=== PATIENT | female | born 1940 | race Caucasian/White ===

== ENCOUNTER → 2016-05-21 | Outpatient (CLI) | payer MEDICARE ==
--- NOTE | 2016-05-21 11:41 | US ---
EXAMINATION TYPE: US pelvic complete DATE OF EXAM: 05/21/2016 11:15 AM COMPARISON: NONE CLINICAL HISTORY: N95.0 Post menopausal bleeding. Bleeding, no pain, hx of LO removal x years ago TECHNIQUE: Transabdominal (TA) Date of LMP: PM EXAM MEASUREMENTS: Uterus: 9.8 x 5.0 x 3.5 cm Endometrial Stripe: 0.4 cm Right Ovary: 2.7 x 1.3 x 1.4 cm Left Ovary: Surgically absent TECHNOLOGIST IMPRESSION: 1. Uterus: Anteverted peripheral calcifications seen 2. Endometrium: fluid, two echogenic lesions: 1- 1.5 x 1.0 x 0.6 cm 2- 0.9 x 1.0 x 0.6 cm 3. Right Ovary: wnl 4. Left Ovary: removed Spectral, color and waveform doppler imaging shows good arterial and venous flow within the ovaries ; there is no evidence for ovarian torsion. 5. Bilateral Adnexa: wnl 6. Posterior cul-de-sac: no free fluid IMPRESSION: Probable endometrial polyps.
== END | disposition home or self-care (01) ==
LOC: RADUSWWP 10:49
PROVIDERS: ATTEND Family Medicine
DX: N95.0 Postmenopausal bleeding (principal)
CPT/HCPCS: 76856

== ENCOUNTER 2016-10-11 16:51 | Emergency (ER) | payer MEDICARE ==
[2016-10-11] MEDS ORDERED: DIPH,PERTUS(ACELL)TETVAC-LF 0.5 ML VIAL IM ONE (17:48)
--- NOTE | 2016-10-11 17:56 | ED ---
Wound/Laceration HPI - General Chief Complaint: Wound/Laceration Stated Complaint: Wound on leg, bleeding. Time Seen by Provider: 10/11/16 17:27 Source: patient, family Mode of arrival: wheelchair Limitations: no limitations - History of Present Illness Initial Comments: 75-year-old female presents with bleeding being to the left lower extremity for the last 5 hours per patient states she was shaving in the shower with a new disposable razor when she neck to her grossman. Patient states she got debris bleeding under control with a pressure bandage for about 2 hours post initial quick. Weight the bleeding continued. Patient states she bled quite a bit. She states she just could not get it to stop bleeding. Patient is on Coumadin for A. fib her last INR was 2 days ago at 1.[address] Zelaya's office. Patient states it was slightly achy from the pressure bandage but really is not in any pain. Patient denies any numbness or tingling. Context: accidental, sharp object use Associated Symptoms: none - Related Data Home Medications Medication Instructions Recorded Confirmed Atenolol 25 mg PO BID 05/11/14 01/29/16 Budesonide/Formoterol Fumarate 2 puff INHALATION RT-BID 05/11/14 01/29/16 [Symbicort 80-4.5 Mcg Inhaler] Losartan/Hydrochlorothiazide 1 tab PO DAILY 05/11/14 01/29/16 [Losartan-Hctz 100-25 mg Tab] Atorvastatin [Lipitor] 40 mg PO HS 05/21/14 01/29/16 Docusate Sodium [Dulcolax Stool 100 mg PO BID 05/25/14 01/29/16 Softener] Albuterol Inhaler [Ventolin Hfa 1 - 2 puff INHALATION RT-Q6H PRN 11/06/15 Inhaler] Furosemide [Lasix] 40 mg PO QAM 11/06/15 01/29/16 Potassium Chloride [Klor-Con] 20 meq PO DAILY 11/06/15 01/29/16 Warfarin Sodium [Warfarin Sodium] 4 mg PO MOFR 01/29/16 01/29/16 Warfarin Sodium [Warfarin Sodium] 6 mg PO SUTUWETHSA 01/29/16 01/29/16 Previous Rx's Medication Instructions Recorded Aspirin 81 mg PO DAILY #60 chew 11/09/15 Clopidogrel [Plavix] 75 mg PO DAILY #90 tab 11/09/15 Nitroglycerin Sl Tabs [Nitrostat] 0.4 mg SUBLINGUAL Q5M PRN #25 tab 11/09/15 Allergies Allergy/AdvReac Type Severity Reaction Status Date / Time amiodarone Allergy Nausea & Verified 10/11/16 17:00 Vomiting, confusion Review of Systems ROS Statement: Those systems with pertinent positive or pertinent negative responses have been documented in the HPI. ROS Other: All systems not noted in ROS Statement are negative. Constitutional: Denies: fever Skin: Reports: other (Small laceration to the varicose veins. Left lower extremity) Past Medical History Past Medical History: Atrial Fibrillation, Chest Pain / Angina, COPD, Hyperlipidemia, Hypertension, Osteoarthritis (OA) Additional Past Medical History / Comment(s): SOB w/exertion History of Any Multi-Drug Resistant Organisms: None Reported Past Surgical History: Cholecystectomy, Coronary Bypass/CABG, Heart Catheterization With Stent Additional Past Surgical History / Comment(s): double bypass, repair of mitral valve Past Anesthesia/Blood Transfusion Reactions: No Reported Reaction Date of Last Stent Placement:: 2013 Past Psychological History: No Psychological Hx Reported Smoking Status: Former smoker Past Alcohol Use History: None Reported Past Drug Use History: None Reported - Past Family History Mother Family Medical History: No Reported History General Exam Limitations: no limitations General appearance: alert, in no apparent distress Head exam: Present: atraumatic, normocephalic, normal inspection Extremities exam: Present: normal inspection, full ROM, normal capillary refill. Absent: tenderness, pedal edema, joint swelling, calf tenderness Neurological exam: Present: alert, oriented X3, CN II-XII intact Psychiatric exam: Present: normal affect, normal mood Skin exam: Present: warm, dry, normal color. Absent: intact (Small laceration to the varicosity on the left lower extremity), rash Course Vital Signs 10/11/16 16:57 Temperature 98.3 F Pulse Rate 77 Respiratory 15 Rate Blood Pressure 162/70 O2 Sat by Pulse 97 Oximetry Procedures - Laceration Laceration #1 Site: lower extremity Description: linear Depth: simple, single layer Anesthetic Used: lidocaine 1% Anesthesia Technique: local infiltration Pre-repair: wound explored, irrigated extensively, deep structures intact Type of Sutures: nylon Size of Sutures: 5-0 Technique: other (figure eight) Patient Tolerated Procedure: well, no complications Medical Decision Making - Medical Decision Making Wound seal was first attempted to quit healing the wound however did not work we clean the wound very well prepped and draped appropriately and then put one degrees suture in it. Patient then was placed on bacitracin and dressing and she tolerated it well no complications bleeding was controlled. Disposition Clinical Impression: Laceration Disposition: HOME SELF-CARE Condition: Good Instructions: Laceration (ED), Care For Your Stitches (ED) Additional Instructions: remove sutures in 3 days Referrals: Renzo Molina DO [Primary Care Provider] - 1-2 days Time of Disposition: 17:55
[2016-10-11 18:10] VITALS: BP 139/89; PULSE 78; RESP 18; TEMP 98
--- NOTE | 2016-10-15 02:56 | CDI ---
Documentation Clarification OP Dear Jan DELGAOD MD, Please do addendum for size of laceration repair. Thank you, alexandria mendenhall. poleyard supervisor. If you have any questions please contact coding Manger at [phone]. mtdD
== END 2016-10-11 18:10 | disposition home or self-care (01) ==
LOC: EC 16:51
DX: S81.812A Laceration without foreign body, left lower leg, initial encounter (principal); J44.9 Chronic obstructive pulmonary disease, unspecified; I10 Essential (primary) hypertension; I48.91 Unspecified atrial fibrillation; E78.5 Hyperlipidemia, unspecified; Z23 Encounter for immunization; Z87.891 Personal history of nicotine dependence; Z88.8 Allergy status to other drugs, medicaments and biological substances; Z79.51 Long term (current) use of inhaled steroids; Z79.01 Long term (current) use of anticoagulants; Z79.899 Other long term (current) drug therapy; W26.9XXA Contact with unspecified sharp object(s), initial encounter; Y93.89 Activity, other specified; Y92.89 Other specified places as the place of occurrence of the external cause
CPT/HCPCS: 12001; 90471; 90715; 99282

== ENCOUNTER → 2016-10-20 | Outpatient (CLI) | payer MEDICARE ==
[2016-10-20 10:14] LABS: Basophils % (A) 1 %; CH 28.7; Eosinophils # (A) 0.1 k/uL (0-0.7); Eosinophils % (A) 2 %; HCT 37.9 % (34.0-46.0); HDW 2.64; HGB 12.4 gm/dL (11.4-16.0); Luc # (Auto) 0.15; Luc % (Auto) 2; Lymphocytes # (A) 2.3 k/uL (1.0-4.8); Lymphocytes % (A) 32 %; MCH 28.5 pg (25.0-35.0); MCHC 32.7 g/dL (31.0-37.0); MCV 87.2 fL (80.0-100.0); Mean Platelet Volume 8.9; Monocytes # (A) 0.4 k/uL (0-1.0); Monocytes % (A) 6 %; Neutrophils # (A) 4.1 k/uL (1.3-7.7); Neutrophils % (A) 58 %; RBC 4.35 m/uL (3.80-5.40); RDW 14.3 % (11.5-15.5); WBC 7.1 k/uL (3.8-10.6); WBC (Perox) 7.44
== END | disposition home or self-care (01) ==
LOC: LABPAT 09:40
PROVIDERS: ATTEND Anesthesiology
DX: Z01.812 Encounter for preprocedural laboratory examination (principal)
CPT/HCPCS: 36415; 85025

== ENCOUNTER 2016-10-22 06:53 | Day surgery (SDC) | payer MEDICARE ==
[2016-10-15 08:56] VITALS: BMI 30.4
--- NOTE | 2016-10-21 19:47 | P.HPOB ---
History of Present Illness H&P Date: 10/21/16 Chief Complaint: Postmenopausal bleeding, possible endometrial polyp This is a 75-year-old female 7 para 7 who presents for dilation and curettage with hysteroscopy secondary to postmenopausal bleeding and possible endometrial polyps. She had some heavy bleeding for 3-4 days approximately a month and a half ago. She was also having some watery discharge and some spotting here and there since that time. Pelvic ultrasound showed a uterus measuring 9.8 x 5 x 3.5 cm with an endometrial stripe of 4 mm. The right ovary appeared normal. The endometrium had fluid and 2 echogenic lesions approximate 1.5 and 1 cm, possible polyps. The patient describes the discharge is malodorous. Obstetrical history: . History of 7 vaginal deliveries. Gynecologic history: Menopause was at age 52. No history of sexually transmitted diseases. Social history: She is . She is retired. Review of Systems Constitutional: Denies chills, Denies fever Ears, nose, mouth and throat: Denies headache, Denies sore throat Cardiovascular: Reports dyspnea on exertion, Reports high blood pressure, Denies chest pain Respiratory: Reports dyspnea, Reports sleep apnea Gastrointestinal: Denies abdominal pain Genitourinary: Reports abnormal vaginal bleeding, Denies pelvic pain Menstruation: Reports postmenopausal Integumentary: Denies pruritus, Denies rash Psychiatric: Denies anxiety, Denies depression Past Medical History Past Medical History: Atrial Fibrillation, Coronary Artery Disease (CAD), Chest Pain / Angina, COPD, Hyperlipidemia, Hypertension, Osteoarthritis (OA), Sleep Apnea/CPAP/BIPAP Additional Past Medical History / Comment(s): SOB w/exertion, does not use CPAP machine. History of Any Multi-Drug Resistant Organisms: None Reported Past Surgical History: Cholecystectomy, Coronary Bypass/CABG, Heart Catheterization With Stent Additional Past Surgical History / Comment(s): double bypass, repair of mitral valve, left ovary removed. Past Anesthesia/Blood Transfusion Reactions: No Reported Reaction Date of Last Stent Placement:: 2013 Past Psychological History: No Psychological Hx Reported Smoking Status: Former smoker Past Alcohol Use History: None Reported Additional Past Alcohol Use History / Comment(s): quit smoking 1997, smoked 1ppd since teens Past Drug Use History: None Reported - Past Family History Mother Additional Family Medical History / Comment(s): Heart disease Daughter(s) Family Medical History: Cancer Additional Family Medical History / Comment(s): Brain tumor, uterine cancer, breast cancer Medications and Allergies Home Medications Medication Instructions Recorded Confirmed Type Atenolol 25 mg PO BID 05/11/14 10/15/16 History Budesonide/Formoterol Fumarate 2 puff INHALATION RT-BID 05/11/14 10/15/16 History [Symbicort 80-4.5 Mcg Inhaler] Losartan/Hydrochlorothiazide 1 tab PO QAM 05/11/14 10/15/16 History [Losartan-Hctz 100-25 mg Tab] Atorvastatin [Lipitor] 40 mg PO HS 05/21/14 10/15/16 History Docusate Sodium [Dulcolax Stool 100 mg PO BID 05/25/14 10/15/16 History Softener] Albuterol Inhaler [Ventolin Hfa 1 - 2 puff INHALATION RT-Q6H PRN 11/06/15 History Inhaler] Furosemide [Lasix] 40 mg PO QAM 11/06/15 10/15/16 History Potassium Chloride [Klor-Con 20 meq PO QAM 11/06/15 10/15/16 History Packets] Warfarin Sodium [Warfarin Sodium] 4 mg PO MO 01/29/16 10/15/16 History Warfarin Sodium [Warfarin Sodium] 6 mg PO SUTUWETHFRSA 01/29/16 10/15/16 History Gabapentin [Neurontin] 300 mg PO HS 10/15/16 10/15/16 History Allergies Allergy/AdvReac Type Severity Reaction Status Date / Time amiodarone Allergy Nausea & Verified 10/15/16 08:40 Vomiting, confusion Exam Osteopathic Statement: *. No significant issues noted on an osteopathic structural exam other than those noted in the History and Physical/Consult. HEENT: Within normal limits Heart: Regular rate and rhythm Lungs: Clear to auscultation bilaterally Abdomen: Soft, nontender Pelvic exam: Uterus is anteverted, no adnexal masses or tenderness noted. No discharge was noted at the time. Extremities: Negative Homans Assessment and Plan (1) Postmenopausal bleeding Status: Acute (2) Endometrial polyp Narrative/Plan: Possible Status: Acute Plan: Proceed with dilation and curettage with hysteroscopy. I have discussed the risks, benefits, and alternative therapies for the above- mentioned procedure and for both sedation/anesthesia as well as necessary blood products administration, if indicated, as they pertain to this patient. The patient has indicated her understanding and acceptance of the risks and procedures discussed.
[~2016-10-22 06:53] MED LIST: HYDROmorphone 1 MG/ML 1 ML SYRINGE IVP PRN; LACTATED RINGERS 1,000 ML IV SCH; MIDAZOLAM 2 MG/2 ML VIAL IV PRN; ONDANSETRON 4 MG/2 ML VIAL IVP ONE; Pre Op ABX Message 1 EACH MISC MISCELLANE ONE
[2016-10-22] MEDS ORDERED: LIDOCAINE 1% 20 ML VIAL (10MG/ML) FOR IV START INTRADERMA ONE (07:44)
[2016-10-22] MEDS ORDERED: LIDOCAINE 1% INJ 10MG/ML (20 ML MDV) ONE (08:06)
[2016-10-22] MEDS ORDERED: MIDAZOLAM 2 MG/2 ML VIAL ONE (08:06)
[2016-10-22] MEDS ORDERED: PROPOFOL 10 MG/ML 20 ML VIAL IV ONE (08:06)
[2016-10-22] MEDS ORDERED: fentaNYL (PF) 50 MCG/ML 2 ML AMP ONE (08:06)
[2016-10-22 08:13] LABS: INR 1.4 (<1.1); Prothrombin Time 13.4 sec (9.0-12.0)
--- NOTE | 2016-10-22 08:30 | P.OP ---
Date of Procedure: 10/22/16 Preoperative Diagnosis: Postmenopausal bleeding, possible endometrial polyps Postoperative Diagnosis: Postmenopausal bleeding Endometrial mass Procedure(s) Performed: Hysteroscopy with dilation and curettage Implants: Anesthesia: other (LMA general) Surgeon: Bernice Cook Estimated Blood Loss (ml): 5 Pathology: other (Endometrial curettings) Condition: stable Disposition: same day Indications for Procedure: This is a 75-year-old female 7 para 7 who presents for dilation and curettage with hysteroscopy secondary to postmenopausal bleeding and possible endometrial polyps. She had some heavy bleeding for 3-4 days approximately a month and a half ago. She was also having some watery discharge and some spotting here and there since that time. Pelvic ultrasound showed a uterus measuring 9.8 x 5 x 3.5 cm with an endometrial stripe of 4 mm. The right ovary appeared normal. The endometrium had fluid and 2 echogenic lesions approximate 1.5 and 1 cm, possible polyps. The patient describes the discharge is malodorous. Operative Findings: Cervical os is stenotic. Uterus is anteverted and sounded to 10 cm. No adnexal masses are palpated on pelvic exam. Upon hysteroscopy, there was noted to be a gelatinous thicker type discharge noted in the intrauterine cavity. There was noted to be a yellow polyp lower like mass noted on the anterior border towards the left side. There is also a similar smaller mass noted on the posterior border. Upon curetting, there was an irregular contour noted along the posterior border. There was a moderate to large amount of endometrial curettings obtained. Description of Procedure: Patient was taken to the operating room where she is placed in the dorsal lithotomy position. She is prepped and draped in the normal sterile fashion. Her bladder is drained with a catheter and then removed. Examination is performed under anesthesia. Uterus is found to be slightly enlarged and anteverted with no adnexal masses palpated. Next a weighted speculum was placed in the patient's vagina and a right angle retractor was used to visualize the cervix. There was noted to be a light brownish discharge noted. Cervical os was noted to be stenotic. The os was slightly opened with a small West dilator until a probe could be placed. Uterus was sounded to 10 cm. Cervix is gently dilated further with West dilators until a hysteroscope could be passed. Hysteroscopy was performed using normal saline. The above-noted findings were made and pictures were taken. Next the hysteroscope was withdrawn and the cervix was dilated further. A polyp forceps was introduced and a whitish cauliflower-like mass was removed from the anterior border in a similar mass was also removed from the posterior border but smaller. Next a medium-size sharp curet was introduced and sharp curettage was performed until a gritty texture was noted. A moderate to large amount of tissue was obtained. Next the single-tooth tenaculum was removed from the anterior lip of the cervix and no bleeding was noted. All instruments are removed from the vagina. All sponge and needle counts are correct and the patient is taken to recovery room.
[2016-10-22 09:25] VITALS: TEMP 96.8
[2016-10-22 09:32] VITALS: RESP 16
[2016-10-22 10:24] VITALS: BP 135/73; PULSE 51
== END 2016-10-22 10:37 | disposition home or self-care (01) ==
LOC: OR 06:53
PROVIDERS: ATTEND Obstetrics & Gynecology
DX: C54.1 Malignant neoplasm of endometrium (principal); N84.0 Polyp of corpus uteri; I25.10 Atherosclerotic heart disease of native coronary artery without angina pectoris; I10 Essential (primary) hypertension; E78.00 Pure hypercholesterolemia, unspecified; E78.5 Hyperlipidemia, unspecified; Z87.891 Personal history of nicotine dependence; J44.9 Chronic obstructive pulmonary disease, unspecified; G47.33 Obstructive sleep apnea (adult) (pediatric); Z99.89 Dependence on other enabling machines and devices; I48.2 Chronic atrial fibrillation; Z79.01 Long term (current) use of anticoagulants; Z95.1 Presence of aortocoronary bypass graft; Z79.51 Long term (current) use of inhaled steroids; Z79.02 Long term (current) use of antithrombotics/antiplatelets; Z79.82 Long term (current) use of aspirin; Z79.899 Other long term (current) drug therapy; Z88.8 Allergy status to other drugs, medicaments and biological substances
CPT/HCPCS: 58558; 88305; 85610; J2250; J2405; J2001; J3010; J2704; 88341; 88342

== ENCOUNTER → 2016-11-21 | Outpatient (CLI) | payer MEDICARE ==
[2016-11-21 12:45] LABS: Basophils % (A) 0 %; CH 27.9; Eosinophils # (A) 0.2 k/uL (0-0.7); Eosinophils % (A) 2 %; HCT 37.3 % (34.0-46.0); HDW 2.76; HGB 11.8 gm/dL (11.4-16.0); Hypochromasia Slight; Luc # (Auto) 0.14; Luc % (Auto) 2; Lymphocytes # (A) 2.4 k/uL (1.0-4.8); Lymphocytes % (A) 29 %; MCH 27.7 pg (25.0-35.0); MCHC 31.7 g/dL (31.0-37.0); MCV 87.4 fL (80.0-100.0); Mean Platelet Volume 10.1; Monocytes # (A) 0.6 k/uL (0-1.0); Monocytes % (A) 7 %; Neutrophils # (A) 4.9 k/uL (1.3-7.7); Neutrophils % (A) 59 %; RBC 4.27 m/uL (3.80-5.40); RDW 14.8 % (11.5-15.5); WBC 8.3 k/uL (3.8-10.6); WBC (Perox) 8.69
[2016-11-21 12:57] LABS: INR 2.7 (<1.2); Prothrombin Time 26.1 sec (9.0-12.0)
[2016-11-21 13:09] LABS: Calcium 9.9 mg/dL (8.4-10.2); Potassium 4.1 mmol/L (3.5-5.1); Total Bilirubin 0.7 mg/dL (0.2-1.3); Total Protein 7.1 g/dL (6.3-8.2)
--- NOTE | 2016-11-21 14:43 | CT ---
EXAMINATION TYPE: CT abdomen pelvis w con DATE OF EXAM: 11/21/2016 HISTORY: Recent diagnosis of uterine cancer. CT DLP: 1369mGycm Automated Exposure Control for Dose Reduction was Utilized. CONTRAST: CT scan of the abdomen and pelvis is performed with IV Contrast, patient injected with 80 mL of Visip aque 320. COMPARISON: Pelvic ultrasound dated 05/21/2016. CT thorax dated 01/26/2013. FINDINGS: LUNG BASES: Innumerable noncalcified pulmonary nodules are seen within the lung bases with the larges t on the left measuring 7 mm on series 4 image 9. Additional round glass nodule seen on series 4 imag e 10 on the right is appreciated. These appear stable in comparison to the prior exam of 02/15/2013 a nd should be considered benign. Single pulmonary cyst is present. LIVER/GB: No significant abnormality is appreciated. Cholecystectomy clips are seen within the right upper quadrant. Gallbladder is surgically absent. PANCREAS: No significant abnormality is seen. SPLEEN: No significant abnormality is seen. ADRENALS: No significant abnormality is seen. KIDNEYS: No significant abnormality is seen. BOWEL: Pancolonic diverticulosis without evidence of diverticulitis. The appendix is visualized, part ially air-filled and within normal limits of size. No dilated bowel or evidence of bowel wall thicken ing. Within the anterior abdominal wall, right para midline anterior to the liver there is a 4.4 cm l oculated area of fat, likely representing fat necrosis from prior trauma. UTERUS/ADNEXA: There is a thickened and heterogenous endometrium measuring up to 2.3 cm as well as a focal area of hyperechogenicity in the right paracentral endometrial cavity measuring 2.6 cm represen ting the known uterine carcinoma. This is located within the mid uterine body with no apparent extent into the cervix. Cervix appears unremarkable. The surrounding parametrial fat planes are well preser david. The ovaries are not well visualized, likely related to ovarian atrophy. The right gonadal vein i s engorged. Bilateral fat filled inguinal hernias are present. No evidence of pelvic sidewall adenopa thy. LYMPH NODES: No greater than 1cm abdominal or pelvic lymph nodes are appreciated. OSSEOUS STRUCTURES: No significant abnormality is seen. OTHER: No significant additional abnormality is seen. IMPRESSION: 1. Endometrial thickening up to 2.3 cm and heterogenous intra-endometrial mass measuring up to 2.6 cm . The parametrial fat plane is clear. No pelvic sidewall, retroperitoneal or intra-abdominal adenopat hy. If there is a clinical need for evaluation of myometrial extent enhanced pelvic MRI could be perf ormed. 2. Numerous pulmonary nodules within the visualized lower lobes, overall stable dating back to 2012. These should be considered benign. 3. Pancolonic diverticulosis without evidence of diverticulitis.
== END | disposition home or self-care (01) ==
LOC: RADCTMAIN 12:13
PROVIDERS: ATTEND Obstetrics & Gynecology
DX: C57.4 Malignant neoplasm of uterine adnexa, unspecified (principal); K57.90 Diverticulosis of intestine, part unspecified, without perforation or abscess without bleeding; R93.8 Abnormal findings on diagnostic imaging of other specified body structures; N85.8 Other specified noninflammatory disorders of uterus
CPT/HCPCS: 80053; 86304; 85025; 85610; 85730; 74177; 36415; Q9967

== ENCOUNTER 2017-05-08 17:23 | Inpatient (IN) | payer MEDICARE, OTHER ==
[2017-05-08] MEDS ORDERED: ACETAMINOPHEN TAB 500 MG TAB PO STA (18:38)
[2017-05-08] MEDS ORDERED: SODIUM CHLORIDE 0.9% 500 ML IV STA (18:38)
--- NOTE | 2017-05-08 18:58 | XR ---
EXAMINATION TYPE: XR chest 2V DATE OF EXAM: 05/08/2017 COMPARISON: 11/19/2016 HISTORY: Cough TECHNIQUE: Frontal and lateral views of the chest are obtained. FINDINGS: There is no heart failure nor confluent pneumonic infiltrate. There are sternal wires. Cos tophrenic angles are clear. Bony thorax is intact. IMPRESSION: No active cardiopulmonary disease. No change.
--- NOTE | 2017-05-08 18:59 | ED ---
General Adult HPI - General Chief complaint: Upper Respiratory Infection Stated complaint: cough, epi Time Seen by Provider: 05/08/17 17:47 Source: patient, family, RN notes reviewed Mode of arrival: ambulatory Limitations: no limitations - History of Present Illness Initial comments: Chief complaint and history of present illness this is a 76-year-old female with complaint of fever and productive cough for 2 days. Her family physician placed her on cefuroxime yesterday. Current temperature is 102.3. - Related Data Home Medications Medication Instructions Recorded Confirmed Budesonide/Formoterol Fumarate 2 puff INHALATION RT-BID 05/11/14 05/08/17 [Symbicort 80-4.5 Mcg Inhaler] Losartan/Hydrochlorothiazide 1 tab PO QAM 05/11/14 05/08/17 [Losartan-Hctz 100-25 mg Tab] Atorvastatin [Lipitor] 40 mg PO HS 05/21/14 05/08/17 Albuterol Inhaler [Ventolin Hfa 1 - 2 puff INHALATION RT-Q6H PRN 11/06/15 Inhaler] Furosemide [Lasix] 40 mg PO QAM 11/06/15 05/08/17 Warfarin Sodium [Warfarin Sodium] 4 mg PO MOFR 01/29/16 05/08/17 Warfarin Sodium [Warfarin Sodium] 6 mg PO SUTUWETHSA 01/29/16 05/08/17 Gabapentin [Neurontin] 300 mg PO HS 10/15/16 05/08/17 Cefuroxime [Ceftin] 250 mg PO BID 05/08/17 05/08/17 Metoprolol Tartrate [Lopressor] 25 mg PO BID 05/08/17 05/08/17 Otc Stool Softener 1 tab PO BID 05/08/17 05/08/17 Potassium Chloride [Klor-Con 20] 20 meq PO DAILY 05/08/17 05/08/17 Previous Rx's Medication Instructions Recorded Clopidogrel [Plavix] 75 mg PO DAILY #90 tab 11/09/15 Allergies Allergy/AdvReac Type Severity Reaction Status Date / Time amiodarone Allergy Nausea & Verified 05/08/17 18:49 Vomiting, confusion Review of Systems ROS Statement: Those systems with pertinent positive or pertinent negative responses have been documented in the HPI. Review of systems. Patient has mild headache no significant visual acuity changes no sore throat no sinus pressures no runny nose. She has a productive sounding harsh cough she has neck discomfort from arthritis. Chest wall pain with coughing. No palpitations. Slight dizziness with movement. No nausea no vomiting no diarrhea. Complains of fatigue and weakness. All systems were reviewed Past medical problems significant for uterine cancer which was removed just 6 months ago. Patient also has a history of A. fib on Coumadin. History of COPD , hyperlipidemia and hypertension, osteoarthritis. Her surgeries include cholecystectomy, CABG bypass with 2 stents afterwards. Hysterectomy for uterine cancer. The patient's family history significant for daughters who have had brain, breast and uterine cancers. The patient has ALLERGIES to amiodarone. She quit smoking 20 years ago denies alcohol use. ROS Other: All systems not noted in ROS Statement are negative. Past Medical History Past Medical History: Atrial Fibrillation, Chest Pain / Angina, COPD, Hyperlipidemia, Hypertension, Osteoarthritis (OA) Additional Past Medical History / Comment(s): SOB w/exertion History of Any Multi-Drug Resistant Organisms: None Reported Past Surgical History: Cholecystectomy, Coronary Bypass/CABG, Heart Catheterization With Stent Additional Past Surgical History / Comment(s): double bypass, repair of mitral valve Past Anesthesia/Blood Transfusion Reactions: No Reported Reaction Date of Last Stent Placement:: 2013 Past Psychological History: No Psychological Hx Reported Smoking Status: Former smoker Past Alcohol Use History: None Reported Past Drug Use History: None Reported - Past Family History Mother Family Medical History: No Reported History Additional Family Medical History / Comment(s): Heart disease Daughter(s) Family Medical History: Cancer Additional Family Medical History / Comment(s): Brain tumor, uterine cancer, breast cancer General Exam - General Exam Comments Initial Comments: General: The patient is awake and alert, presents with a fever and a productive cough. Temp 102.7, pulse 105, respiratory rate 26, pulse ox 93% room air with a blood pressure of any 184/73 Eye: Pupils are equal, round and reactive to light, extra-ocular movements are intact ; there is normal conjunctiva bilaterally. No signs of icterus. Ears, nose, mouth and throat: There are moist mucous membranes and no oral lesions. Neck: Patient has cervical arthritis. No meningeal irritation with neck flexion. Cardiovascular: Tachycardic heart rate, 105. No murmur, rub or gallop is appreciated. Respiratory: Partial breath sounds, rales appreciated in the left base. Decreased air entry in general. Gastrointestinal: Soft, non-distended, non-tender abdomen without masses or organomegaly noted. There is no rebound or guarding present. No CVA tenderness. Bowel sounds are unremarkable. Back: There is no tenderness to palpation in the midline. There is no obvious deformity. No rashes noted. Musculoskeletal: Normal ROM, no tenderness, There is no pedal edema. There is no calf tenderness or swelling. Sensation intact. Pulses equal bilaterally 2+. Neurological: CN II-XII intact, There are no obvious motor or sensory deficits. Coordination appears grossly intact. Speech is normal. No neuro deficits Skin: Skin is warm and dry and no rashes or lesions are noted. Psychiatric: Cooperative, no complaints of depression or anxiety. Limitations: no limitations Course Vital Signs 05/08/17 17:42 Temperature 102.7 F H Pulse Rate 105 H Respiratory 26 H Rate Blood Pressure 184/78 O2 Sat by Pulse 93 L Oximetry EKG Findings - EKG Comments: EKG Findings:: EKG was done and reviewed at 1806 showing A. fib with RVR rate 103. Nonspecific ST-T wave changes. QRS duration 100 QT 58, QTC 468. Dr. Barrios Medical Decision Making - Medical Decision Making Medical decision making; this is a 76-year-old female who is benign box one day for a productive harsh cough. Fever was yesterday and today she presents to temp 102.6. She was given Tylenol. Patient complains anterior chest wall pain with coughing. No stiff neck. Reviewed the x-ray of the chest does appear to be increased markings in the right middle lobe area. Waiting radiologist's final impression. Chest x-ray is done and reviewed by radiologist his impression is there is no heart failure nor confluent pneumonic infiltrate. There are sternal wires. Costophrenic angles are clear. Bony thorax is intact. Impression no acute cardiopulmonary disease. No change. As read by Dr. Gilbert White count 7.1 hemoglobin 10 hematocrit 33 with a potassium 3.2. BUN 33 creatinine 1.1 with a GFR 48. Patient's influenza was positive for flu a. The patient did receive a flu shot this year. She's been on cefuroxime for 2 days. The plant this time the patient will be started on Tamiflu. She'll be admitted to the hospital continued IV fluids for rehydration and Levaquin. Disposition Clinical Impression: Influenza A, Pneumonia, Dehydration, Renal insufficiency, mild Disposition: ADMITTED IP TO THIS HOSP Condition: Serious Referrals: Renzo Molina DO [Primary Care Provider] - 1-2 days
[2017-05-08] MEDS ORDERED: LEVOFLOXACIN 500MG-D5W PMX 500 MG in DEXTROSE/WATER 1 100ML.BAG IVPB STA (19:19)
[2017-05-08 19:24] LABS: Calcium 9.6 mg/dL (8.4-10.2); Potassium 3.2 mmol/L (3.5-5.1)
[2017-05-08 19:28] LABS: Anisocytosis Slight; Basophils # (A) 0.1 k/uL (0-0.2); Basophils % (A) 1 %; Eosinophils % (A) 0 %; HCT 33.2 % (34.0-46.0); HGB 10.5 gm/dL (11.4-16.0); Hypochromasia Slight; Lymphocytes # (A) 1.5 k/uL (1.0-4.8); Lymphocytes % (A) 22 %; MCH 25.9 pg (25.0-35.0); MCHC 31.8 g/dL (31.0-37.0); Mean Platelet Volume 9.3; Microcytosis Slight; Monocytes % (A) 14 %; Neutrophils # (A) 4.2 k/uL (1.3-7.7); Neutrophils % (A) 60 %; Platelet Count 179 k/uL (150-450); RBC 4.07 m/uL (3.80-5.40); RDW 19.6 % (11.5-15.5); WBC 7.1 k/uL (3.8-10.6)
[2017-05-08 19:30] LABS: MCV 81.6 fL (80.0-100.0)
[2017-05-08] MEDS ORDERED: OSELTAMIVIR 75 MG CAP PO STA (19:36)
[2017-05-08] MEDS ORDERED: ACETAMINOPHEN TAB 325 MG TAB PO PRN (20:28)
[2017-05-08] MEDS ORDERED: NALOXONE 0.4 MG/ML 1 ML VIAL IV PRN (20:28)
[2017-05-08] MEDS ORDERED: POTASSIUM CHLORIDE ER 20 MEQ TAB.ER PO STA (20:38)
[2017-05-08] MEDS: SODIUM CHLORIDE 0.9% 1,000 ML IV SCH (21:03)
[2017-05-08 23:00] LABS: Appearance,Urine Clear (Clear); Bilirubin,Urine Negative (Negative); Blood,Urine Negative (Negative); Color,Urine Yellow; Glucose,Urine (UA) Negative (Negative); Ketones,Urine Negative (Negative); Leukocyte Esterase,Urine Negative (Negative); Nitrite,Urine Negative (Negative); Protein,Urine Negative (Negative); Specific Gravity,Urine 1.008 (1.001-1.035); Urobilinogen,Urine <2.0 mg/dL (<2.0)
[2017-05-08] MEDS ORDERED: TEMAZEPAM 15 MG CAP PO PRN (23:19)
[2017-05-08] MEDS ORDERED: IPRATROPIUM-ALBUTEROL 3 ML NEB INHALATION PRN (23:43)
[2017-05-09 03:21] VITALS: BMI 28.4
[2017-05-09] MEDS: IPRATROPIUM-ALBUTEROL 3 ML NEB INHALATION SCH ×4 (07:27→20:09)
[2017-05-09] MEDS: SYMBICORT 80-4.5 MCG INHALER INHALATION SCH ×2 (07:27→20:09)
[2017-05-09 07:36] LABS: INR 2.2 (<1.2); Prothrombin Time 19.8 sec (9.0-12.0)
[2017-05-09 07:37] LABS: Anisocytosis Slight; HCT 30.9 % (34.0-46.0); HGB 9.5 gm/dL (11.4-16.0); Hypochromasia Marked; MCH 24.8 pg (25.0-35.0); MCHC 30.8 g/dL (31.0-37.0); MCV 80.7 fL (80.0-100.0); Microcytosis Slight; Platelet Count 160 k/uL (150-450); RBC 3.83 m/uL (3.80-5.40); RDW 18.7 % (11.5-15.5); WBC 3.4 k/uL (3.8-10.6)
[2017-05-09 07:43] LABS: Anion Gap 9 mmol/L; Blood Urea Nitrogen 26 mg/dL (7-17); Calcium 9.2 mg/dL (8.4-10.2); Carbon Dioxide 30 mmol/L (22-30); Chloride 102 mmol/L (98-107); Glucose 90 mg/dL (74-99); Potassium 3.2 mmol/L (3.5-5.1); Sodium 141 mmol/L (137-145)
[2017-05-09] MEDS ORDERED: IPRATROPIUM 0.5 MG/2.5 ML NEBU INHALATION SCH (08:00)
[2017-05-09] MEDS ORDERED: ALBUTEROL NEBULIZED 2.5 MG/3 ML INHALATION SCH (08:00)
[2017-05-09] MEDS: POTASSIUM CHLORIDE ER 20 MEQ TAB.ER PO SCH (08:45)
[2017-05-09] MEDS: FAMOTIDINE 20 MG TAB PO SCH ×3 (08:45→20:31)
[2017-05-09] MEDS: DOCUSATE 100 MG CAP PO SCH ×2 (08:45→20:27)
[2017-05-09] MEDS: METOPROLOL TARTRATE 25 MG TAB PO SCH ×2 (08:45→20:27)
[2017-05-09] MEDS: CLOPIDOGREL 75 MG TAB PO SCH (08:46)
[2017-05-09] MEDS: LOSARTAN-HCTZ 50-12.5 MG 1 EACH TAB PO SCH (08:46)
[2017-05-09] MEDS: FUROSEMIDE 40 MG TAB PO SCH (08:46)
[2017-05-09] MEDS: ALPRAZolam 0.25 MG TAB PO PRN ×2 (08:49→20:31)
[2017-05-09] MEDS: HYDROcodone/APAP 5-325MG 1 EACH TAB PO PRN (08:49)
[2017-05-09 08:57] LABS: Basophils # (M) 0.07 k/uL (0-0.2); Lymphocytes # (M) 1.29 k/uL (1.0-4.8); Monocytes # (M) 0.58 k/uL (0-1.0); Neutrophils # (M) 1.46 k/uL (1.3-7.7); Neutrophils % (M) 43 %; Nucleated Red Blood Cells 0 /100 WBC (0-0); Ovalocytes Present; Total Cells Counted 100
--- NOTE | 2017-05-09 08:58 | HP ---
HISTORY AND PHYSICAL DATE OF SERVICE: 05/08/2017 CHIEF COMPLAINT: Shortness of breath and cough and fever. HISTORY OF PRESENT ILLNESS: This 76-year-old woman with a past medical history of multiple medical problems including atrial ablation, COPD, hypertension, hyperlipidemia, DJD, CAD, CABG stent being followed by Dr. Molina in the outpatient setting, not feeling well for the past couple of days with cough, fever and as well as purulent sputum. The patient was started on outpatient antibiotics in the form of cefuroxime, but patient running fever up to 102 degrees. Patient came to [facility] and was admitted for further evaluation and treatment. Right middle lobe pneumonia suspected. Influenza A is positive. There is no history of any headache, loss of consciousness, seizures. No hematochezia, melena, palpitations, chest pain at this time. PAST MEDICAL HISTORY: Atrial fibrillation, history of COPD, hypertension, hyperlipidemia, history of DJD, history of cholecystectomy, CAD, CABG, stent. HOME MEDICATIONS ARE: 1. Stool softener 1 tab p.o. b.i.d. 2. Lopressor 25 mg p.o. b.i.d. 3. Neurontin 300 mg q.h.s. 4. Lasix 40 mg q.a.m. 5. Plavix 75 mg p.o. daily. 6. Ceftin 250 mg p.o. b.i.d. 7. Symbicort 80/4.5 two puffs b.i.d. 8. Lipitor 40 mg q.h.s. 9. Ventolin HFA 1-2 puffs q.6h p.r.n. 10.Warfarin 4 mg Thursday and Thursday and 6 mg Thursday, Thursday, and Thursday. 11.Klor-Con 20 mEq p.o. daily. 12.Losartan hydrochlorothiazide 100/25 mg q.a.m. ALLERGIES: AMIODARONE. FAMILY HISTORY: Of heart disease in the family. SOCIAL HISTORY: Previous smoker. No history of current smoking or alcohol intake. REVIEW OF SYSTEMS: ENT: No diminished vision. No diminished hearing. Cardiovascular as mentioned. Respiration as mentioned. GI no nausea or vomiting. : No dysuria. Nervous system: No numbness, weakness. Allergy: No asthma or hayfever. Musculoskeletal as mentioned earlier. HEMATOLOGY/ONCOLOGY: No history of anemia. Endocrine no history of diabetes or hypothyroidism. Constitutional: As mentioned earlier. Dermatology: Negative. Rheumatology: Negative. Psychiatric: As mentioned. EXAMINATION: The patient is alert and oriented times three. Pulse is 105, blood pressure 120/77, respiration 20, temperature 98.4, T-max 102.7, pulse ox 97% on room air. HEENT are conjunctivae normal. Oral mucosa moist. Neck is no jugular venous distention. No carotid bruit. No lymph node enlargement. Cardiovascular is S1-S2, no S3, no S4. Respiratory: Breath sounds diminished in the bases. Bilateral scattered rhonchi and expiratory wheezing also present. ABDOMEN: Soft, nontender. No mass palpable. Legs no edema and no swelling. Nervous system: Higher functions as mentioned earlier, moves all 4 limbs, no focal motor- sensory deficits. Lymphatics no lymph nodes palpable in the neck, axilla or groin. Skin: No ulcer, rash or bleeding. LABS: WBC 7.2, hemoglobin 10.5, sodium 138, potassium 3.2. Other labs noted. Influenza A positive. ASSESSMENT: 1. Chronic obstructive pulmonary disease acute exacerbation with possible right middle lobe pneumonia possibly gram-negative. 2. Influenza A, acute. 3. Increased creatinine with mild acute renal failure. 4. Hypokalemia. 5. Anemia for possible chronic disease. 6. History of atrial fibrillation. 7. History of chronic obstructive pulmonary disease. 8. Hypertension. 9. Hyperlipidemia. 10.Degenerative joint disease. 11.History of CAD, CABG, stent. PLAN/DISCUSSION: In this 76-year-old woman who presented with multiple complex medical issues, we will monitor the patient closely. Continue the current management and continue symptomatic treatment. Bronchodilators. Empiric antibiotics. Tamiflu. Pulmonary consultation. Guarded prognosis because of multiple complex medical issues. A copy of this dictation being forwarded to Dr. Molina who is the primary physician. MMODL / IJN: [id number] /
[2017-05-09] MEDS ORDERED: OSELTAMIVIR 75 MG CAP PO SCH (09:00)
[2017-05-09] MEDS: SODIUM CHLORIDE 0.9% 1,000 ML IV SCH ×2 (11:55→12:35)
--- NOTE | 2017-05-09 13:55 | P.CNPUL ---
History of Present Illness Consult date: 05/09/17 Reason for consult: dyspnea, cough Chief complaint: Influenza History of present illness: Consult dated 05/09/2017 This is a 76-year-old female who apparently presented to the emergency department with complaints of fever and cough. Apparently the patient had a temperature 102.3. Her chest x-ray was normal. She was placed on a cephalosporin the day prior to admission. She apparently tested positive for influenza. The patient is doing well. Her chest x-ray is normal. I'm not sure why the patient was admitted. The patient could likely be discharged home. She is taking medications for breathing. She sees my partner for COPD. She is on Symbicort and albuterol inhaler for that. She has a history of COPD, angina pectoris, atrial fibrillation, hyperlipidemia, hypertension and DJD. She has a previous history of heart catheterization with stent bypass grafting and repair her mitral valve. The patient seemed very stable. Not requiring any supplemental oxygen. She mostly has a dry cough. As I mentioned earlier, her chest x-ray is completely normal. Review of Systems A 12 point review of system is positive for fever cough and mild shortness of breath. She feels much better today than she did yesterday when she was evaluated in the emergency room. Past Medical History Past Medical History: Atrial Fibrillation, Chest Pain / Angina, COPD, Hyperlipidemia, Hypertension, Osteoarthritis (OA) Additional Past Medical History / Comment(s): SOB w/exertion History of Any Multi-Drug Resistant Organisms: None Reported Past Surgical History: Cholecystectomy, Coronary Bypass/CABG, Heart Catheterization With Stent Additional Past Surgical History / Comment(s): double bypass, repair of mitral valve Past Anesthesia/Blood Transfusion Reactions: No Reported Reaction Date of Last Stent Placement:: 2013 Past Psychological History: No Psychological Hx Reported Smoking Status: Former smoker Past Alcohol Use History: None Reported Additional Past Alcohol Use History / Comment(s): quit smoking 1997, smoked 1ppd since teens Past Drug Use History: None Reported - Past Family History Mother Family Medical History: No Reported History Additional Family Medical History / Comment(s): Heart disease Daughter(s) Family Medical History: Cancer Additional Family Medical History / Comment(s): Brain tumor, uterine cancer, breast cancer Medications and Allergies Home Medications Medication Instructions Recorded Confirmed Type Budesonide/Formoterol Fumarate 2 puff INHALATION RT-BID 05/11/14 05/08/17 History [Symbicort 80-4.5 Mcg Inhaler] Losartan/Hydrochlorothiazide 1 tab PO QAM 05/11/14 05/08/17 History [Losartan-Hctz 100-25 mg Tab] Atorvastatin [Lipitor] 40 mg PO HS 05/21/14 05/08/17 History Albuterol Inhaler [Ventolin Hfa 1 - 2 puff INHALATION RT-Q6H PRN 11/06/15 History Inhaler] Furosemide [Lasix] 40 mg PO QAM 11/06/15 05/08/17 History Clopidogrel [Plavix] 75 mg PO DAILY #90 tab 11/09/15 05/08/17 Rx Warfarin Sodium [Warfarin Sodium] 4 mg PO MOFR 01/29/16 05/08/17 History Warfarin Sodium [Warfarin Sodium] 6 mg PO SUTUWETHSA 01/29/16 05/08/17 History Gabapentin [Neurontin] 300 mg PO HS 10/15/16 05/08/17 History Cefuroxime [Ceftin] 250 mg PO BID 05/08/17 05/08/17 History Metoprolol Tartrate [Lopressor] 25 mg PO BID 05/08/17 05/08/17 History Otc Stool Softener 1 tab PO BID 05/08/17 05/08/17 History Potassium Chloride [Klor-Con 20] 20 meq PO DAILY 05/08/17 05/08/17 History Allergies Allergy/AdvReac Type Severity Reaction Status Date / Time amiodarone Allergy Nausea & Verified 05/08/17 18:49 Vomiting, confusion Physical Exam Osteopathic Statement: *. No significant issues noted on an osteopathic structural exam other than those noted in the History and Physical/Consult. Vitals: Vital Signs Temp Pulse Pulse Resp BP BP Pulse Ox 05/09/17 11:07 78 05/09/17 10:56 76 05/09/17 08:00 91 18 05/09/17 07:28 74 05/09/17 07:00 97.2 F L 91 18 101/51 92 L 05/09/17 00:05 16 05/08/17 21:30 100.1 F H 93 16 144/65 93 L 05/08/17 21:11 98.4 F 105 H 20 120/70 97 01/19/18 19:56 100.6 F H 60 20 129/58 96 05/08/17 17:42 102.7 F H 105 H 26 H 184/78 93 L Intake and Output 05/08/17 05/09/17 05/09/17 22:59 06:59 14:59 Other: # Voids 1 Weight 79.832 kg 79.832 kg No acute distress, oriented 3. HEENT examination is grossly unremarkable. Mucous membranes are moist. No oral lesions. Neck supple. Full range of motion. No adenopathy thyromegaly or neck vein distention. Cardiovascular examination reveals regular rhythm rate. S1-S2 normal. No S3 or S4. No discernible murmur noted. Lungs reveal a few scattered rhonchi. Breath sounds are equal. No wheezes. No crackles.. Abdomen soft bowel sounds are heard. No masses or tenderness. Extremities are intact. No cyanosis clubbing or edema. Skin is without rash or lesion. Neurologic examination is brief but nonfocal. Results - Laboratory Findings CBC and BMP: 05/09/17 06:47 05/09/17 06:47 PT/INR, D-dimer PT 19.8 sec (9.0-12.0) H 05/09/17 06:47 INR 2.2 (<1.2) H 05/09/17 06:47 Abnormal lab findings: Abnormal Labs 05/08/17 05/08/17 05/08/17 19:01 19:01 19:01 WBC Hgb 10.5 L Hct 33.2 L MCH MCHC RDW 19.6 H PT INR Potassium 3.2 L BUN 33 H Creatinine 1.10 H Influenza Type A RNA Detected H 05/09/17 05/09/17 05/09/17 06:47 06:47 06:47 WBC 3.4 L Hgb 9.5 L Hct 30.9 L MCH 24.8 L MCHC 30.8 L RDW 18.7 H PT 19.8 H INR 2.2 H Potassium 3.2 L BUN 26 H Creatinine Influenza Type A RNA - Diagnostic Findings Chest x-ray: image reviewed (Labs x-rays a medications are all reviewed.) Assessment and Plan Assessment: Assessment Influenza Mild COPD exacerbation No evidence of pneumonia Atrial fibrillation Angina Hyperlipidemia Hypertension Status post bypass grafting Previous heart catheterization with stent placement DJD Plan: Plan dated 05/09/2017 Labs x-rays and medications are all reviewed. The patient's chest x-ray was normal. I review the medications. The patient's currently on Tamiflu 75 of them twice a day for 5 days. We'll continue to follow. No additional recommendations are made. The patient's very stable from our perspective could be discharged home. No additional recommendations are made. Time with Patient: Greater than 30
[2017-05-09] MEDS ORDERED: SODIUM CHLORIDE 0.9% 1,000 ML with POTASSIUM CHLORIDE 40 MEQ IV SCH ×2 (17:15)
[2017-05-09] MEDS: 0.9% NACL WITH KCL 40 MEQ/L 1,000 ML IV SCH (17:37)
[2017-05-09] MEDS: LEVOFLOXACIN 500 MG TAB PO SCH (17:37)
[2017-05-09] MEDS ORDERED: WARFARIN 3 MG TAB PO SCH (18:00)
--- NOTE | 2017-05-09 18:19 | PN ---
PROGRESS NOTE DATE OF SERVICE: 05/09/2017 This is a 76-year-old woman who was admitted with COPD acute exacerbation as well as right pneumonia and as well as influenza A, is being closely monitored. Dr. Norris is following the patient closely. No chest pain. No palpitations. No fever. Cough is improving significantly. PHYSICAL EXAM: Alert and oriented x2. Pulse is 80, blood pressure 93/82, respirations 18, temp 97.1, pulse ox 98% on room air. HEENT: Conjunctivae normal, oral mucosa moist. NECK: No jugular venous distension. CARDIOVASCULAR SYSTEM: S1, S2, muffled. RESPIRATORY: Breath sounds diminished at the bases, a few scattered rhonchi, no crackles. ABDOMEN: Soft, nontender. No mass palpable. LEGS: No edema, no swelling. NERVOUS SYSTEM: Higher functions as mentioned earlier. Moves all four limbs. No focal deficits LYMPHATICS: No lymph node palpable in neck, axillae or groin. LABS: Potassium 3.2. Influenza A positive. ASSESSMENT: 1. Chronic obstructive pulmonary disease acute exacerbation with possible right middle lobe bronchopneumonia, possibly gram-negative. 2. Influenza A, acute. 3. Increased creatinine with mild acute renal failure. 4. Hypokalemia. 5. Anemia of possible chronic disease. 6. History of atrial fibrillation. 7. History of chronic obstructive pulmonary disease. 8. Hypertension. 9. Hyperlipidemia. 10.Degenerative joint disease. 11.History of coronary artery disease, coronary artery bypass grafting with stent. RECOMMENDATION: Recommend to continue current management and symptomatic treatment. Continue with the bronchodilators. Closely follow with Pulmonary. Otherwise, intensive bronchodilators. Increase ambulation. Continue with Tamiflu. Further recommendations to follow. MMODL / IJN: [id number] /
[2017-05-09] MEDS: GABAPENTIN 300 MG CAP PO SCH ×2 (20:27)
[2017-05-09] MEDS: OSELTAMIVIR 60 MG/10 ML ORAL SYRINGE PO SCH (20:27)
[2017-05-09] MEDS ORDERED: ATORVASTATIN 40 MG TAB PO SCH (21:00)
[2017-05-09] MEDS ORDERED: LEVOFLOXACIN 500MG-D5W PMX 500 MG in DEXTROSE/WATER 1 100ML.BAG IVPB SCH (21:00)
[2017-05-09] MEDS ORDERED: METHYL SALICYLATE/MENTHOL CREAM 5 OZ TOPICAL PRN (21:09)
[2017-05-10] MEDS: 0.9% NACL WITH KCL 40 MEQ/L 1,000 ML IV SCH (04:31)
[2017-05-10] MEDS: SYMBICORT 80-4.5 MCG INHALER INHALATION SCH (06:53)
[2017-05-10] MEDS: IPRATROPIUM-ALBUTEROL 3 ML NEB INHALATION SCH ×2 (06:53→11:17)
[2017-05-10] MEDS: LOSARTAN-HCTZ 50-12.5 MG 1 EACH TAB PO SCH (07:24)
[2017-05-10] MEDS: OSELTAMIVIR 60 MG/10 ML ORAL SYRINGE PO SCH (07:24)
[2017-05-10] MEDS: FAMOTIDINE 20 MG TAB PO SCH (07:24)
[2017-05-10] MEDS: DOCUSATE 100 MG CAP PO SCH (07:25)
[2017-05-10] MEDS: METOPROLOL TARTRATE 25 MG TAB PO SCH (07:25)
[2017-05-10] MEDS: CLOPIDOGREL 75 MG TAB PO SCH (07:25)
[2017-05-10] MEDS: FUROSEMIDE 40 MG TAB PO SCH (07:26)
[2017-05-10] MEDS: POTASSIUM CHLORIDE ER 20 MEQ TAB.ER PO SCH (07:26)
[2017-05-10] MEDS: ALPRAZolam 0.25 MG TAB PO PRN (07:32)
[2017-05-10] MEDS: HYDROcodone/APAP 5-325MG 1 EACH TAB PO PRN (07:33)
[2017-05-10 07:52] VITALS: BP 128/62; RESP 18; TEMP 97.4
[2017-05-10 07:52] LABS: Anisocytosis Slight; Basophils % (A) 0 %; Eosinophils # (A) 0.1 k/uL (0-0.7); Eosinophils % (A) 2 %; HCT 29.1 % (34.0-46.0); Hypochromasia Marked; Lymphocytes # (A) 1.2 k/uL (1.0-4.8); Lymphocytes % (A) 41 %; MCH 25.4 pg (25.0-35.0); MCV 81.9 fL (80.0-100.0); Mean Platelet Volume 9.1; Microcytosis Slight; Monocytes # (A) 0.3 k/uL (0-1.0); Monocytes % (A) 10 %; Neutrophils # (A) 1.3 k/uL (1.3-7.7); Neutrophils % (A) 44 %; Platelet Count 156 k/uL (150-450); RBC 3.55 m/uL (3.80-5.40); RDW 19.3 % (11.5-15.5); WBC 2.9 k/uL (3.8-10.6)
[2017-05-10 11:20] VITALS: PULSE 86
--- NOTE | 2017-05-10 13:36 | P.PN ---
Subjective Progress Note Date: 05/10/17 Principal diagnosis: Dyspnea and cough Progress note dated 05/10/2017 This is a 76-year-old female was minute with a diagnosis of influenza, mild COPD exacerbation, tracheobronchitis, atrial fibrillation, angina, hyperlipidemia, hypertension, status post bypass grafting, previous heart catheterization with stent placement, and degenerative joint disease. The patient's doing well and could be discharged from the hospital. We'll leave that up to the primary service. Her primary issue is that of cough and chest congestion. Both of those symptoms have improved. Vital signs are stable. She 's been pretty much afebrile why she's been here. Some phlegm. Not much. No chest pain or chest discomfort. No nausea vomiting or diarrhea. Objective - Vital Signs Vital signs: Vital Signs Temp 97.4 F L 05/10/17 07:00 Pulse 86 05/10/17 11:29 Resp 18 05/10/17 08:00 BP 128/62 05/10/17 07:00 Pulse Ox 91 L 05/10/17 07:00 Intake & Output 05/09/17 05/10/17 05/10/17 18:59 06:59 18:59 Intake Total 500 840 Balance 500 840 Intake: Intake, IV Titration 500 480 Amount 0.9% NaCl with KCl 40 Meq 480 /l 1,000 ml @ 80 mls/hr IV .[id number] ROSANGELA Rx#: [id number] Sodium Chloride 0.9% 1, 500 000 ml @ 80 mls/hr IV . [id number] ROSANGELA Rx#:[id number] Oral 360 Other: # Voids 1 - Exam No acute distress, oriented 3. HEENT examination is grossly unremarkable. Mucous membranes are moist. No oral lesions. Neck supple. Full range of motion. No adenopathy thyromegaly or neck vein distention. Cardiovascular examination reveals regular rhythm rate. S1-S2 normal. No S3 or S4. No discernible murmur noted. Lungs reveal a few scattered rhonchi. Breath sounds are diminished. Slight expiratory wheezes. Slight prolongation on forced maneuver. No crackles. Abdomen soft bowel sounds are heard. No masses or tenderness. Extremities are intact. No cyanosis clubbing or edema. Skin is without rash or lesion. Neurologic examination is brief but nonfocal. - Labs CBC & Chem 7: 05/10/17 07:01 05/09/17 06:47 Labs: Abnormal Lab Results - Last 24 Hours (Table) 05/10/17 Range/Units 07:01 WBC 2.9 L (3.8-10.6) k/uL RBC 3.55 L (3.80-5.40) m/uL Hgb 9.0 L (11.4-16.0) gm/dL Hct 29.1 L (34.0-46.0) % RDW 19.3 H (11.5-15.5) % Microbiology - Last 24 Hours (Table) 05/08/17 22:40 Urine Culture - Final Urine,Voided 05/08/17 19:01 Blood Culture - Preliminary Blood No Growth after 24 hours Assessment and Plan Assessment: Assessment Influenza Mild COPD exacerbation No evidence of pneumonia Atrial fibrillation Angina Hyperlipidemia Hypertension Status post bypass grafting Previous heart catheterization with stent placement DJD Plan: Plan dated 05/09/2017 Labs x-rays and medications are all reviewed. The patient's chest x-ray was normal. I review the medications. The patient's currently on Tamiflu 75 of them twice a day for 5 days. We'll continue to follow. No additional recommendations are made. The patient's very stable from our perspective could be discharged home. No additional recommendations are made. Plan dated 05/10/2017 The patient is doing well on my opinion. The patient was started on Tamiflu 75 mg twice a day for 5 days. The patient's other medications were reviewed. Labs x-rays are reviewed. The patient could be considered for discharge. We' ll leave that up to the primary service. Her COPD is only mildly active at this time. Time with Patient: Less than 30
[2017-05-10] MEDS: LEVOFLOXACIN 500 MG TAB PO SCH (14:24)
[2017-05-10] MEDS ORDERED: BUDESONIDE 0.5 MG/2 ML NEBU INHALATION SCH (20:00)
[2017-05-10] MEDS ORDERED: SYMBICORT 80-4.5 MCG INHALER INHALATION SCH (20:00)
[2017-05-11] MEDS ORDERED: WARFARIN 2 MG TAB PO SCH (18:00)
--- NOTE | 2017-05-12 10:43 | DS ---
DISCHARGE SUMMARY DATE OF SERVICE: 05/10/2017 FINAL DIAGNOSES: 1. Chronic obstructive pulmonary disease acute exacerbation with possible right middle lobe pneumonia, possibly gram-negative. 2. Influenza A acute. 3. Increased creatinine with mild acute renal failure. 4. Hypokalemia. 5. Anemia of possibly chronic disease. 6. History atrial fibrillation. 7. History chronic obstructive pulmonary disease. 8. Hypertension. 9. Hyperlipidemia. DISCHARGE DISPOSITION: The patient will be discharged in stable condition with guarded prognosis. HISTORY OF PRESENT ILLNESS: This 76-year-old woman with a past medical history of multiple medical problems was admitted with COPD, pneumonia as well as influenza A positive. Patient was treated with bronchodilators, antibiotics and as well as Tamiflu. Improved significantly. On exam, vitals are stable. CARDIOVASCULAR: S1 and S2 muffled. RESPIRATORY: A few scattered rhonchi. ABDOMEN: Soft. NERVOUS SYSTEM: No focal deficits. Dr. Norris cleared the patient for discharge. DISCHARGE ADVICE: 1. Diet is cardiac. 2. Activity limited until followup. 3. Follow up with Dr. Molina and Dr. Norris as recommended. Medications will be as follows: 1. Tylenol 650 q.6 p.r.n. 2. Albuterol 1 to 2 puffs q.6 p.r.n. 3. Lipitor 40 mg q.h.s. 4. Symbicort 2 puffs b.i.d. 5. Plavix 75 mg p.o. daily. 6. Lasix 40 mg q.a.m. 7. Neurontin 300 mg q.h.s. 8. DuoNeb q.i.d. and p.r.n. 9. Levaquin 500 mg daily for 5 days. 10.Losartan hydrochlorothiazide 1 tab p.o. q.a.m. 11.Lopressor 25 mg p.o. b.i.d. 12.Tamiflu 30 mg p.o. b.i.d. 13.K-Dur 20 mEq p.o. daily. 14.Warfarin 6 mg p.o. and 4 mg p.o. on Thursday, Thursday. Once again, the patient will be discharged in stable condition with guarded prognosis. Total time taken 35 minutes. MMODL / IJN: [id number] / [facility]
== END 2017-05-10 14:50 | disposition home or self-care (01) | DRG 178 ==
LOC: EC 17:23 → 5MS5E 20:28
PROVIDERS: ADMIT Hospitalist; ATTEND Hospitalist
DX: J10.08 Influenza due to other identified influenza virus with other specified pneumonia (principal); N17.9 Acute kidney failure, unspecified; J15.6 Pneumonia due to other Gram-negative bacteria; I48.91 Unspecified atrial fibrillation; J44.0 Chronic obstructive pulmonary disease with (acute) lower respiratory infection; E86.0 Dehydration; D63.8 Anemia in other chronic diseases classified elsewhere; E87.6 Hypokalemia; E78.5 Hyperlipidemia, unspecified; I10 Essential (primary) hypertension; J44.1 Chronic obstructive pulmonary disease with (acute) exacerbation; I25.119 Atherosclerotic heart disease of native coronary artery with unspecified angina pectoris; M19.90 Unspecified osteoarthritis, unspecified site; Z79.01 Long term (current) use of anticoagulants; Z79.02 Long term (current) use of antithrombotics/antiplatelets; Z79.899 Other long term (current) drug therapy; Z88.8 Allergy status to other drugs, medicaments and biological substances; Z95.5 Presence of coronary angioplasty implant and graft; Z95.1 Presence of aortocoronary bypass graft; Z90.49 Acquired absence of other specified parts of digestive tract; Z87.891 Personal history of nicotine dependence; Z82.49 Family history of ischemic heart disease and other diseases of the circulatory system
CPT/HCPCS: 36415; 71046; 80048; 81003; 85025; 85610; 87040; 87086; 87502; 93005; 94640; 94760; 96361; 96365; 99284

== ENCOUNTER → 2017-05-12 | Outpatient (CLI) | payer MEDICARE, OTHER ==
--- NOTE | 2017-05-12 13:41 | XR ---
EXAMINATION TYPE: XR chest 2V DATE OF EXAM: 05/12/2017 COMPARISON: 03/25/2017 TECHNIQUE: PA and lateral views submitted. HISTORY: Shortness of breath FINDINGS: The lungs are clear and there is no pneumothorax, pleural effusion, or focal pneumonia. Degenerativ e change of the spine. Cardiomegaly noted. Postsurgical changes seen. No overt failure. Partial event ration of the right hemidiaphragm noted. IMPRESSION: 1. Stable cardiomegaly
== END | disposition home or self-care (01) ==
LOC: RADXRYALE 12:00
PROVIDERS: ATTEND Physician Assistant Medical
DX: I51.7 Cardiomegaly (principal)
CPT/HCPCS: 71046; 80048; 85025; 85610

== ENCOUNTER → 2017-06-12 | Outpatient (CLI) | payer MEDICARE, OTHER ==
--- NOTE | 2017-06-12 14:15 | XR ---
EXAMINATION TYPE: XR chest 2V DATE OF EXAM: 06/12/2017 COMPARISON: 05/27/2017 TECHNIQUE: PA and lateral views submitted. HISTORY: Follow-up pneumonia FINDINGS: Heart is enlarged and there is postoperative change. No pleural effusion or pneumothorax. No overt fa ilure. No focal pneumonia. Hyperinflation suggests COPD. Atherosclerotic change of the aorta. IMPRESSION: 1. Cardiomegaly and findings suggestive of COPD.
== END | disposition home or self-care (01) ==
LOC: RADXRYALE 13:59
PROVIDERS: ATTEND Physician Assistant Medical
DX: I51.7 Cardiomegaly (principal)
CPT/HCPCS: 71046

== ENCOUNTER → 2017-06-25 | Outpatient (CLI) | payer MEDICARE, OTHER ==
--- NOTE | 2017-06-25 12:29 | XR ---
EXAMINATION TYPE: XR chest 2V DATE OF EXAM: 06/25/2017 COMPARISON: 06/12/2017 TECHNIQUE: PA and lateral views submitted. HISTORY: Shortness of breath FINDINGS: The lungs are clear and there is no pneumothorax, pleural effusion, or focal pneumonia. Postsurgica l change and marked cardiomegaly noted. Atherosclerotic change aorta. Biapical pleural thickening. Arthropathy of the shoulders. Eventration right hemidiaphragm stable. Hy pertrophic and degenerative change of the spine. IMPRESSION: 1. No acute process.
== END | disposition home or self-care (01) ==
LOC: RADXRYALE 12:02
PROVIDERS: ATTEND Physician Assistant Medical
DX: R06.02 Shortness of breath (principal)
CPT/HCPCS: 71046

== ENCOUNTER → 2017-06-29 | Outpatient (CLI) | payer MEDICARE, OTHER ==
[2017-06-29 10:12] LABS: Anisocytosis Slight; Basophils # (A) 0.1 k/uL (0-0.2); Basophils % (A) 1 %; Eosinophils # (A) 0.2 k/uL (0-0.7); Eosinophils % (A) 2 %; HCT 34.1 % (34.0-46.0); HGB 10.2 gm/dL (11.4-16.0); Hypochromasia Marked; Lymphocytes # (A) 2.2 k/uL (1.0-4.8); Lymphocytes % (A) 24 %; MCH 24.1 pg (25.0-35.0); MCHC 30.1 g/dL (31.0-37.0); MCV 80.1 fL (80.0-100.0); Mean Platelet Volume 8.4; Microcytosis Slight; Monocytes # (A) 0.7 k/uL (0-1.0); Monocytes % (A) 8 %; Neutrophils # (A) 5.7 k/uL (1.3-7.7); Neutrophils % (A) 63 %; Platelet Count 278 k/uL (150-450); RBC 4.26 m/uL (3.80-5.40); RDW 17.3 % (11.5-15.5); WBC 9.1 k/uL (3.8-10.6)
[2017-06-29 10:58] LABS: Albumin 4.1 g/dL (3.5-5.0); Calcium 10.2 mg/dL (8.4-10.2); Potassium 3.8 mmol/L (3.5-5.1); Total Bilirubin 0.4 mg/dL (0.2-1.3); Total Protein 7.3 g/dL (6.3-8.2)
--- NOTE | 2017-06-29 13:04 | CT ---
EXAMINATION TYPE: CT abdomen pelvis w con DATE OF EXAM: 06/29/2017 COMPARISON: 11/21/[address] chest 02/15/2013 HISTORY: 76-year-old female follow up on endometrial cancer TECHNIQUE: Contiguous axial scanning of the abdomen and pelvis following administration of 100 ml Omn ipaque 300 IV contrast. Delayed images through the kidneys and coronal/sagittal reconstructions perf ormed. CT DLP: 1304.1 mGycm Automated exposure control for dose reduction was used. FINDINGS: Median sternotomy wires are present. Suspect a mitral annuloplasty ring. Heart borderline enlarged without pericardial effusion. Some emphysematous cysts in the lower lobes. Some patchy atelectasis or scarring is also present Scattered 3 to 4 mm pulmonary nodules redemonstrated at the lung bases. No pleural effusion. Small hiatal hernia. There is a right paramedian epigastric abdominal wall hernia containing omental fat measuring 4.3 cm wide. The neck of the hernia is approximately 1.3 cm wide, not significantly changed. No focal liver lesion or biliary ductal dilatation. Portal venous system appears patent. Cholecystectomy clips are present. Adrenal glands, kidneys, spleen, and mildly atrophic pancreas show no gross abnormality. Moderate atherosclerotic calcifications throughout the abdominal aorta and iliac arteries. No dilated small bowel, free fluid, or free air. Mild to moderate stool burden and diffuse colonic diverticulosis. There is focal fat stranding along the proximal sigmoid with mild associated wall thickening, new fro m prior. Patulous bilateral inguinal canals. No mesenteric or retroperitoneal lymphadenopathy. Bladder nondistended. Interval hysterectomy. Neither ovary is visualized likely surgically absent. No abnormal fluid collection in the pelvis or pelvic lymphadenopathy seen. Bones: Mild degenerative changes at the hips. 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 No osseous destructive process. IMPRESSION: 1. INTERVAL HYSTERECTOMY. NO SUSPICIOUS MASS OR LYMPHADENOPATHY TO SUGGEST METASTATIC DISEASE. BIBASI LAR PULMONARY NODULES MEASURING 3 MM AND SMALLER ARE UNCHANGED FROM 2013 COMPATIBLE WITH A BENIGN STEFFI OLOGY. 2. DIFFUSE COLONIC DIVERTICULOSIS. THE EXAM IS POSITIVE FOR MILD ACUTE DIVERTICULITIS ALONG THE PROXI MAL SIGMOID. NO ABSCESS OR FREE AIR. 3. SMALL FAT-CONTAINING EPIGASTRIC VENTRAL ABDOMINAL WALL HERNIA MEASURING 4.3 CM WIDE. A [place] level critical message alert has been initiated for Kilo Hidalgo MD via the [facility] Results System on 06/29/2017 1:02 PM. This message alert has been sent to Kilo herrera MD via the preferences provided by the clinician for the receipt of Radiology Critical Findings. Message ID [id number].
== END | disposition home or self-care (01) ==
LOC: RADCTMAIN 09:37
PROVIDERS: ATTEND Obstetrics & Gynecology
DX: C54.1 Malignant neoplasm of endometrium (principal); K57.10 Diverticulosis of small intestine without perforation or abscess without bleeding; K57.32 Diverticulitis of large intestine without perforation or abscess without bleeding; K43.9 Ventral hernia without obstruction or gangrene; Z90.710 Acquired absence of both cervix and uterus
CPT/HCPCS: 80053; 86304; 85025; 74177; 36415; Q9967

== ENCOUNTER → 2017-07-07 | Outpatient (CLI) | payer MEDICARE, OTHER ==
[2017-07-07 14:41] LABS: Anisocytosis Slight; HCT 31.7 % (34.0-46.0); HGB 9.6 gm/dL (11.4-16.0); Hypochromasia Marked; MCH 23.8 pg (25.0-35.0); MCHC 30.2 g/dL (31.0-37.0); Mean Platelet Volume 8.9; Microcytosis Slight; Platelet Count 302 k/uL (150-450); Poikilocytosis Slight; RBC 4.01 m/uL (3.80-5.40); RDW 16.9 % (11.5-15.5); WBC 9.2 k/uL (3.8-10.6)
[2017-07-07 14:53] LABS: Calcium 10.7 mg/dL (8.4-10.2)
[2017-07-07 15:10] LABS: T4, Free (Free Thyroxine) 1.43 ng/dL (0.78-2.19)
== END | disposition home or self-care (01) ==
LOC: LABWHC1 14:13
PROVIDERS: ATTEND Internal Medicine Interventional Cardiology
DX: D64.9 Anemia, unspecified (principal); I25.10 Atherosclerotic heart disease of native coronary artery without angina pectoris
CPT/HCPCS: 36415; 80048; 84439; 84443; 85027

== ENCOUNTER → 2017-11-05 | Outpatient (CLI) | payer MEDICARE, OTHER ==
--- NOTE | 2017-11-05 08:47 | XR ---
EXAMINATION TYPE: XR chest 2V DATE OF EXAM: 11/05/2017 COMPARISON: Prior chest 06/25/2017 HISTORY: Endometrial carcinoma TECHNIQUE: Frontal and lateral views of the chest are obtained. FINDINGS: The heart remains enlarged, patient is post median sternotomy. There is eventration of the right hemidiaphragm. No evident airspace disease, pneumothorax, or pleural effusion. Pulmonary vascu larity and patrick are stable. Patient shows mitral valve replacement change. There are coronary artery calcifications. Prominent lung lines suggest underlying COPD. The aorta is dense. IMPRESSION: No acute cardiopulmonary process. Stable cardiomegaly.
--- NOTE | 2017-11-05 10:30 | CT ---
EXAMINATION TYPE: CT abdomen pelvis w con DATE OF EXAM: 11/05/2017 COMPARISON: 06/29/2017, 11/21/2016, and old CT chest 02/15/2013 HISTORY: 76 year-old female follow-up, malignant neoplasm of the endometrium. TECHNIQUE: Contiguous axial scanning of the abdomen and pelvis following administration of 100 ml Iso bhupendra 300 IV contrast. Delayed images through the kidneys and coronal/sagittal reconstructions perform ed. CT DLP: 1200.7 mGycm Automated exposure control for dose reduction was used. FINDINGS: Median sternotomy wires are present. Heart borderline to mildly enlarged. No pericardial effusion. Small hiatal hernia. Strandy atelectasis in the lower lungs with at least one emphysematous air cyst. 3 mm basilar left lo wer lobe and inferior lingular pulmonary nodule stable back to 2012 compatible with a benign etiology . No pleural effusion. Redemonstrated fat-containing ventral abdominal wall hernia along the right paramedian epigastrium me asuring 4.5 cm wide and the hernia neck measuring 1.3 cm wide. Diminished attenuation of the liver as compared to the spleen on portal venous phase suggesting fatty infiltration. Portal venous system is patent. No biliary ductal dilatation. Cholecystectomy clips. Right adrenal gland, kidneys, spleen, pancreas appear within normal limits. In retrospect, a tiny 8 m m low density left adrenal nodule, axial image 32 is unchanged and most suggestive of a benign adrena l adenoma. Moderate atherosclerotic calcifications within the abdominal aorta and iliac arteries without aneurys m. No dilated small bowel, free fluid, or free air. Normal appendix. There is mild to moderate stool burden in left hemicolonic diverticulosis. Diverticu losis is most extensive within the sigmoid colon. Previously seen inflammation along the proximal sig moid has resolved. There is some tortuous vascularity in the left para-aortic region. No mesenteric or retroperitoneal l ymphadenopathy. Bilateral patulous internal canals and some ectatic vasculature relating to the left internal iliac v ein. Bladder urine distended. Pelvic phlebolith. Uterus surgically absent. Both ovaries surgically absent. No abnormal fluid collection in the pelvis or pelvic lymphadenopathy seen. Bones: Mild degenerative changes at the pubic symphysis, hips, and SI joints. Additional degenerative changes mid to lower lumbar spine. Baastrup's disease. IMPRESSION: 1. STATUS POST HYSTERECTOMY AND BILATERAL SALPINGO-OOPHORECTOMY. NO EVIDENCE FOR METASTATIC DISEASE. AGAIN, A COUPLE 3 MM PULMONARY NODULES OF THE LEFT BASE ARE STABLE BACK TO 2013 AND BENIGN. 2. LEFT-SIDED COLONIC DIVERTICULOSIS, GREATEST IN THE SIGMOID COLON. THE PREVIOUS INFLAMMATION ALONG THE PROXIMAL SIGMOID HAS RESOLVED. 3. SUSPECT UNDERLYING FATTY INFILTRATION OF THE LIVER. 4. A 4.5 CM OMENTAL FAT-CONTAINING RIGHT PARAMEDIAN EPIGASTRIC ABDOMINAL WALL HERNIA REDEMONSTRATED.
== END | disposition home or self-care (01) ==
LOC: RADCTMAIN 07:45
PROVIDERS: ATTEND Obstetrics & Gynecology
DX: C54.1 Malignant neoplasm of endometrium (principal); R91.8 Other nonspecific abnormal finding of lung field; K57.30 Diverticulosis of large intestine without perforation or abscess without bleeding; K76.0 Fatty (change of) liver, not elsewhere classified; K43.6 Other and unspecified ventral hernia with obstruction, without gangrene; I51.7 Cardiomegaly
CPT/HCPCS: 82565; 84520; 71046; 74177; 36415; Q9967

== ENCOUNTER → 2018-04-26 | Outpatient (CLI) | payer MEDICARE ==
--- NOTE | 2018-04-26 16:05 | XR ---
2 view abdomen HISTORY: Rectal bleeding 2 views the abdomen correlated to CT scan 11/05/2017 Postop changes are present in the chest, patient is post median sternotomy and mitral valve replaceme nt. Surgical clips are present in the right upper quadrant. There are air-fluid levels on the upright exam. Probable phleboliths present within the pelvis. Bone mineralization is reduced. IMPRESSION: There may be an underlying ileus or enteritis, follow-up as indicated.
== END ==
LOC: RADXRYALE 15:31
PROVIDERS: ATTEND Physician Assistant Medical
DX: R10.84 Generalized abdominal pain (principal)
CPT/HCPCS: 74019

== ENCOUNTER → 2018-09-09 | Outpatient (CLI) | payer MEDICARE ==
--- NOTE | 2018-09-14 10:26 | MM ---
Reason for exam: screening (asymptomatic). Last mammogram was performed 5 years and 5 months ago. History: Patient is postmenopausal and has history of other cancer at age 75. Family history of premenopausal breast cancer in daughter at age 45 and breast cancer in aunt at age 60. Took hormonal contraceptives for 5 years beginning at age 30. Physical Findings: A clinical breast exam by your physician is recommended on an annual basis and results should be correlated with mammographic findings. MG 3D Screening Mammo W/Cad Bilateral CC and MLO view(s) were taken. Prior study comparison: April 21, 2013, bilateral digital screening mammo w/CAD. May 17, 2008, bilateral digital screening mammogram. The breast tissue is heterogeneously dense. This may lower the sensitivity of mammography. Finding: There are typically benign vascular calcifications in both breasts. No significant changes in finding since April 21, 2013 and May 17, 2008. ASSESSMENT: Benign, BI-RAD 2 RECOMMENDATION: Routine screening mammogram of both breasts in 1 year.
== END | disposition home or self-care (01) ==
LOC: RADMAMWWP 08:16
PROVIDERS: ATTEND Obstetrics & Gynecology
DX: Z12.31 Encounter for screening mammogram for malignant neoplasm of breast (principal)
CPT/HCPCS: 77063; 77067

== ENCOUNTER 2018-12-15 09:45 | Inpatient (IN) | payer MEDICARE ==
[2018-12-15] MEDS ORDERED: IPRATROPIUM-ALBUTEROL 3 ML NEB INHALATION STA ×2 (10:08→11:35)
[2018-12-15] MEDS ORDERED: methylPREDNISolone SOD SUCCI 125 MG/2 ML VIAL IV STA (10:08)
[2018-12-15 10:34] LABS: Anisocytosis Slight; Basophils % (A) 0 %; Eosinophils # (A) 0.1 k/uL (0-0.7); Eosinophils % (A) 1 %; HCT 37.2 % (34.0-46.0); HGB 11.6 gm/dL (11.4-16.0); Hypochromasia Marked; Lymphocytes % (A) 5 %; MCH 25.2 pg (25.0-35.0); MCHC 31.1 g/dL (31.0-37.0); Mean Platelet Volume 7.9; Monocytes % (A) 5 %; Neutrophils # (A) 20.1 k/uL (1.3-7.7); Neutrophils % (A) 90 %; Platelet Count 268 k/uL (150-450); Poikilocytosis Slight; RBC 4.59 m/uL (3.80-5.40); RDW 16.1 % (11.5-15.5); WBC 22.4 k/uL (3.8-10.6)
--- NOTE | 2018-12-15 10:35 | ED ---
SOB HPI - General Chief Complaint: Shortness of Breath Stated Complaint: Diff Breathing Time Seen by Provider: 12/15/18 09:57 Source: patient, family Mode of arrival: wheelchair Limitations: no limitations - History of Present Illness Initial Comments: 77-year-old female with history of his CABG, atrial fibrillation, COPD presenting today for chief complaint of shortness of breath x 2 days. She states the past 2 days she has had increasing shortness of breath. She states she has history of COPD this feels slightly similar. However patient is having more difficulty when lying flat at night. Patient states she does have Lasix as a prescription at home, however does not have a history of congestive heart failure. Denies home oxygen. She states she has had recent congestion denies fevers. Patient states she has been on prednisone since the of last month, currently 10mg daily. Patient denies chest pain, denies back pain, denies leg swelling, recent surgeries, denies history of DVT/PE, denies hemoptysis, or active cancer. Remaining ROS (-). Upon arrival patient is hypoxic. Speaking complete sentences. - Related Data Home Medications Medication Instructions Recorded Confirmed Budesonide/Formoterol Fumarate 2 puff INHALATION RT-BID 05/11/14 12/15/18 [Symbicort 80-4.5 Mcg Inhaler] Losartan/Hydrochlorothiazide 1 tab PO QAM 05/11/14 12/15/18 [Losartan-Hctz 100-25 mg Tab] Atorvastatin [Lipitor] 40 mg PO HS 05/21/14 12/15/18 Albuterol Inhaler [Ventolin Hfa 1 - 2 puff INHALATION RT-Q6H PRN 11/06/15 12/15/18 Inhaler] Furosemide [Lasix] 40 mg PO QAM 11/06/15 12/15/18 Warfarin Sodium 4 mg PO MOWEFRSA 01/29/16 12/15/18 Warfarin Sodium 6 mg PO SUTUTH 01/29/16 12/15/18 Metoprolol Tartrate [Lopressor] 25 mg PO BID 05/08/17 12/15/18 Potassium Chloride [Klor-Con 20] 20 meq PO DAILY 05/08/17 12/15/18 Azelastine HCl 1 - 2 spr EA NOSTRIL BID 12/15/18 12/15/18 Meclizine [Antivert] 12.5 mg PO TID PRN 12/15/18 12/15/18 predniSONE See Taper PO DAILY 12/15/18 12/15/18 Allergies Allergy/AdvReac Type Severity Reaction Status Date / Time amiodarone Allergy Nausea & Verified 12/15/18 10:20 Vomiting, confusion Review of Systems ROS Statement: Those systems with pertinent positive or pertinent negative responses have been documented in the HPI. ROS Other: All systems not noted in ROS Statement are negative. Past Medical History Past Medical History: Atrial Fibrillation, Chest Pain / Angina, COPD, Hyperlipidemia, Hypertension, Osteoarthritis (OA) Additional Past Medical History / Comment(s): SOB w/exertion History of Any Multi-Drug Resistant Organisms: None Reported Past Surgical History: Cholecystectomy, Coronary Bypass/CABG, Heart Catheterization With Stent Additional Past Surgical History / Comment(s): double bypass, repair of mitral valve Past Anesthesia/Blood Transfusion Reactions: No Reported Reaction Date of Last Stent Placement:: 2013 Past Psychological History: No Psychological Hx Reported Smoking Status: Former smoker Past Alcohol Use History: None Reported Past Drug Use History: None Reported - Past Family History Mother Family Medical History: No Reported History Additional Family Medical History / Comment(s): Heart disease Daughter(s) Family Medical History: Cancer Additional Family Medical History / Comment(s): Brain tumor, uterine cancer, breast cancer General Exam - General Exam Comments Initial Comments: General: The patient is awake and alert, in no distress Eye: +3 mm pupils are equal, round and reactive to light, extra-ocular movements are intact. No nystagmus. There is normal conjunctiva bilaterally. No signs of icterus. Ears, nose, mouth and throat: There are moist mucous membranes and no oral lesions. Cardiovascular: There is a irregular rate and rhythm. No murmur, rub or gallop is appreciated. Respiratory: respirations are slightly-labored, breath sounds are equal. Rales audible. No wheezes or rhonchi appreciated. Gastrointestinal: Soft, non-distended, non-tender abdomen without masses or organomegaly noted. There is no rebound or guarding present. Bowel sounds are unremarkable. Musculoskeletal: Normal ROM, no tenderness. Strength 5/5. Sensation intact. Radial and DP pulses equal bilaterally 2+. Neurological: A&O x 3. CN II-XII intact grossly, There are no obvious motor or sensory deficits. Coordination appears grossly intact. Speech is normal. Skin: Skin is warm and dry and no rashes or lesions are noted. No LE edema. Psychiatric: Cooperative, appropriate mood & affect, normal judgment. Limitations: no limitations Course Vital Signs 12/15/18 12/15/18 12/15/18 09:47 10:20 10:32 Temperature 98.0 F Pulse Rate 67 76 74 Respiratory 20 Rate Blood Pressure 122/56 O2 Sat by Pulse 87 L Oximetry 12/15/18 12/15/18 12/15/18 11:56 12:07 12:09 Temperature 98.5 F Pulse Rate 71 60 77 Respiratory 19 Rate Blood Pressure 137/81 O2 Sat by Pulse 93 L Oximetry Medical Decision Making - Medical Decision Making 77-year-old female presenting for shortness of breath. Currently on steroids. History of COPD, atrial fibrillation EKG revealed atrial fibrillation. Pt denies chest pain. Patient givne 2 duobneb significant improvement. For prior to arrival to emergency department. Patient given Solu-Medrol. BNP elevated no previous to compare. No history of congestive heart failure. however the patient is on lasix at home 40 mg. patient was given iv dose emergency department. CHEST x-ray revealed vascular markings consistent with congestive heart failure as patient has orthopnea i feel this is most likely diagnosis and cause of patient's shortness of breath. initial troponin WNL. Will trend. Patient will be admitted for cardiac evaluation. Discussed case with Dr. Denney who spoke with admitting provider Dr. Rg. I discussed these findings as well as admission which patient who was agreeable to admission and care plan. - Lab Data Result diagrams: 12/15/18 10:18 12/15/18 10:18 Lab Results 12/15/18 12/15/18 12/15/18 Range/Units 10:18 10:18 10:18 WBC 22.4 H (3.8-10.6) k/uL RBC 4.59 (3.80-5.40) m/uL Hgb 11.6 (11.4-16.0) gm/dL Hct 37.2 (34.0-46.0) % MCV 81.0 (80.0-100.0) fL MCH 25.2 (25.0-35.0) pg MCHC 31.1 (31.0-37.0) g/dL RDW 16.1 H (11.5-15.5) % Plt Count 268 (150-450) k/uL Neutrophils % 90 % Lymphocytes % 5 % Monocytes % 5 % Eosinophils % 1 % Basophils % 0 % Neutrophils # 20.1 H (1.3-7.7) k/uL Lymphocytes # 1.0 (1.0-4.8) k/uL Monocytes # 1.0 (0-1.0) k/uL Eosinophils # 0.1 (0-0.7) k/uL Basophils # 0.0 (0-0.2) k/uL Hypochromasia Marked Poikilocytosis Slight Anisocytosis Slight PT (9.0-12.0) sec INR (<1.2) APTT (22.0-30.0) sec Sodium 140 (137-145) mmol/L Potassium 4.3 (3.5-5.1) mmol/L Chloride 101 (98-107) mmol/L Carbon Dioxide 30 (22-30) mmol/L Anion Gap 9 mmol/L BUN 54 H (7-17) mg/dL Creatinine 1.32 H (0.52-1.04) mg/dL Est GFR (CKD-EPI)AfAm 45 (>60 ml/min/1.73 sqM) Est GFR (CKD-EPI)NonAf 39 (>60 ml/min/1.73 sqM) Glucose 142 H (74-99) mg/dL Calcium 10.7 H (8.4-10.2) mg/dL Total Bilirubin 0.6 (0.2-1.3) mg/dL AST 34 (14-36) U/L ALT 32 (9-52) U/L Alkaline Phosphatase 107 (38-126) U/L Troponin I (0.000-0.034) ng/mL NT-Pro-B Natriuret Pep 1160 pg/mL Total Protein 7.8 (6.3-8.2) g/dL Albumin 4.2 (3.5-5.0) g/dL 12/15/18 12/15/18 Range/Units 10:18 10:18 WBC (3.8-10.6) k/uL RBC (3.80-5.40) m/uL Hgb (11.4-16.0) gm/dL Hct (34.0-46.0) % MCV (80.0-100.0) fL MCH (25.0-35.0) pg MCHC (31.0-37.0) g/dL RDW (11.5-15.5) % Plt Count (150-450) k/uL Neutrophils % % Lymphocytes % % Monocytes % % Eosinophils % % Basophils % % Neutrophils # (1.3-7.7) k/uL Lymphocytes # (1.0-4.8) k/uL Monocytes # (0-1.0) k/uL Eosinophils # (0-0.7) k/uL Basophils # (0-0.2) k/uL Hypochromasia Poikilocytosis Anisocytosis PT 20.3 H (9.0-12.0) sec INR 2.1 H (<1.2) APTT 26.9 (22.0-30.0) sec Sodium (137-145) mmol/L Potassium (3.5-5.1) mmol/L Chloride (98-107) mmol/L Carbon Dioxide (22-30) mmol/L Anion Gap mmol/L BUN (7-17) mg/dL Creatinine (0.52-1.04) mg/dL Est GFR (CKD-EPI)AfAm (>60 ml/min/1.73 sqM) Est GFR (CKD-EPI)NonAf (>60 ml/min/1.73 sqM) Glucose (74-99) mg/dL Calcium (8.4-10.2) mg/dL Total Bilirubin (0.2-1.3) mg/dL AST (14-36) U/L ALT (9-52) U/L Alkaline Phosphatase (38-126) U/L Troponin I 0.024 (0.000-0.034) ng/mL NT-Pro-B Natriuret Pep pg/mL Total Protein (6.3-8.2) g/dL Albumin (3.5-5.0) g/dL Disposition Clinical Impression: New onset of congestive heart failure, Hypoxia, Shortness of breath, Elevated brain natriuretic peptide (BNP) level, History of COPD Disposition: ADMITTED IP TO THIS HOSP Condition: Stable Is patient prescribed a controlled substance at d/c from ED?: No Referrals: Renzo Molina DO [Primary Care Provider] - 1-2 days Time of Disposition: 12:10 Decision to Admit Reason: Admit from EC Decision Date: 12/15/18 Decision Time: 12:11
[2018-12-15 10:40] LABS: INR 2.1 (<1.2)
[2018-12-15 10:41] LABS: Partial Thromboplastin Time 26.9 sec (22.0-30.0); Prothrombin Time 20.3 sec (9.0-12.0)
[2018-12-15 10:42] LABS: Albumin 4.2 g/dL (3.5-5.0); Calcium 10.7 mg/dL (8.4-10.2); Potassium 4.3 mmol/L (3.5-5.1); Total Bilirubin 0.6 mg/dL (0.2-1.3); Total Protein 7.8 g/dL (6.3-8.2)
--- NOTE | 2018-12-15 10:53 | XR ---
EXAMINATION TYPE: XR chest 2V DATE OF EXAM: 12/15/2018 COMPARISON: 11/05/2017 HISTORY: 77 year-old female shortness of breath, difficulty breathing TECHNIQUE: AP and lateral views FINDINGS: Median sternotomy wires are present with annuloplasty ring. Diffuse interstitial prominence increased from prior. Eventration anterior right hemidiaphragm. No consolidation or pleural effusion. Heart mo derately enlarged. IMPRESSION: Moderate cardiomegaly and increased interstitial changes. Correlate for CHF with mild pulmonary vascu lar congestion.
[2018-12-15] MEDS ORDERED: FUROSEMIDE 10 MG/ML 4 ML VIAL IV STA (12:03)
[2018-12-15] MEDS ORDERED: WARFARIN 2 MG TAB PO SCH ×2 (14:00→18:00)
--- NOTE | 2018-12-15 14:19 | CONS ---
CONSULTATION Mrs. Jewell is a 77-year-old female who is followed by Dr. Aydin Zelaya on a regular basis, has a known history of chronic obstructive lung disease, followed by Dr. Suarez, history of coronary artery disease, followed by Dr. Zelaya, who presented with symptoms of progressive dyspnea. Her dyspnea has been getting worse over the last few days with cough and quite limited activity. She was seen by Dr. Zelaya and was given a steroid with some improvement but worsened now. She denies any chest pain. She denies any dizziness or palpitation. She has not noted any significant weight gain. She denies any clear PND, orthopnea. No significant peripheral edema. Her coronary risk factors are positive for hypertension and hyperlipidemia. She is nondiabetic. She is nonsmoker at this time. MEDICATIONS: Include Ventolin, Lipitor 40 mg daily, Symbicort, Lasix 40 mg daily, losartan HCT 100- 25 mg daily, metoprolol tartrate 25 mg twice a day, potassium, Coumadin, and she was on prednisone taper. REVIEW OF SYSTEMS: RESPIRATORY SYSTEM: She has significant dyspnea on exertion. Does not use oxygen at home. She has history of chronic obstructive pulmonary disease. She has the cough, no documented fever. GI SYSTEM: No recent GI bleed. No peptic ulcer disease. SYSTEM: No dysuria or hematuria. NERVOUS SYSTEM: No stroke or seizure. PHYSICAL EXAMINATION: A 77-year-old female, alert, oriented, in no apparent distress. Blood pressure 137/80 with a heart rate in the 70s. HEAD: Normocephalic. EYES: Sclerae nonicteric. NECK: Good upstroke, no bruit. LUNGS: With severe decreased air exchange bilaterally with scattered wheezes. HEART: Irregular, regular, S1, S2. No S3 with systolic murmur at the base. No diastolic murmur, no rub. ABDOMEN: Soft, nontender. Positive bowel sounds, no organomegaly. EXTREMITIES: No significant edema. LAB DATA: EKG revealed atrial fibrillation, rate of 69, normal axis, intervals, nonspecific ST-T wave changes. White blood cell of 22.4, hemoglobin of 11.6, INR of 2.1, BUN and creatinine 54 and 1.32. Troponin 0.024. NT proBNP of 1160. Chest x-ray shows mild increased markings. IMPRESSION: 1. Progressive dyspnea, probably with exacerbation of chronic obstructive pulmonary disease. Patient may have some element of fluid overload, but I do not believe that is her primary event. 2. History of coronary artery disease, status post coronary artery bypass grafting and percutaneous revascularization. 3. Chronic persistent atrial fibrillation. 4. Worsening renal function compared with the last admission. 5. Leukocytosis, most likely related to the steroids. 6. History of hypertension. 7. Hyperlipidemia. RECOMMENDATION: I will obtain echocardiogram with Doppler to evaluate her left ventricular systolic function. Will continue rest of medical regimen. I do not believe that she has significant fluid overload and she will be switched to oral diuretics. She will resume her Coumadin, beta-minesh. I will decrease the dose of the losartan and follow her renal function and depending on her progress, further recommendation will be made. Thank you for this consult. Will follow with you. SHIN / RODRI: [id number] /
[2018-12-15] MEDS: IPRATROPIUM-ALBUTEROL 3 ML NEB INHALATION SCH ×2 (15:39→20:19)
[2018-12-15] MEDS: FUROSEMIDE 40 MG TAB PO SCH (16:56)
[2018-12-15] MEDS: methylPREDNISolone SOD SUCCI 125 MG/2 ML VIAL IV SCH (16:57)
--- NOTE | 2018-12-15 17:00 | ECHOF ---
Referral Reason:cad MEASUREMENTS -------- HEIGHT: 167.6 cm WEIGHT: 81.6 kg BP: 137/81 RVIDd: 3.9 cm (< 3.3) IVSd: 1.6 cm (0.6 - 1.1) LVIDd: 4.8 cm (3.9 - 5.3) LVPWd: 1.4 cm (0.6 - 1.1) IVSs: 2.0 cm LVIDs: 3.4 cm LVPWs: 1.9 cm LA Diam: 4.3 cm (2.7 - 3.8) LAESV Index (A-L): 35.75 ml/m Ao Diam: 3.0 cm (2.0 - 3.7) AV Cusp: 2.0 cm (1.5 - 2.6) MV EXCURSION: 10.694 mm (> 18.000) MV EF SLOPE: 61 mm/s (70 - 150) EPSS: 0.6 cm AR PHT: 372 ms RAP: 5.00 mmHg RVSP: 37.31 mmHg FINDINGS -------- Atrial fibrillation. This was a technically difficult study with suboptimal views. The left ventricular size is normal. There is moderate concentric left ventricular hypertrophy. O verall left ventricular systolic function is mildly impaired with, an EF between 45 - 50 %. There i s septal flattening in diastole and systole which is consistent with right ventricular pressure and v olume overload. Basal inferior LV wall motion is hypokinetic. Basal inferoseptal LV wall motion is hypokinetic. The right ventricle is moderately enlarged. LA is moderately dilated 34-39 ml/m2 The right atrium is normal in size. Interatrial and interventricular septum intact. There is mild aortic valve sclerosis. There is mild aortic regurgitation. The mitral valve leaflets are mildly thickened. Mild mitral annular calcification present. Mild m itral regurgitation is present. Mild tricuspid regurgitation present. There is mild pulmonary hypertension. The right ventricular systolic pressure, as measured by Doppler, is 37.31mmHg. Trace/mild (physiologic) pulmonic regurgitation. The aortic root size is normal. Normal inferior vena cava with normal inspiratory collapse consistent with estimated right atrial pre ssure of 5 mmHg. The inferior vena cava is mildly dilated. There is no pericardial effusion. 5.0mg of Lumason was utilized for enhancement of images CONCLUSIONS -------- 1. Atrial fibrillation. 2. This was a technically difficult study with suboptimal views. 3. The left ventricular size is normal. 4. There is moderate concentric left ventricular hypertrophy. 5. Overall left ventricular systolic function is mildly impaired with, an EF between 45 - 50 %. 6. There is septal flattening in diastole and systole which is consistent with right ventricular pres sure and volume overload. 7. Basal inferior LV wall motion is hypokinetic. 8. Basal inferoseptal LV wall motion is hypokinetic. 9. The right ventricle is moderately enlarged. 10. LA is moderately dilated 34-39 ml/m2 11. The right atrium is normal in size. 12. 5.0mg of Lumason was utilized for enhancement of images 13. Interatrial and interventricular septum intact. 14. There is mild aortic valve sclerosis. 15. There is mild aortic regurgitation. 16. The mitral valve leaflets are mildly thickened. 17. Mild mitral annular calcification present. 18. Mild mitral regurgitation is present. 19. Mild tricuspid regurgitation present. 20. There is mild pulmonary hypertension. 21. The right ventricular systolic pressure, as measured by Doppler, is 37.31mmHg. 22. Trace/mild (physiologic) pulmonic regurgitation. 23. The aortic root size is normal. 24. Normal inferior vena cava with normal inspiratory collapse consistent with estimated right atrial pressure of 5 mmHg. 25. The inferior vena cava is mildly dilated. 26. There is no pericardial effusion. MEETING MANAGER: Ailin Boyd RDCS
[2018-12-15] MEDS: METOPROLOL TARTRATE 25 MG TAB PO SCH (20:25)
[2018-12-15] MEDS: ATORVASTATIN 40 MG TAB PO SCH (20:25)
[2018-12-15] MEDS ORDERED: FUROSEMIDE 10 MG/ML 4 ML VIAL IV SCH (21:00)
[2018-12-15 21:07] LABS: Glucose,Whole Blood 242 mg/dL (75-99)
[2018-12-15] MEDS: INSULIN ASPART (NovoLOG) 100 UNIT/ML VIAL SQ SCH (21:43)
[2018-12-16] MEDS: methylPREDNISolone SOD SUCCI 125 MG/2 ML VIAL IV SCH ×2 (00:20→06:30)
[2018-12-16 06:25] LABS: Glucose,Whole Blood 164 mg/dL (75-99)
[2018-12-16] MEDS: INSULIN ASPART (NovoLOG) 100 UNIT/ML VIAL SQ SCH ×4 (06:30→21:21)
[2018-12-16 06:37] LABS: Calcium 10.3 mg/dL (8.4-10.2); Potassium 4.3 mmol/L (3.5-5.1)
[2018-12-16 06:40] LABS: INR 2.9 (<1.2); Prothrombin Time 28.4 sec (9.0-12.0)
[2018-12-16] MEDS: IPRATROPIUM-ALBUTEROL 3 ML NEB INHALATION SCH ×4 (07:44→20:33)
[2018-12-16] MEDS: ASPIRIN 81 MG PO SCH (08:19)
[2018-12-16] MEDS: LOSARTAN 50 MG TAB PO SCH (08:19)
[2018-12-16] MEDS: FUROSEMIDE 40 MG TAB PO SCH ×2 (08:19→17:16)
[2018-12-16] MEDS: METOPROLOL TARTRATE 25 MG TAB PO SCH ×2 (08:19→21:20)
[2018-12-16] MEDS: POTASSIUM CHLORIDE ER 20 MEQ TAB.ER PO SCH (08:19)
[2018-12-16] MEDS ORDERED: ASPIRIN 325 MG TAB PO SCH (09:00)
--- NOTE | 2018-12-16 10:43 | P.HPIM ---
History of Present Illness 77-year-old the pleasant female with known history of CABG atrial fibrillation on Coumadin and COPD doesn't use any oxygen quit smoking years ago came in with compensative shortness of breath denied any significant orthopnea or status of breath has been going on for 2 days with cough unable to bring up anything. Patient the denied any significant proximal nocturnal dyspnea either although she complained about orthopnea to ER physician. Patient has mildly elevated BNP of 1100 patient on clinical exam doesn't have significantly elevated JVD her creatinine went up from 0.9-1.3 which improved actually after Lasix and Lasix improved her symptoms of shortness of breath chest x-ray did show bronchovascular markings consistent with CHF may have had combination of mild CHF and COPD. Patient is not wheezing on exam patient will be switched to oral prednisone. Since patient is on prednisone now cut down the Coumadin dose to 4 mg daily and will recheck the INR tomorrow. We'll continue with losartan for now and will reassess the kidney function tomorrow if kidney function continues to get worse losartan will be discontinued at that time patient was switched to oral Lasix which will be continued. Patient is presently on 2 L of onset and saturating at 90%. Review of Systems REVIEW OF SYSTEMS: CONSTITUTIONAL: No fever, no malaise, no fatigue. HEENT: No recent visual problems or hearing problems. Denied any sore throat. CARDIOVASCULAR: No chest pain, orthopnea, PND, no palpitations, no syncope. PULMONARY: no hemoptysis. GASTROINTESTINAL: No diarrhea, no nausea, no vomiting, no abdominal pain. NEUROLOGICAL: No headaches, no weakness, no numbness. HEMATOLOGICAL: Denies any bleeding or petechiae. GENITOURINARY: Denies any burning micturition, frequency, or urgency. MUSCULOSKELETAL/RHEUMATOLOGICAL: Denies any joint pain, swelling, or any muscle pain. ENDOCRINE: Denies any polyuria or polydipsia. The rest of the 14-point review of systems is negative. Past Medical History Past Medical History: Atrial Fibrillation, Chest Pain / Angina, COPD, Hyperlipidemia, Hypertension, Osteoarthritis (OA) Additional Past Medical History / Comment(s): SOB w/exertion History of Any Multi-Drug Resistant Organisms: None Reported Past Surgical History: Cholecystectomy, Coronary Bypass/CABG, Heart Catheterization With Stent, Hysterectomy Additional Past Surgical History / Comment(s): double bypass, repair of mitral valve Past Anesthesia/Blood Transfusion Reactions: No Reported Reaction Date of Last Stent Placement:: 2013 Past Psychological History: No Psychological Hx Reported Smoking Status: Former smoker Past Alcohol Use History: None Reported Additional Past Alcohol Use History / Comment(s): quit smoking 1997, smoked 1ppd since teens Past Drug Use History: None Reported - Past Family History Mother Family Medical History: No Reported History Additional Family Medical History / Comment(s): Heart disease Daughter(s) Family Medical History: Cancer Additional Family Medical History / Comment(s): Brain tumor, uterine cancer, breast cancer Medications and Allergies Home Medications Medication Instructions Recorded Confirmed Type Budesonide/Formoterol Fumarate 2 puff INHALATION RT-BID 05/11/14 12/15/18 History [Symbicort 80-4.5 Mcg Inhaler] Losartan/Hydrochlorothiazide 1 tab PO QAM 05/11/14 12/15/18 History [Losartan-Hctz 100-25 mg Tab] Atorvastatin [Lipitor] 40 mg PO HS 05/21/14 12/15/18 History Albuterol Inhaler [Ventolin Hfa 1 - 2 puff INHALATION RT-Q6H PRN 11/06/15 12/15/18 History Inhaler] Furosemide [Lasix] 40 mg PO QAM 11/06/15 12/15/18 History Warfarin Sodium 4 mg PO MOWEFRSA 01/29/16 12/15/18 History Warfarin Sodium 6 mg PO SUTUTH 01/29/16 12/15/18 History Metoprolol Tartrate [Lopressor] 25 mg PO BID 05/08/17 12/15/18 History Potassium Chloride [Klor-Con 20] 20 meq PO DAILY 05/08/17 12/15/18 History Azelastine HCl 1 - 2 spr EA NOSTRIL BID 12/15/18 12/15/18 History Meclizine [Antivert] 12.5 mg PO TID PRN 12/15/18 12/15/18 History predniSONE See Taper PO DAILY 12/15/18 12/15/18 History Allergies Allergy/AdvReac Type Severity Reaction Status Date / Time amiodarone Allergy Nausea & Verified 12/15/18 10:20 Vomiting, confusion Physical Exam Vitals: Vital Signs Temp Pulse Pulse Resp BP BP Pulse Ox 12/16/18 08:00 97.5 F L 81 22 128/59 90 L 12/16/18 07:58 78 12/16/18 07:44 76 94 L 12/16/18 04:00 97.5 F L 67 16 139/74 91 L 12/16/18 00:00 97.9 F 72 16 119/65 90 L 12/15/18 20:45 97.4 F L 70 18 150/69 90 L 12/15/18 20:30 87 12/15/18 20:20 85 12/15/18 15:47 84 12/15/18 15:35 98.4 F 77 20 137/73 96 12/15/18 12:56 97.5 F L 95 24 133/75 12/15/18 12:09 98.5 F 77 19 137/81 93 L 12/15/18 12:07 60 12/15/18 11:56 71 Intake and Output 12/15/18 12/16/18 12/16/18 22:59 06:59 14:59 Intake Total 120 Output Total 1200 200 Balance -1080 -200 Intake: Oral 120 Output: Urine 1200 200 Other: Voiding Method Toilet Toilet Toilet # Voids 2 Weight 86.2 kg PHYSICAL EXAMINATION: GENERAL: The patient is alert and oriented x3, not in any acute distress. Well developed, well nourished. HEENT: Pupils are round and equally reacting to light. EOMI. No scleral icterus. No conjunctival pallor. Normocephalic, atraumatic. No pharyngeal erythema. No thyromegaly. CARDIOVASCULAR: S1 and S2 present. No murmurs, rubs, or gallops. PULMONARY: Bilateral crackles and the mildly limited air entry into bilateral lung dawn no wheezing was appreciated. ABDOMEN: Soft, nontender, nondistended, normoactive bowel sounds. No palpable organomegaly. MUSCULOSKELETAL: No joint swelling or deformity. EXTREMITIES: No cyanosis, clubbing, or pedal edema. NEUROLOGICAL: Gross neurological examination did not reveal any focal deficits. SKIN: No rashes. Results CBC & Chem 7: 12/15/18 10:18 12/16/18 06:13 Labs: Abnormal Lab Results - Last 24 Hours (Table) 12/15/18 12/15/18 12/15/18 Range/Units 10:18 10:18 21:05 PT 20.3 H (9.0-12.0) sec INR 2.1 H (<1.2) Chloride (98-107) mmol/L Carbon Dioxide (22-30) mmol/L BUN 54 H (7-17) mg/dL Creatinine 1.32 H (0.52-1.04) mg/dL Glucose 142 H (74-99) mg/dL POC Glucose (mg/dL) 242 H (75-99) mg/dL Calcium 10.7 H (8.4-10.2) mg/dL HDL Cholesterol (40-60) mg/dL 12/16/18 12/16/18 12/16/18 Range/Units 06:09 06:13 06:24 PT 28.4 H (9.0-12.0) sec INR 2.9 H (<1.2) Chloride 97 L (98-107) mmol/L Carbon Dioxide 36 H (22-30) mmol/L BUN 57 H (7-17) mg/dL Creatinine 1.26 H (0.52-1.04) mg/dL Glucose 155 H (74-99) mg/dL POC Glucose (mg/dL) 164 H (75-99) mg/dL Calcium 10.3 H (8.4-10.2) mg/dL HDL Cholesterol 30 L (40-60) mg/dL Thrombosis Risk Factor Assmnt - Choose All That Apply Any of the Below Risk Factors Present?: Yes Each Factor Represents 1 point: Obesity (BMI >25) Other Risk Factors: Yes Each Risk Factor Represents 3 Points: Age 75 years or older Thrombosis Risk Factor Assessment Total Risk Factor Score: 4 Thrombosis Risk Factor Assessment Level: Moderate Risk Assessment and Plan Plan: -Acute hypoxic respiratory failure most was admitted for CHF exacerbation patient may have a competent of COPD exacerbation as well patient will be switched to oral steroids continue with oral Lasix and monitor basic metabolic profile -Congestive heart failure chronic diastolic as well as systolic dysfunction with mild acute exacerbation -COPD with acute exacerbation -Coronary artery disease with CABG in the past -Acute renal failure prerenal azotemia from heart failure exacerbation expected to improve with the Lasix -Atrial fibrillation presently rate controlled on Coumadin which will be continued at a lower dose because of above-mentioned reasons -Hyperlipidemia -Hypertension
[2018-12-16 11:48] VITALS: BMI 30.7
[2018-12-16 11:52] LABS: Glucose,Whole Blood 174 mg/dL (75-99)
[2018-12-16] MEDS: methylPREDNISolone SOD SUCCI 40 MG/ML 1 ML VIAL IV SCH ×3 (11:56→23:27)
--- NOTE | 2018-12-16 13:53 | PN ---
PROGRESS NOTE Mrs. Jewell is a 77-year-old female with a history of chronic obstructive lung disease, history of coronary artery disease, history of chronic persistent atrial fibrillation who presented with symptoms of progressive dyspnea. She feels slightly better today, although she continued to have dyspnea. She denies any symptoms of chest pain. She denies any dizziness or palpitation. She denies any nausea. She continues to have a cough. She continues to be at this time on aspirin once a day, Lipitor 40 mg daily, Lasix 40 mg oral twice a day, losartan 50 mg daily, methylprednisolone, metoprolol tartrate 25 mg twice a day and Coumadin. PHYSICAL EXAMINATION: Blood pressure 128/50 with the heart rate in 90s. LUNGS: Reveal decreased air exchange bilaterally with scattered wheezes. HEART: Irregular, irregular. S1, S2. No S3 with systolic murmur at the base. No diastolic murmur. ABDOMEN: Soft, nontender, obese. EXTREMITIES: With minimal edema. LAB DATA: Lab data revealed BUN and creatinine 57 and 1.26. Her potassium 4.3. INR of 2.9. She underwent an echocardiogram that revealed ejection fraction 45% to 50%. with mild mitral and tricuspid regurgitation and mild pulmonary hypertension. IMPRESSION: 1. Symptoms of progressive dyspnea with probable exacerbation of chronic obstructive pulmonary disease. 2. History of chronic persistent atrial fibrillation. 3. History of chronic obstructive lung disease. 4. History of coronary artery disease and coronary artery bypass grafting. 5. Renal failure. RECOMMENDATION: We will continue present therapy. I do not believe that we are dealing with a lot of fluid overload at this time. I will continue on oral diuretics. Follow her renal function. She will be seen by Dr. Norris for evaluation and depending on her progress, further recommendation will be made. MMODL / IJN: [id number] /
--- NOTE | 2018-12-16 15:23 | CONS ---
CONSULTATION PULMONARY/CRITICAL CARE CONSULTATION: DATE OF SERVICE: 12/16/2018 This is a 77-year-old female who apparently presents to the emergency department with complaints of shortness of breath for 2 days prior to admission. She has extensive cardiac and pulmonary history including previous bypass grafting, atrial fibrillation, and COPD. For the last couple days, she has had increasing and progressive shortness of breath. The patient apparently had a chest x-ray which shows some mild fluid overload. She was also complaining having more difficulty when she was lying flat, i.e. orthopnea. She does not use oxygen at home. Her parts cataloger is Dr. Suarez. She complains of chest congestion without chest pain. There is no fever or chills. No nausea, vomiting or diarrhea. She takes prednisone 10 mg a day on a regular basis. She denies any other complaints at this time. We are asked to see her by Cardiology. She saw Dr. Suarez last about 3 months ago, at which time she was doing relatively well. HOME MEDICATIONS: Include Symbicort, losartan/HCTZ, Lipitor, albuterol inhaler, Lasix, warfarin, metoprolol, potassium, nasal spray, Antivert, and prednisone at 10 mg a day. ALLERGIES: AMIODARONE. MEDICAL HISTORY: Atrial fibrillation, angina, COPD, hyperlipidemia, hypertension, DJD. SURGICAL HISTORY: Includes bypass grafting, cholecystectomy, heart catheterization with stent and mitral valve repair. SOCIAL HISTORY: Positive for previous heavy tobacco use. Does not smoke currently. Denies any alcohol or illicit drug use. FAMILY HISTORY: Positive for mother with CHF and a daughter with brain tumor, uterine cancer and breast cancer. REVIEW OF SYSTEMS: CONSTITUTIONAL: Negative. NEUROLOGIC: Negative. HEENT: Negative. CARDIOVASCULAR: Shortness of breath. PULMONARY: Shortness of breath, orthopnea. GI: Negative. : Negative. RHEUMATOLOGIC: Negative. IMMUNOLOGIC: Negative. ENDOCRINOLOGIC: Negative. DERMATOLOGIC: Negative. Vital signs are reviewed. Temperature 97.5, heart rate 81, respiratory rate 22, blood pressure 128/59, mean 82, 2 L saturation between 90% and 94%. She is mildly tachypneic and dyspneic. Some mild conversational dyspnea. No use of accessory muscles or audible wheezing appreciated. HEENT" Examination is grossly unremarkable. Mucous membranes are moist. Nasal O2 is noted. NECK: Supple. Full range of motion. No adenopathy. Neck veins are flat. CARDIOVASCULAR: Examination reveals irregular rhythm and rate. Heart rate in the high 70s, low 80s. S1, S2 normal. There is a soft systolic murmur. No S3. ABDOMEN: Soft, bowel sounds are heard. EXTREMITIES: Intact. No significant edema. SKIN: Without rash. NEUROLOGIC: Examination is nonfocal. LABS: Reviewed. White count 22.4, hemoglobin 11.6, hematocrit 37.2, platelet count 268,000, PT, INR therapeutic. Sodium, potassium normal chloride 97, CO2 is 36, anion gap 8. BUN and creatinine were 57 and 1.26. N terminal proBNP 1160. His troponin was 0.021. . Chest x-ray shows some very mild fluid overload and eventration of the right hemidiaphragm. There is some fluid in the minor fissure. Minimal cephalization. ASSESSMENT: 1. Shortness of breath, likely multifactorial in part related to underlying chronic obstructive pulmonary disease exacerbation, but also mild fluid overload, congestive heart failure. 2. Previous history of bypass grafting. 3. Chronic atrial fibrillation. 4. History of hypertension. 5. History of hyperlipidemia. 6. Angina pectoris. 7. Degenerative joint disease. 8. Status post bypass grafting and mitral valve repair. PLAN: Please see my orders. Additional recommendations and suggestions are forthcoming. Will make sure she is on appropriate medications for her COPD. This will include some Solu-Medrol, some updrafts and some Symbicort. Will continue to follow. Other medications appear to be correct. MMODL / IJN: [id number] /
[2018-12-16 17:08] LABS: Glucose,Whole Blood 135 mg/dL (75-99)
[2018-12-16] MEDS ORDERED: WARFARIN 3 MG TAB PO SCH (18:00)
[2018-12-16 20:23] LABS: Glucose,Whole Blood 136 mg/dL (75-99)
[2018-12-16] MEDS: BUDESONIDE 1 MG/2 ML NEBU INHALATION SCH (20:33)
[2018-12-16] MEDS: FORMOTEROL FUMARATE 20 MCG/2 ML NEBU INHALATION SCH (20:46)
[2018-12-16 21:18] LABS: Glucose,Whole Blood 240 mg/dL (75-99)
[2018-12-16] MEDS: ATORVASTATIN 40 MG TAB PO SCH (21:21)
[2018-12-17] MEDS: methylPREDNISolone SOD SUCCI 40 MG/ML 1 ML VIAL IV SCH ×2 (05:25→13:06)
[2018-12-17 06:20] LABS: Glucose,Whole Blood 150 mg/dL (75-99)
[2018-12-17] MEDS: INSULIN ASPART (NovoLOG) 100 UNIT/ML VIAL SQ SCH ×2 (06:41→13:07)
[2018-12-17] MEDS: IPRATROPIUM-ALBUTEROL 3 ML NEB INHALATION SCH ×3 (07:58→16:01)
[2018-12-17] MEDS: FORMOTEROL FUMARATE 20 MCG/2 ML NEBU INHALATION SCH (08:06)
[2018-12-17] MEDS: BUDESONIDE 1 MG/2 ML NEBU INHALATION SCH (08:07)
[2018-12-17 08:13] LABS: Calcium 10.6 mg/dL (8.4-10.2); Potassium 3.9 mmol/L (3.5-5.1)
[2018-12-17] MEDS: METOPROLOL TARTRATE 25 MG TAB PO SCH (08:32)
[2018-12-17] MEDS: POTASSIUM CHLORIDE ER 20 MEQ TAB.ER PO SCH (08:32)
[2018-12-17] MEDS: ASPIRIN 81 MG PO SCH (08:33)
[2018-12-17] MEDS: LOSARTAN 50 MG TAB PO SCH (08:33)
[2018-12-17] MEDS: FUROSEMIDE 40 MG TAB PO SCH ×2 (08:33→13:06)
[2018-12-17 08:35] VITALS: RESP 16; TEMP 96.6
[2018-12-17] MEDS ORDERED: predniSONE 20 MG TAB PO SCH (09:00)
[2018-12-17] MEDS ORDERED: OXYBUTYNIN CHLORIDE 5 MG TAB PO SCH (10:00)
[2018-12-17 11:27] LABS: INR 2.6 (<1.2); Prothrombin Time 24.9 sec (9.0-12.0)
[2018-12-17 11:35] LABS: Glucose,Whole Blood 145 mg/dL (75-99)
--- NOTE | 2018-12-17 13:19 | P.DS ---
Providers Date of admission: 12/15/18 12:29 Attending physician: Aym Rg Consults: 12/15/18 12:11 Consult Physician Routine Consulting Provider: Ra Campo Consult Reason/Comments: CHF, hypoxia, Do you want consulting provider notified?: Yes 12/16/18 09:51 Consult Physician Routine Consulting Provider: Jan Norris Consult Reason/Comments: copd Do you want consulting provider notified?: Yes Primary care physician: [facility] Course: 77-year-old the pleasant female with known history of CABG atrial fibrillation on Coumadin and COPD doesn't use any oxygen quit smoking years ago came in with compensative shortness of breath denied any significant orthopnea or status of breath has been going on for 2 days with cough unable to bring up anything. Patient the denied any significant proximal nocturnal dyspnea either although she complained about orthopnea to ER physician. Patient has mildly elevated BNP of 1100 patient on clinical exam doesn't have significantly elevated JVD her creatinine went up from 0.9-1.3 which improved actually after Lasix and Lasix improved her symptoms of shortness of breath chest x-ray did show bronchovascular markings consistent with CHF may have had combination of mild CHF and COPD. Patient is not wheezing on exam patient will be switched to oral prednisone. Since patient is on prednisone now cut down the Coumadin dose to 4 mg daily and will recheck the INR tomorrow. We'll continue with losartan for now and will reassess the kidney function tomorrow if kidney function continues to get worse losartan will be discontinued at that time patient was switched to oral Lasix which will be continued. Patient is presently on 2 L of onset and saturating at 90%. 12/17/2018 Patient wanted to be discharged today as rates her [place] tomorrow if cleared by cardiology and pulmonary patient will be discharged. We'll give additional dose of IV Lasix and will ablate the patient later in the day today and if she saturates well patient will not require any oxygen. Patient doesn't have any wheeze or crackles today PHYSICAL EXAMINATION: GENERAL: The patient is alert and oriented x3, not in any acute distress. Well developed, well nourished. HEENT: Pupils are round and equally reacting to light. EOMI. No scleral icterus. No conjunctival pallor. Normocephalic, atraumatic. No pharyngeal erythema. No thyromegaly. CARDIOVASCULAR: S1 and S2 present. No murmurs, rubs, or gallops. PULMONARY: Bilateral crackles and the mildly limited air entry into bilateral lung dawn no wheezing was appreciated. ABDOMEN: Soft, nontender, nondistended, normoactive bowel sounds. No palpable organomegaly. MUSCULOSKELETAL: No joint swelling or deformity. EXTREMITIES: No cyanosis, clubbing, or pedal edema. NEUROLOGICAL: Gross neurological examination did not reveal any focal deficits. SKIN: No rashes. Assessment and Plan Plan: -Acute hypoxic respiratory failure most was admitted for CHF exacerbation patient may have a competent of COPD exacerbation, patient's discharge as mentioned above -Congestive heart failure chronic diastolic as well as systolic dysfunction with mild acute exacerbation -COPD with acute exacerbation -Coronary artery disease with CABG in the past -Acute renal failure prerenal azotemia from heart failure exacerbation, improved with Lasix -Atrial fibrillation patient will be resumed on her home dose of Coumadin patient's INR is 2.6 today -Hyperlipidemia -Hypertension Patient Condition at Discharge: Stable Plan - Discharge Summary Discharge Rx Participant: Yes New Discharge Prescriptions: New Losartan [Cozaar] 50 mg PO DAILY #30 tab Potassium Chloride ER [K-Dur 20] 20 meq PO BID #60 tab.er.prt predniSONE 10 mg PO DAILY #30 tab Continue Budesonide/Formoterol Fumarate [Symbicort 80-4.5 Mcg Inhaler] 2 puff INHALATION RT-BID Atorvastatin [Lipitor] 40 mg PO HS Albuterol Inhaler [Ventolin Hfa Inhaler] 1 - 2 puff INHALATION RT-Q6H PRN PRN Reason: copd Warfarin Sodium 6 mg PO SUTUTH Warfarin Sodium 4 mg PO MOWEFRSA Metoprolol Tartrate [Lopressor] 25 mg PO BID Meclizine [Antivert] 12.5 mg PO TID PRN PRN Reason: DIZZINESS predniSONE See Taper PO DAILY Azelastine HCl 1 - 2 spr EA NOSTRIL BID Potassium Chloride [Klor-Con 20] 20 meq PO DAILY #60 tab Discontinued Losartan/Hydrochlorothiazide [Losartan-Hctz 100-25 mg Tab] 1 tab PO QAM Furosemide [Lasix] 40 mg PO QAM Discharge Medication List Budesonide/Formoterol Fumarate [Symbicort 80-4.5 Mcg Inhaler] 2 puff INHALATION RT-BID 05/11/14 [History] Atorvastatin [Lipitor] 40 mg PO HS 05/21/14 [History] Albuterol Inhaler [Ventolin Hfa Inhaler] 1 - 2 puff INHALATION RT-Q6H PRN 11/06/15 [History] Warfarin Sodium 4 mg PO MOWEFRSA 01/29/16 [History] Warfarin Sodium 6 mg PO SUTUTH 01/29/16 [History] Metoprolol Tartrate [Lopressor] 25 mg PO BID 05/08/17 [History] Azelastine HCl 1 - 2 spr EA NOSTRIL BID 12/15/18 [History] Meclizine [Antivert] 12.5 mg PO TID PRN 12/15/18 [History] predniSONE See Taper PO DAILY 12/15/18 [History] Losartan [Cozaar] 50 mg PO DAILY #30 tab 12/17/18 [Rx] Potassium Chloride ER [K-Dur 20] 20 meq PO BID #60 tab.er.prt 12/17/18 [Rx] Potassium Chloride [Klor-Con 20] 20 meq PO DAILY #60 tab 12/17/18 [Rx] predniSONE 10 mg PO DAILY #30 tab 12/17/18 [Rx] Follow up Appointment(s)/Referral(s): [facility] [NON-STAFF] - 1-2 Days Renzo Molina DO [Primary Care Provider] - 3 Days Ambulatory/Diagnostic Orders: Basic Metabolic Panel [LAB.AMB] Time Frame: 3 Days, Location: None Selected Patient Instructions/Handouts: COPD (Chronic Obstructive Pulmonary Disease) (DC) Discharge Disposition: HOME WITH HOME HEALTH SERVICES
[2018-12-17 13:27] VITALS: BP 165/73
--- NOTE | 2018-12-17 13:39 | P.PN ---
Subjective Progress Note Date: 12/17/18 This a pleasant 77-year-old female with history of chronic obstructive lung disease, CAD, chronic persistent atrial fibrillation and presented with symptoms of progressive dyspnea. She was started on Solu-Medrol and nebulizer treatments as well as by mouth Lasix. 2-D echo with Doppler which was a difficult study with suboptimal views showed mildly impaired LV systolic function with ejection fraction of 45-50%, mild AR, mild MR, mild TR and mild pulmonary hypertension. NT proBNP was 1160 which is normal for patient's age. On examination, patient is sitting up in a chair. She feels significantly better today compared to yesterday. Her breathing is essentially back to baseline. She has no compl aints of orthopnea or PND and no peripheral edema. Objective - Vital Signs Vital signs: Vital Signs Temp 96.6 F L 12/17/18 08:00 Pulse 82 12/17/18 12:00 Resp 16 12/17/18 12:00 BP 165/73 12/17/18 12:00 Pulse Ox 93 L 12/17/18 08:00 Intake & Output 12/16/18 12/17/18 12/17/18 18:59 06:59 18:59 Intake Total 960 120 720 Output Total 300 Balance 960 -180 720 Weight 86.2 kg 86.7 kg Intake: Oral 960 120 720 Output: Urine 300 Other: Voiding Method Toilet Toilet Toilet # Voids 1 1 - Exam PHYSICAL EXAMINATION: HEENT: Head is atraumatic, normocephalic. Pupils equal, round. Neck is supple. There is no elevated jugular venous pressure. HEART EXAMINATION: Heart sounds irregularly irregular, S1 and S2 with a systolic murmur. CHEST EXAMINATION: Lungs reveal improved air exchange. No chest wall tenderness is noted on palpation or with deep breathing. ABDOMEN: Soft, nontender. Bowel sounds are heard. No organomegaly noted. EXTREMITIES: 2+ peripheral pulses with no evidence of peripheral edema and no calf tenderness noted. NEUROLOGIC patient is awake, alert and oriented x3. - Labs CBC & Chem 7: 12/15/18 10:18 12/17/18 07:30 Labs: Abnormal Lab Results - Last 24 Hours (Table) 12/16/18 12/16/18 12/16/18 Range/Units 17:01 20:22 21:17 PT (9.0-12.0) sec INR (<1.2) Chloride (98-107) mmol/L Carbon Dioxide (22-30) mmol/L BUN (7-17) mg/dL Creatinine (0.52-1.04) mg/dL Glucose (74-99) mg/dL POC Glucose (mg/dL) 135 H 136 H 240 H (75-99) mg/dL Calcium (8.4-10.2) mg/dL 12/17/18 12/17/18 12/17/18 Range/Units 06:19 07:30 10:45 PT 24.9 H (9.0-12.0) sec INR 2.6 H (<1.2) Chloride 97 L (98-107) mmol/L Carbon Dioxide 37 H (22-30) mmol/L BUN 59 H (7-17) mg/dL Creatinine 1.13 H (0.52-1.04) mg/dL Glucose 172 H (74-99) mg/dL POC Glucose (mg/dL) 150 H (75-99) mg/dL Calcium 10.6 H (8.4-10.2) mg/dL 12/17/18 Range/Units 11:33 PT (9.0-12.0) sec INR (<1.2) Chloride (98-107) mmol/L Carbon Dioxide (22-30) mmol/L BUN (7-17) mg/dL Creatinine (0.52-1.04) mg/dL Glucose (74-99) mg/dL POC Glucose (mg/dL) 145 H (75-99) mg/dL Calcium (8.4-10.2) mg/dL Assessment and Plan Assessment: #1 progressive dyspnea, probably with exacerbation of COPD #2 history of CAD, status post coronary artery bypass grafting and percutaneous revascularization #3 chronic persistent atrial fibrillation #4 worsening renal function #5 leukocytosis, most likely related to steroids #6 hypertension #7 hyperlipidemia Plan: From cardiology's perspective, patient's symptoms appear to be mostly related to exacerbation of COPD. From our standpoint, medications were reviewed and will continue the same. She will follow-up with Dr. DECLAN Zelaya in the office. [employer] note has been reviewed, I agree with a documented findings and plan of care. Patient was seen and examined.
--- NOTE | 2018-12-17 14:15 | P.PN ---
Subjective Progress Note Date: 12/17/18 Principal diagnosis: Shortness of breath, multifactorial, in part related to COPD exacerbation, and mild fluid overload On 12/17/2018 patient seen in follow-up on selective care unit, she is awake and alert, in no acute distress, she is fully dressed today, she is up in the recliner, she is eating lunch, she is on 3 L of oxygen with a pulse ox of 93%, hemodynamically stable, no fever or chills. Breathing much easier today, no cough or congestion, her breathing is back to baseline. Objective - Vital Signs Vital signs: Vital Signs Temp 96.6 F L 12/17/18 08:00 Pulse 82 12/17/18 12:00 Resp 16 12/17/18 12:00 BP 165/73 12/17/18 12:00 Pulse Ox 93 L 12/17/18 08:00 Intake & Output 12/16/18 12/17/18 12/17/18 18:59 06:59 18:59 Intake Total 960 120 720 Output Total 300 Balance 960 -180 720 Weight 86.2 kg 86.7 kg Intake: Oral 960 120 720 Output: Urine 300 Other: Voiding Method Toilet Toilet Toilet # Voids 1 1 - Exam GENERAL EXAM: Alert, pleasant, 77-year-old white female, on room air, comfortable in no apparent distress. HEAD: Normocephalic/atraumatic. EYES: Normal reaction of pupils, equal size. Conjunctiva pink, sclera white. NOSE: Clear with pink turbinates. THROAT: No erythema or exudates. NECK: No masses, no JVD, no thyroid enlargement, no adenopathy. CHEST: No chest wall deformity. Symmetrical expansion. LUNGS: Equal air entry with no crackles, wheeze, rhonchi or dullness. CVS: Regular rate and rhythm, normal S1 and S2, no gallops, no murmurs, no rubs ABDOMEN: Soft, nontender. No hepatosplenomegaly, normal bowel sounds, no guarding or rigidity. EXTREMITIES: No clubbing, no edema, no cyanosis, 2+ pulses and upper and lower extremities. MUSCULOSKELETAL: Muscle strength and tone normal. SPINE: No scoliosis or deformity SKIN: No rashes CENTRAL NERVOUS SYSTEM: Alert and oriented -3. No focal deficits, tone is normal in all 4 extremities. PSYCHIATRIC: Alert and oriented -3. Appropriate affect. Intact judgment and insight. - Labs CBC & Chem 7: 12/15/18 10:18 12/17/18 07:30 Labs: Abnormal Lab Results - Last 24 Hours (Table) 12/16/18 12/16/18 12/16/18 Range/Units 17:01 20:22 21:17 PT (9.0-12.0) sec INR (<1.2) Chloride (98-107) mmol/L Carbon Dioxide (22-30) mmol/L BUN (7-17) mg/dL Creatinine (0.52-1.04) mg/dL Glucose (74-99) mg/dL POC Glucose (mg/dL) 135 H 136 H 240 H (75-99) mg/dL Calcium (8.4-10.2) mg/dL 12/17/18 12/17/18 12/17/18 Range/Units 06:19 07:30 10:45 PT 24.9 H (9.0-12.0) sec INR 2.6 H (<1.2) Chloride 97 L (98-107) mmol/L Carbon Dioxide 37 H (22-30) mmol/L BUN 59 H (7-17) mg/dL Creatinine 1.13 H (0.52-1.04) mg/dL Glucose 172 H (74-99) mg/dL POC Glucose (mg/dL) 150 H (75-99) mg/dL Calcium 10.6 H (8.4-10.2) mg/dL 12/17/18 Range/Units 11:33 PT (9.0-12.0) sec INR (<1.2) Chloride (98-107) mmol/L Carbon Dioxide (22-30) mmol/L BUN (7-17) mg/dL Creatinine (0.52-1.04) mg/dL Glucose (74-99) mg/dL POC Glucose (mg/dL) 145 H (75-99) mg/dL Calcium (8.4-10.2) mg/dL Assessment and Plan Plan: Assessment: #1. Dyspnea multifactorial, related to mild exacerbation of COPD, and mild fluid overload, congestive heart failure #2. CAD with previous history of bypass grafting #3. Chronic atrial fibrillation #4. History of hypertension #5. History of hyperlipidemia #6. Angina pectoris #7. Degenerative joint disease #8. History of bypass grafting and mitral valve repair Plan: Patient is stable for discharge from pulmonary perspective, breathing much easier today, he is back to baseline, no acute events overnight, no cough or congestion, no wheezing, vital signs are stable. Patient can complete a prednisone taper, continue Symbicort, Ventolin inhaler I performed a history & physical examination of the patient and discussed their management with my nurse practitioner, Eve Michel. I reviewed the nurse practitioner's note and agree with the documented findings and plan of care. Lung sounds are positive for clear breath sounds. The findings and the impression was discussed with the patient. I attest to the documentation by the nurse practitioner. Time with Patient: Less than 30
[2018-12-17 16:05] VITALS: PULSE 80
[2018-12-17] MEDS ORDERED: WARFARIN 2 MG TAB PO SCH (18:00)
[2018-12-18] MEDS ORDERED: FUROSEMIDE 10 MG/ML 4 ML VIAL IV SCH (09:00)
== END 2018-12-17 16:51 | disposition home health service (06) | DRG 291 ==
LOC: EC 09:45 → 3SCARD 12:29
PROVIDERS: ADMIT Internal Medicine; ATTEND Internal Medicine
DX: I11.0 Hypertensive heart disease with heart failure (principal); J96.01 Acute respiratory failure with hypoxia; N17.9 Acute kidney failure, unspecified; J44.1 Chronic obstructive pulmonary disease with (acute) exacerbation; I50.33 Acute on chronic diastolic (congestive) heart failure; E78.5 Hyperlipidemia, unspecified; I27.20 Pulmonary hypertension, unspecified; T38.0X5A Adverse effect of glucocorticoids and synthetic analogues, initial encounter; M19.90 Unspecified osteoarthritis, unspecified site; I48.2 Chronic atrial fibrillation; I25.119 Atherosclerotic heart disease of native coronary artery with unspecified angina pectoris; Z79.01 Long term (current) use of anticoagulants; Z79.51 Long term (current) use of inhaled steroids; Z80.49 Family history of malignant neoplasm of other genital organs; Z79.899 Other long term (current) drug therapy; Z80.3 Family history of malignant neoplasm of breast; Z82.49 Family history of ischemic heart disease and other diseases of the circulatory system; Z87.891 Personal history of nicotine dependence; Z90.710 Acquired absence of both cervix and uterus; Z95.1 Presence of aortocoronary bypass graft; Z88.8 Allergy status to other drugs, medicaments and biological substances; Z90.49 Acquired absence of other specified parts of digestive tract
CPT/HCPCS: 36415; 71046; 80048; 80053; 80061; 83880; 84484; 85025; 85610; 85730; 93005; 93306; 94640; 94760; 96374; 96375; 99285

== ENCOUNTER → 2019-01-18 | Outpatient (CLI) | payer MEDICARE ==
--- NOTE | 2019-01-18 10:53 | XR ---
EXAMINATION TYPE: XR chest 2V DATE OF EXAM: 01/18/2019 COMPARISON: 01/05/2019 TECHNIQUE: PA and lateral views submitted. HISTORY: Shortness of breath FINDINGS: The lungs are clear and there is no pneumothorax, pleural effusion, or focal pneumonia. Heart is en larged and there is postsurgical changes. Atherosclerotic change aorta. Biapical pleural thickening. Degenerative change spine. Surgical clips in the abdomen. IMPRESSION: 1. No acute process.
== END | disposition home or self-care (01) ==
LOC: RADXRYALE 10:17
PROVIDERS: ATTEND Physician Assistant Medical
DX: R06.02 Shortness of breath (principal)
CPT/HCPCS: 71046

== ENCOUNTER 2019-02-08 15:36 | Inpatient (IN) | payer MEDICARE ==
[2019-02-08] MEDS ORDERED: DILTIAZEM DRIP BOLUS FROM BAG 1 MG SOLN IV ONE (16:35)
[2019-02-08] MEDS ORDERED: methylPREDNISolone SOD SUCCI 125 MG/2 ML VIAL IV STA (16:35)
[2019-02-08] MEDS ORDERED: IPRATROPIUM-ALBUTEROL 3 ML NEB INHALATION STA (16:35)
[2019-02-08 16:50] LABS: Anisocytosis Slight; Basophils # (A) 0.1 k/uL (0-0.2); Basophils % (A) 1 %; Eosinophils # (A) 0.1 k/uL (0-0.7); Eosinophils % (A) 1 %; HCT 36.9 % (34.0-46.0); HGB 11.1 gm/dL (11.4-16.0); Hypochromasia Slight; Lymphocytes # (A) 2.1 k/uL (1.0-4.8); Lymphocytes % (A) 22 %; MCH 24.8 pg (25.0-35.0); MCHC 30.1 g/dL (31.0-37.0); MCV 82.5 fL (80.0-100.0); Mean Platelet Volume 8.1; Microcytosis Slight; Monocytes # (A) 0.6 k/uL (0-1.0); Monocytes % (A) 6 %; Neutrophils # (A) 6.4 k/uL (1.3-7.7); Neutrophils % (A) 67 %; Platelet Count 195 k/uL (150-450); RBC 4.47 m/uL (3.80-5.40); RDW 19.4 % (11.5-15.5); WBC 9.6 k/uL (3.8-10.6)
[2019-02-08 17:05] LABS: INR 2.8 (<1.2); Partial Thromboplastin Time 29.8 sec (22.0-30.0); Prothrombin Time 26.9 sec (9.0-12.0)
--- NOTE | 2019-02-08 17:06 | ED ---
SOB HPI - General Chief Complaint: Shortness of Breath Stated Complaint: LJ, HEART RACING, HALLUCINATIONS Time Seen by Provider: 02/08/19 16:11 Source: patient, RN notes reviewed, old records reviewed Mode of arrival: wheelchair Limitations: physical limitation - History of Present Illness Initial Comments: This is a 70-year-old female the ER for evaluation history of heart disease and lung disease coming in with shortness of breath increasing shortness of breath. Patient was sent in by primary care for further evaluation management regards to shortness of breath. Hospital admission was about a month to 2 months ago. Patient unsure of exact dates. She has been not doing well at home. She is on all appropriate follow-up with no significant improvement in symptoms. She denies any significant pain no travel history ninth fevers at home. Patient's been very fatigued unable to sleep secondary to positional shortness of breath MD Complaint: shortness of breath -: month(s) Severity: moderate Severity scale (1-10): 5 Consistency: constant Improves With: oxygen, rest, upright position Worsens With: exertion, movement Known History Of: COPD, congestive heart failure Associated Symptoms: orthopnea, palpitations Treatments Prior to Arrival: none - Related Data Home Medications Medication Instructions Recorded Confirmed Budesonide/Formoterol Fumarate 2 puff INHALATION RT-BID 05/11/14 02/08/19 [Symbicort 80-4.5 Mcg Inhaler] Albuterol Inhaler [Ventolin Hfa 1 - 2 puff INHALATION RT-Q6H PRN 11/06/15 02/08/19 Inhaler] Warfarin Sodium 4 mg PO FR@209901/29/16 02/08/19 Warfarin Sodium 6 mg PO SUMOTUWETHSA@2100 01/29/16 02/08/19 Metoprolol Tartrate [Lopressor] 25 mg PO BID 05/08/17 02/08/19 Azelastine HCl 1 - 2 spr EA NOSTRIL BID 12/15/18 02/08/19 Acetaminophen/Diphenhydramine 2 tab PO HS PRN 02/08/19 02/08/19 [Tylenol PM 500-25mg] Albuterol Nebulized [Ventolin 2.5 mg INHALATION RT-QID 02/08/19 02/08/19 Nebulized] Furosemide [Lasix] 40 mg PO BID@0800,1430 02/08/19 02/08/19 Multivitamins, Thera [Multivitamin 1 tab PO DAILY 02/08/19 02/08/19 (formulary)] [place]-3 Fatty Acids/Fish Oil [Fish 1 cap PO DAILY 02/08/19 02/08/19 Oil 1,000 mg Softgel] Sennosides [Senna] 8.6 mg PO HS PRN 02/08/19 02/08/19 Simvastatin [Zocor] 40 mg PO HS 02/08/19 02/08/19 Previous Rx's Medication Instructions Recorded Losartan [Cozaar] 50 mg PO DAILY #30 tab 12/17/18 Potassium Chloride [Klor-Con 20] 20 meq PO DAILY #60 tab 12/17/18 Allergies Allergy/AdvReac Type Severity Reaction Status Date / Time amiodarone AdvReac Nausea & Verified 02/08/19 16:47 Vomiting, confusion Review of Systems ROS Statement: Those systems with pertinent positive or pertinent negative responses have been documented in the HPI. ROS Other: All systems not noted in ROS Statement are negative. Past Medical History Past Medical History: Atrial Fibrillation, Chest Pain / Angina, COPD, Hyperlipidemia, Hypertension, Osteoarthritis (OA) Additional Past Medical History / Comment(s): SOB w/exertion History of Any Multi-Drug Resistant Organisms: None Reported Past Surgical History: Cholecystectomy, Coronary Bypass/CABG, Heart Catheterization With Stent, Hysterectomy Additional Past Surgical History / Comment(s): double bypass, repair of mitral valve Past Anesthesia/Blood Transfusion Reactions: No Reported Reaction Date of Last Stent Placement:: 2013 Past Psychological History: No Psychological Hx Reported Smoking Status: Former smoker Past Alcohol Use History: None Reported Past Drug Use History: None Reported - Past Family History Mother Family Medical History: No Reported History Additional Family Medical History / Comment(s): Heart disease Daughter(s) Family Medical History: Cancer Additional Family Medical History / Comment(s): Brain tumor, uterine cancer, breast cancer General Exam Limitations: physical limitation General appearance: alert, in no apparent distress Head exam: Present: atraumatic, normocephalic, normal inspection Eye exam: Present: normal appearance, PERRL, EOMI. Absent: scleral icterus, conjunctival injection, periorbital swelling ENT exam: Present: normal exam, mucous membranes moist Neck exam: Present: normal inspection. Absent: tenderness, meningismus, lymphadenopathy Respiratory exam: Present: respiratory distress, wheezes, accessory muscle use, decreased breath sounds, prolonged expiratory. Absent: rales, rhonchi, stridor Cardiovascular Exam: Present: tachycardia, irregular rhythm, normal heart sounds. Absent: systolic murmur, diastolic murmur, rubs, gallop, clicks GI/Abdominal exam: Present: soft, normal bowel sounds. Absent: distended, tenderness, guarding, rebound, rigid Extremities exam: Present: normal inspection, full ROM, normal capillary refill. Absent: tenderness, pedal edema, joint swelling, calf tenderness Back exam: Present: normal inspection Neurological exam: Present: alert, oriented X3, CN II-XII intact Psychiatric exam: Present: normal affect, normal mood Skin exam: Present: warm, dry, intact, normal color. Absent: rash Course Vital Signs 02/08/19 02/08/19 02/08/19 15:48 16:27 16:29 Temperature 98.4 F Pulse Rate 104 H 99 Respiratory 17 22 22 Rate Blood Pressure 159/100 171/95 O2 Sat by Pulse 89 L 95 Oximetry 02/08/19 02/08/19 02/08/19 17:18 17:28 17:39 Temperature Pulse Rate 112 H 109 H 108 H Respiratory 20 Rate Blood Pressure 176/102 O2 Sat by Pulse 100 Oximetry 02/08/19 17:51 Temperature Pulse Rate 93 Respiratory 20 Rate Blood Pressure 181/98 O2 Sat by Pulse 94 L Oximetry - Reevaluation(s) Reevaluation #1: 02/08/19 18:19 Medical records reviewed Reevaluation #2: 02/08/19 18:19 Patient without any significant pain currently but does feel significantly weak - Consultations Consultation #1: Spoke with Dr. James who is okay for admission Medical Decision Making - Medical Decision Making 70 female the ER for evaluation severe weakness CHF COPD, elevated troponin will admit for cardiology as well as pulmonology evaluation breathing treatments - Lab Data Result diagrams: 02/08/19 16:24 02/08/19 16:24 Lab Results 02/08/19 02/08/19 02/08/19 Range/Units 16:24 16:24 16:24 WBC 9.6 (3.8-10.6) k/uL RBC 4.47 (3.80-5.40) m/uL Hgb 11.1 L (11.4-16.0) gm/dL Hct 36.9 (34.0-46.0) % MCV 82.5 (80.0-100.0) fL MCH 24.8 L (25.0-35.0) pg MCHC 30.1 L (31.0-37.0) g/dL RDW 19.4 H (11.5-15.5) % Plt Count 195 (150-450) k/uL Neutrophils % 67 % Lymphocytes % 22 % Monocytes % 6 % Eosinophils % 1 % Basophils % 1 % Neutrophils # 6.4 (1.3-7.7) k/uL Lymphocytes # 2.1 (1.0-4.8) k/uL Monocytes # 0.6 (0-1.0) k/uL Eosinophils # 0.1 (0-0.7) k/uL Basophils # 0.1 (0-0.2) k/uL Hypochromasia Slight Anisocytosis Slight Microcytosis Slight PT (9.0-12.0) sec INR (<1.2) APTT (22.0-30.0) sec Sodium 142 (137-145) mmol/L Potassium 4.0 (3.5-5.1) mmol/L Chloride 103 (98-107) mmol/L Carbon Dioxide 30 (22-30) mmol/L Anion Gap 9 mmol/L BUN 32 H (7-17) mg/dL Creatinine 0.98 (0.52-1.04) mg/dL Est GFR (CKD-EPI)AfAm 64 (>60 ml/min/1.73 sqM) Est GFR (CKD-EPI)NonAf 55 (>60 ml/min/1.73 sqM) Glucose 106 H (74-99) mg/dL Calcium 10.7 H (8.4-10.2) mg/dL Magnesium 2.0 (1.6-2.3) mg/dL Total Bilirubin 0.8 (0.2-1.3) mg/dL AST 51 H (14-36) U/L ALT 38 (9-52) U/L Alkaline Phosphatase 146 H (38-126) U/L Creatine Kinase 108 (30-135) U/L Troponin I (0.000-0.034) ng/mL NT-Pro-B Natriuret Pep 786 pg/mL Total Protein 7.6 (6.3-8.2) g/dL Albumin 3.9 (3.5-5.0) g/dL 02/08/19 02/08/19 Range/Units 16:24 16:24 WBC (3.8-10.6) k/uL RBC (3.80-5.40) m/uL Hgb (11.4-16.0) gm/dL Hct (34.0-46.0) % MCV (80.0-100.0) fL MCH (25.0-35.0) pg MCHC (31.0-37.0) g/dL RDW (11.5-15.5) % Plt Count (150-450) k/uL Neutrophils % % Lymphocytes % % Monocytes % % Eosinophils % % Basophils % % Neutrophils # (1.3-7.7) k/uL Lymphocytes # (1.0-4.8) k/uL Monocytes # (0-1.0) k/uL Eosinophils # (0-0.7) k/uL Basophils # (0-0.2) k/uL Hypochromasia Anisocytosis Microcytosis PT 26.9 H (9.0-12.0) sec INR 2.8 H (<1.2) APTT 29.8 (22.0-30.0) sec Sodium (137-145) mmol/L Potassium (3.5-5.1) mmol/L Chloride (98-107) mmol/L Carbon Dioxide (22-30) mmol/L Anion Gap mmol/L BUN (7-17) mg/dL Creatinine (0.52-1.04) mg/dL Est GFR (CKD-EPI)AfAm (>60 ml/min/1.73 sqM) Est GFR (CKD-EPI)NonAf (>60 ml/min/1.73 sqM) Glucose (74-99) mg/dL Calcium (8.4-10.2) mg/dL Magnesium (1.6-2.3) mg/dL Total Bilirubin (0.2-1.3) mg/dL AST (14-36) U/L ALT (9-52) U/L Alkaline Phosphatase (38-126) U/L Creatine Kinase (30-135) U/L Troponin I 0.036 H* (0.000-0.034) ng/mL NT-Pro-B Natriuret Pep pg/mL Total Protein (6.3-8.2) g/dL Albumin (3.5-5.0) g/dL - EKG Data -: EKG Interpreted by Me (EKG shows A. fib with RVR rate of 105, QRS 90, QTc 428) Critical Care Time Critical Care Time: Yes Total Critical Care Time: 31 Disposition Clinical Impression: New onset of congestive heart failure, COPD (chronic obstructive pulmonary disease), Hypoxia, Elevated troponin Disposition: ADMITTED IP TO THIS HOSP Condition: Fair Is patient prescribed a controlled substance at d/c from ED?: No Referrals: Renzo Molina DO [Primary Care Provider] - 1-2 days
[2019-02-08 17:08] LABS: Albumin 3.9 g/dL (3.5-5.0); Calcium 10.7 mg/dL (8.4-10.2); Total Bilirubin 0.8 mg/dL (0.2-1.3); Total Protein 7.6 g/dL (6.3-8.2)
[2019-02-08] MEDS ORDERED: DILTIAZEM 5 MG/ML 5 ML VIAL IV ONE (17:15)
--- NOTE | 2019-02-08 17:28 | XR ---
EXAMINATION TYPE: XR chest 2V DATE OF EXAM: 02/08/2019 COMPARISON: 01/18/2019 HISTORY: Short of breath TECHNIQUE: Frontal and lateral views of the chest are obtained. FINDINGS: Heart is enlarged. Lungs are clear of consolidation. There is no heart failure. There are sternal wires. There are chest leads. IMPRESSION: Cardiomegaly. No active cardiopulmonary disease. No change compared to old exam.
[2019-02-08] MEDS ORDERED: NITROGLYCERIN SL TABS 0.4 MG TAB SUBLINGUAL PRN (18:16)
[2019-02-08] MEDS ORDERED: METOPROLOL TARTRATE 25 MG TAB PO STA (19:07)
[2019-02-09 04:05] LABS: Cholesterol 132 mg/dL (<200); HDL Cholesterol 24 mg/dL (40-60); LDL Cholesterol,Calculated 94 mg/dL (0-99); Triglycerides 69 mg/dL (<150)
[2019-02-09] MEDS ORDERED: SENNOSIDES 8.6 MG TAB PO PRN (08:38)
[2019-02-09] MEDS ORDERED: METOPROLOL TARTRATE 25 MG TAB PO SCH (09:00)
[2019-02-09] MEDS ORDERED: NON FORMULARY DRUG (Omega-3 Fatty Acids/Fish Oil [Fish Oil 1,000 Mg Softgel] 1 CAP) PO SCH (09:00)
--- NOTE | 2019-02-09 10:01 | ECHOF ---
Referral Reason:elevTrop MEASUREMENTS -------- HEIGHT: 167.6 cm WEIGHT: 86.2 kg BP: 157/84 RVIDd: 4.0 cm (< 3.3) IVSd: 1.6 cm (0.6 - 1.1) LVIDd: 4.4 cm (3.9 - 5.3) LVPWd: 1.6 cm (0.6 - 1.1) IVSs: 2.2 cm LVIDs: 3.4 cm LVPWs: 2.0 cm LA Diam: 4.5 cm (2.7 - 3.8) Ao Diam: 3.0 cm (2.0 - 3.7) AV Cusp: 2.2 cm (1.5 - 2.6) MV EXCURSION: 12.538 mm (> 18.000) MV EF SLOPE: 39 mm/s (70 - 150) EPSS: 1.0 cm AR PHT: 583 ms RAP: 15.00 mmHg RVSP: 48.75 mmHg FINDINGS -------- Atrial fibrillation. This was a technically adequate study. The left ventricular size is normal. There is mild concentric left ventricular hypertrophy. Overa ll left ventricular systolic function is moderate-severely impaired with, an EF between 30 - 35 %. There is paradoxical/dysynergic septal motion consistent with right ventricular volume overload and/o r elevated right ventricular end-diastolic pressure. The right ventricle is moderately enlarged. The left atrium is moderately dilated. The right atrium is normal in size. Interatrial and interventricular septum intact. There is mild aortic valve sclerosis. There is mild aortic regurgitation. The mitral valve leaflets are mildly thickened. Mild mitral annular calcification present. Modera te mitral regurgitation is present. The peak and mean MV gradients are 10.35mmHg 2.80mmHg as measu red by doppler. Mild mitral stenosis. Moderate to severe tricuspid regurgitation present. There is moderate pulmonary hypertension. The right ventricular systolic pressure, as measured by Doppler, is 48.75mmHg. Trace/mild (physiologic) pulmonic regurgitation. The aortic root size is normal. The inferior vena cava is dilated with no significant inspiratory collapse which is consistent estima david right atrial pressure of >15 mmHg. There is no pericardial effusion. CONCLUSIONS -------- 1. Atrial fibrillation. 2. This was a technically adequate study. 3. The left ventricular size is normal. 4. There is mild concentric left ventricular hypertrophy. 5. There is paradoxical/dysynergic septal motion consistent with right ventricular volume overload an d/or elevated right ventricular end-diastolic pressure. 6. The right ventricle is moderately enlarged. 7. The left atrium is moderately dilated. 8. The right atrium is normal in size. 9. Interatrial and interventricular septum intact. 10. There is mild aortic valve sclerosis. 11. There is mild aortic regurgitation. 12. The mitral valve leaflets are mildly thickened. 13. Mild mitral annular calcification present. 14. Moderate mitral regurgitation is present. 15. The peak and mean MV gradients are 10.35mmHg 2.80mmHg as measured by doppler. 16. Mild mitral stenosis. 17. Moderate to severe tricuspid regurgitation present. 18. There is moderate pulmonary hypertension. 19. The right ventricular systolic pressure, as measured by Doppler, is 48.75mmHg. 20. Trace/mild (physiologic) pulmonic regurgitation. 21. The aortic root size is normal. 22. The inferior vena cava is dilated with no significant inspiratory collapse which is consistent es timated right atrial pressure of >15 mmHg. 23. There is no pericardial effusion. [employer]: Ailin Boyd RDCS
[2019-02-09] MEDS: FUROSEMIDE 10 MG/ML 4 ML VIAL IV SCH ×2 (10:42→20:05)
[2019-02-09] MEDS: METOPROLOL TARTRATE 50 MG TAB PO SCH ×2 (10:43→20:05)
[2019-02-09] MEDS: LOSARTAN 50 MG TAB PO SCH (10:44)
[2019-02-09] MEDS: POTASSIUM CHLORIDE ER 20 MEQ TAB.ER PO SCH (10:44)
[2019-02-09] MEDS: MULTIVITAMINS, THERA 1 EACH TAB PO SCH (10:44)
[2019-02-09] MEDS: ASPIRIN 325 MG TAB PO SCH (10:44)
[2019-02-09 11:40] LABS: Anisocytosis Slight; Basophils % (A) 0 %; Eosinophils % (A) 0 %; HCT 37.1 % (34.0-46.0); HGB 11.2 gm/dL (11.4-16.0); Hypochromasia Marked; Lymphocytes # (A) 0.7 k/uL (1.0-4.8); Lymphocytes % (A) 11 %; MCH 25.8 pg (25.0-35.0); MCHC 30.2 g/dL (31.0-37.0); MCV 85.5 fL (80.0-100.0); Mean Platelet Volume 8.8; Monocytes # (A) 0.1 k/uL (0-1.0); Monocytes % (A) 1 %; Neutrophils # (A) 5.2 k/uL (1.3-7.7); Neutrophils % (A) 87 %; Platelet Count 188 k/uL (150-450); RBC 4.34 m/uL (3.80-5.40); RDW 18.5 % (11.5-15.5); WBC 6.1 k/uL (3.8-10.6)
[2019-02-09 11:52] LABS: Calcium 10.4 mg/dL (8.4-10.2); Potassium 4.5 mmol/L (3.5-5.1)
[2019-02-09] MEDS ORDERED: ALBUTEROL NEBULIZED 2.5 MG/3 ML INHALATION SCH (12:00)
[2019-02-09 14:10] LABS: Appearance,Urine Clear (Clear); Bacteria,Urine Rare /hpf; Bilirubin,Urine Negative (Negative); Blood,Urine Negative (Negative); Color,Urine Yellow; Glucose,Urine (UA) Negative (Negative); Hyaline Casts,Urine 22 /lpf (0-2); Ketones,Urine Negative (Negative); Leukocyte Esterase,Urine Trace (Negative); Mucus,Urine Rare /hpf; Nitrite,Urine Negative (Negative); PH, Urine 5.5 (5.0-8.0); Protein,Urine 1+ (Negative); RBC,Urine <1 /hpf (0-5); Specific Gravity,Urine 1.012 (1.001-1.035); Squamous Epithelial Cell,Urine 1 /hpf (0-4); Urobilinogen,Urine <2.0 mg/dL (<2.0); WBC,Urine 1 /hpf (0-5)
[2019-02-09] MEDS ORDERED: FUROSEMIDE 40 MG TAB PO SCH (14:30)
[2019-02-09] MEDS ORDERED: IPRATROPIUM-ALBUTEROL 3 ML NEB INHALATION PRN (15:24)
--- NOTE | 2019-02-09 15:27 | P.CNPUL ---
History of Present Illness Consult date: 02/09/19 Reason for consult: dyspnea, cough, other Chief complaint: Lightheadedness, dizziness, hallucinations, mild dyspnea and cough History of present illness: This is a 78-year-old white female patient with past medical history of chronic congestive heart failure with running systolic dysfunction and EF of 45-50%, COPD on home oxygen with FEV1 of 1.2 L or 52% of predicted, chronic atrial fibrillation on warfarin, essential hypertension, and coronary atherosclerosis with previous history of bypass grafting, mitral valve repair, and stent placement. Patient presented to the emergency department on 02/08/2019 for evaluation of dizziness, lightheadedness, apparently patient was experiencing some hallucinations, she was seeing children in her living room, who were not really there, she does report some mild shortness of breath, occasional cough with production of yellowish colored sputum. She denied any chest pain, she felt very fatigued, she states she just could not get up and do anything, she feels cold all the time, but she denies any fever. Chest x-ray was completed in the emergency department showing cardiomegaly, no active cardiopulmonary disease. Patient has been afebrile, she normally wears home O2, her oxygen level was 89 on presentation on 2 L of oxygen, hemodynamically she is been stable, EKG showed atrial fibrillation with a rate of 105, no evidence of acute ischemic changes, labs showed a white blood cell count of 9.6, hemoglobin of 11.1, INR was 2.8, electrolytes are within normal limits, BUN is 32 creatinine 0.98. She had mildly elevated troponins at 0.036, 0.039, and 0.025. Urinalysis without evidence of infection. Her proBNP was 786, cardiology has evaluated the patient, and patient was started on IV Lasix. From the pulmonary perspective for her COPD does not seem to be active although she has a occasional cough with some phlegm production. Her calcium level was noted to be elevated at 10.7 on admission, and 10.4 on today's labs, and patient appears to be somewhat prer enal, with BUN of 32 and creatinine 0.98. Looking back patient's calcium level has been elevated for a period of over a year, and her PTH was also elevated at 193.2. And she has been referred to binder technician on outpatient basis Review of Systems All systems: negative Constitutional: Reports fatigue, Denies chills, Denies fever Eyes: denies blurred vision, denies pain Ears, nose, mouth and throat: Denies headache, Denies sore throat Cardiovascular: Reports decreased exercise tolerance, Denies chest pain, Denies shortness of breath Respiratory: Reports cough with sputum, Reports dyspnea, Denies cough Gastrointestinal: Denies abdominal pain, Denies diarrhea, Denies nausea, Denies vomiting Genitourinary: Denies dysuria, Denies hematuria Musculoskeletal: Denies myalgias Integumentary: Denies pruritus, Denies rash Neurological: Reports change in mentation, Denies numbness, Denies weakness Psychiatric: Denies anxiety, Denies depression Endocrine: Denies fatigue, Denies weight change Past Medical History Past Medical History: Atrial Fibrillation, Cancer, Chest Pain / Angina, COPD, Hyperlipidemia, Hypertension, Osteoarthritis (OA) Additional Past Medical History / Comment(s): SOB w/exertion History of Any Multi-Drug Resistant Organisms: None Reported Past Surgical History: Cholecystectomy, Coronary Bypass/CABG, Heart Catheteri zation With Stent, Hysterectomy Additional Past Surgical History / Comment(s): double bypass, repair of mitral valve Past Anesthesia/Blood Transfusion Reactions: No Reported Reaction Date of Last Stent Placement:: 2013 Past Psychological History: No Psychological Hx Reported Smoking Status: Former smoker Past Alcohol Use History: None Reported Additional Past Alcohol Use History / Comment(s): quit smoking 1997, smoked 1ppd since teens Past Drug Use History: None Reported - Past Family History Mother Family Medical History: No Reported History Additional Family Medical History / Comment(s): Heart disease Daughter(s) Family Medical History: Cancer Additional Family Medical History / Comment(s): Brain tumor, uterine cancer, breast cancer Medications and Allergies Home Medications Medication Instructions Recorded Confirmed Type Budesonide/Formoterol Fumarate 2 puff INHALATION RT-BID 05/11/14 02/08/19 Hi story [Symbicort 80-4.5 Mcg Inhaler] Albuterol Inhaler [Ventolin Hfa 1 - 2 puff INHALATION RT-Q6H PRN 11/06/15 02/08/19 History Inhaler] Warfarin Sodium 4 mg PO FR@209901/29/16 02/08/19 History Warfarin Sodium 6 mg PO SUMOTUWETHSA@209901/29/16 02/08/19 History Metoprolol Tartrate [Lopressor] 25 mg PO BID 05/08/17 02/08/19 History Azelastine HCl 1 - 2 spr EA NOSTRIL BID 12/15/18 02/08/19 History Losartan [Cozaar] 50 mg PO DAILY #30 tab 12/17/18 02/08/19 Rx Potassium Chloride [Klor-Con 20] 20 meq PO DAILY #60 tab 12/17/18 02/08/19 Rx Acetaminophen/Diphenhydramine 2 tab PO HS PRN 02/08/19 02/08/19 History [Tylenol PM 500-25mg] Albuterol Nebulized [Ventolin 2.5 mg INHALATION RT-QID 02/08/19 02/08/19 History Nebulized] Furosemide [Lasix] 40 mg PO BID@0800,1430 02/08/19 02/08/19 History Multivitamins, Thera [Multivitamin 1 tab PO DAILY 02/08/19 02/08/19 History (formulary)] [place]-3 Fatty Acids/Fish Oil [Fish 1 cap PO DAILY 02/08/19 02/08/19 History Oil 1,000 mg Softgel] Sennosides [Senna] 8.6 mg PO HS PRN 02/08/19 02/08/19 History Simvastatin [Zocor] 40 mg PO HS 02/08/19 02/08/19 History Allergies Allergy/AdvReac Type Severity Reaction Status Date / Time amiodarone AdvReac Nausea & Verified 02/08/19 16:47 Vomiting, confusion Physical Exam Vitals: Vital Signs Temp Pulse Pulse Resp BP BP Pulse Ox 02/09/19 12:55 97.1 F L 73 18 125/98 92 L 02/09/19 08:00 97.1 F L 99 18 147/94 92 L 02/09/19 04:00 97.2 F L 71 16 157/84 02/09/19 00:00 97.5 F L 79 18 121/79 02/08/19 22:46 80 18 152/88 96 02/08/19 20:21 75 16 146/73 93 L 02/08/19 19:38 106 H 20 147/100 95 02/08/19 19:00 107 H 20 170/105 94 L 02/08/19 17:51 93 20 181/98 94 L 02/08/19 17:39 108 H 02/08/19 17:28 109 H 20 176/102 100 02/08/19 17:18 112 H 02/08/19 16:29 99 22 171/95 95 02/08/19 16:27 22 02/08/19 15:48 98.4 F 104 H 17 159/100 89 L Intake and Output 02/09/19 02/09/19 02/09/19 06:59 14:59 22:59 Output Total 600 Balance -600 Output: Urine 600 Other: # Voids 1 5 GENERAL EXAM: Alert, pleasant, 78-year-old white female, on 2 L of oxygen with a pulse ox of 98% comfortable in no apparent distress. HEAD: Normocephalic/atraumatic. EYES: Normal reaction of pupils, equal size. Conjunctiva pink, sclera white. NOSE: Clear with pink turbinates. THROAT: No erythema or exudates. NECK: No masses, no JVD, no thyroid enlargement, no adenopathy. CHEST: No chest wall deformity. Symmetrical expansion. LUNGS: Equal air entry with minimal crackles at the bases, no wheeze, rhonchi or dullness. CVS: Regular rate and rhythm, normal S1 and S2, no gallops, no murmurs, no rubs ABDOMEN: Soft, nontender. No hepatosplenomegaly, normal bowel sounds, no guarding or rigidity. EXTREMITIES: No clubbing, no edema, no cyanosis, 2+ pulses and upper and lower extremities. MUSCULOSKELETAL: Muscle strength and tone normal. SPINE: No scoliosis or deformity SKIN: No rashes CENTRAL NERVOUS SYSTEM: Alert and oriented -3. No focal deficits, tone is normal in all 4 extremities. PSYCHIATRIC: Alert and oriented -3. Appropriate affect. Intact judgment and insight. Results - Laboratory Findings CBC and BMP: 02/09/19 03:32 02/09/19 03:32 PT/INR, D-dimer PT 26.9 sec (9.0-12.0) H 02/08/19 16:24 INR 2.8 (<1.2) H 02/08/19 16:24 Abnormal lab findings: Abnormal Labs 02/08/19 02/08/19 02/08/19 16:24 16:24 16:24 Hgb 11.1 L MCH 24.8 L MCHC 30.1 L RDW 19.4 H Lymphocytes # PT 26.9 H INR 2.8 H BUN 32 H Glucose 106 H Calcium 10.7 H AST 51 H Alkaline Phosphatase 146 H Troponin I HDL Cholesterol Urine Protein Ur Leukocyte Esterase Urine Bacteria Hyaline Casts Urine Mucus 02/08/19 02/08/19 02/09/19 16:24 23:19 03:32 Hgb MCH MCHC RDW Lymphocytes # PT INR BUN Glucose Calcium AST Alkaline Phosphatase Troponin I 0.036 H* 0.039 H* HDL Cholesterol 24 L Urine Protein Ur Leukocyte Esterase Urine Bacteria Hyaline Casts Urine Mucus 02/09/19 02/09/19 02/09/19 03:32 03:32 12:15 Hgb 11.2 L MCH MCHC 30.2 L RDW 18.5 H Lymphocytes # 0.7 L PT INR BUN 32 H Glucose 153 H Calcium 10.4 H AST Alkaline Phosphatase Troponin I HDL Cholesterol Urine Protein 1+ H Ur Leukocyte Esterase Trace H Urine Bacteria Rare H Hyaline Casts 22 H Urine Mucus Rare H - Diagnostic Findings Chest x-ray: report reviewed, image reviewed Additional studies: EKG reviewed Assessment and Plan Plan: Assessment: #1. Lightheadedness, dizziness, hallucinations, and there is a possibility of mild dehydration #2. Mild dyspnea, possibly related to mild bronchitis, chest x-ray did not show any acute cardiopulmonary process #3. Stage II COPD with FEV1 of 52% of predicted or 1.2 L, on home oxygen #4. Acute on chronic hypoxemic respiratory failure could be related to mild tracheobronchitis #5. CAD with previous history of bypass grafting #6. Elevated calcium level with elevated PTH, has been elevated for a period of time at 10.7 on present admission, patient has been referred to binder technician on an outpatient basis #7. Chronic atrial fibrillation, slightly tachycardic on admission with a rate of 105 BPM on admission, currently better controlled #8. Hypertension #9. Hyperlipidemia #10. Degenerative joint disease #11. History of valvular heart disease, and mitral valve repair #12. History of coronary artery stenting Plan: We'll continue with patient's breathing treatments, her COPD does not seem to be active, will avoid steroids especially in view of patient's hallucinations on an outpatient basis. She may have a mild bronchitis, does not seem to be overly congested, cardiology has started the patient on IV Lasix, however we will have to monitor her electrolytes and renal profile, she already appears to be slightly prerenal. We'll do follow-up blood work tomorrow. Continue patient's Symbicort, DuoNeb, we'll give the patient some oral antibiotics. We'll continue to follow I performed a history & physical examination of the patient and discussed their management with my nurse practitioner, Eve Michel. I reviewed the nurse practitioner's note and agree with the documented findings and plan of care. Lung sounds are positive for diminished breath sounds. The findings and the impression was discussed with the patient. I attest to the documentation by the nurse practitioner. Time with Patient: Greater than 30
[2019-02-09] MEDS: IPRATROPIUM-ALBUTEROL 3 ML NEB INHALATION SCH (19:26)
[2019-02-09] MEDS: SYMBICORT 80-4.5 MCG INHALER INHALATION SCH (19:26)
[2019-02-09] MEDS: AMOXIC-POT CLAV 875-125MG 1 EACH TAB PO SCH (20:05)
[2019-02-09] MEDS: ATORVASTATIN 20 MG TAB PO SCH (20:05)
[2019-02-09] MEDS ORDERED: WARFARIN 3 MG TAB PO SCH (21:00)
[2019-02-09] MEDS ORDERED: HALOPERIDOL LACTATE 5 MG/ML 1 ML VIAL IM ONE (22:20)
--- NOTE | 2019-02-09 23:09 | P.HPIM ---
History of Present Illness H&P Date: 02/09/19 Chief Complaint: Shortness of breath, generalized weakness and hallucinations Patient is a 78-year-old female with a known history of chronic atrial fibrillation on anticoagulation with Coumadin, chronic CHF with systolic dysfunction ejection fraction 45-50%, COPD on home oxygen, coronary artery disease status post stent and history of CABG, hypertension, hyperlipidemia, h istory of mitral valve repair presents to ER with the complaints of shortness of breath, generalized weakness and also hallucinations. Patient was also having cough with minimal sputum production, yellowish in color. Patient became very weak and would to get her to the bed. Patient was brought to the hospital by her for further evaluation. Patient has been afebrile. No complaints of chest pain. No nausea vomiting or diarrhea. No abdominal pain. No dysuria or hematuria. No leg swelling. Chest x-ray showed cardiomegaly. No acute cardio pulmonary process. EKG showed atrial fibrillation with rapid ventricular rate around 105 WBC 9.6, hemoglobin 11.1, INR 2.8, BUN 32 and creatinine 0.98, calcium 10.4 Troponin 0.0367, 0.039 and 0.025, BNP 786 Urine negative for infection. Review of Systems Constitutional: Patient denies any fever or chills . Generalized weakness.. Abdomen: Patient denied nausea vomiting and diarrhea and abdominal pain. Cardiovascular: Patient denies any chest pain . Does have shortness of breath. no palpitations. Respiratory: patient denied any cough is from production. No shortness of breath Neurologic: Patient denied any numbness or tingling headache. Musculoskeletal: Patient denies any complaints of joint swelling or deformity. Skin: Negative Psychiatric: Hallucinations. Complete review of systems could not be obtained from the patient. Past Medical History Past Medical History: Atrial Fibrillation, Cancer, Chest Pain / Angina, COPD, Hy perlipidemia, Hypertension, Osteoarthritis (OA) Additional Past Medical History / Comment(s): SOB w/exertion History of Any Multi-Drug Resistant Organisms: None Reported Past Surgical History: Cholecystectomy, Coronary Bypass/CABG, Heart Catheterization With Stent, Hysterectomy Additional Past Surgical History / Comment(s): double bypass, repair of mitral valve Past Anesthesia/Blood Transfusion Reactions: No Reported Reaction Date of Last Stent Placement:: 2013 Past Psychological History: No Psychological Hx Reported Smoking Status: Former smoker Past Alcohol Use History: None Reported Additional Past Alcohol Use History / Comment(s): quit smoking 1997, smoked 1ppd since teens Past Drug Use History: None Reported - Past Family History Mother Family Medical History: No Reported History Additional Family Medical History / Comment(s): Heart disease Daughter(s) Family Medical History: Cancer Additional Family Medical History / Comment(s): Brain tumor, uterine cancer, breast cancer Medications and Allergies Home Medications Medication Instructions Recorded Confirmed Type Budesonide/Formoterol Fumarate 2 puff INHALATION RT-BID 05/11/14 02/08/19 History [Symbicort 80-4.5 Mcg Inhaler] Albuterol Inhaler [Ventolin Hfa 1 - 2 puff INHALATION RT-Q6H PRN 11/06/15 02/08/19 History Inhaler] Warfarin Sodium 4 mg PO FR@209901/29/16 02/08/19 History Warfarin Sodium 6 mg PO SUMOTUWETHSA@2100 01/29/16 02/08/19 History Metoprolol Tartrate [Lopressor] 25 mg PO BID 05/08/17 02/08/19 History Azelastine HCl 1 - 2 spr EA NOSTRIL BID 12/15/18 02/08/19 History Losartan [Cozaar] 50 mg PO DAILY #30 tab 12/17/18 02/08/19 Rx Potassium Chloride [Klor-Con 20] 20 meq PO DAILY #60 tab 12/17/18 02/08/19 Rx Acetaminophen/Diphenhydramine 2 tab PO HS PRN 02/08/19 02/08/19 History [Tylenol PM 500-25mg] Albuterol Nebulized [Ventolin 2.5 mg INHALATION RT-QID 02/08/19 02/08/19 History Nebulized] Furosemide [Lasix] 40 mg PO BID@0800,1430 02/08/19 02/08/19 History Multivitamins, Thera [Multivitamin 1 tab PO DAILY 02/08/19 02/08/19 History (formulary)] [place]-3 Fatty Acids/Fish Oil [Fish 1 cap PO DAILY 02/08/19 02/08/19 History Oil 1,000 mg Softgel] Sennosides [Senna] 8.6 mg PO HS PRN 02/08/19 02/08/19 History Simvastatin [Zocor] 40 mg PO HS 02/08/19 02/08/19 History Allergies Allergy/AdvReac Type Severity Reaction Status Date / Time amiodarone AdvReac Nausea & Verified 02/08/19 16:47 Vomiting, confusion Physical Exam Vitals: Vital Signs Temp Pulse Pulse Resp BP BP Pulse Ox 02/09/19 08:00 97.1 F L 99 18 147/94 92 L 02/09/19 04:00 97.2 F L 71 16 157/84 02/09/19 00:00 97.5 F L 79 18 121/79 02/08/19 22:46 80 18 152/88 96 02/08/19 20:21 75 16 146/73 93 L 02/08/19 19:38 106 H 20 147/100 95 02/08/19 19:00 107 H 20 170/105 94 L 02/08/19 17:51 93 20 181/98 94 L 02/08/19 17:39 108 H 02/08/19 17:28 109 H 20 176/102 100 02/08/19 17:18 112 H 02/08/19 16:29 99 22 171/95 95 02/08/19 16:27 22 02/08/19 15:48 98.4 F 104 H 17 159/100 89 L Intake and Output 02/08/19 02/09/19 02/09/19 22:59 06:59 14:59 Output Total 600 Balance -600 Output: Urine 600 Other: # Voids 1 Weight 86.183 kg PHYSICAL EXAMINATION: Patient is lying in the bed comfortably, no acute distress, awake alert and oriented 1-2. HEENT: Normocephalic. Neck is supple. Pupils reactive. Nostrils clear. Oral cavity is moist. Ears reveal no drainage. Neck reveals no JVD, carotid bruits, or thyromegaly. CHEST EXAMINATION: Trachea is central. Symmetrical expansion. Bibasilar diminished air entry. No wheezing. Lung dawn clear to auscultation and percussion. CARDIAC: Normal S1, S2 with no gallops. No murmurs ABDOMEN: Soft. Bowel sounds normal. No organomegaly. No abdominal bruits. Extremities: no edema. No clubbing or cyanosis Neurologically awake, alert, oriented x1-2 with well-coordinated movements. No focal deficits noted Skin: No rash or skin lesions. Psychiatric: Coperative. Patient does have hallucinations and says that did we win. Musculoskeletal: No joint swelling or deformity. Normal range of motion. Results CBC & Chem 7: 02/09/19 03:32 02/09/19 03:32 Labs: Abnormal Lab Results - Last 24 Hours (Table) 02/08/19 02/08/19 02/08/19 Range/Units 16:24 16:24 16:24 Hgb 11.1 L (11.4-16.0) gm/dL MCH 24.8 L (25.0-35.0) pg MCHC 30.1 L (31.0-37.0) g/dL RDW 19.4 H (11.5-15.5) % PT 26.9 H (9.0-12.0) sec INR 2.8 H (<1.2) BUN 32 H (7-17) mg/dL Glucose 106 H (74-99) mg/dL Calcium 10.7 H (8.4-10.2) mg/dL AST 51 H (14-36) U/L Alkaline Phosphatase 146 H (38-126) U/L Troponin I (0.000-0.034) ng/mL HDL Cholesterol (40-60) mg/dL 02/08/19 02/08/19 02/09/19 Range/Units 16:24 23:19 03:32 Hgb (11.4-16.0) gm/dL MCH (25.0-35.0) pg MCHC (31.0-37.0) g/dL RDW (11.5-15.5) % PT (9.0-12.0) sec INR (<1.2) BUN (7-17) mg/dL Glucose (74-99) mg/dL Calcium (8.4-10.2) mg/dL AST (14-36) U/L Alkaline Phosphatase (38-126) U/L Troponin I 0.036 H* 0.039 H* (0.000-0.034) ng/mL HDL Cholesterol 24 L (40-60) mg/dL Thrombosis Risk Factor Assmnt - DVT/VTE Prophylaxis DVT/VTE Prophylaxis: Pharmacologic Prophylaxis ordered - Choose All That Apply Each Factor Represents 1 point: Abnormal pulmonary function (COPD), Obesity (BMI >25) Each Risk Factor Represents 3 Points: Age 75 years or older Thrombosis Risk Factor Assessment Total Risk Factor Score: 5 Thrombosis Risk Factor Assessment Level: High Risk Assessment and Plan Assessment: Shortness of breath secondary to mild tracheobronchitis. Dizziness, lightheadedness and generalized weakness likely due to dehydration, volume depletion. Chronic CHF with systolic dysfunction Chronic atrial fibrillation on anticoagulation with Coumadin Chronic hypoxic respiratory failure secondary to COPD on home oxygen Coronary artery disease with history of CABG and stent placement Hypercalcemia 10.7 and elevated PTH level during previous admission. Outpatient follow with endocrinology Hallucinations Hypertension Hyperlipidemia Osteoarthritis History of mitral valve repair DVT prophylaxis patient is already on Coumadin with therapeutic INR at 2.8 Plan: Patient will be continued on antibiotics in the form of azithromycin. Continue with breathing treatments and oxygen therapy. Monitor renal function. Patient is being continued on Lasix 40 mg twice daily. Cardiology and pulmonary is on board. Continue the home medications and further recommendations based on the clinical course. Continue Coumadin dosing. Prognosis is guarded at this time. Time with Patient: Greater than 30
[2019-02-10 06:44] LABS: Anisocytosis Slight; Hypochromasia Marked; MCH 25.7 pg (25.0-35.0); MCHC 30.7 g/dL (31.0-37.0); MCV 83.9 fL (80.0-100.0); Mean Platelet Volume 6.5; Platelet Count 179 k/uL (150-450); RBC 4.29 m/uL (3.80-5.40); RDW 18.4 % (11.5-15.5); WBC 10.8 k/uL (3.8-10.6)
[2019-02-10 06:53] LABS: Calcium 10.1 mg/dL (8.4-10.2); Potassium 4.5 mmol/L (3.5-5.1)
[2019-02-10 06:56] LABS: INR 2.4 (<1.2); Prothrombin Time 23.1 sec (9.0-12.0)
[2019-02-10] MEDS: LOSARTAN 50 MG TAB PO SCH (07:49)
[2019-02-10] MEDS: METOPROLOL TARTRATE 50 MG TAB PO SCH ×2 (07:49→19:52)
[2019-02-10] MEDS: MULTIVITAMINS, THERA 1 EACH TAB PO SCH (07:49)
[2019-02-10] MEDS: POTASSIUM CHLORIDE ER 20 MEQ TAB.ER PO SCH (07:49)
[2019-02-10] MEDS: ASPIRIN 325 MG TAB PO SCH (07:50)
[2019-02-10] MEDS: FUROSEMIDE 10 MG/ML 4 ML VIAL IV SCH (07:50)
[2019-02-10] MEDS: AMOXIC-POT CLAV 875-125MG 1 EACH TAB PO SCH ×2 (07:50→19:54)
[2019-02-10] MEDS: IPRATROPIUM-ALBUTEROL 3 ML NEB INHALATION SCH ×3 (08:58→19:27)
[2019-02-10] MEDS: SYMBICORT 80-4.5 MCG INHALER INHALATION SCH ×2 (08:58→19:25)
--- NOTE | 2019-02-10 12:29 | P.CRDCN ---
History of Present Illness History of present illness: This is Dr. Pratt dictating a consult on this patient The patient was interviewed and examined by me IMPRESSION / ASSESSMENT: 78-year-old female presenting with increasing shortness of breath worse for the last 2 months Denies chest discomfort Recurrent nosebleeds, fresh blood Recurrent dizzy spells In atrial fibrillation with an increased ventricular response Known reduced LV systolic function, evidence of RV overload, inferior wall hypokinesis Known coronary artery disease with stenting to the LAD, restenosis of the LAD stent area 50% RCA stenosis and 35% left circumflex stenosis in the past PLAN: Hold Coumadin Start heparin when INR reaches 2.0 Metoprolol increased the dose to 50 g twice daily IV Lasix 40 mg every 12 I will discuss this with Dr. Zelaya for further management of coronary artery disease and his symptoms HPI Patient presented with increasing shortness of breath for the last 2 months line recurrent dizzy spells Denied chest discomfort Recurrent nosebleeds Borderline abnormal troponins of 0.036 and 0.039 Atrial fibrillation with RVR documented twelve-lead ECG ROS: No fever chills or rigors, no cough, phlegm or expectoration, no nausea, vomiting or diarrhea, no hematuria, dysuria, no musculoskeletal complaints, no strokes or seizures, no skin lesions. EXAMINATION: Mildly short of breath at rest while sitting at the edge of the bed Nosebleeds intermittently REVIEW OF LABS, ECG & MEDICAL DATA Borderline abnormal troponins Past Medical History Past Medical History: Atrial Fibrillation, Cancer, Chest Pain / Angina, COPD, Hyperlipidemia, Hypertension, Osteoarthritis (OA) Additional Past Medical History / Comment(s): SOB w/exertion History of Any Multi-Drug Resistant Organisms: None Reported Past Surgical History: Cholecystectomy, Coronary Bypass/CABG, Heart Catheterization With Stent, Hysterectomy Additional Past Surgical History / Comment(s): double bypass, repair of mitral v alve Past Anesthesia/Blood Transfusion Reactions: No Reported Reaction Date of Last Stent Placement:: 2013 Past Psychological History: No Psychological Hx Reported Smoking Status: Former smoker Past Alcohol Use History: None Reported Additional Past Alcohol Use History / Comment(s): quit smoking 1997, smoked 1ppd since teens Past Drug Use History: None Reported - Past Family History Mother Family Medical History: No Reported History Additional Family Medical History / Comment(s): Heart disease Daughter(s) Family Medical History: Cancer Additional Family Medical History / Comment(s): Brain tumor, uterine cancer, breast cancer Medications and Allergies Home Medications Medication Instructions Recorded Confirmed Type Budesonide/Formoterol Fumarate 2 puff INHALATION RT-BID 05/11/14 02/08/19 History [Symbicort 80-4.5 Mcg Inhaler] Albuterol Inhaler [Ventolin Hfa 1 - 2 puff INHALATION RT-Q6H PRN 11/06/15 02/08/19 History Inhaler] Warfarin Sodium 4 mg PO FR@209901/29/16 02/08/19 History Warfarin Sodium 6 mg PO SUMOTUWETHSA@2100 01/29/16 02/08/19 History Metoprolol Tartrate [Lopressor] 25 mg PO BID 05/08/17 02/08/19 History Azelastine HCl 1 - 2 spr EA NOSTRIL BID 12/15/18 02/08/19 History Losartan [Cozaar] 50 mg PO DAILY #30 tab 12/17/18 02/08/19 Rx Potassium Chloride [Klor-Con 20] 20 meq PO DAILY #60 tab 12/17/18 02/08/19 Rx Acetaminophen/Diphenhydramine 2 tab PO HS PRN 02/08/19 02/08/19 History [Tylenol PM 500-25mg] Albuterol Nebulized [Ventolin 2.5 mg INHALATION RT-QID 02/08/19 02/08/19 History Nebulized] Furosemide [Lasix] 40 mg PO BID@0800,1430 02/08/19 02/08/19 History Multivitamins, Thera [Multivitamin 1 tab PO DAILY 02/08/19 02/08/19 History (formulary)] [place]-3 Fatty Acids/Fish Oil [Fish 1 cap PO DAILY 02/08/19 02/08/19 History Oil 1,000 mg Softgel] Sennosides [Senna] 8.6 mg PO HS PRN 02/08/19 02/08/19 History Simvastatin [Zocor] 40 mg PO HS 02/08/19 02/08/19 History Allergies Allergy/AdvReac Type Severity Reaction Status Date / Time amiodarone AdvReac Nausea & Verified 02/08/19 16:47 Vomiting, confusion Physical Exam Vitals: Vital Signs Temp Pulse Pulse Resp BP BP Pulse Ox 02/09/19 08:00 97.1 F L 99 18 147/94 92 L 02/09/19 04:00 97.2 F L 71 16 157/84 02/09/19 00:00 97.5 F L 79 18 121/79 02/08/19 22:46 80 18 152/88 96 02/08/19 20:21 75 16 146/73 93 L 02/08/19 19:38 106 H 20 147/100 95 02/08/19 19:00 107 H 20 170/105 94 L 02/08/19 17:51 93 20 181/98 94 L 02/08/19 17:39 108 H 02/08/19 17:28 109 H 20 176/102 100 02/08/19 17:18 112 H 02/08/19 16:29 99 22 171/95 95 02/08/19 16:27 22 02/08/19 15:48 98.4 F 104 H 17 159/100 89 L Intake and Output 02/08/19 02/09/19 02/09/19 22:59 06:59 14:59 Output Total 600 Balance -600 Output: Urine 600 Other: # Voids 1 Weight 86.183 kg Results 02/08/19 16:24 02/08/19 16:24 Cardiac Enzymes 02/08/19 02/08/19 02/08/19 Range/Units 16:24 16:24 23:19 AST 51 H (14-36) U/L Troponin I 0.036 H* 0.039 H* (0.000-0.034) ng/mL 02/09/19 Range/Units 03:33 AST (14-36) U/L Troponin I 0.025 (0.000-0.034) ng/mL Coagulation 02/08/19 Range/Units 16:24 PT 26.9 H (9.0-12.0) sec APTT 29.8 (22.0-30.0) sec Lipids 02/09/19 Range/Units 03:32 Triglycerides 69 (<150) mg/dL Cholesterol 132 (<200) mg/dL HDL Cholesterol 24 L (40-60) mg/dL CBC 02/08/19 Range/Units 16:24 WBC 9.6 (3.8-10.6) k/uL RBC 4.47 (3.80-5.40) m/uL Hgb 11.1 L (11.4-16.0) gm/dL Hct 36.9 (34.0-46.0) % Plt Count 195 (150-450) k/uL Comprehensive Metabolic Panel 02/08/19 Range/Units 16:24 Sodium 142 (137-145) mmol/L Potassium 4.0 (3.5-5.1) mmol/L Chloride 103 (98-107) mmol/L Carbon Dioxide 30 (22-30) mmol/L BUN 32 H (7-17) mg/dL Creatinine 0.98 (0.52-1.04) mg/dL Glucose 106 H (74-99) mg/dL Calcium 10.7 H (8.4-10.2) mg/dL AST 51 H (14-36) U/L ALT 38 (9-52) U/L Alkaline Phosphatase 146 H (38-126) U/L Total Protein 7.6 (6.3-8.2) g/dL Albumin 3.9 (3.5-5.0) g/dL Current Medications Generic Name Dose Route Start Last Admin Trade Name Freq PRN Reason Stop Dose Admin Albuterol Sulfate 2.5 mg 02/09/19 12:00 Ventolin Nebulized INHALATION RT-QID [facility] Aspirin 325 mg 02/09/19 09:00 Aspirin PO DAILY [facility] Atorvastatin Calcium 20 mg 02/09/19 21:00 Lipitor PO HS [facility] Budesonide/Formoterol Fumarate 2 puff 02/09/19 20:00 Symbicort 80-4.5 Mcg Inhaler INHALATION RT-BID [facility] Furosemide 40 mg 02/09/19 09:15 Lasix IV Q12HR [facility] Losartan Potassium 50 mg 02/09/19 09:00 Cozaar PO DAILY [facility] Metoprolol Tartrate 50 mg 02/09/19 09:15 Lopressor PO BID [facility] Multivitamins 1 each 02/09/19 09:00 Theragran PO DAILY [facility] Nitroglycerin 0.4 mg 02/08/19 18:16 Nitrostat SUBLINGUAL Q5M PRN Chest Pain Potassium Chloride 20 meq 02/09/19 09:00 K-Dur 20 PO DAILY [facility] Senna 8.6 mg 02/09/19 08:38 Senokot PO HS PRN Constipation Intake and Output 02/08/19 02/09/19 02/09/19 22:59 06:59 14:59 Output Total 600 Balance -600 Output: Urine 600 Other: # Voids 1 Weight 86.183 kg 02/08/19 16:24 02/08/19 16:24
--- NOTE | 2019-02-10 12:42 | P.PN ---
Subjective Progress Note Date: 02/10/19 Principal diagnosis: Lightheadedness, dizziness, hallucinations, mild dyspnea and cough This is a 78-year-old white female patient with past medical history of chronic congestive heart failure with systolic dysfunction and EF of 45-50%, COPD on home oxygen with FEV1 of 1.2 L or 52% of predicted, chronic atrial fibrillation on warfarin, essential hypertension, and coronary atherosclerosis with previous history of bypass grafting, mitral valve repair, and stent placement. Patient presented to the emergency department on 02/08/2019 for evaluation of dizziness, lightheadedness, apparently patient was experiencing some hallucinations, she was seeing children in her living room, who were not really there, she does report some mild shortness of breath, occasional cough with production of yellowish colored sputum. She denied any chest pain, she felt very fatigued, she states she just could not get up and do anything, she feels cold all the time, but she denies any fever. Chest x-ray was completed in the emergency department showing cardiomegaly, no active cardiopulmonary disease. Patient has been afebrile, she normally wears home O2, her oxygen level was 89 on pres entation on 2 L of oxygen, hemodynamically she is been stable, EKG showed atrial fibrillation with a rate of 105, no evidence of acute ischemic changes, labs showed a white blood cell count of 9.6, hemoglobin of 11.1, INR was 2.8, electrolytes are within normal limits, BUN is 32 creatinine 0.98. She had mildly elevated troponins at 0.036, 0.039, and 0.025. Urinalysis without evidence of infection. Her proBNP was 786, cardiology has evaluated the patient, and patient was started on IV Lasix. From the pulmonary perspective for her COPD does not seem to be active although she has a occasional cough with some phlegm production. Her calcium level was noted to be elevated at 10.7 on admission, and 10.4 on today's labs, and patient appears to be somewhat prerenal, with BUN of 32 and creatinine 0.98. Looking back patient's calcium level has been elevated for a period of over a year, and her PTH was also elevated at 193.2. And she has been referred to skin washer on outpatient basis On 02/10/2019 agent is seen in follow-up on selective care unit, apparently last night patient became very confused, agitated and combative, patient was looking for her , she was attempting to leave to go look for him. Patient was given a dose of Haldol, today she seen resting in bed, lethargic, and patient is unable to stay awake to answer some simple questions. Her daughter is at the [facility], and she is concerned about patient's ongoing symptoms of hallucinations that she reported for a period of close to a month prior to admission, and obvious worsening of delirium last night, requiring antipsychotic administration. Does not appear to be in any respiratory distress, she is on 3 L of oxygen her pulse ox is 97%, her respirations are nonlabored, lung sounds are with some minimal crackles the bases, no rhonchi, no wheezing, she is afebrile, hemodynamically patient is stable. Today's blood work has been reviewed, with white count up to 10.8, from previously 6.1 on yesterday's labs, INR is 2.4, sodium is 139, potassium is 4.5, chloride is 103, CO2 is 31, BUN is 48, creatinine is 1.23, and there has been worsening and patient's renal profile, she has received some IV doses of Lasix, which we will put on hold, patient's troponins were 0.036, 0.039, 0.025, patient did not report any chest pain. Urinalysis was negative for any signs of infection. Chest x-ray did not show any active cardiopulmonary disease. On admission patient did complain of some cough and some phlegm production, for which the patient was empirically started on some Augmentin. Objective - Vital Signs Vital signs: Vital Signs Temp 98.2 F 02/10/19 12:00 Pulse 81 02/10/19 12:00 Resp 18 02/10/19 12:00 BP 127/72 02/10/19 12:00 Pulse Ox 97 02/10/19 12:00 Intake & Output 02/09/19 02/10/19 02/10/19 18:59 06:59 18:59 Intake Total 240 Balance 240 Weight 90.5 kg Intake: Oral 240 Other: Voiding Method Toilet Toilet # Voids 5 2 - Exam GENERAL EXAM: Somnolent 78-year-old white female, on 3 L of oxygen with a pulse ox of 98% comfortable in no apparent distress. HEAD: Normocephalic/atraumatic. EYES: Normal reaction of pupils, equal size. Conjunctiva pink, sclera white. NOSE: Clear with pink turbinates. THROAT: No erythema or exudates. NECK: No masses, no JVD, no thyroid enlargement, no adenopathy. CHEST: No chest wall deformity. Symmetrical expansion. LUNGS: Equal air entry with minimal crackles at the bases, no wheeze, rhonchi or dullness. CVS: Regular rate and rhythm, normal S1 and S2, no gallops, no murmurs, no rubs ABDOMEN: Soft, nontender. No hepatosplenomegaly, normal bowel sounds, no guarding or rigidity. EXTREMITIES: No clubbing, no edema, no cyanosis, 2+ pulses and upper and lower extremities. MUSCULOSKELETAL: Muscle strength and tone normal. SPINE: No scoliosis or deformity SKIN: No rashes CENTRAL NERVOUS SYSTEM: Somnolent, does not stay awake No focal deficits, tone is normal in all 4 extremities. - Labs CBC & Chem 7: 02/10/19 05:48 02/10/19 05:48 Labs: Abnormal Lab Results - Last 24 Hours (Table) 02/09/19 02/10/19 02/10/19 Range/Units 12:15 05:48 05:48 WBC 10.8 H (3.8-10.6) k/uL Hgb 11.0 L (11.4-16.0) gm/dL MCHC 30.7 L (31.0-37.0) g/dL RDW 18.4 H (11.5-15.5) % PT (9.0-12.0) sec INR (<1.2) Carbon Dioxide 31 H (22-30) mmol/L BUN 48 H (7-17) mg/dL Creatinine 1.23 H (0.52-1.04) mg/dL Urine Protein 1+ H (Negative) Ur Leukocyte Esterase Trace H (Negative) Urine Bacteria Rare H (None) /hpf Hyaline Casts 22 H (0-2) /lpf Urine Mucus Rare H (None) /hpf 02/10/19 Range/Units 05:48 WBC (3.8-10.6) k/uL Hgb (11.4-16.0) gm/dL MCHC (31.0-37.0) g/dL RDW (11.5-15.5) % PT 23.1 H (9.0-12.0) sec INR 2.4 H (<1.2) Carbon Dioxide (22-30) mmol/L BUN (7-17) mg/dL Creatinine (0.52-1.04) mg/dL Urine Protein (Negative) Ur Leukocyte Esterase (Negative) Urine Bacteria (None) /hpf Hyaline Casts (0-2) /lpf Urine Mucus (None) /hpf Assessment and Plan Plan: Assessment: #1. Lightheadedness, dizziness, hallucinations, and there is a possibility of mild dehydration #2. Hallucinations and delirium, of unclear etiology, will consult neurology #3. Mild dyspnea, possibly related to mild bronchitis, chest x-ray did not show any acute cardiopulmonary process #4. Stage II COPD with FEV1 of 52% of predicted or 1.2 L, on home oxygen #5. Acute on chronic hypoxemic respiratory failure could be related to mild tracheobronchitis #6. CAD with previous history of bypass grafting #7. Elevated calcium level with elevated PTH, has been elevated for a period of time at 10.7 on present admission, patient has been referred to skin washer on an outpatient basis #8. Chronic atrial fibrillation, slightly tachycardic on admission with a rate of 105 BPM on admission, currently better controlled #9. Hypertension #10. Hyperlipidemia #11. Degenerative joint disease #12. History of valvular heart disease, and mitral valve repair #13. History of coronary artery stenting Plan: Continue nebulized bronchodilators, continue current antibiotics for mild bronchitis, will obtain pro-calcitonin level, we will obtain blood cultures, will consult neurology for symptoms of delirium and hallucinations. We'll continue to follow, maintaining safety precautions, patient may need a patient safety sitter at the bedside to prevent falls or injury, renal function was noted to be worse on today's labs, will continue the Lasix for now, will monitor renal function, and electrolytes, once the patient is awake, encourage oral intake. We'll start gentle hydration, with 0.9 normal saline at a rate of 50 ML per hour. Maintain aspiration precautions I performed a history & physical examination of the patient and discussed their management with my nurse practitioner, Eve Michel. I reviewed the nurse practitioner's note and agree with the documented findings and plan of care. Lung sounds are positive for diminished breath sounds. The findings and the impression was discussed with the patient. I attest to the documentation by the nurse practitioner. Time with Patient: Less than 30
[2019-02-10] MEDS: SODIUM CHLORIDE 0.9% 1,000 ML IV SCH (13:26)
--- NOTE | 2019-02-10 13:42 | P.CNNES ---
History of Present Illness Consult date: 02/10/19 Requesting physician: Bren Champion Reason for Consult: Delirium, hallucinations. History of Present Illness: Patient is a 78-year-old female with history of heart disease, COPD who was admitted to the hospital on 02/08/2019 for shortness of breath and dizziness. Patient was sent by primary physician for increasing shortness of breath. Patient has been diagnosed with tracheal bronchitis and is on antibiotics. Milagros arently patient has had having some hallucinations. She was sick and admitted to the hospital a month ago when she was having hallucinations. The symptoms as went away after she was treated. However the symptoms have reappeared since last 02/04/2019. Patient apparently sees different kids sitting at the computer desk and sometimes she sees snakes on the floor. The symptoms are worse at night although yesterday she was having it in the daytime, but she has not slept the night prior. She was also having delusions, stating that the ink pen went inside her oxygen tank and she was concerned if she is going to breathe in the ink pen. Patient has no slurred speech, visual symptoms or any focal neurological symptoms. Today patient is feeling better and has not had any hallucinations today. Patient's granddaughter is present, who states patient's memory functions and cognitive functions are intact. She does have mild short-term memory issues off and on, but nothing significant. No history of strokes in the past. Patient has smoked 1-2 packs per day since she was teenager, quit 22 years ago. Patient denies alcohol. She has hypertension which is controlled but denies valerie betes. Patient had an EKG which showed atrial fibrillation with rapid ventricular response. Chest x-ray showed cardiomegaly. No acute pulmonary disease. Patient had a 2-D echo which revealed atrial fibrillation. The left-ventricular size is normal. Mild concentric LVH. Interatrial and interventricular septum intact. Mild aortic valve sclerosis. Review of Systems Shortness of breath, hallucinations. Denies any chest pain. Denies double vision loss of vision and slurred speech facial droop. Some edema. Does have some arthritis. All other review of systems unremarkable. Past Medical History Past Medical History: Atrial Fibrillation, Cancer, Chest Pain / Angina, COPD, Hyperlipidemia, Hypertension, Osteoarthritis (OA) Additional Past Medical History / Comment(s): SOB w/exertion History of Any Multi-Drug Resistant Organisms: None Reported Past Surgical History: Cholecystectomy, Coronary Bypass/CABG, Heart Catheterization With Stent, Hysterectomy Additional Past Surgical History / Comment(s): double bypass, repair of mitral valve Past Anesthesia/Blood Transfusion Reactions: No Reported Reaction Date of Last Stent Placement:: 2013 Past Psychological History: No Psychological Hx Reported Smoking Status: Former smoker Past Alcohol Use History: None Reported Additional Past Alcohol Use History / Comment(s): quit smoking 1997, smoked 1ppd since teens Past Drug Use History: None Reported - Past Family History Mother Family Medical History: No Reported History Additional Family Medical History / Comment(s): Heart disease Daughter(s) Family Medical History: Cancer Additional Family Medical History / Comment(s): Brain tumor, uterine cancer, breast cancer Medications and Allergies Home Medications Medication Instructions Recorded Confirmed Type Budesonide/Formoterol Fumarate 2 puff INHALATION RT-BID 05/11/14 02/08/19 History [Symbicort 80-4.5 Mcg Inhaler] Albuterol Inhaler [Ventolin Hfa 1 - 2 puff INHALATION RT-Q6H PRN 11/06/1501/19 History Inhaler] Warfarin Sodium 4 mg PO FR@2100 01/29/16 02/08/19 History Warfarin Sodium 6 mg PO SUMOTUWETHSA@2100 01/29/16 02/08/19 History Metoprolol Tartrate [Lopressor] 25 mg PO BID 05/08/17 02/08/19 History Azelastine HCl 1 - 2 spr EA NOSTRIL BID 12/15/18 02/08/19 History Losartan [Cozaar] 50 mg PO DAILY #30 tab 12/17/18 02/08/19 Rx Potassium Chloride [Klor-Con 20] 20 meq PO DAILY #60 tab 12/17/18 02/08/19 Rx Acetaminophen/Diphenhydramine 2 tab PO HS PRN 02/08/19 02/08/19 History [Tylenol PM 500-25mg] Albuterol Nebulized [Ventolin 2.5 mg INHALATION RT-QID 02/08/19 02/08/19 History Nebulized] Furosemide [Lasix] 40 mg PO BID@0800,1430 02/08/19 02/08/19 History Multivitamins, Thera [Multivitamin 1 tab PO DAILY 02/08/19 02/08/19 History (formulary)] [place]-3 Fatty Acids/Fish Oil [Fish 1 cap PO DAILY 02/08/19 02/08/19 History Oil 1,000 mg Softgel] Sennosides [Senna] 8.6 mg PO HS PRN 02/08/19 02/08/19 History Simvastatin [Zocor] 40 mg PO HS 02/08/19 02/08/19 History Allergies Allergy/AdvReac Type Severity Reaction Status Date / Time amiodarone AdvReac Nausea & Verified 02/08/19 16:47 Vomiting, confusion Physical Examination - Vital Signs Vital Signs: Vital Signs Temp Pulse Pulse Resp BP Pulse Ox 02/10/19 13:06 78 02/10/19 12:55 72 02/10/19 12:00 98.2 F 81 18 127/72 97 02/10/19 09:10 86 02/10/19 08:58 85 02/10/19 07:56 98 F 68 18 142/87 98 02/10/19 03:56 74 18 02/10/19 03:55 97.6 F 74 18 101/72 96 02/10/19 00:00 97.6 F 74 18 139/74 94 L 02/09/19 20:00 97.7 F 74 18 136/87 91 L 02/09/19 19:44 88 02/09/19 19:27 85 91 L 02/09/19 18:45 75 18 145/94 98 02/09/19 15:15 97.0 F L 82 18 126/66 96 Intake and Output 02/09/19 02/10/19 02/10/19 22:59 06:59 14:59 Intake Total 462 Balance 462 Intake: Oral 462 Other: Voiding Method Toilet Toilet Toilet # Voids 1 2 Weight 90.5 kg On examination patient is an elderly female, who is mild short of breath, using oxygen. Patient is alert and awake. Speech and language functions are normal. No aphasia or dysarthria. No obvious bruit. S1 and S2 a udible. Patient has irregular heart rhythm from A. fib. Patient knows that it is 02/10/2019 and that she is in [facility] in [facility]. She knows her date of and her age. Also knows name of the current president. On cranial examination pupils are round and reacting, visual dawn are full on confrontation, extraocular muscles are intact. Face is symmetric and tongue pr otrudes the midline. Palatal elevation and sensation normal. On muscle strength testing there is no pronator drift and the strength is normal in arms and legs distally and proximally. Reflexes are symmetric and plantars downgoing. Sensory touch is equal. No ataxia for [id number] testing. Tone and bulk of muscles normal Results - Laboratory Findings CBC and BMP: 02/10/19 05:48 02/10/19 05:48 Abnormal Lab Findings: Abnormal Labs 02/08/19 02/08/19 02/08/19 16:24 16:24 16:24 WBC Hgb 11.1 L MCH 24.8 L MCHC 30.1 L RDW 19.4 H Lymphocytes # PT 26.9 H INR 2.8 H Carbon Dioxide BUN 32 H Creatinine Glucose 106 H Calcium 10.7 H AST 51 H Alkaline Phosphatase 146 H Troponin I HDL Cholesterol Urine Protein Ur Leukocyte Esterase Urine Bacteria Hyaline Casts Urine Mucus 02/08/19 02/08/19 02/09/19 16:24 23:19 03:32 WBC Hgb MCH MCHC RDW Lymphocytes # PT INR Carbon Dioxide BUN Creatinine Glucose Calcium AST Alkaline Phosphatase Troponin I 0.036 H* 0.039 H* HDL Cholesterol 24 L Urine Protein Ur Leukocyte Esterase Urine Bacteria Hyaline Casts Urine Mucus 02/09/19 02/09/19 02/09/19 03:32 03:32 12:15 WBC Hgb 11.2 L MCH MCHC 30.2 L RDW 18.5 H Lymphocytes # 0.7 L PT INR Carbon Dioxide BUN 32 H Creatinine Glucose 153 H Calcium 10.4 H AST Alkaline Phosphatase Troponin I HDL Cholesterol Urine Protein 1+ H Ur Leukocyte Esterase Trace H Urine Bacteria Rare H Hyaline Casts 22 H Urine Mucus Rare H 02/10/19 02/10/19 02/10/19 05:48 05:48 05:48 WBC 10.8 H Hgb 11.0 L MCH MCHC 30.7 L RDW 18.4 H Lymphocytes # PT 23.1 H INR 2.4 H Carbon Dioxide 31 H BUN 48 H Creatinine 1.23 H Glucose Calcium AST Alkaline Phosphatase Troponin I HDL Cholesterol Urine Protein Ur Leukocyte Esterase Urine Bacteria Hyaline Casts Urine Mucus Assessment and Plan Assessment: * Acute confusional state (mild degree), with intermittent hallucinations, delusions, fluctuating mental status. Symptoms likely due to acute delirium from acute tracheobronchitis, worsening of baseline renal functions, dehydration and other medical issues. * Mild renal insufficiency * Lightheadedness, probably due to combination of above. * Chronic atrial fibrillation on long-term and anticoagulation * Hypertension * Hyperlipidemia * Coronary artery disease. * History of mitral valve repair. Plan: * Avoid hypnotics, sedatives. * Treatment of underlying cardiopulmonary condition will hopefully help with the delirium as well. Consider checking ABG. * We will check carotid Doppler to rule out carotid stenosis as a cause of dizziness. * We will check TSH, B12, folate. * We will follow clinically. * Thank you very much for allowing me to participate in care of your patient.
--- NOTE | 2019-02-10 15:18 | P.PN ---
Subjective Progress Note Date: 02/10/19 This is a 78-year-old white female patient with past medical history of chronic congestive heart failure with running systolic dysfunction and EF of 45-50%, COPD on home oxygen with FEV1 of 1.2 L or 52% of predicted, chronic atrial fibrillation on warfarin, essential hypertension, and coronary atherosclerosis with previous history of bypass grafting, mitral valve repair, and stent placement. Patient presented to the emergency department on 02/08/2019 for evaluation of dizziness, lightheadedness, apparently patient was experiencing some hallucinations, she was seeing children in her living room, who were not really there, she does report some mild shortness of breath, occasional cough with production of yellowish colored sputum. She denied any chest pain, she felt very fatigued, she states she just could not get up and do anything, she feels cold all the time, but she denies any fever. Chest x-ray was completed in the emergency department showing cardiomegaly, no active cardiopulmonary dis ease. Patient has been afebrile, she normally wears home O2, her oxygen level was 89 on presentation on 2 L of oxygen, hemodynamically she is been stable, EKG showed atrial fibrillation with a rate of 105, no evidence of acute ischemic changes, labs showed a white blood cell count of 9.6, hemoglobin of 11.1, INR was 2.8, electrolytes are within normal limits, BUN is 32 creatinine 0.98. She had mildly elevated troponins at 0.036, 0.039, and 0.025. Urinalysis without evidence of infection. Her proBNP was 786, appeared that the patient on admission was somewhat prerenal, she had initially been started on IV Lasix which had been discontinued. She denies chest pain patient did have some epis odes of confusion and change in her mental status, at the time of our examination she had just been given some Haldol and was quite sleepy. Her daughter was at bedside. Blood pressure 120/70 with a heart rate in the 70s to 80s, 97% on 3 L of oxygen. White blood cell count 10.8, hemoglobin 11, platelet count 179. INR 2.4. Sodium 139, potassium 4.5, BUN 48 and creatinine 1.2. Continues to be in atrial fibrillation. INR 2.4. Objective - Vital Signs Vital signs: Vital Signs Temp 98.2 F 02/10/19 12:00 Pulse 78 02/10/19 13:06 Resp 18 02/10/19 12:00 BP 127/72 02/10/19 12:00 Pulse Ox 97 02/10/19 12:00 Intake & Output 02/09/19 02/10/19 02/10/19 18:59 06:59 18:59 Intake Total 462 Balance 462 Weight 90.5 kg Intake: Oral 462 Other: Voiding Method Toilet Toilet # Voids 5 2 - Exam GENERAL EXAM: Alert, pleasant, 78-year-old white female, on 2 L of oxygen with a pulse ox of 98% comfortable in no apparent distress. HEAD: Normocephalic/atraumatic. EYES: Normal reaction of pupils, equal size. Conjunctiva pink, sclera white. NOSE: Clear with pink turbinates. THROAT: No erythema or exudates. NECK: No masses, no JVD, no thyroid enlargement, no adenopathy. CHEST: No chest wall deformity. Symmetrical expansion. LUNGS: Equal air entry with minimal crackles at the bases, no wheeze, rhonchi or dullness. CVS: Regular rate and rhythm, normal S1 and S2, no gallops, no murmurs, no rubs ABDOMEN: Soft, nontender. No hepatosplenomegaly, normal bowel sounds, no guarding or rigidity. EXTREMITIES: No clubbing, no edema, no cyanosis, 2+ pulses and upper and lower extremities. MUSCULOSKELETAL: Muscle strength and tone normal. SPINE: No scoliosis or deformity SKIN: No rashes CENTRAL NERVOUS SYSTEM: Alert and oriented -3. No focal deficits, tone is normal in all 4 extremities. PSYCHIATRIC: Alert and oriented -3. Appropriate affect. Intact judgment and insight. - Labs CBC & Chem 7: 02/10/19 05:48 02/10/19 05:48 Labs: Abnormal Lab Results - Last 24 Hours (Table) 02/10/19 02/10/19 02/10/19 Range/Units 05:48 05:48 05:48 WBC 10.8 H (3.8-10.6) k/uL Hgb 11.0 L (11.4-16.0) gm/dL MCHC 30.7 L (31.0-37.0) g/dL RDW 18.4 H (11.5-15.5) % PT 23.1 H (9.0-12.0) sec INR 2.4 H (<1.2) Carbon Dioxide 31 H (22-30) mmol/L BUN 48 H (7-17) mg/dL Creatinine 1.23 H (0.52-1.04) mg/dL Assessment and Plan Plan: Assessment: #1. Lightheadedness, dizziness, hallucinations, and there is a possibility of mild dehydration #2. Hallucinations and delirium, of unclear etiology, neurology consulted #3. Mild dyspnea, possibly related to mild bronchitis, chest x-ray did not show any acute cardiopulmonary process #4. Stage II COPD with FEV1 of 52% of predicted or 1.2 L, on home oxygen #5. Acute on chronic hypoxemic respiratory failure could be related to mild tracheobronchitis #6. CAD with previous history of bypass grafting #7. Elevated calcium level with elevated PTH, has been elevated for a period of time at 10.7 on present admission, patient has been referred to campaign associate on an outpatient basis #8. Chronic atrial fibrillation, anticoagulated with Coumadin #9. Hypertension #10. Hyperlipidemia #11. Degenerative joint disease #12. History of valvular heart disease, and mitral valve repair #13. History of coronary artery stenting Plan Echocardiacgram with Doppler study revealed an ejection fraction of 30-35%, moderate to severe tricuspid regurg, moderate pulmonary hypertension. We will continue current medications including aspirin, Lipitor, Cozaar, metoprolol 50 mg one tablet by mouth twice a day and anticoagulation with Coumadin. DNP note has been reviewed, I agree with a documented findings and plan of care. Patient was seen and examined.
--- NOTE | 2019-02-10 15:36 | US ---
EXAMINATION TYPE: US carotid duplex BILAT DATE OF EXAM: 02/10/2019 COMPARISON: NONE CLINICAL HISTORY: Dizziness, delirium. Dizziness and weakness. EXAM MEASUREMENTS: RIGHT: Peak Systolic Velocity (PSV) cm/sec ----- Right CCA: 33.8 ----- Right ICA: 52.0 ----- Right ECA: 45.5 ICA/CCA ratio: 1.5 RIGHT: End Diastole cm/sec ----- Right CCA: 0 ----- Right ICA: 15.5 ----- Right ECA: 0 LEFT: Peak Systolic Velocity (PSV) cm/sec ----- Left CCA: 43.4 ----- Left ICA: 49.9 ----- Left ECA: 45.1 ICA/CCA ratio: 1.1 LEFT: End Diastole cm/sec ----- Left CCA: 17.6 ----- Left ICA: 11.1 ----- Left ECA: 0 VERTEBRALS (direction of flow): Right Vertebral: Antegrade Left Vertebral: Antegrade Rhythm: Arrhythmia Bilateral plaque visualized. No significant stenosis seen Grayscale, color Doppler, spectral Doppler imaging performed of the carotid arteries. Waveform analys is does not show significant stenosis of the internal carotid arteries by Doppler criteria. IMPRESSION: No hemodynamic significant stenosis of the proximal internal carotid arteries by Doppler criteria, an indirect measurement of carotid stenosis. Cardiac arrhythmia noted incidentally.
[2019-02-10] MEDS ORDERED: WARFARIN 5 MG TAB PO ONE (18:00)
[2019-02-10] MEDS: ATORVASTATIN 20 MG TAB PO SCH (19:54)
--- NOTE | 2019-02-10 22:59 | P.PN ---
Subjective Progress Note Date: 02/10/19 Principal diagnosis: Generalized weakness and dizziness due to dehydration and underlying A. fib Acute bronchitis Chronic atrial fibrillation Patient is a 78-year-old female with a known history of chronic atrial fibrillation on anticoagulation with Coumadin, chronic CHF with systolic dysfunction ejection fraction 45-50%, COPD on home oxygen, coronary artery disease status post stent and history of CABG, hypertension, hyperlipidemia, history of mitral valve repair presents to ER with the complaints of shortness of breath, generalized weakness and also hallucinations. Patient was also having cough with minimal sputum production, yellowish in color. Patient became very weak and would to get her to the bed. Patient was brought to the hospital by her for further evaluation. Patient has been afebrile. No complaints of chest pain. No nausea vomiting or diarrhea. No abdominal pain. No dysuria or hematuria. No leg swelling. Chest x-ray showed cardiomegaly. No acute cardio pulmonary process. EKG showed atrial fibrillation with rapid ventricular rate around 105 WBC 9.6, hemoglobin 11.1, INR 2.8, BUN 32 and creatinine 0.98, calcium 10.4 Troponin 0.0367, 0.039 and 0.025, BNP 786 Urine negative for infection. 02/10/2019 Patient is more awake and oriented today. No hallucinations noted. Patient denied any complaints of dizziness today. Tolerating oral diet. IV Lasix has been discontinued. BUN 48 and creatinine level I.23 Patient was seen by neurology and carotid duplex was ordered to rule out any stenosis due to dizziness. Showed no hemodynamically significant stenosis. Cardiology and pulmonary is following. Continued on antibiotics in the form of azithromycin due to bronchitis. No chest pain. No shortness of breath. No fever no chills. Patient remained in atrial fibrillation. Current medications reviewed. Objective - Vital Signs Vital signs: Vital Signs Temp 97.1 F L 02/10/19 20:00 Pulse 81 02/10/19 20:00 Resp 19 02/10/19 20:00 BP 147/97 02/10/19 20:00 Pulse Ox 96 02/10/19 20:00 Intake & Output 02/10/19 02/10/19 02/11/19 06:59 18:59 06:59 Intake Total 684 Balance 684 Weight 90.5 kg Intake: Oral 684 Other: Voiding Method Toilet Toilet Toilet # Voids 2 - Exam PHYSICAL EXAMINATION: Patient is lying in the bed comfortably, no acute distress, awake alert and oriented.. HEENT: Normocephalic. Neck is supple. Pupils reactive. Nostrils clear. Oral cavity is moist. Ears reveal no drainage. Neck reveals no JVD, carotid bruits, or thyromegaly. CHEST EXAMINATION: Trachea is central. Symmetrical expansion. Lung dawn clear to auscultation and percussion. CARDIAC: Normal S1, S2 with no gallops. No murmurs . Irregularly irregular rhythm. ABDOMEN: Soft. Bowel sounds normal. No organomegaly. No abdominal bruits. Extremities: reveal no edema. No clubbing or cyanosis Neurologically awake, alert, oriented x3 with well-coordinated movements. No focal deficits noted Skin: No rash or skin lesions. Psychiatric: Coperative. Nonsuicidal Musculoskeletal: No joint swelling or deformity. Normal range of motion. - Labs CBC & Chem 7: 02/10/19 05:48 02/10/19 05:48 Labs: Abnormal Lab Results - Last 24 Hours (Table) 02/10/19 02/10/19 02/10/19 Range/Units 05:48 05:48 05:48 WBC 10.8 H (3.8-10.6) k/uL Hgb 11.0 L (11.4-16.0) gm/dL MCHC 30.7 L (31.0-37.0) g/dL RDW 18.4 H (11.5-15.5) % PT 23.1 H (9.0-12.0) sec INR 2.4 H (<1.2) Carbon Dioxide 31 H (22-30) mmol/L BUN 48 H (7-17) mg/dL Creatinine 1.23 H (0.52-1.04) mg/dL Procalcitonin (0.02-0.09) ng/mL 02/10/19 Range/Units 05:48 WBC (3.8-10.6) k/uL Hgb (11.4-16.0) gm/dL MCHC (31.0-37.0) g/dL RDW (11.5-15.5) % PT (9.0-12.0) sec INR (<1.2) Carbon Dioxide (22-30) mmol/L BUN (7-17) mg/dL Creatinine (0.52-1.04) mg/dL Procalcitonin 0.20 H (0.02-0.09) ng/mL Assessment and Plan Assessment: Shortness of breath secondary to mild tracheobronchitis. Dizziness, lightheadedness and generalized weakness likely due to dehydration, volume depletion. Improved now. Chronic CHF with systolic dysfunction Chronic atrial fibrillation on anticoagulation with Coumadin Chronic hypoxic respiratory failure secondary to COPD on home oxygen Coronary artery disease with history of CABG and stent placement Hypercalcemia 10.7 and elevated PTH level during previous admission. Outpatient follow with endocrinology Hallucinations Hypertension Hyperlipidemia Osteoarthritis History of mitral valve repair DVT prophylaxis patient is already on Coumadin with therapeutic INR at 2.8--2.4 Plan: Patient will be continued on antibiotics in the form of azithromycin. Continue with breathing treatments and oxygen therapy. Monitor renal function. IV Lasix has been discontinued.. Gentle hydration. Cardiology and pulmonary is on board. Continue the home medications and further recommendations based on the clinical course. Continue Coumadin dosing. Prognosis is guarded at this time. Time with Patient: Greater than 30
[2019-02-11 06:19] LABS: Anisocytosis Slight; HCT 37.9 % (34.0-46.0); HGB 11.7 gm/dL (11.4-16.0); Hypochromasia Marked; MCHC 30.9 g/dL (31.0-37.0); MCV 84.2 fL (80.0-100.0); Mean Platelet Volume 7.1; Platelet Count 238 k/uL (150-450); RDW 18.2 % (11.5-15.5); WBC 10.8 k/uL (3.8-10.6)
[2019-02-11 06:33] LABS: INR 2.1 (<1.2); Prothrombin Time 20.8 sec (9.0-12.0)
[2019-02-11 06:34] LABS: Calcium 10.5 mg/dL (8.4-10.2); Potassium 4.6 mmol/L (3.5-5.1)
[2019-02-11] MEDS: SYMBICORT 80-4.5 MCG INHALER INHALATION SCH ×2 (08:15→20:13)
[2019-02-11] MEDS: IPRATROPIUM-ALBUTEROL 3 ML NEB INHALATION SCH ×3 (08:15→20:13)
[2019-02-11] MEDS: MULTIVITAMINS, THERA 1 EACH TAB PO SCH (08:16)
[2019-02-11] MEDS: SODIUM CHLORIDE 0.9% 1,000 ML IV SCH (08:42)
[2019-02-11] MEDS: AMOXIC-POT CLAV 875-125MG 1 EACH TAB PO SCH ×2 (08:56→19:50)
[2019-02-11] MEDS: METOPROLOL TARTRATE 50 MG TAB PO SCH ×2 (08:56→19:50)
[2019-02-11] MEDS: LOSARTAN 50 MG TAB PO SCH (08:56)
[2019-02-11] MEDS: POTASSIUM CHLORIDE ER 20 MEQ TAB.ER PO SCH (08:57)
[2019-02-11] MEDS ORDERED: ASPIRIN 81 MG PO SCH (09:00)
--- NOTE | 2019-02-11 11:51 | P.PN ---
Subjective Progress Note Date: 02/11/19 Patient states she is feeling better. She has not had any more hallucinations since yesterday. Patient's was also present today. Denies any new neurological symptoms. Patient had a carotid Doppler performed which was negative. Antegrade flow in both vertebral arteries. TSH is normal 1.25. Objective - Vital Signs Vital signs: Vital Signs Temp 97.8 F 02/11/19 07:39 Pulse 64 02/11/19 08:07 Resp 16 02/11/19 07:39 BP 151/63 02/11/19 07:39 Pulse Ox 98 02/11/19 07:55 Intake & Output 02/10/19 02/11/19 02/11/19 18:59 06:59 18:59 Intake Total 684 1030 120 Balance 684 1030 120 Weight 89.4 kg Intake: Intake, IV Titration 550 Amount Sodium Chloride 0.9% 1, 550 000 ml @ 50 mls/hr IV . Q20H ROSANGELA Rx#:[id number] Oral 684 480 120 Other: Voiding Method Toilet Toilet Toilet # Voids 2 - Exam Patient's mentation appears normal. She knows it is January 2019 and that she is in the hospital. Speech and language functions are normal. Face is symmetric and visual dawn are full. Muscle strength appears normal for age. No ataxia. - Labs CBC & Chem 7: 02/11/19 05:50 02/11/19 05:50 Labs: Abnormal Lab Results - Last 24 Hours (Table) 02/10/19 02/11/19 02/11/19 Range/Units 05:48 05:50 05:50 WBC 10.8 H (3.8-10.6) k/uL MCHC 30.9 L (31.0-37.0) g/dL RDW 18.2 H (11.5-15.5) % PT 20.8 H (9.0-12.0) sec INR 2.1 H (<1.2) Carbon Dioxide (22-30) mmol/L BUN (7-17) mg/dL Creatinine (0.52-1.04) mg/dL Calcium (8.4-10.2) mg/dL Procalcitonin 0.20 H (0.02-0.09) ng/mL 10/25/19 Range/Units 05:50 WBC (3.8-10.6) k/uL MCHC (31.0-37.0) g/dL RDW (11.5-15.5) % PT (9.0-12.0) sec INR (<1.2) Carbon Dioxide 33 H (22-30) mmol/L BUN 43 H (7-17) mg/dL Creatinine 1.17 H (0.52-1.04) mg/dL Calcium 10.5 H (8.4-10.2) mg/dL Procalcitonin (0.02-0.09) ng/mL Assessment and Plan Assessment: * Delirium, likely related to acute tracheobronchitis, worsening of baseline renal functions, dehydration and other medical issues. * Mild renal insufficiency * Lightheadedness, probably due to combination of above. * Chronic atrial fibrillation on long-term and anticoagulation * Hypertension * Hyperlipidemia * Coronary artery disease. * History of mitral valve repair. Plan: * Avoid hypnotics, sedatives and anticholinergic. * Treatment of underlying cardiopulmonary condition will hopefully help with the delirium as well. Patient's mentation has much improved. No further hallucinations in the last 24 hours. * Carotid Doppler was negative for any carotid stenosis. * TSH normal 3.380. * Neurologically clear for discharge.
--- NOTE | 2019-02-11 12:16 | P.PN ---
Subjective Progress Note Date: 02/11/19 Principal diagnosis: Lightheadedness, dizziness, hallucinations, mild dyspnea and cough This is a 78-year-old white female patient with past medical history of chronic congestive heart failure with systolic dysfunction and EF of 45-50%, COPD on home oxygen with FEV1 of 1.2 L or 52% of predicted, chronic atrial fibrillation on warfarin, essential hypertension, and coronary atherosclerosis with previous history of bypass grafting, mitral valve repair, and stent placement. Patient presented to the emergency department on 02/08/2019 for evaluation of dizziness, lightheadedness, apparently patient was experiencing some hallucinations, she was seeing children in her living room, who were not really there, she does report some mild shortness of breath, occasional cough with production of yellowish colored sputum. She denied any chest pain, she felt very fatigued, she states she just could not get up and do anything, she feels cold all the time, but she denies any fever. Chest x-ray was completed in the emergency department showing cardiomegaly, no active cardiopulmonary disease. Patient has been afebrile, she normally wears home O2, her oxygen level was 89 on pres entation on 2 L of oxygen, hemodynamically she is been stable, EKG showed atrial fibrillation with a rate of 105, no evidence of acute ischemic changes, labs showed a white blood cell count of 9.6, hemoglobin of 11.1, INR was 2.8, electrolytes are within normal limits, BUN is 32 creatinine 0.98. She had mildly elevated troponins at 0.036, 0.039, and 0.025. Urinalysis without evidence of infection. Her proBNP was 786, cardiology has evaluated the patient, and patient was started on IV Lasix. From the pulmonary perspective for her COPD does not seem to be active although she has a occasional cough with some phlegm production. Her calcium level was noted to be elevated at 10.7 on admission, and 10.4 on today's labs, and patient appears to be somewhat prerenal, with BUN of 32 and creatinine 0.98. Looking back patient's calcium level has been elevated for a period of over a year, and her PTH was also elevated at 193.2. And she has been referred to computerized machine fabric cutter on outpatient basis On 02/10/2019 agent is seen in follow-up on selective care unit, apparently last night patient became very confused, agitated and combative, patient was looking for her , she was attempting to leave to go look for him. Patient was given a dose of Haldol, today she seen resting in bed, lethargic, and patient is unable to stay awake to answer some simple questions. Her daughter is at the [facility], and she is concerned about patient's ongoing symptoms of hallucinations that she reported for a period of close to a month prior to admission, and obvious worsening of delirium last night, requiring antipsychotic administration. Does not appear to be in any respiratory distress, she is on 3 L of oxygen her pulse ox is 97%, her respirations are nonlabored, lung sounds are with some minimal crackles the bases, no rhonchi, no wheezing, she is afebrile, hemodynamically patient is stable. Today's blood work has been reviewed, with white count up to 10.8, from previously 6.1 on yesterday's labs, INR is 2.4, sodium is 139, potassium is 4.5, chloride is 103, CO2 is 31, BUN is 48, creatinine is 1.23, and there has been worsening and patient's renal profile, she has received some IV doses of Lasix, which we will put on hold, patient's troponins were 0.036, 0.039, 0.025, patient did not report any chest pain. Urinalysis was negative for any signs of infection. Chest x-ray did not show any active cardiopulmonary disease. On admission patient did complain of some cough and some phlegm production, for which the patient was empirically started on some Augmentin. On 02/11/2019 patient seen in follow-up on selective care unit, she is lethargic, but arouses easily, still mildly intermittent confused, she has been evaluated by neurology service, carotid Doppler was negative, TSH was normal. Overall hallucinations have improved. Patient denies any significant cough or congestion, still has shortness of breath, which is worse with exertion. On today's labs patient's renal profile is improving, and patient's lung sounds are positive for diffuse rales, and we'll restart oral dose of Lasix today. No fever or chills, she continues on Augmentin for mild tracheobronchitis, today's labs have been reviewed, with blood cell count is 10.8, hemoglobin is 11.7, INR is 2.1, electrolytes were within normal limits with the exception of CO2 which is at 33, B1 of 43, and creatinine of 1.17. Patient is tolerating oral intake, no nausea vomiting or diarrhea. Pro-calcitonin came back at 0.20 suggesting the possibility of a mild infectious process possibly related to tracheobronchitis Objective - Vital Signs Vital signs: Vital Signs Temp 97.8 F 02/11/19 07:39 Pulse 64 02/11/19 08:07 Resp 16 02/11/19 07:39 BP 151/63 02/11/19 07:39 Pulse Ox 98 02/11/19 07:55 Intake & Output 02/10/19 02/11/19 02/11/19 18:59 06:59 18:59 Intake Total 684 1030 120 Balance 684 1030 120 Weight 89.4 kg Intake: Intake, IV Titration 550 Amount Sodium Chloride 0.9% 1, 550 000 ml @ 50 mls/hr IV . Q20H ROSANGELA Rx#:[id number] Oral 684 480 120 Other: Voiding Method Toilet Toilet Toilet # Voids 2 - Exam GENERAL EXAM: Somnolent 78-year-old white female, on 2 L of oxygen with a pulse ox of 98% comfortable in no apparent distress. HEAD: Normocephalic/atraumatic. EYES: Normal reaction of pupils, equal size. Conjunctiva pink, sclera white. NOSE: Clear with pink turbinates. THROAT: No erythema or exudates. NECK: No masses, no JVD, no thyroid enlargement, no adenopathy. CHEST: No chest wall deformity. Symmetrical expansion. LUNGS: Equal air entry with crackles at the bases, no wheeze, rhonchi or dulln ess. CVS: Regular rate and rhythm, normal S1 and S2, no gallops, no murmurs, no rubs ABDOMEN: Soft, nontender. No hepatosplenomegaly, normal bowel sounds, no guarding or rigidity. EXTREMITIES: No clubbing, no edema, no cyanosis, 2+ pulses and upper and lower extremities. MUSCULOSKELETAL: Muscle strength and tone normal. SPINE: No scoliosis or deformity SKIN: No rashes CENTRAL NERVOUS SYSTEM: Somnolent, does not stay awake No focal deficits, tone is normal in all 4 extremities. - Labs CBC & Chem 7: 02/11/19 05:50 02/11/19 05:50 Labs: Abnormal Lab Results - Last 24 Hours (Table) 02/10/19 02/11/19 02/11/19 Range/Units 05:48 05:50 05:50 WBC 10.8 H (3.8-10.6) k/uL MCHC 30.9 L (31.0-37.0) g/dL RDW 18.2 H (11.5-15.5) % PT 20.8 H (9.0-12.0) sec INR 2.1 H (<1.2) Carbon Dioxide (22-30) mmol/L BUN (7-17) mg/dL Creatinine (0.52-1.04) mg/dL Calcium (8.4-10.2) mg/dL Procalcitonin 0.20 H (0.02-0.09) ng/mL 02/11/19 Range/Units 05:50 WBC (3.8-10.6) k/uL MCHC (31.0-37.0) g/dL RDW (11.5-15.5) % PT (9.0-12.0) sec INR (<1.2) Carbon Dioxide 33 H (22-30) mmol/L BUN 43 H (7-17) mg/dL Creatinine 1.17 H (0.52-1.04) mg/dL Calcium 10.5 H (8.4-10.2) mg/dL Procalcitonin (0.02-0.09) ng/mL Assessment and Plan Plan: Assessment: #1. Lightheadedness, dizziness, hallucinations, and there is a possibility of mild dehydration #2. Hallucinations and delirium, likely related to combination of sources related to cardiomyopathy, shortness of breath, tracheobronchitis, and slightly impaired renal function. #3. Mild dyspnea, possibly related to mild bronchitis, chest x-ray did not show any acute cardiopulmonary process #4. Stage II COPD with FEV1 of 52% of predicted or 1.2 L, on home oxygen #5. Acute on chronic hypoxemic respiratory failure could be related to mild tracheobronchitis #6. CAD with previous history of bypass grafting #7. Elevated calcium level with elevated PTH, has been elevated for a period of time at 10.7 on present admission, patient has been referred to computerized machine [facility] cutter on an outpatient basis #8. Chronic atrial fibrillation, slightly tachycardic on admission with a rate of 105 BPM on admission, currently better controlled #9. Hypertension #10. Hyperlipidemia #11. Degenerative joint disease #12. History of valvular heart disease, and mitral valve repair #13. History of coronary artery stenting #14. Severely impaired left ventricular systolic function with an EF of 30-35%, with moderate mitral regurgitation, mild mitral stenosis, moderate to severe tricuspid regurgitation, and pulmonary hypertension with PA systolic of 48.7 mmHg. Plan: Continue oral antibiotics, will restart patient's oral Lasix, renal profile is showing some improvement, patient is tolerating oral intake, no nausea vomiting no diarrhea, neurologically her symptoms seem to be improving as well, no reports of hallucinations agitation or combativeness. Still reports shortness of breath particularly with exertion. We'll restart patient's oral Lasix, continue with nebulized bronchodilators, maintain safety precautions, await further recommendations from cardiology. I performed a history & physical examination of the patient and discussed their management with my nurse practitioner, Eve Michel. I reviewed the nurse practitioner's note and agree with the documented findings and plan of care. Lung sounds are positive for diminished breath sounds. The findings and the impression was discussed with the patient. I attest to the documentation by the nurse practitioner. Time with Patient: Less than 30
--- NOTE | 2019-02-11 13:40 | P.PN ---
Subjective Patient is doing a lot better today. She is alert and oriented was to home She is less short of breath She denies any chest discomfort dizziness lightheadedness Her A. fib rates are better controlled Blood pressure 148/76 mmHg pulse rate in the 60s and 70s Breath sounds are reduced bilaterally but no rhonchi no crackles Heart rhythm is irregular She has not had any further epistaxis Watch blood pressure and if still elevated then the dose of Cozaar may be increased to 75 mg by mouth daily Continue Coumadin Continue statins I discussed this with Dr. Zelaya and she should be seen within a week of discharge for further cardiac management of borderline troponins in the setting of A. fib with RVR Objective - Vital Signs Vital signs: Vital Signs Temp 97.9 F 02/11/19 12:00 Pulse 78 02/11/19 12:00 Resp 16 02/11/19 12:00 BP 148/76 02/11/19 12:00 Pulse Ox 96 02/11/19 12:00 Intake & Output 02/10/19 02/11/19 02/11/19 18:59 06:59 18:59 Intake Total 684 1030 520 Balance 684 1030 520 Weight 89.4 kg Intake: IV 160 0.9 160 Intake, IV Titration 550 Amount Sodium Chloride 0.9% 1, 550 000 ml @ 50 mls/hr IV . Q20H [facility] Rx#:[id number] Oral 684 480 360 Other: Voiding Method Toilet Toilet Toilet # Voids 2 - Labs CBC & Chem 7: 02/11/19 05:50 02/11/19 05:50 Labs: Abnormal Lab Results - Last 24 Hours (Table) 02/10/19 02/11/19 02/11/19 Range/Units 05:48 05:50 05:50 WBC 10.8 H (3.8-10.6) k/uL MCHC 30.9 L (31.0-37.0) g/dL RDW 18.2 H (11.5-15.5) % PT 20.8 H (9.0-12.0) sec INR 2.1 H (<1.2) Carbon Dioxide (22-30) mmol/L BUN (7-17) mg/dL Creatinine (0.52-1.04) mg/dL Calcium (8.4-10.2) mg/dL Procalcitonin 0.20 H (0.02-0.09) ng/mL 02/11/19 Range/Units 05:50 WBC (3.8-10.6) k/uL MCHC (31.0-37.0) g/dL RDW (11.5-15.5) % PT (9.0-12.0) sec INR (<1.2) Carbon Dioxide 33 H (22-30) mmol/L BUN 43 H (7-17) mg/dL Creatinine 1.17 H (0.52-1.04) mg/dL Calcium 10.5 H (8.4-10.2) mg/dL Procalcitonin (0.02-0.09) ng/mL
[2019-02-11] MEDS: FUROSEMIDE 40 MG TAB PO SCH (16:29)
[2019-02-11] MEDS ORDERED: WARFARIN 5 MG TAB PO ONE (18:00)
[2019-02-11] MEDS: ATORVASTATIN 20 MG TAB PO SCH (19:50)
[2019-02-11] MEDS ORDERED: WARFARIN 2 MG TAB PO SCH (21:00)
--- NOTE | 2019-02-11 22:09 | P.PN ---
Subjective Progress Note Date: 02/11/19 Principal diagnosis: Generalized weakness and dizziness due to dehydration and underlying A. fib Acute bronchitis Chronic atrial fibrillation Patient is a 78-year-old female with a known history of chronic atrial fibrillation on anticoagulation with Coumadin, chronic CHF with systolic dysfunction ejection fraction 45-50%, COPD on home oxygen, coronary artery disease status post stent and history of CABG, hypertension, hyperlipidemia, history of mitral valve repair presents to ER with the complaints of shortness of breath, generalized weakness and also hallucinations. Patient was also having cough with minimal sputum production, yellowish in color. Patient became very weak and would to get her to the bed. Patient was brought to the hospital by her for further evaluation. Patient has been afebrile. No complaints of chest pain. No nausea vomiting or diarrhea. No abdominal pain. No dysuria or hematuria. No leg swelling. Chest x-ray showed cardiomegaly. No acute cardio pulmonary process. EKG showed atrial fibrillation with rapid ventricular rate around 105 WBC 9.6, hemoglobin 11.1, INR 2.8, BUN 32 and creatinine 0.98, calcium 10.4 Troponin 0.0367, 0.039 and 0.025, BNP 786 Urine negative for infection. 02/10/2019 Patient is more awake and oriented today. No hallucinations noted. Patient denied any complaints of dizziness today. Tolerating oral diet. IV Lasix has been discontinued. BUN 48 and creatinine level I.23 Patient was seen by neurology and carotid duplex was ordered to rule out any stenosis due to dizziness. Showed no hemodynamically significant stenosis. Cardiology and pulmonary is following. Continued on antibiotics in the form of azithromycin due to bronchitis. No chest pain. No shortness of breath. No fever no chills. Patient remained in atrial fibrillation. 02/11/2019 Patient is currently sitting in the chair comfortably. Denied any complaints of chest pain or worsening shortness of breath. No headache or dizziness. Agent does have some increased leg swelling. IV fluids have been discontinued andpatient was started on oral Lasix 40 mg twice daily. Renal function slightly improved. Blood pressure is fairly controlled. Anticipate discharge tomorrow with more pain and improvement. Cardiology and pulmonary is following. Patient is being continued on antibiotics in the form of Augmentin. Current medications reviewed. Objective - Vital Signs Vital signs: Vital Signs Temp 97.8 F 02/11/19 19:53 Pulse 99 02/11/19 20:19 Resp 18 10/25/19 19:55 BP 140/89 02/11/19 19:53 Pulse Ox 98 02/11/19 19:53 Intake & Output 02/11/19 02/11/19 02/12/19 06:59 18:59 06:59 Intake Total 1030 760 Balance 1030 760 Weight 89.4 kg Intake: IV 160 0.9 160 Intake, IV Titration 550 Amount Sodium Chloride 0.9% 1, 550 000 ml @ 50 mls/hr IV . Q20H [facility] Rx#:[id number] Oral 480 600 Other: Voiding Method Toilet Toilet Toilet # Voids 2 1 - Exam PHYSICAL EXAMINATION: Patient is lying in the bed comfortably, no acute distress, awake alert and oriented.. HEENT: Normocephalic. Neck is supple. Pupils reactive. Nostrils clear. Oral cavity is moist. Ears reveal no drainage. Neck reveals no JVD, carotid bruits, or thyromegaly. CHEST EXAMINATION: Trachea is central. Symmetrical expansion. Lung dawn clear to auscultation and percussion. CARDIAC: Normal S1, S2 with no gallops. No murmurs . Irregularly irregular rhythm. ABDOMEN: Soft. Bowel sounds normal. No organomegaly. No abdominal bruits. Extremities: Trace edema. No clubbing or cyanosis Neurologically awake, alert, oriented x3 with well-coordinated movements. No focal deficits noted Skin: No rash or skin lesions. Psychiatric: Coperative. Nonsuicidal Musculoskeletal: No joint swelling or deformity. Normal range of motion. - Labs CBC & Chem 7: 02/11/19 05:50 02/11/19 05:50 Labs: Abnormal Lab Results - Last 24 Hours (Table) 02/11/19 02/11/19 02/11/19 Range/Units 05:50 05:50 05:50 WBC 10.8 H (3.8-10.6) k/uL MCHC 30.9 L (31.0-37.0) g/dL RDW 18.2 H (11.5-15.5) % PT 20.8 H (9.0-12.0) sec INR 2.1 H (<1.2) Carbon Dioxide 33 H (22-30) mmol/L BUN 43 H (7-17) mg/dL Creatinine 1.17 H (0.52-1.04) mg/dL Calcium 10.5 H (8.4-10.2) mg/dL Microbiology - Last 24 Hours (Table) 02/10/19 13:14 Blood Culture - Preliminary Blood No Growth after 24 hours Assessment and Plan Assessment: Shortness of breath secondary to mild tracheobronchitis. Dizziness, lightheadedness and generalized weakness likely due to dehydration, volume depletion. Improved now. Chronic CHF with systolic dysfunction Chronic atrial fibrillation on anticoagulation with Coumadin Chronic hypoxic respiratory failure secondary to COPD on home oxygen Coronary artery disease with history of CABG and stent placement Hypercalcemia 10.7 and elevated PTH level during previous admission. Outpatient follow with endocrinology Hallucinations Hypertension Hyperlipidemia Osteoarthritis History of mitral valve repair DVT prophylaxis patient is already on Coumadin with therapeutic INR at 2.8--2.4 Plan: Patient will be continued on antibiotics in the form of Augmentin. Continue with breathing treatments and oxygen therapy. Monitor renal function. IV Lasix has been discontinued.. Changed to by mouth. Cardiology and pulmonary is on board. Continue the home medications and further recommendations based on the clinical course. Continue Coumadin dosing. Prognosis is guarded at this time. Time with Patient: Greater than 30
[2019-02-12 05:44] LABS: Anisocytosis Slight; Hypochromasia Marked; MCV 83.8 fL (80.0-100.0); Platelet Count 210 k/uL (150-450); Poikilocytosis Slight; RBC 3.11 m/uL (3.80-5.40); RDW 18.3 % (11.5-15.5); WBC 13.1 k/uL (3.8-10.6)
[2019-02-12 05:49] LABS: HGB 8.1 gm/dL (11.4-16.0)
[2019-02-12 05:56] LABS: INR 2.8 (<1.2); Prothrombin Time 27.4 sec (9.0-12.0)
[2019-02-12 05:57] LABS: Calcium 9.5 mg/dL (8.4-10.2); Potassium 5.5 mmol/L (3.5-5.1)
[2019-02-12 06:03] LABS: Lymphocytes # (M) 2.23 k/uL (1.0-4.8); Monocytes # (M) 0.39 k/uL (0-1.0); Neutrophils % (M) 80 %; Nucleated Red Blood Cells 0 /100 WBC (0-0); Total Cells Counted 100
[2019-02-12 06:04] LABS: Polychromasia Present
[2019-02-12] MEDS: MULTIVITAMINS, THERA 1 EACH TAB PO SCH (07:50)
[2019-02-12] MEDS: LOSARTAN 50 MG TAB PO SCH (07:50)
[2019-02-12] MEDS: POTASSIUM CHLORIDE ER 20 MEQ TAB.ER PO SCH (07:58)
[2019-02-12] MEDS: IPRATROPIUM-ALBUTEROL 3 ML NEB INHALATION SCH ×3 (08:16→19:42)
[2019-02-12] MEDS: SYMBICORT 80-4.5 MCG INHALER INHALATION SCH ×2 (08:16→19:42)
[2019-02-12] MEDS ORDERED: PHYTONADIONE ORAL 5 MG/5 ML ORAL.SYRG PO STA (08:24)
[2019-02-12] MEDS: METOPROLOL TARTRATE 50 MG TAB PO SCH ×2 (08:30→20:14)
[2019-02-12] MEDS: VANCOMYCIN ORAL SOLUTION 250 MG/5 ML BOTTLE PO SCH ×3 (08:30→18:14)
[2019-02-12] MEDS: PANTOPRAZOLE 40 MG/10 ML VIAL IVP SCH ×2 (08:30→20:14)
[2019-02-12] MEDS: CHERRY FLAVOR 60 ML BOTTLE PO SCH ×2 (08:31→18:13)
[2019-02-12 09:24] LABS: Glucose,Whole Blood 141 mg/dL (75-99)
[2019-02-12 09:55] LABS: Anisocytosis Slight; Basophils # (A) 0.1 k/uL (0-0.2); Basophils % (A) 1 %; Eosinophils % (A) 0 %; HCT 24.4 % (34.0-46.0); HGB 7.5 gm/dL (11.4-16.0); Hypochromasia Marked; Lymphocytes # (A) 1.7 k/uL (1.0-4.8); Lymphocytes % (A) 14 %; MCH 25.9 pg (25.0-35.0); MCHC 30.9 g/dL (31.0-37.0); MCV 83.9 fL (80.0-100.0); Mean Platelet Volume 7.2; Monocytes # (A) 0.8 k/uL (0-1.0); Monocytes % (A) 6 %; Neutrophils # (A) 9.7 k/uL (1.3-7.7); Neutrophils % (A) 78 %; Platelet Count 208 k/uL (150-450); Poikilocytosis Slight; RBC 2.91 m/uL (3.80-5.40); RDW 18.4 % (11.5-15.5); WBC 12.4 k/uL (3.8-10.6)
[2019-02-12] MEDS: FUROSEMIDE 40 MG TAB PO SCH ×2 (10:42→15:55)
[2019-02-12 12:43] LABS: Anisocytosis Slight; Basophils % (A) 0 %; Eosinophils % (A) 0 %; HCT 25.7 % (34.0-46.0); Hypochromasia Marked; Lymphocytes # (A) 2.5 k/uL (1.0-4.8); Lymphocytes % (A) 18 %; MCH 26.1 pg (25.0-35.0); MCV 84.3 fL (80.0-100.0); Mean Platelet Volume 6.9; Monocytes # (A) 0.7 k/uL (0-1.0); Monocytes % (A) 5 %; Neutrophils # (A) 10.3 k/uL (1.3-7.7); Neutrophils % (A) 75 %; Platelet Count 215 k/uL (150-450); Poikilocytosis Slight; RBC 3.05 m/uL (3.80-5.40); RDW 18.5 % (11.5-15.5); WBC 13.8 k/uL (3.8-10.6)
--- NOTE | 2019-02-12 13:36 | P.PN ---
Subjective Progress Note Date: 02/12/19 Principal diagnosis: Lightheadedness and dizziness with history of cardiomyopathy and LV dysfunction and underlying moderate severe COPD This is a 78-year-old white female patient with past medical history of chronic congestive heart failure with systolic dysfunction and EF of 45-50%, COPD on home oxygen with FEV1 of 1.2 L or 52% of predicted, chronic atrial fibrillation on warfarin, essential hypertension, and coronary atherosclerosis with previous history of bypass grafting, mitral valve repair, and stent placement. Patient presented to the emergency department on 02/08/2019 for evaluation of dizziness, lightheadedness, apparently patient was experiencing some hallucinations, she was seeing children in her living room, who were not really there, she does report some mild shortness of breath, occasional cough with production of yellowish colored sputum. She denied any chest pain, she felt very fatigued, she states she just could not get up and do anything, she feels cold all the time, but she denies any fever. Chest x-ray was completed in the emergency department showing cardiomegaly, no active cardiopulmonary disease. Patient has been afebrile, she normally wears home O2, her oxygen level was 89 on presentation on 2 L of oxygen, hemodynamically she is been stable, EKG showed atrial fibrillation with a rate of 105, no evidence of acute ischemic changes, labs showed a white blood cell count of 9.6, hemoglobin of 11.1, INR was 2.8, electrolytes are within normal limits, BUN is 32 creatinine 0.98. She had mildly elevated troponins at 0.036, 0.039, and 0.025. Urinalysis without evidence of infection. Her proBNP was 786, cardiology has evaluated the patient, and patient was started on IV Lasix. From the pulmonary perspective for her COPD does not seem to be active although she has a occasional cough with some phlegm production. Her calcium level was noted to be elevated at 10.7 on admission, and 10.4 on today's labs, and patient appears to be somewhat prerenal, with BUN of 32 and creatinine 0.98. Looking back patient's calcium level has been elevated for a period of over a year, and her PTH was also elevated at 193.2. And she has been referred to certified midwife on outpatient basis On 02/10/2019 agent is seen in follow-up on selective care unit, apparently last night patient became very confused, agitated and combative, patient was looking for her , she was attempting to leave to go look for him. Patient was given a dose of Haldol, today she seen resting in bed, lethargic, and patient is unable to stay awake to answer some simple questions. Her daughter is at the bedside, and she is concerned about patient's ongoing symptoms of hallucinations that she reported for a period of close to a month prior to admission, and obvious worsening of delirium last night, requiring antipsychotic administration. Does not appear to be in any respiratory distress, she is on 3 L of oxygen her pulse ox is 97%, her respirations are nonlabored, lung sounds are with some minimal crackles the bases, no rhonchi, no wheezing, she is afebrile, hemodynamically patient is stable. Today's blood work has been reviewed, with white count up to 10.8, from previously 6.1 on yesterday's labs, INR is 2.4, sodium is 139, potassium is 4.5, chloride is 103, CO2 is 31, BUN is 48, creatinine is 1.23, and there has been worsening and patient's renal profile, she has received some IV doses of Lasix, which we will put on hold, patient's troponins were 0.036, 0.039, 0.025, patient did not report any chest pain. Urinalysis was negative for any signs of infection. Chest x-ray did not show any active cardiopulmonary disease. On admission patient did complain of some cough and some phlegm production, for which the patient was empirically started on some Augmentin. On 02/11/2019 patient seen in follow-up on selective care unit, she is lethargic, but arouses easily, still mildly intermittent confused, she has been evaluated by neurology service, carotid Doppler was negative, TSH was normal. Overall hallucinations have improved. Patient denies any significant cough or congestion, still has shortness of breath, which is worse with exertion. On today's labs patient's renal profile is improving, and patient's lung sounds are positive for diffuse rales, and we'll restart oral dose of Lasix today. No fever or chills, she continues on Augmentin for mild tracheobronchitis, today's labs have been reviewed, with blood cell count is 10.8, hemoglobin is 11.7, INR is 2.1, electrolytes were within normal limits with the exception of CO2 which is at 33, B1 of 43, and creatinine of 1.17. Patient is tolerating oral intake, no nausea vomiting or diarrhea. Pro-calcitonin came back at 0.20 suggesting the possibility of a mild infectious process possibly related to tracheobronchitis Patient was seen today on 02/12/2019, she had few episodes of bright red blood per rectum earlier today, and her hemoglobin showed a significant drop from 11.7 down to 8.0 this morning. Patient was transferred to the ICU because of her ongoing bright red blood per rectum, and is felt to be related to diverticular disease unless proven otherwise. She remains hemodynamically stable, patient is doing fairly well, her INR this morning was 2.8. And her stools were positive for C. diff. Pulmonary-[facility], remains on bronchodilators, and her overall pulmonary status is about the same. She is on oral vancomycin for her C. difficile colitis. Objective - Vital Signs Vital signs: Vital Signs Temp 98.4 F 02/12/19 08:00 Pulse 114 H 02/12/19 13:14 Resp 18 02/12/19 08:00 BP 131/73 02/12/19 08:00 Pulse Ox 94 L 02/12/19 08:00 Intake & Output 02/11/19 02/12/19 02/12/19 18:59 06:59 18:59 Intake Total 760 Output Total 200 Balance 760 -200 Weight 86.9 kg Intake: IV 160 0.9 160 Oral 600 Output: Urine 200 Other: Voiding Method Toilet Toilet Toilet # Voids 4 1 - Exam GENERAL EXAM: 78-year-old white female, on 2 L of oxygen, in no form of respiratory distress. HEENT: PERRLA, EOMI, no icterus. NECK: No masses, no JVD, no thyroid enlargement, no adenopathy. CHEST: No chest wall deformity. Symmetrical expansion. LUNGS: Equal air entry with crackles at the bases, no wheeze, rhonchi or dullness. CVS: Regular rate and rhythm, normal S1 and S2, no gallops, no murmurs, no rubs ABDOMEN: Soft, nontender. No hepatosplenomegaly, normal bowel sounds, no gu arding or rigidity. EXTREMITIES: No clubbing edema or cyanosis, good pulses bilaterally. SPINE: No scoliosis or deformity SKIN: No rashes CENTRAL NERVOUS SYSTEM: Awake, alert 3, no gross focal neurologic deficits. - Labs CBC & Chem 7: 02/12/19 12:22 02/12/19 12:22 Labs: Abnormal Lab Results - Last 24 Hours (Table) 02/12/19 02/12/19 02/12/19 Range/Units 05:25 05:25 05:35 WBC (3.8-10.6) k/uL RBC (3.80-5.40) m/uL Hgb (11.4-16.0) gm/dL Hct (34.0-46.0) % MCHC (31.0-37.0) g/dL RDW (11.5-15.5) % Neutrophils # (1.3-7.7) k/uL Neutrophils # (Manual) (1.3-7.7) k/uL PT 27.4 H (9.0-12.0) sec INR 2.8 H (<1.2) Potassium (3.5-5.1) mmol/L Carbon Dioxide (22-30) mmol/L BUN (7-17) mg/dL Glucose (74-99) mg/dL POC Glucose (mg/dL) (75-99) mg/dL Stool Occult Blood Positive H (Negative) C. difficile (EIA) Intrp Positive A (Negative) 02/12/19 02/12/19 02/12/19 Range/Units 05:35 05:35 09:15 WBC 13.1 H 12.4 H (3.8-10.6) k/uL RBC 3.11 L 2.91 L (3.80-5.40) m/uL Hgb 8.1 L D 7.5 L (11.4-16.0) gm/dL Hct 26.0 L 24.4 L (34.0-46.0) % MCHC 30.9 L (31.0-37.0) g/dL RDW 18.3 H 18.4 H (11.5-15.5) % Neutrophils # 9.7 H (1.3-7.7) k/uL Neutrophils # (Manual) 10.48 H (1.3-7.7) k/uL PT (9.0-12.0) sec INR (<1.2) Potassium 5.5 H (3.5-5.1) mmol/L Carbon Dioxide 33 H (22-30) mmol/L BUN 59 H (7-17) mg/dL Glucose 136 H (74-99) mg/dL POC Glucose (mg/dL) (75-99) mg/dL Stool Occult Blood (Negative) C. difficile (EIA) Intrp (Negative) 02/12/19 02/12/19 Range/Units 09:20 12:22 WBC 13.8 H (3.8-10.6) k/uL RBC 3.05 L (3.80-5.40) m/uL Hgb 8.0 L (11.4-16.0) gm/dL Hct 25.7 L (34.0-46.0) % MCHC (31.0-37.0) g/dL RDW 18.5 H (11.5-15.5) % Neutrophils # 10.3 H (1.3-7.7) k/uL Neutrophils # (Manual) (1.3-7.7) k/uL PT (9.0-12.0) sec INR (<1.2) Potassium (3.5-5.1) mmol/L Carbon Dioxide (22-30) mmol/L BUN (7-17) mg/dL Glucose (74-99) mg/dL POC Glucose (mg/dL) 141 H (75-99) mg/dL Stool Occult Blood (Negative) C. difficile (EIA) Intrp (Negative) Microbiology - Last 24 Hours (Table) 02/10/19 13:14 Blood Culture - Preliminary Blood No Growth after 24 hours Assessment and Plan Assessment: #1. Lightheadedness, dizziness, hallucinations, and there is a possibility of mild dehydration with multiple confusional symptoms mostly cardiac in nature. Unless proven otherwise considering her underlying cardiomyopathy and LV dysfunction. #2. Hallucinations and delirium, likely related to combination of sources related to cardiomyopathy, shortness of breath, tracheobronchitis, and slightly impaired renal function. #3. Mild dyspnea, possibly related to mild bronchitis, chest x-ray did not show any acute cardiopulmonary process #4. Stage II COPD with FEV1 of 52% of predicted or 1.2 L, on home oxygen #5. Acute on chronic hypoxemic respiratory failure could be related to mild tracheobronchitis, and underlying COPD. #6. CAD with previous history of bypass grafting #7. Elevated calcium level with elevated PTH, has been elevated for a period of time at 10.7 on present admission, patient has been referred to certified midwife on an outpatient basis #8. Chronic atrial fibrillation, slightly tachycardic on admission with a rate of 105 BPM on admission, currently better controlled #9. Hypertension #10. Hyperlipidemia #11. Degenerative joint disease #12. History of valvular heart disease, and mitral valve repair #13. History of coronary artery stenting #14. Severely impaired left ventricular systolic function with an EF of 30-35%, with moderate mitral regurgitation, mild mitral stenosis, moderate to severe tricuspid regurgitation, and pulmonary hypertension with PA systolic of 48.7 mmHg. #15 acute lower GI bleeding, most likely secondary to diverticular disease and underlying C. difficile colitis. #16 acute C. difficile colitis, on oral vancomycin. Recommendation: Continue to monitor the patient in the ICU, continue serial hemoglobin and hematocrit measurements. GI consultation was initiated, continue to hold Coumadin, patient received vitamin K 1, continue GI prophylaxis. And we'll continue to follow closely. Updated family condition at bedside. Time with Patient: Less than 30
[2019-02-12] MEDS ORDERED: NALOXONE 0.4 MG/ML 1 ML VIAL IV PRN (15:50)
--- NOTE | 2019-02-12 15:52 | CONS ---
CONSULTATION DATE OF SERVICE: 02/12/2019 REASON FOR CONSULTATION: Acute lower gastrointestinal bleed. HISTORY OF PRESENT ILLNESS: The patient is a 78-year-old pleasant white female who was admitted to the hospital because of generalized weakness, shortness of breath, and some ( ). She has history of chronic atrial fibrillation and has been on oral anticoagulation with Coumadin. While she was in selective care she had an episode of bloody bowel movement last night and she had 3 other episodes this morning. She dropped hemoglobin from 11 to 8.9 g/dL, and hence she was transferred to the intensive care unit. The patient was seen at the bedside in the ICU. She does complain of some cramping lower abdominal pain. She reports no nausea, vomiting. Her last bloody bowel movement was about an hour ago. She also had some diarrhea last night and she had stool for C diff done which was reported as positive and she was started on oral vancomycin this morning. She was given 5 mg of vitamin K for an INR of 2.8. The patient denies ever having an acute GI bleed in the past. She reports no fever, chills, night sweats. She recalls having a colonoscopy about a year ago but cannot give me the details. PAST MEDICAL HISTORY: Significant for atrial fibrillation on Coumadin, hypertension, hyperlipidemia, coronary artery disease, COPD, degenerative joint disease. PAST SURGICAL HISTORY: CABG, cholecystectomy, cardiac catheterization with stent placement, hysterectomy, and repair of the mitral valve. SOCIAL HISTORY: No smoking. No alcohol use. MEDICATIONS: At home include Symbicort, Coumadin, albuterol, Cozaar, potassium chloride, Tylenol p.m., albuterol, multivitamins, Lasix, Senna, Zocor, fish oil. ALLERGIES: AMIODARONE. SOCIAL HISTORY: Quit smoking in 1997. No alcohol use. FAMILY HISTORY: Mother, heart disease. Daughter had uterine cancer. REVIEW OF SYSTEMS: CARDIOPULMONARY: She denies any chest pain, no shortness of breath. GENITOURINARY: No dysuria or hematuria. MUSCULOSKELETAL: Unremarkable. SKIN: Unremarkable. ENDOCRINE: Unremarkable. PSYCHIATRIC: Unremarkable. NEUROLOGY: Unremarkable. ENT/VISION: Unremarkable. CONSTITUTIONAL: No recent weight loss. No fever, chills, night sweats. She complains of generalized weakness. HEMATOLOGY: Severe anemia. PHYSICAL EXAMINATION: She appears comfortable. No apparent distress. Vital signs are stable. Blood pressure is 131/73, pulse rate 108, and temperature 98. HEENT examination unremarkable. Conjunctivae pink. Sclerae anicteric. Oral cavity, no lesions. NECK: No JVD or lymph node enlargement. CHEST: Clear to auscultation. HEART: Regular rate and rhythm. ABDOMEN: Soft. There was very minimal tenderness in the lower abdominal area but the rest of the abdomen was benign. Bowel sounds are positive. No organomegaly. EXTREMITIES: No pedal edema. SKIN; No rashes. NEUROLOGIC: Alert and oriented x3. No focal deficits. LABS: WBC 12.4, hemoglobin 7.5, platelets 208. INR was 2.8. BUN is 59 and creatinine 0.98. Stool occult blood is positive. C difficile was positive. IMPRESSION: 1. Acute gastrointestinal bleed with multiple episodes of bright red blood per rectum with clots that started last night, dropped hemoglobin from 11 to 7.5 g/dL. She is noted to have elevated BUN at 59, which raises a suspicion for an upper GI source of bleeding. However, she does not have any abdominal pain. No nausea, vomiting. No prior history of peptic ulcer disease. She mentioned she did have a colonoscopy about a year ago and according to the patient was normal. 2. Clostridium difficile colitis on oral vancomycin. 3. Atrial fibrillation on Coumadin, currently on hold. She was given vitamin K 5 mg early this morning. 4. Exacerbation of chronic obstructive pulmonary disease, stage 2. 5. Coronary artery disease status post coronary artery bypass graft in the past. 6. History of valvular heart disease with a mitral valve repair several years ago. RECOMMENDATIONS: 1. Clear liquid diet. 2. CBC every 6 hours and transfuse if hemoglobin is less than 7. 3. Agree with vitamin K and repeat PT/INR today evening. 4. IV Protonix 40 mg q.12 hours. 5. Will consider endoscopic intervention based on her clinical course in the next 24- 48 hours. Thank you for this consultation. MMODL / IJN: [id number] /
[2019-02-12 19:18] LABS: Anisocytosis Slight; HCT 23.3 % (34.0-46.0); HGB 7.2 gm/dL (11.4-16.0); Hypochromasia Marked; MCH 25.5 pg (25.0-35.0); MCHC 30.8 g/dL (31.0-37.0); MCV 82.9 fL (80.0-100.0); Mean Platelet Volume 7.1; Platelet Count 213 k/uL (150-450); Poikilocytosis Slight; RBC 2.81 m/uL (3.80-5.40); RDW 18.8 % (11.5-15.5)
[2019-02-12] MEDS: ATORVASTATIN 20 MG TAB PO SCH (20:14)
[2019-02-12 20:19] LABS: Neutrophils % (M) 77 %; Nucleated Red Blood Cells 1 /100 WBC (0-0); Total Cells Counted 100
[2019-02-12 20:20] LABS: Basophilic Stippling Present
[2019-02-12 20:42] LABS: Lymphocytes # (M) 2.49 k/uL (1.0-4.8); Monocytes # (M) 0.52 k/uL (0-1.0); WBC 13.1 k/uL (3.8-10.6)
--- NOTE | 2019-02-12 22:49 | P.PN ---
Subjective Progress Note Date: 02/12/19 Principal diagnosis: Generalized weakness and dizziness due to dehydration and underlying A. fib Acute bronchitis Chronic atrial fibrillation Patient is a 78-year-old female with a known history of chronic atrial fibrillation on anticoagulation with Coumadin, chronic CHF with systolic dysfunction ejection fraction 45-50%, COPD on home oxygen, coronary artery disease status post stent and history of CABG, hypertension, hyperlipidemia, history of mitral valve repair presents to ER with the complaints of shortness of breath, generalized weakness and also hallucinations. Patient was also having cough with minimal sputum production, yellowish in color. Patient became very weak and would to get her to the bed. Patient was brought to the hospital by her for further evaluation. Patient has been afebrile. No complaints of chest pain. No nausea vomiting or diarrhea. No abdominal pain. No dysuria or hematuria. No leg swelling. Chest x-ray showed cardiomegaly. No acute cardio pulmonary process. EKG showed atrial fibrillation with rapid ventricular rate around 105 WBC 9.6, hemoglobin 11.1, INR 2.8, BUN 32 and creatinine 0.98, calcium 10.4 Troponin 0.0367, 0.039 and 0.025, BNP 786 Urine negative for infection. 02/10/2019 Patient is more awake and oriented today. No hallucinations noted. Patient denied any complaints of dizziness today. Tolerating oral diet. IV Lasix has been discontinued. BUN 48 and creatinine level I.23 Patient was seen by neurology and carotid duplex was ordered to rule out any stenosis due to dizziness. Showed no hemodynamically significant stenosis. Cardiology and pulmonary is following. Continued on antibiotics in the form of azithromycin due to bronchitis. No chest pain. No shortness of breath. No fever no chills. Patient remained in atrial fibrillation. 02/11/2019 Patient is currently sitting in the chair comfortably. Denied any complaints of chest pain or worsening shortness of breath. No headache or dizziness. Agent does have some increased leg swelling. IV fluids have been discontinued andpatient was started on oral Lasix 40 mg twice daily. Renal function slightly improved. Blood pressure is fairly controlled. Anticipate discharge tomorrow with more pain and improvement. Cardiology and pulmonary is following. Patient is being continued on antibiotics in the form of Augmentin. 02/12/2019 Patient did have 2 large bloody bowel movements today morning. Hemoglobin dropped from 11.7--- 7.5. Patient was transferred to MICU for close monitoring. Gastroenterology service was consulted. Patient was also given a dose of vitamin K 5 mg 1 dose Otherwise C. diff came back positive as well. Patient was started on oral vancomycin. Patient is currently awake alert and oriented. But confused otherwise. No chest pain or shortness of breath. Denied any abdominal pain. Bleeding is likely due to diverticular nature. Current medications reviewed. Active Medications Albuterol/Ipratropium (Duoneb 0.5 Mg-3 Mg/3 Ml Soln) 3 ml INHALATION RT-TID [facility] Last Admin: 02/12/19 19:42 Dose: 3 ml Documented by: Albuterol/Ipratropium (Duoneb 0.5 Mg-3 Mg/3 Ml Soln) 3 ml INHALATION RT-Q2H PRN PRN Reason: Shortness Of Breath Or Wheezing Atorvastatin Calcium (Lipitor) 20 mg PO HS [facility] Last Admin: 02/12/19 20:14 Dose: 20 mg Documented by: Budesonide/Formoterol Fumarate (Symbicort 80-4.5 Mcg Inhaler) 2 puff INHALATION RT-BID [facility] Last Admin: 02/12/19 19:42 Dose: 2 puff Documented by: Suarez Syrup (Suarez Syrup) 5 ml PO Q6HR [facility] Stop: 02/21/19 23:00 Last Admin: 02/12/19 18:13 Dose: 5 ml Documented by: Furosemide (Lasix) 40 mg PO BID@0900,1600 [facility] Last Admin: 02/12/19 15:55 Dose: 40 mg Documented by: Losartan Potassium (Cozaar) 50 mg PO DAILY [facility] Last Admin: 02/12/19 07:50 Dose: Not Given Documented by: Metoprolol Tartrate (Lopressor) 50 mg PO BID [facility] Last Admin: 02/12/19 20:14 Dose: 50 mg Documented by: Multivitamins (Theragran) 1 each PO DAILY [facility] Last Admin: 02/12/19 07:50 Dose: Not Given Documented by: Naloxone HCl (Narcan) 0.2 mg IV Q2M PRN PRN Reason: Opioid Reversal Nitroglycerin (Nitrostat) 0.4 mg SUBLINGUAL Q5M PRN PRN Reason: Chest Pain Pantoprazole Sodium (Protonix) 40 mg IVP BID [facility] Last Admin: 02/12/19 20:14 Dose: 40 mg Documented by: Potassium Chloride (K-Dur 20) 20 meq PO DAILY [facility] Last Admin: 02/12/19 07:58 Dose: Not Given Documented by: Senna (Senokot) 8.6 mg PO HS PRN PRN Reason: Constipation Vancomycin HCl (Vancomycin Oral Solution) 125 mg PO Q6HR [facility] Last Admin: 02/12/19 18:14 Dose: 125 mg Documented by: Objective - Vital Signs Vital signs: Vital Signs Temp 98.4 F 02/12/19 08:00 Pulse 114 H 02/12/19 13:14 Resp 18 02/12/19 08:00 BP 131/73 02/12/19 08:00 Pulse Ox 94 L 02/12/19 08:00 Intake & Output 02/11/19 02/12/19 02/12/19 18:59 06:59 18:59 Intake Total 760 Output Total 200 Balance 760 -200 Weight 86.9 kg Intake: IV 160 0.9 160 Oral 600 Output: Urine 200 Other: Voiding Method Toilet Toilet Toilet # Voids 4 1 - Exam PHYSICAL EXAMINATION: Patient is lying in the bed comfortably, no acute distress, awake alert and oriented.. HEENT: Normocephalic. Neck is supple. Pupils reactive. Nostrils clear. Oral cavity is moist. Ears reveal no drainage. Neck reveals no JVD, carotid bruits, or thyromegaly. CHEST EXAMINATION: Trachea is central. Symmetrical expansion. Lung dawn clear to auscultation and percussion. CARDIAC: Normal S1, S2 with no gallops. No murmurs . Irregularly irregular rhythm. ABDOMEN: Soft. Bowel sounds normal. No organomegaly. No abdominal bruits. Extremities: Trace edema. No clubbing or cyanosis Neurologically awake, alert, oriented x3 with well-coordinated movements. No focal deficits noted Skin: No rash or skin lesions. Psychiatric: Coperative. Nonsuicidal Musculoskeletal: No joint swelling or deformity. Normal range of motion. - Labs CBC & Chem 7: 02/12/19 18:27 02/12/19 12:22 Labs: Abnormal Lab Results - Last 24 Hours (Table) 02/12/19 02/12/19 02/12/19 Range/Units 05:25 05:25 05:35 WBC (3.8-10.6) k/uL RBC (3.80-5.40) m/uL Hgb (11.4-16.0) gm/dL Hct (34.0-46.0) % MCHC (31.0-37.0) g/dL RDW (11.5-15.5) % Neutrophils # (1.3-7.7) k/uL Neutrophils # (Manual) (1.3-7.7) k/uL PT 27.4 H (9.0-12.0) sec INR 2.8 H (<1.2) Potassium (3.5-5.1) mmol/L Carbon Dioxide (22-30) mmol/L BUN (7-17) mg/dL Glucose (74-99) mg/dL POC Glucose (mg/dL) (75-99) mg/dL Stool Occult Blood Positive H (Negative) C. difficile (EIA) Intrp Positive A (Negative) 02/12/19 02/12/19 02/12/19 Range/Units 05:35 05:35 09:15 WBC 13.1 H 12.4 H (3.8-10.6) k/uL RBC 3.11 L 2.91 L (3.80-5.40) m/uL Hgb 8.1 L D 7.5 L (11.4-16.0) gm/dL Hct 26.0 L 24.4 L (34.0-46.0) % MCHC 30.9 L (31.0-37.0) g/dL RDW 18.3 H 18.4 H (11.5-15.5) % Neutrophils # 9.7 H (1.3-7.7) k/uL Neutrophils # (Manual) 10.48 H (1.3-7.7) k/uL PT (9.0-12.0) sec INR (<1.2) Potassium 5.5 H (3.5-5.1) mmol/L Carbon Dioxide 33 H (22-30) mmol/L BUN 59 H (7-17) mg/dL Glucose 136 H (74-99) mg/dL POC Glucose (mg/dL) (75-99) mg/dL Stool Occult Blood (Negative) C. difficile (EIA) Intrp (Negative) 02/12/19 02/12/19 Range/Units 09:20 12:22 WBC 13.8 H (3.8-10.6) k/uL RBC 3.05 L (3.80-5.40) m/uL Hgb 8.0 L (11.4-16.0) gm/dL Hct 25.7 L (34.0-46.0) % MCHC (31.0-37.0) g/dL RDW 18.5 H (11.5-15.5) % Neutrophils # 10.3 H (1.3-7.7) k/uL Neutrophils # (Manual) (1.3-7.7) k/uL PT (9.0-12.0) sec INR (<1.2) Potassium (3.5-5.1) mmol/L Carbon Dioxide (22-30) mmol/L BUN (7-17) mg/dL Glucose (74-99) mg/dL POC Glucose (mg/dL) 141 H (75-99) mg/dL Stool Occult Blood (Negative) C. difficile (EIA) Intrp (Negative) Microbiology - Last 24 Hours (Table) 02/10/19 13:14 Blood Culture - Preliminary Blood No Growth after 24 hours Assessment and Plan Assessment: Acute blood loss anemia. Likely diverticular bleed. Acute C. diff infection Shortness of breath secondary to mild tracheobronchitis. Improving now. Dizziness, lightheadedness and generalized weakness likely due to dehydration, volume depletion. Improved now. Chronic CHF with systolic dysfunction Chronic atrial fibrillation on anticoagulation with Coumadin Chronic hypoxic respiratory failure secondary to COPD on home oxygen Coronary artery disease with history of CABG and stent placement Hypercalcemia 10.7 and elevated PTH level during previous admission. Outpatient follow with endocrinology Hallucinations Hypertension Hyperlipidemia Osteoarthritis History of mitral valve repair DVT prophylaxis patient is already on Coumadin with therapeutic INR at 2.8--2.4 Plan: Patient will be continued on oral vancomycin. Monitor H&H. Continue with IV hydration. Continue with breathing treatments and oxygen therapy. Monitor renal function. IV Lasix has been discontinued.. Changed to by mouth. Cardiology and pulmonary is on board. Continue the home medications and further recommendations based on the clinical course. Coumadin is held due to GI bleed.. Prognosis is guarded at this time. Time with Patient: Greater than 30
[2019-02-13] MEDS: CHERRY FLAVOR 60 ML BOTTLE PO SCH ×5 (00:22→23:24)
[2019-02-13] MEDS: VANCOMYCIN ORAL SOLUTION 250 MG/5 ML BOTTLE PO SCH ×5 (00:22→23:24)
[2019-02-13 00:44] LABS: Anisocytosis Slight; Basophils % (A) 0 %; Eosinophils % (A) 0 %; HCT 21.8 % (34.0-46.0); Hypochromasia Marked; Lymphocytes # (A) 3.4 k/uL (1.0-4.8); Lymphocytes % (A) 22 %; MCH 25.4 pg (25.0-35.0); MCHC 30.8 g/dL (31.0-37.0); MCV 82.3 fL (80.0-100.0); Mean Platelet Volume 6.9; Microcytosis Slight; Monocytes # (A) 1.1 k/uL (0-1.0); Monocytes % (A) 7 %; Neutrophils # (A) 10.8 k/uL (1.3-7.7); Neutrophils % (A) 69 %; Platelet Count 212 k/uL (150-450); Poikilocytosis Slight; RBC 2.65 m/uL (3.80-5.40); RDW 18.8 % (11.5-15.5); WBC 15.7 k/uL (3.8-10.6)
[2019-02-13 00:48] LABS: HGB 6.7 gm/dL (11.4-16.0)
[2019-02-13 07:01] LABS: Anisocytosis Slight; Basophils % (A) 0 %; Eosinophils # (A) 0.1 k/uL (0-0.7); Eosinophils % (A) 1 %; HCT 23.2 % (34.0-46.0); HGB 7.3 gm/dL (11.4-16.0); Hypochromasia Moderate; Lymphocytes # (A) 2.6 k/uL (1.0-4.8); Lymphocytes % (A) 18 %; MCH 25.8 pg (25.0-35.0); MCHC 31.2 g/dL (31.0-37.0); MCV 82.7 fL (80.0-100.0); Mean Platelet Volume 7.1; Monocytes % (A) 7 %; Neutrophils # (A) 10.2 k/uL (1.3-7.7); Neutrophils % (A) 72 %; Platelet Count 180 k/uL (150-450); Poikilocytosis Moderate; RBC 2.81 m/uL (3.80-5.40); RDW 18.1 % (11.5-15.5); WBC 14.1 k/uL (3.8-10.6)
[2019-02-13 07:07] LABS: INR 2.1 (<1.2); Prothrombin Time 20.3 sec (9.0-12.0)
[2019-02-13 07:16] LABS: Magnesium 1.9 mg/dL (1.6-2.3); Phosphorus 2.8 mg/dL (2.5-4.5); Potassium 3.9 mmol/L (3.5-5.1)
[2019-02-13] MEDS: IPRATROPIUM-ALBUTEROL 3 ML NEB INHALATION SCH ×3 (07:49→19:27)
[2019-02-13] MEDS: SYMBICORT 80-4.5 MCG INHALER INHALATION SCH ×2 (07:51→19:27)
[2019-02-13] MEDS: PANTOPRAZOLE 40 MG/10 ML VIAL IVP SCH ×2 (08:19→20:36)
[2019-02-13] MEDS: FUROSEMIDE 40 MG TAB PO SCH ×2 (08:20→17:26)
[2019-02-13] MEDS: POTASSIUM CHLORIDE ER 20 MEQ TAB.ER PO SCH (08:20)
[2019-02-13] MEDS: METOPROLOL TARTRATE 50 MG TAB PO SCH ×2 (08:20→20:36)
[2019-02-13] MEDS: MULTIVITAMINS, THERA 1 EACH TAB PO SCH (08:20)
--- NOTE | 2019-02-13 11:02 | PN ---
PROGRESS NOTE DATE OF DICTATION: 02/13/2019 REQUESTING PHYSICIAN: Dr. Renzo Molina The patient is a 78-year-old pleasant white female who was admitted to hospital with altered mental status and shortness of breath. While in the hospital, she developed acute GI bleed and was transferred to the intensive care unit yesterday. She had several episodes of dark colored stools. Initially they were very dark and subsequently they became javon. She has atrial fibrillation and has been on Coumadin for several years. She received vitamin K yesterday morning and INR this morning is 2.1 g/dL. She dropped hemoglobin to 6.7 and required 1 unit of PRBC transfusion. She complains of some epigastric pain. She denies any nausea, vomiting. She never had these symptoms in the past. She recalls having a colonoscopy by Dr. Mann approximately 1 or 2 years ago at [facility] and according to her, it showed diverticulosis. She reports no fever, chills, or night sweats. PHYSICAL EXAMINATION: She appears comfortable. No apparent distress. VITAL SIGNS: Stable. Blood pressure is 138/68, pulse rate 82, temperature 98.2 HEENT examination unremarkable. Conjunctivae pink. Sclerae anicteric. Oral cavity no lesions. NECK: No JVD or lymph node enlargement. CHEST: Clear to auscultation. HEART: Regular rate and rhythm. ABDOMEN: Soft. Bowel sounds are positive. No organomegaly. EXTREMITIES: No pedal edema. SKIN no rashes. NEUROLOGIC: Alert and oriented x3. No focal deficits. LABS: WBC yesterday was 15.7, hemoglobin 6.7, platelets 212. Hemoglobin 4 days ago was 11.5. This morning after one unit of PRBC transfusion, hemoglobin 7.3, BUN 59, which is down to 49 today and INR is 2.1. IMPRESSION: 1. Acute gastrointestinal bleed, upper versus lower in etiology she has been having dark colored/maroon-colored stools for the last 2 days, dropped hemoglobin from 11- 6.7 g/dL requiring 1 unit of PRBC transfusion. She remains hemodynamically stable. Last colonoscopy approximately about [address] Mann according to the patient showed diverticulosis. At this time, given the elevated BUN, possibly the upper gastrointestinal source of bleeding needs to be considered. 2. Atrial fibrillation on Coumadin with an INR of 2.1, currently being reversed. She received vitamin K 5 mg yesterday and INR today is 2.1. 3. Altered mental status has resolved. 4. Chronic obstructive pulmonary disease, stable. 5. Hypertension/hyperlipidemia. RECOMMENDATIONS: 1. Continue with a clear liquid diet. 2. Continue Protonix 40 mg IV q.12 hours. 3. CBC every 12 hours and transfuse if hemoglobin is less than 7. 4. We will proceed with an upper endoscopy tomorrow given the possibility that we are dealing with an upper gastrointestinal source of bleeding. I discussed with the patient the risks, benefits and complications of the procedure. 5. Obtain previous colonoscopy reports from [facility]. 6. Repeat INR tomorrow morning. Thank you for this consultation. MMODL / IJN: [id number] /
--- NOTE | 2019-02-13 11:19 | P.PN ---
Subjective Progress Note Date: 02/13/19 Principal diagnosis: Lightheadedness and dizziness with history of cardiomyopathy and LV dysfunction and underlying moderate severe COPD This is a 78-year-old white female patient with past medical history of chronic congestive heart failure with systolic dysfunction and EF of 45-50%, COPD on home oxygen with FEV1 of 1.2 L or 52% of predicted, chronic atrial fibrillation on warfarin, essential hypertension, and coronary atherosclerosis with previous history of bypass grafting, mitral valve repair, and stent placement. Patient presented to the emergency department on 02/08/2019 for evaluation of dizziness, lightheadedness, apparently patient was experiencing some hallucinations, she was seeing children in her living room, who were not really there, she does report some mild shortness of breath, occasional cough with production of yellowish colored sputum. She denied any chest pain, she felt very fatigued, she states she just could not get up and do anything, she feels cold all the time, but she denies any fever. Chest x-ray was completed in the emergency department showing cardiomegaly, no active cardiopulmonary disease. Patient has been afebrile, she normally wears home O2, her oxygen level was 89 on presentation on 2 L of oxygen, hemodynamically she is been stable, EKG showed atrial fibrillation with a rate of 105, no evidence of acute ischemic changes, labs showed a white blood cell count of 9.6, hemoglobin of 11.1, INR was 2.8, electrolytes are within normal limits, BUN is 32 creatinine 0.98. She had mildly elevated troponins at 0.036, 0.039, and 0.025. Urinalysis without evidence of infection. Her proBNP was 786, cardiology has evaluated the patient, and patient was started on IV Lasix. From the pulmonary perspective for her COPD does not seem to be active although she has a occasional cough with some phlegm production. Her calcium level was noted to be elevated at 10.7 on admission, and 10.4 on today's labs, and patient appears to be somewhat prerenal, with BUN of 32 and creatinine 0.98. Looking back patient's calcium level has been elevated for a period of over a year, and her PTH was also elevated at 193.2. And she has been referred to senior technical specialist on outpatient basis On 02/10/2019 agent is seen in follow-up on selective care unit, apparently last night patient became very confused, agitated and combative, patient was looking for her , she was attempting to leave to go look for him. Patient was given a dose of Haldol, today she seen resting in bed, lethargic, and patient is unable to stay awake to answer some simple questions. Her daughter is at the bedside, and she is concerned about patient's ongoing symptoms of hallucinations that she reported for a period of close to a month prior to admission, and obvious worsening of delirium last night, requiring antipsychotic administration. Does not appear to be in any respiratory distress, she is on 3 L of oxygen her pulse ox is 97%, her respirations are nonlabored, lung sounds are with some minimal crackles the bases, no rhonchi, no wheezing, she is afebrile, hemodynamically patient is stable. Today's blood work has been reviewed, with white count up to 10.8, from previously 6.1 on yesterday's labs, INR is 2.4, sodium is 139, potassium is 4.5, chloride is 103, CO2 is 31, BUN is 48, creatinine is 1.23, and there has been worsening and patient's renal profile, she has received some IV doses of Lasix, which we will put on hold, patient's troponins were 0.036, 0.039, 0.025, patient did not report any chest pain. Urinalysis was negative for any signs of infection. Chest x-ray did not show any active cardiopulmonary disease. On admission patient did complain of some cough and some phlegm production, for which the patient was empirically started on some Augmentin. On 02/11/2019 patient seen in follow-up on selective care unit, she is lethargic, but arouses easily, still mildly intermittent confused, she has been evaluated by neurology service, carotid Doppler was negative, TSH was normal. Overall hallucinations have improved. Patient denies any significant cough or congestion, still has shortness of breath, which is worse with exertion. On today's labs patient's renal profile is improving, and patient's lung sounds are positive for diffuse rales, and we'll restart oral dose of Lasix today. No fever or chills, she continues on Augmentin for mild tracheobronchitis, today's labs have been reviewed, with blood cell count is 10.8, hemoglobin is 11.7, INR is 2.1, electrolytes were within normal limits with the exception of CO2 which is at 33, B1 of 43, and creatinine of 1.17. Patient is tolerating oral intake, no nausea vomiting or diarrhea. Pro-calcitonin came back at 0.20 suggesting the possibility of a mild infectious process possibly related to tracheobronchitis Patient was seen today on 02/12/2019, she had few episodes of bright red blood per rectum earlier today, and her hemoglobin showed a significant drop from 11.7 down to 8.0 this morning. Patient was transferred to the ICU because of her ongoing bright red blood per rectum, and is felt to be related to diverticular disease unless proven otherwise. She remains hemodynamically stable, patient is doing fairly well, her INR this morning was 2.8. And her stools were positive for C. diff. Pulmonary-[facility], remains on bronchodilators, and her overall pulmonary status is about the same. She is on oral vancomycin for her C. difficile colitis. Patient was reevaluated today on 02/13/2019, remains in the ICU, patient was transferred mostly because of her acute onset of lower GI bleeding. Patient has history of diverticulosis, and she has C. difficile colitis, she was also on Coumadin, all contributing factors to her GI bleeding. May eventually require colonoscopy, but that is yet to be decided by gastroenterology on the case. Patient continues to have intermittent episodes of lower GI bleeding, received 1 unit of packed RBCs yesterday, her last bloody bowel movement was last night. Presently the patient is hemodynamically stable, she is in no form of distress, remains on oral vancomycin for C. difficile colitis. Remains on her usual bronchodilators and her cardiac meds, Coumadin remains presently on hold. Hemoglobin this morning is 7.3, it dropped yesterday to 6.7 and then she received 1 unit of packed RBCs. Her INR is 2.1, received 1 dose of vitamin K. Electrolytes are normal. BUN is 49 as expected creatinine is 1.01. Objective - Vital Signs Vital signs: Vital Signs Temp 98.2 F 02/13/19 08:00 Pulse 86 02/13/19 08:01 Resp 19 02/13/19 08:00 BP 132/68 02/13/19 08:00 Pulse Ox 98 02/13/19 08:00 Intake & Output 02/12/19 02/13/19 02/13/19 18:59 06:59 18:59 Intake Total 900 1020 200 Output Total 800 1400 Balance 100 -380 200 Weight 88.6 kg Intake: IV 200 0.9 200 Oral 900 200 200 Blood Product 620 Rc Pheresis As-3 Unit 310 [id number] Output: Urine 800 1400 Other: Voiding Method Bedside Commode Bedside Commode Bedside Commode # Voids 1 0 # Bowel Movements 1 1 1 - Exam GENERAL EXAM: 78-year-old white female, on 2 L of oxygen, in no form of respiratory distress. HEENT: PERRLA, EOMI, no icterus. NECK: No masses, no JVD, no thyroid enlargement, no adenopathy. CHEST: No chest wall deformity. Symmetrical expansion. LUNGS: Equal air entry with crackles at the bases, no wheeze, rhonchi or dullne ss. CVS: Regular rate and rhythm, normal S1 and S2, no gallops, no murmurs, no rubs ABDOMEN: Soft, nontender. No hepatosplenomegaly, normal bowel sounds, no guarding or rigidity. EXTREMITIES: No clubbing edema or cyanosis, good pulses bilaterally. SPINE: No scoliosis or deformity SKIN: No rashes CENTRAL NERVOUS SYSTEM: Awake, alert 3, no gross focal neurologic deficits. - Labs CBC & Chem 7: 02/13/19 05:59 02/13/19 05:59 Labs: Abnormal Lab Results - Last 24 Hours (Table) 02/12/19 02/12/19 02/12/19 Range/Units 09:15 12:22 18:27 WBC 13.8 H 13.1 H (3.8-10.6) k/uL RBC 3.05 L 2.81 L (3.80-5.40) m/uL Hgb 8.0 L 7.2 L (11.4-16.0) gm/dL Hct 25.7 L 23.3 L (34.0-46.0) % MCHC 30.8 L (31.0-37.0) g/dL RDW 18.5 H 18.8 H (11.5-15.5) % Neutrophils # 10.3 H (1.3-7.7) k/uL Neutrophils # (Manual) 10.09 H (1.3-7.7) k/uL Monocytes # (0-1.0) k/uL Nucleated RBCs 1 H (0-0) /100 WBC PT (9.0-12.0) sec INR (<1.2) Carbon Dioxide (22-30) mmol/L BUN (7-17) mg/dL Crossmatch See Detail 02/13/19 02/13/19 02/13/19 Range/Units 00:13 05:59 05:59 WBC 15.7 H 14.1 H (3.8-10.6) k/uL RBC 2.65 L 2.81 L (3.80-5.40) m/uL Hgb 6.7 L* 7.3 L (11.4-16.0) gm/dL Hct 21.8 L 23.2 L (34.0-46.0) % MCHC 30.8 L (31.0-37.0) g/dL RDW 18.8 H 18.1 H (11.5-15.5) % Neutrophils # 10.8 H 10.2 H (1.3-7.7) k/uL Neutrophils # (Manual) (1.3-7.7) k/uL Monocytes # 1.1 H (0-1.0) k/uL Nucleated RBCs (0-0) /100 WBC PT 20.3 H (9.0-12.0) sec INR 2.1 H (<1.2) Carbon Dioxide (22-30) mmol/L BUN (7-17) mg/dL Crossmatch 02/13/19 Range/Units 05:59 WBC (3.8-10.6) k/uL RBC (3.80-5.40) m/uL Hgb (11.4-16.0) gm/dL Hct (34.0-46.0) % MCHC (31.0-37.0) g/dL RDW (11.5-15.5) % Neutrophils # (1.3-7.7) k/uL Neutrophils # (Manual) (1.3-7.7) k/uL Monocytes # (0-1.0) k/uL Nucleated RBCs (0-0) /100 WBC PT (9.0-12.0) sec INR (<1.2) Carbon Dioxide 38 H (22-30) mmol/L BUN 49 H (7-17) mg/dL Crossmatch Microbiology - 24 Hours (Table) 02/10/19 13:14 Blood Culture - Preliminary Blood No Growth after 48 hours Assessment and Plan Assessment: #1. Lightheadedness, dizziness, hallucinations, and there is a possibility of mild dehydration with multiple confusional symptoms mostly cardiac in nature. Unless proven otherwise considering her underlying cardiomyopathy and LV dysfunction. #2. Hallucinations and delirium, likely related to combination of sources related to cardiomyopathy, shortness of breath, tracheobronchitis, and slightly impaired renal function. This has completely resolved. #3. Mild dyspnea, possibly related to mild bronchitis, chest x-ray did not show any acute cardiopulmonary process #4. Stage II COPD with FEV1 of 52% of predicted or 1.2 L, on home oxygen #5. Acute on chronic hypoxemic respiratory failure could be related to mild tracheobronchitis, and underlying COPD. #6. CAD with previous history of bypass grafting #7. Elevated calcium level with elevated PTH, has been elevated for a period of time at 10.7 on present admission, patient has been referred to senior technical specialist on an outpatient basis #8. Chronic atrial fibrillation, slightly tachycardic on admission with a rate of 105 BPM on admission, currently better controlled #9. Hypertension #10. Hyperlipidemia #11. Degenerative joint disease #12. History of valvular heart disease, and mitral valve repair #13. History of coronary artery stenting #14. Severely impaired left ventricular systolic function with an EF of 30-35%, with moderate mitral regurgitation, mild mitral stenosis, moderate to severe tricuspid regurgitation, and pulmonary hypertension with PA systolic of 48.7 mmHg. #15 acute lower GI bleeding, most likely secondary to diverticular disease and underlying C. difficile colitis. #16 acute C. difficile colitis, on oral vancomycin. Recommendation: Continue to monitor the patient in the ICU. Continue to follow serial hemoglobin and hematocrit at least twice daily. Transfuse for hemoglobin below 7. Continue cardiac meds. Continue Protonix. Continue bronchodilators. Continue Coumadin on hold. Patient may eventually require colonoscopy. This is to be decided upon by gastroenterology on the case Continue oral vancomycin. Will follow while in the ICU Time with Patient: Less than 30
[2019-02-13] MEDS: LOSARTAN 50 MG TAB PO SCH (11:46)
[2019-02-13 12:37] LABS: Anisocytosis Slight; Basophils # (A) 0.1 k/uL (0-0.2); Basophils % (A) 0 %; Eosinophils # (A) 0.1 k/uL (0-0.7); Eosinophils % (A) 1 %; HCT 24.2 % (34.0-46.0); HGB 7.6 gm/dL (11.4-16.0); Hypochromasia Moderate; Lymphocytes # (A) 2.7 k/uL (1.0-4.8); Lymphocytes % (A) 17 %; MCH 25.9 pg (25.0-35.0); MCHC 31.4 g/dL (31.0-37.0); MCV 82.5 fL (80.0-100.0); Microcytosis Slight; Monocytes # (A) 1.1 k/uL (0-1.0); Monocytes % (A) 7 %; Neutrophils # (A) 11.1 k/uL (1.3-7.7); Neutrophils % (A) 72 %; Platelet Count 193 k/uL (150-450); Poikilocytosis Moderate; RBC 2.94 m/uL (3.80-5.40); RDW 18.5 % (11.5-15.5); WBC 15.4 k/uL (3.8-10.6)
[2019-02-13] MEDS: ATORVASTATIN 20 MG TAB PO SCH (20:37)
--- NOTE | 2019-02-13 22:58 | P.PN ---
Subjective Progress Note Date: 02/13/19 Principal diagnosis: Generalized weakness and dizziness due to dehydration and underlying A. fib Acute bronchitis Chronic atrial fibrillation Patient is a 78-year-old female with a known history of chronic atrial fibrillation on anticoagulation with Coumadin, chronic CHF with systolic dysfunction ejection fraction 45-50%, COPD on home oxygen, coronary artery disease status post stent and history of CABG, hypertension, hyperlipidemia, history of mitral valve repair presents to ER with the complaints of shortness of breath, generalized weakness and also hallucinations. Patient was also having cough with minimal sputum production, yellowish in color. Patient became very weak and would to get her to the bed. Patient was brought to the hospital by her for further evaluation. Patient has been afebrile. No complaints of chest pain. No nausea vomiting or diarrhea. No abdominal pain. No dysuria or hematuria. No leg swelling. Chest x-ray showed cardiomegaly. No acute cardio pulmonary process. EKG showed atrial fibrillation with rapid ventricular rate around 105 WBC 9.6, hemoglobin 11.1, INR 2.8, BUN 32 and creatinine 0.98, calcium 10.4 Troponin 0.0367, 0.039 and 0.025, BNP 786 Urine negative for infection. 02/10/2019 Patient is more awake and oriented today. No hallucinations noted. Patient denied any complaints of dizziness today. Tolerating oral diet. IV Lasix has been discontinued. BUN 48 and creatinine level I.23 Patient was seen by neurology and carotid duplex was ordered to rule out any stenosis due to dizziness. Showed no hemodynamically significant stenosis. Cardiology and pulmonary is following. Continued on antibiotics in the form of azithromycin due to bronchitis. No chest pain. No shortness of breath. No fever no chills. Patient remained in atrial fibrillation. 02/11/2019 Patient is currently sitting in the chair comfortably. Denied any complaints of chest pain or worsening shortness of breath. No headache or dizziness. Agent does have some increased leg swelling. IV fluids have been discontinued andpatient was started on oral Lasix 40 mg twice daily. Renal function slightly improved. Blood pressure is fairly controlled. Anticipate discharge tomorrow with more pain and improvement. Cardiology and pulmonary is following. Patient is being continued on antibiotics in the form of Augmentin. 02/12/2019 Patient did have 2 large bloody bowel movements today morning. Hemoglobin dropped from 11.7--- 7.5. Patient was transferred to MICU for close monitoring. Gastroenterology service was consulted. Patient was also given a dose of vitamin K 5 mg 1 dose Otherwise C. diff came back positive as well. Patient was started on oral vancomycin. Patient is currently awake alert and oriented. But confused otherwise. No chest pain or shortness of breath. Denied any abdominal pain. Bleeding is likely due to diverticular nature. 02 13 2019 patient is currently in the micu. awake alert and oriented but slightly confused. patient was initially admitted to the hospital with the complaints of dizziness likely due to dehydration and volume depletion. patient had large bowel movements with maroon-colored blood. and was transferred to micu. patient was also found have c. diff positive. currently on oral vancomycin. hemoglobin is 6.7 yesterday, hemoglobin went up to 7.3 today. inr is 2.1 Pulmonary and gastroenterology is following. Patient does have a history of diverticulosis. Current medications reviewed. Active Medications Albuterol/Ipratropium (Duoneb 0.5 Mg-3 Mg/3 Ml Soln) 3 ml INHALATION RT-TID [facility] Last Admin: 02/12/19 19:42 Dose: 3 ml Documented by: Albuterol/Ipratropium (Duoneb 0.5 Mg-3 Mg/3 Ml Soln) 3 ml INHALATION RT-Q2H PRN PRN Reason: Shortness Of Breath Or Wheezing Atorvastatin Calcium (Lipitor) 20 mg PO HS [facility] Last Admin: 02/12/19 20:14 Dose: 20 mg Documented by: Budesonide/Formoterol Fumarate (Symbicort 80-4.5 Mcg Inhaler) 2 puff INHALATION RT-BID [facility] Last Admin: 02/12/19 19:42 Dose: 2 puff Documented by: Suarez Syrup (Suarez Syrup) 5 ml PO Q6HR [facility] Stop: 02/21/19 23:00 Last Admin: 02/12/19 18:13 Dose: 5 ml Documented by: Furosemide (Lasix) 40 mg PO BID@0900,1600 [facility] Last Admin: 02/12/19 15:55 Dose: 40 mg Documented by: Losartan Potassium (Cozaar) 50 mg PO DAILY [facility] Last Admin: 02/12/19 07:50 Dose: Not Given Documented by: Metoprolol Tartrate (Lopressor) 50 mg PO BID [facility] Last Admin: 02/12/19 20:14 Dose: 50 mg Documented by: Multivitamins (Theragran) 1 each PO DAILY [facility] Last Admin: 02/12/19 07:50 Dose: Not Given Documented by: Naloxone HCl (Narcan) 0.2 mg IV Q2M PRN PRN Reason: Opioid Reversal Nitroglycerin (Nitrostat) 0.4 mg SUBLINGUAL Q5M PRN PRN Reason: Chest Pain Pantoprazole Sodium (Protonix) 40 mg IVP BID [facility] Last Admin: 02/12/19 20:14 Dose: 40 mg Documented by: Potassium Chloride (K-Dur 20) 20 meq PO DAILY [facility] Last Admin: 02/12/19 07:58 Dose: Not Given Documented by: Senna (Senokot) 8.6 mg PO HS PRN PRN Reason: Constipation Vancomycin HCl (Vancomycin Oral Solution) 125 mg PO Q6HR [facility] Last Admin: 02/12/19 18:14 Dose: 125 mg Documented by: Objective - Vital Signs Vital signs: Vital Signs Temp 98.1 F 02/13/19 12:00 Pulse 79 02/13/19 13:00 Resp 17 02/13/19 13:00 BP 109/53 02/13/19 13:00 Pulse Ox 99 02/13/19 13:00 Intake & Output 02/12/19 02/13/19 02/13/19 18:59 06:59 18:59 Intake Total 900 1020 400 Output Total 800 1400 800 Balance 100 -380 -400 Weight 88.6 kg Intake: IV 200 0.9 200 Oral 900 200 400 Blood Product 620 Rc Pheresis As-3 Unit 310 [id number] Output: Urine 800 1400 800 Other: Voiding Method Bedside Commode Bedside Commode Bedside Commode # Voids 1 0 # Bowel Movements 1 1 1 - Exam PHYSICAL EXAMINATION: Patient is lying in the bed comfortably, no acute distress, awake alert and oriented.. HEENT: Normocephalic. Neck is supple. Pupils reactive. Nostrils clear. Oral cavity is moist. Ears reveal no drainage. Neck reveals no JVD, carotid bruits, or thyromegaly. CHEST EXAMINATION: Trachea is central. Symmetrical expansion. Lung dawn clear to auscultation and percussion. CARDIAC: Normal S1, S2 with no gallops. No murmurs . Irregularly irregular rhythm. ABDOMEN: Soft. Bowel sounds normal. No organomegaly. No abdominal bruits. Extremities: Trace edema. No clubbing or cyanosis Neurologically awake, alert, oriented x3 with well-coordinated movements. No focal deficits noted Skin: No rash or skin lesions. Psychiatric: Coperative. Nonsuicidal Musculoskeletal: No joint swelling or deformity. Normal range of motion. - Labs CBC & Chem 7: 02/13/19 12:00 02/13/19 05:59 Labs: Abnormal Lab Results - Last 24 Hours (Table) 02/12/19 02/12/19 02/13/19 Range/Units 09:15 18:27 00:13 WBC 13.1 H 15.7 H (3.8-10.6) k/uL RBC 2.81 L 2.65 L (3.80-5.40) m/uL Hgb 7.2 L 6.7 L* (11.4-16.0) gm/dL Hct 23.3 L 21.8 L (34.0-46.0) % MCHC 30.8 L 30.8 L (31.0-37.0) g/dL RDW 18.8 H 18.8 H (11.5-15.5) % Neutrophils # 10.8 H (1.3-7.7) k/uL Neutrophils # (Manual) 10.09 H (1.3-7.7) k/uL Monocytes # 1.1 H (0-1.0) k/uL Nucleated RBCs 1 H (0-0) /100 WBC PT (9.0-12.0) sec INR (<1.2) Carbon Dioxide (22-30) mmol/L BUN (7-17) mg/dL Crossmatch See Detail 02/13/19 02/13/19 02/13/19 Range/Units 05:59 05:59 05:59 WBC 14.1 H (3.8-10.6) k/uL RBC 2.81 L (3.80-5.40) m/uL Hgb 7.3 L (11.4-16.0) gm/dL Hct 23.2 L (34.0-46.0) % MCHC (31.0-37.0) g/dL RDW 18.1 H (11.5-15.5) % Neutrophils # 10.2 H (1.3-7.7) k/uL Neutrophils # (Manual) (1.3-7.7) k/uL Monocytes # (0-1.0) k/uL Nucleated RBCs (0-0) /100 WBC PT 20.3 H (9.0-12.0) sec INR 2.1 H (<1.2) Carbon Dioxide 38 H (22-30) mmol/L BUN 49 H (7-17) mg/dL Crossmatch 02/13/19 Range/Units 12:00 WBC 15.4 H (3.8-10.6) k/uL RBC 2.94 L (3.80-5.40) m/uL Hgb 7.6 L (11.4-16.0) gm/dL Hct 24.2 L (34.0-46.0) % MCHC (31.0-37.0) g/dL RDW 18.5 H (11.5-15.5) % Neutrophils # 11.1 H (1.3-7.7) k/uL Neutrophils # (Manual) (1.3-7.7) k/uL Monocytes # 1.1 H (0-1.0) k/uL Nucleated RBCs (0-0) /100 WBC PT (9.0-12.0) sec INR (<1.2) Carbon Dioxide (22-30) mmol/L BUN (7-17) mg/dL Crossmatch Microbiology - Last 24 Hours (Table) 02/10/19 13:14 Blood Culture - Preliminary Blood No Growth after 48 hours Assessment and Plan Assessment: Acute blood loss anemia. Likely diverticular bleed. Acute C. diff infection Shortness of breath secondary to mild tracheobronchitis. Improving now. Dizziness, lightheadedness and generalized weakness likely due to dehydration, volume depletion. Improved now. Chronic CHF with systolic dysfunction Chronic atrial fibrillation on anticoagulation with Coumadin Chronic hypoxic respiratory failure secondary to COPD on home oxygen Coronary artery disease with history of CABG and stent placement Hypercalcemia 10.7 and elevated PTH level during previous admission. Outpatient follow with endocrinology Hallucinations Hypertension Hyperlipidemia Osteoarthritis History of mitral valve repair DVT prophylaxis patient is already on Coumadin with therapeutic INR at 2.8--2.4 Plan: Patient will be continued on oral vancomycin. Monitor H&H. Continue with IV hydration. Continue with breathing treatments and oxygen therapy. Monitor renal function. IV Lasix has been discontinued.. Changed to by mouth. Cardiology and pulmonary and GI is on board. Continue the home medications and further recommendations based on the clinical course. Coumadin is held due to GI bleed.. Prognosis is guarded at this time. Time with Patient: Greater than 30
[2019-02-14 04:35] LABS: Anisocytosis Slight; Basophils % (A) 0 %; Eosinophils # (A) 0.2 k/uL (0-0.7); Eosinophils % (A) 2 %; HCT 22.6 % (34.0-46.0); Hypochromasia Marked; Lymphocytes # (A) 1.9 k/uL (1.0-4.8); Lymphocytes % (A) 18 %; MCV 83.8 fL (80.0-100.0); Mean Platelet Volume 6.7; Monocytes # (A) 0.7 k/uL (0-1.0); Monocytes % (A) 7 %; Neutrophils # (A) 7.7 k/uL (1.3-7.7); Neutrophils % (A) 71 %; Platelet Count 178 k/uL (150-450); Poikilocytosis Moderate; RBC 2.69 m/uL (3.80-5.40); RDW 17.5 % (11.5-15.5); WBC 10.8 k/uL (3.8-10.6)
[2019-02-14 04:44] LABS: Potassium 3.7 mmol/L (3.5-5.1)
[2019-02-14] MEDS: VANCOMYCIN ORAL SOLUTION 250 MG/5 ML BOTTLE PO SCH ×3 (05:16→17:42)
[2019-02-14] MEDS: CHERRY FLAVOR 60 ML BOTTLE PO SCH ×3 (05:16→17:42)
[2019-02-14] MEDS: SYMBICORT 80-4.5 MCG INHALER INHALATION SCH ×2 (07:08→18:59)
[2019-02-14] MEDS: IPRATROPIUM-ALBUTEROL 3 ML NEB INHALATION SCH ×3 (07:08→19:00)
[2019-02-14] MEDS: PANTOPRAZOLE 40 MG/10 ML VIAL IVP SCH ×2 (07:51→20:15)
[2019-02-14] MEDS: METOPROLOL TARTRATE 50 MG TAB PO SCH ×2 (07:51→20:15)
[2019-02-14] MEDS: FUROSEMIDE 40 MG TAB PO SCH ×2 (08:27→15:49)
--- NOTE | 2019-02-14 09:17 | P.PN ---
Progress Note - Text Progress Note Date: 02/14/19 Patient remains in atrial fibrillation with controlled ventricular rate. She has acute blood loss anemia and received blood transfusion her Coumadin is on hold she is to undergo an EGD later today. Heart rate is well controlled on Lopressor 25 twice a day blood pressure is well controlled on Cozaar On exam this morning she is comfortable at rest heart rate is 90 bpm blood pressure is 115/44 respirators 16 O2 sat is 99% on room a there is a jugular venous distention chest exam reveals good air entry bilaterally heart exam reveals first and second heart sounds are regular rhythm and a systolic murmur at the left lower sternal border abdomen is soft exam extremities did not reveal any edema per for pulses are felt. Labs show that the hemoglobin is 7 platelet count is 178 potassium is 3.7. Assessment and plan: Chronic persistent atrial fibrillation with controlled ventricular rate Anemia secondary to blood loss Patient will continue with current rate control measures we will continue to hold anticoagulants
--- NOTE | 2019-02-14 09:32 | P.PN ---
Subjective Progress Note Date: 02/14/19 Principal diagnosis: Lightheadedness, dizziness, hallucinations, mild dyspnea and cough This is a 78-year-old white female patient with past medical history of chronic congestive heart failure with systolic dysfunction and EF of 45-50%, COPD on home oxygen with FEV1 of 1.2 L or 52% of predicted, chronic atrial fibrillation on warfarin, essential hypertension, and coronary atherosclerosis with previous history of bypass grafting, mitral valve repair, and stent placement. Patient presented to the emergency department on 02/08/2019 for evaluation of dizziness, lightheadedness, apparently patient was experiencing some hallucinations, she was seeing children in her living room, who were not really there, she does report some mild shortness of breath, occasional cough with production of yellowish colored sputum. She denied any chest pain, she felt very fatigued, she states she just could not get up and do anything, she feels cold all the time, but she denies any fever. Chest x-ray was completed in the emergency department showing cardiomegaly, no active cardiopulmonary disease. Patient has been afebrile, she normally wears home O2, her oxygen level was 89 on pres entation on 2 L of oxygen, hemodynamically she is been stable, EKG showed atrial fibrillation with a rate of 105, no evidence of acute ischemic changes, labs showed a white blood cell count of 9.6, hemoglobin of 11.1, INR was 2.8, electrolytes are within normal limits, BUN is 32 creatinine 0.98. She had mildly elevated troponins at 0.036, 0.039, and 0.025. Urinalysis without evidence of infection. Her proBNP was 786, cardiology has evaluated the patient, and patient was started on IV Lasix. From the pulmonary perspective for her COPD does not seem to be active although she has a occasional cough with some phlegm production. Her calcium level was noted to be elevated at 10.7 on admission, and 10.4 on today's labs, and patient appears to be somewhat prerenal, with BUN of 32 and creatinine 0.98. Looking back patient's calcium level has been elevated for a period of over a year, and her PTH was also elevated at 193.2. And she has been referred to [facility] on outpatient basis On 02/10/2019 agent is seen in follow-up on selective care unit, apparently last night patient became very confused, agitated and combative, patient was looking for her , she was attempting to leave to go look for him. Patient was given a dose of Haldol, today she seen resting in bed, lethargic, and patient is unable to stay awake to answer some simple questions. Her daughter is at the [facility], and she is concerned about patient's ongoing symptoms of hallucinations that she reported for a period of close to a month prior to admission, and obvious worsening of delirium last night, requiring antipsychotic administration. Does not appear to be in any respiratory distress, she is on 3 L of oxygen her pulse ox is 97%, her respirations are nonlabored, lung sounds are with some minimal crackles the bases, no rhonchi, no wheezing, she is afebrile, hemodynamically patient is stable. Today's blood work has been reviewed, with white count up to 10.8, from previously 6.1 on yesterday's labs, INR is 2.4, sodium is 139, potassium is 4.5, chloride is 103, CO2 is 31, BUN is 48, creatinine is 1.23, and there has been worsening and patient's renal profile, she has received some IV doses of Lasix, which we will put on hold, patient's troponins were 0.036, 0.039, 0.025, patient did not report any chest pain. Urinalysis was negative for any signs of infection. Chest x-ray did not show any active cardiopulmonary disease. On admission patient did complain of some cough and some phlegm production, for which the patient was empirically started on some Augmentin. On 02/11/2019 patient seen in follow-up on selective care unit, she is lethargic, but arouses easily, still mildly intermittent confused, she has been evaluated by neurology service, carotid Doppler was negative, TSH was normal. Overall hallucinations have improved. Patient denies any significant cough or congestion, still has shortness of breath, which is worse with exertion. On today's labs patient's renal profile is improving, and patient's lung sounds are positive for diffuse rales, and we'll restart oral dose of Lasix today. No fever or chills, she continues on Augmentin for mild tracheobronchitis, today's labs have been reviewed, with blood cell count is 10.8, hemoglobin is 11.7, INR is 2.1, electrolytes were within normal limits with the exception of CO2 which is at 33, B1 of 43, and creatinine of 1.17. Patient is tolerating oral intake, no nausea vomiting or diarrhea. Pro-calcitonin came back at 0.20 suggesting the possibility of a mild infectious process possibly related to tracheobronchitis On 02/14/2019 she seen in follow-up in the intensive care unit, apparently over the weekend patient was admitted to the unit with plaints of lower GI bleeding, and patient was passing maroon-colored stools. She did receive 1 unit of packed red blood cells, has had no active bleeding through the night, patient is going for EGD this afternoon, her hemoglobin today is 7.0, her latest INR from was 2.1, Coumadin is on hold. She was also found to be positive for C. diff, she is on oral vancomycin. She denies any shortness of breath, no chest pain, hemodynamically she stable, she is not tachycardic, she is on 2 L of oxygen with a pulse ox of 99%, no runny 90s, and sounds are positive for scattered crackles, patient on her maintenance dose of Lasix 40 mg twice daily, she is on her maintenance inhaler, no cough or congestion, has been treated for mild tracheal bronchitis with the oral antibiotics that have been discontinued. Objective - Vital Signs Vital signs: Vital Signs Temp 98.9 F 02/14/19 08:00 Pulse 73 02/14/19 09:00 Resp 15 02/14/19 09:00 BP 104/56 02/14/19 09:00 Pulse Ox 100 02/14/19 09:00 Intake & Output 02/13/19 02/14/19 02/14/19 18:59 06:59 18:59 Intake Total 550 20 Output Total 1550 800 0 Balance -1000 -780 0 Weight 87.9 kg Intake: Oral 550 20 Output: Urine 1550 800 0 Other: Voiding Method Bedside Commode Bedpan # Voids 0 1 # Bowel Movements 1 1 - Exam GENERAL EXAM: Somnolent 78-year-old white female, on 2 L of oxygen with a pulse ox of 98% comfortable in no apparent distress. HEAD: Normocephalic/atraumatic. EYES: Normal reaction of pupils, equal size. Conjunctiva pink, sclera white. NOSE: Clear with pink turbinates. THROAT: No erythema or exudates. NECK: No masses, no JVD, no thyroid enlargement, no adenopathy. CHEST: No chest wall deformity. Symmetrical expansion. LUNGS: Equal air entry with crackles at the bases, no wheeze, rhonchi or dullness. CVS: Regular rate and rhythm, normal S1 and S2, no gallops, no murmurs, no rubs ABDOMEN: Soft, nontender. No hepatosplenomegaly, normal bowel sounds, no guarding or rigidity. EXTREMITIES: No clubbing, no edema, no cyanosis, 2+ pulses and upper and lower extremities. MUSCULOSKELETAL: Muscle strength and tone normal. SPINE: No scoliosis or deformity SKIN: No rashes CENTRAL NERVOUS SYSTEM: Somnolent, does not stay awake No focal deficits, tone is normal in all 4 extremities. - Labs CBC & Chem 7: 02/14/19 04:09 02/14/19 04:13 Labs: Abnormal Lab Results - Last 24 Hours (Table) 02/13/19 02/14/19 02/14/19 Range/Units 12:00 04:09 04:13 WBC 15.4 H 10.8 H (3.8-10.6) k/uL RBC 2.94 L 2.69 L (3.80-5.40) m/uL Hgb 7.6 L 7.0 L (11.4-16.0) gm/dL Hct 24.2 L 22.6 L (34.0-46.0) % RDW 18.5 H 17.5 H (11.5-15.5) % Neutrophils # 11.1 H (1.3-7.7) k/uL Monocytes # 1.1 H (0-1.0) k/uL Carbon Dioxide 38 H (22-30) mmol/L BUN 30 H (7-17) mg/dL Glucose 109 H (74-99) mg/dL Microbiology - Last 24 Hours (Table) 02/10/19 13:14 Blood Culture - Preliminary Blood No Growth after 72 hours Assessment and Plan Plan: Assessment: #1. Acute GI blood loss anemia, with symptoms of multiple maroon-colored bowel movements, likely diverticular in nature and related to anticoagulation with Coumadin #2. Lightheadedness, dizziness, hallucinations, likely related to mild dehydration, and underlying confusional symptoms possibly cardiac in nature. #3. Hallucinations and delirium, likely related to combination of sources related to cardiomyopathy, shortness of breath, tracheobronchitis, and slightly impaired renal function. #4. Mild dyspnea, possibly related to mild bronchitis, chest x-ray did not show any acute cardiopulmonary process #5. Stage II COPD with FEV1 of 52% of predicted or 1.2 L, on home oxygen #6. Acute on chronic hypoxemic respiratory failure could be related to mild tracheobronchitis #7. CAD with previous history of bypass grafting #8. Elevated calcium level with elevated PTH, has been elevated for a period of time at 10.7 on present admission, patient has been referred to [facility] on an outpatient basis #9. Chronic atrial fibrillation, slightly tachycardic on admission with a rate of 105 BPM on admission, currently better controlled #10. Hypertension #11. Hyperlipidemia #12. Degenerative joint disease #13. History of valvular heart disease, and mitral valve repair #14. History of coronary artery stenting #15. Severely impaired left ventricular systolic function with an EF of 30-35%, with moderate mitral regurgitation, mild mitral stenosis, moderate to severe tricuspid regurgitation, and pulmonary hypertension with PA systolic of 48.7 mmHg. #16. Acute C. difficile colitis on oral vancomycin Plan: Patient remains hemodynamically stable, no active bleeding, denies any chest pain, denies any shortness of breath, today's hemoglobin is 7.0, she did receive a unit of blood yesterday on 02/13/2019, her anticoagulation remains on hold, continue with serial H&H's, continue less hemodynamic monitoring, she is awaiting EGD this afternoon, continue with oral vancomycin for C. diff. Continue maintenance inhaler and nebulized bronchodilators. I performed a history & physical examination of the patient and discussed their management with my nurse practitioner, Eve Michel. I reviewed the nurse practitioner's note and agree with the documented findings and plan of care. Lung sounds are positive for diminished breath sounds. The findings and the impression was discussed with the patient. I attest to the documentation by the nurse practitioner. Time with Patient: Less than 30
[2019-02-14 11:17] LABS: INR 1.6 (<1.2); Prothrombin Time 15.7 sec (9.0-12.0)
[2019-02-14] MEDS ORDERED: PROPOFOL 10 MG/ML 20 ML VIAL IV ONE (14:57)
[2019-02-14] MEDS ORDERED: LACTATED RINGERS 450 ML IV ONE (14:59)
--- NOTE | 2019-02-14 15:08 | P.PCN ---
Date of Procedure: 02/14/19 Procedure(s) Performed: BRIEF HISTORY: Patient is a 78-year-old, pleasant, female, admitted hospital with altered mental status and shortness of breath. While in the hospital she had significant GI bleed with dark-colored stools with clots and was transferred to the intensive care unit. She dropped hemoglobin from 11-76.7 g/dL requiring 1 unit of blood transfusion yesterday. Last hemoglobin is 7 g/dL. She is scheduled for an upper endoscopy for possible upper GI source of bleeding. PROCEDURE PERFORMED: Esophagogastroduodenoscopy with biopsy. PREOPERATIVE DIAGNOSIS: Maroon colored stools of 2 days' duration/severe anemia. IV sedation per anesthesia. PROCEDURE: After informed consent was obtained, the patient was brought into the endoscopy unit. IV sedation was administered by Anesthesia under continuous monitoring. Initially the Olympus GIF-140 video endoscope was inserted into the mouth. Esophagus intubated without any difficulty. It was gradually advanced into the stomach and duodenum and carefully examined. The bulb and the second part of the duodenum appeared normal. The scope at this time was withdrawn to the stomach, adequately insufflated with air, and upon careful examination, mucosa of the antrum had 2 ulcerations H measuring 1-1.5 cm in size with a clean base and no active bleeding. Biopsies were done from the antrum to evaluate for H. pylori infection. The body, cardia and the fundus appeared normal. The scope was then withdrawn into the esophagus. The GE junction was located at 39 cm from the incisors. Small sliding type hiatal hernia noted. The esophagus appeared normal. There were no erosions or ulcerations seen and the patient tolerated the procedure well. IMPRESSION: 1. 2 antral ulcerations measuring 1 and 1.5 cm in size with a clean base and no active bleeding. 2. Small hiatal hernia. RECOMMENDATIONS: The findings of this examination were discussed with the patient as well as her family. She will continue with Protonix 40 mg twice daily. Recent episode of GI bleed most likely related to peptic ulcer disease. We will await the biopsy results. Diet can be advanced as tolerated. Repeat CBC in the morning. Hold Coumadin for 1 week.
--- NOTE | 2019-02-14 15:32 | CDI ---
Documentation Clarification Form Date: 02/14/2019 3:13:15 PM From: Rehana Mejia RN CCDS Admit Date: 02/08/2019 6:16:00 PM Patient Name: April Jewell Visit Number: [id number] Discharge Date: ATTENTION: The Clinical Documentation Specialists (CDI) and [facility] Coding Staff appreciate your assistance in clarifying documentation. Please respond to the clarification below the line at the bottom and electronically sign. The CDI & [facility] Coding staff will review the response and follow-up if needed. Please note: Queries are made part of the Legal Health Record. If you have any questions, please contact the author of this message via ITS. Dr. Radha James MD Hallucinations is documented in your H &P 02/09/2019 History/Risk Factors: 78-year-old female presents to ED for increasing shortness of breath. Medical History chronic systolic heart failure; Atrial Fibrillation; Angina; COPD; HTN Clinical Indicators: Per Neurology Consult 02/10/2019 Acute confusional state (mild degree), with intermittent hallucinations, delusions, fluctuating mental status. Symptoms likely due to acute delirium from acute tracheobronchitis, worsening of baseline renal functions, dehydration and other medical issues. 02/08/2019 vss 159/100 104 98.4 17 89% ra Labs: Troponin 0.036 Treatment: Neuro Consult above; 02/09/2019 Amoxicillin po; Symbicort ; 0.9ns 50cchr/ In your professional opinion, please clarify the etiology of the Altered Mental Status, if known. * Metabolic Encephalopathy related to Tracheobronchitis, Renal function and Dehydration * Other condition (please specify) * Unable to determine (Last Revision: July 2017) Unable to determine MTDD
[2019-02-14] MEDS: MULTIVITAMINS, THERA 1 EACH TAB PO SCH (15:49)
[2019-02-14] MEDS: POTASSIUM CHLORIDE ER 20 MEQ TAB.ER PO SCH (15:50)
[2019-02-14] MEDS: LOSARTAN 50 MG TAB PO SCH (15:50)
[2019-02-14] MEDS ORDERED: ALBUTEROL INHALER 60 PUFF/8 GM INHALER INHALATION PRN (18:46)
[2019-02-14 18:51] LABS: Anisocytosis Slight; HCT 25.9 % (34.0-46.0); HGB 7.7 gm/dL (11.4-16.0); Hypochromasia Marked; MCH 25.8 pg (25.0-35.0); MCHC 29.7 g/dL (31.0-37.0); MCV 86.7 fL (80.0-100.0); Mean Platelet Volume 7.2; Platelet Count 182 k/uL (150-450); Poikilocytosis Slight; RBC 2.99 m/uL (3.80-5.40); RDW 17.4 % (11.5-15.5); WBC 12.5 k/uL (3.8-10.6)
[2019-02-14] MEDS: ATORVASTATIN 20 MG TAB PO SCH (20:15)
[2019-02-14] MEDS: AZELASTINE 137MCG/SPRAY EA NOSTRIL SCH (20:16)
--- NOTE | 2019-02-14 21:22 | PN ---
PROGRESS NOTE DATE OF SERVICE: 02/14/2019 This 78-year-old woman who was admitted with acute blood loss anemia also thought to have possible acute C difficile colitis. The patient underwent EGD today by Dr. Borrego showed two antral erosions measuring 1 and 1.5 cm in size. The clean base. No active bleeding. A small hiatal hernia. The hemoglobin has been stable at 7. Please note the patient received 1 unit of transfusion for hemoglobin of 6.7. No active bleeding is noted. The patient being closely monitored in ICU at this time. PAST MEDICAL HISTORY: Reviewed. REVIEW OF SYSTEMS: CARDIOVASCULAR SYSTEM: No angina or palpitations. RESPIRATORY: As mentioned earlier. GI: As mentioned earlier. : No dysuria. CENTRAL NERVOUS SYSTEM: No numbness or weakness. CURRENT MEDICATIONS: Reviewed and include: 1. DuoNeb q.i.d. and p.r.n. 2. Lipitor 20 mg q.h.s. 3. Symbicort 80/4.5 b.i.d. 4. Lasix 40 mg p.o. b.i.d. 5. Cozaar. 6. Lopressor 50 mg p.o. b.i.d. 7. Multivitamins one p.o. daily. 8. Narcan 0.2 q.2 p.r.n. 9. Nitrostat 0.4 mg p.r.n. 10.Protonix 40 mg IV b.i.d. 11.Senokot. 12.Vancomycin 125 mg p.o. q.6h p.r.n. PHYSICAL EXAM: Patient is alert, oriented x3. Pulse 89, blood pressure 100/90, respiration 18, temperature 98.8, pulse ox 94% on room air. HEENT is conjunctivae pale. NECK is no JVD. CARDIOVASCULAR: S1, S2 muffled. RESPIRATION: Breath sounds diminished in the bases. A few scattered rhonchi. ABDOMEN: Soft, nontender. No mass palpable. LEGS: No edema. No swelling. NERVOUS SYSTEM: No focal deficits. LAB STUDIES: WBC 10.8, hemoglobin 7, and INR is 1. ASSESSMENT: 1. Acute upper gastrointestinal bleeding with acute blood loss anemia possibly secondary to antral ulcerations, multiple 1 and 1.5 cm. 2. Small hiatal hernia in the EGD. 3. Acute Clostridium difficile colitis. 4. Shortness of breath possibly secondary to tracheobronchitis. 5. Dizziness, lightheadedness secondary to anemia. 6. Congestive heart failure with chronic systolic dysfunction. 7. Chronic atrial fibrillation, anticoagulation with Coumadin. 8. Coumadin monitor. 9. Chronic hypoxic respiratory failure and chronic obstructive pulmonary disease on home O2. 10.Coronary artery disease with history of coronary artery bypass grafting and stent. 11.Hypercalcemia 10.7 with elevated PTH. 12.Hallucinations. 13.Hypertension. 14.Hyperlipidemia. 15.History of degenerative joint disease. 16.History of mitral valve repair. 17.Deep vein thrombosis prophylaxis. RECOMMENDATIONS AND DISCUSSION: Recommend to continue current medications, continue with monitoring, symptomatic treatment. Otherwise, at this time, as mentioned, hemoglobin is 7. I would recommend repeat testing. Otherwise, continue with proton pump inhibitors. Add Carafate to the current regimen. Otherwise, continue to monitor. Hold antiplatelet agents. Guarded prognosis because of multiple complex medical issues. Further recommendations to follow. MMODL / IJN: [id number] /
[2019-02-15] MEDS: CHERRY FLAVOR 60 ML BOTTLE PO SCH ×5 (00:22→23:37)
[2019-02-15] MEDS: VANCOMYCIN ORAL SOLUTION 250 MG/5 ML BOTTLE PO SCH ×5 (00:22→23:37)
[2019-02-15 04:52] LABS: Anisocytosis Slight; Basophils % (A) 0 %; Eosinophils # (A) 0.2 k/uL (0-0.7); Eosinophils % (A) 2 %; HCT 22.7 % (34.0-46.0); Hypochromasia Marked; Lymphocytes # (A) 2.2 k/uL (1.0-4.8); Lymphocytes % (A) 20 %; MCH 25.5 pg (25.0-35.0); MCHC 30.4 g/dL (31.0-37.0); MCV 83.7 fL (80.0-100.0); Mean Platelet Volume 7.1; Monocytes # (A) 0.7 k/uL (0-1.0); Monocytes % (A) 6 %; Neutrophils # (A) 7.7 k/uL (1.3-7.7); Neutrophils % (A) 70 %; Platelet Count 185 k/uL (150-450); Poikilocytosis Moderate; RBC 2.71 m/uL (3.80-5.40); RDW 17.5 % (11.5-15.5); WBC 11.1 k/uL (3.8-10.6)
[2019-02-15 05:01] LABS: Calcium 8.8 mg/dL (8.4-10.2); Potassium 3.6 mmol/L (3.5-5.1)
[2019-02-15 05:03] LABS: INR 1.3 (<1.2); Prothrombin Time 13.7 sec (9.0-12.0)
[2019-02-15 05:05] LABS: HGB 6.9 gm/dL (11.4-16.0)
[2019-02-15] MEDS: IPRATROPIUM-ALBUTEROL 3 ML NEB INHALATION SCH ×3 (07:50→19:52)
[2019-02-15] MEDS: SYMBICORT 80-4.5 MCG INHALER INHALATION SCH ×2 (07:50→19:51)
[2019-02-15] MEDS: FUROSEMIDE 40 MG TAB PO SCH ×2 (08:18→16:49)
[2019-02-15] MEDS: PANTOPRAZOLE 40 MG/10 ML VIAL IVP SCH (08:18)
[2019-02-15] MEDS: METOPROLOL TARTRATE 50 MG TAB PO SCH ×2 (08:18→20:52)
[2019-02-15] MEDS: POTASSIUM CHLORIDE ER 20 MEQ TAB.ER PO SCH (08:18)
[2019-02-15] MEDS: MULTIVITAMINS, THERA 1 EACH TAB PO SCH (08:19)
[2019-02-15] MEDS: LOSARTAN 50 MG TAB PO SCH (08:19)
--- NOTE | 2019-02-15 09:13 | P.PN ---
Subjective Progress Note Date: 02/15/19 Principal diagnosis: Lightheadedness, dizziness, hallucinations, mild dyspnea and cough, GI bleeding, anemia This is a 78-year-old white female patient with past medical history of chronic congestive heart failure with systolic dysfunction and EF of 45-50%, COPD on home oxygen with FEV1 of 1.2 L or 52% of predicted, chronic atrial fibrillation on warfarin, essential hypertension, and coronary atherosclerosis with previous history of bypass grafting, mitral valve repair, and stent placement. Patient presented to the emergency department on 02/08/2019 for evaluation of dizziness, lightheadedness, apparently patient was experiencing some hallucinations, she was seeing children in her living room, who were not really there, she does report some mild shortness of breath, occasional cough with production of yellowish colored sputum. She denied any chest pain, she felt very fatigued, she states she just could not get up and do anything, she feels cold all the time, but she denies any fever. Chest x-ray was completed in the emergency department showing cardiomegaly, no active cardiopulmonary disease. Patient has been afebrile, she normally wears home O2, her oxygen level was 89 on presentation on 2 L of oxygen, hemodynamically she is been stable, EKG showed atrial fibrillation with a rate of 105, no evidence of acute ischemic changes, labs showed a white blood cell count of 9.6, hemoglobin of 11.1, INR was 2.8, electrolytes are within normal limits, BUN is 32 creatinine 0.98. She had mildly elevated troponins at 0.036, 0.039, and 0.025. Urinalysis without evidence of infection. Her proBNP was 786, cardiology has evaluated the patient, and patient was started on IV Lasix. From the pulmonary perspective for her COPD does not seem to be active although she has a occasional cough with some phlegm production. Her calcium level was noted to be elevated at 10.7 on admission, and 10.4 on today's labs, and patient appears to be somewhat prerenal, with BUN of 32 and creatinine 0.98. Looking back patient's calcium level has been elevated for a period of over a year, and her PTH was also elevated at 193.2. And she has been referred to logistics program manager on outpatient basis On 02/10/2019 agent is seen in follow-up on selective care unit, apparently last night patient became very confused, agitated and combative, patient was looking for her , she was attempting to leave to go look for him. Patient was given a dose of Haldol, today she seen resting in bed, lethargic, and patient is unable to stay awake to answer some simple questions. Her daughter is at the bedside, and she is concerned about patient's ongoing symptoms of hallucinations that she reported for a period of close to a month prior to admission, and obvious worsening of delirium last night, requiring antipsychotic administration. Does not appear to be in any respiratory distress, she is on 3 L of oxygen her pulse ox is 97%, her respirations are nonlabored, lung sounds are with some minimal crackles the bases, no rhonchi, no wheezing, she is afebrile, hemodynamically patient is stable. Today's blood work has been reviewed, with white count up to 10.8, from previously 6.1 on yesterday's labs, INR is 2.4, sodium is 139, potassium is 4.5, chloride is 103, CO2 is 31, BUN is 48, creatinine is 1.23, and there has been worsening and patient's renal profile, she has received some IV doses of Lasix, which we will put on hold, patient's troponins were 0.036, 0.039, 0.025, patient did not report any chest pain. Urinalysis was negative for any signs of infection. Chest x-ray did not show any active cardiopulmonary disease. On admission patient did complain of some cough and some phlegm production, for which the patient was empirically started on some Augmentin. On 02/11/2019 patient seen in follow-up on selective care unit, she is lethargic, but arouses easily, still mildly intermittent confused, she has been evaluated by neurology service, carotid Doppler was negative, TSH was normal. Overall hallucinations have improved. Patient denies any significant cough or congestion, still has shortness of breath, which is worse with exertion. On today's labs patient's renal profile is improving, and patient's lung sounds are positive for diffuse rales, and we'll restart oral dose of Lasix today. No fever or chills, she continues on Augmentin for mild tracheobronchitis, today's labs have been reviewed, with blood cell count is 10.8, hemoglobin is 11.7, INR is 2.1, electrolytes were within normal limits with the exception of CO2 which is at 33, B1 of 43, and creatinine of 1.17. Patient is tolerating oral intake, no nausea vomiting or diarrhea. Pro-calcitonin came back at 0.20 suggesting the possibility of a mild infectious process possibly related to tracheobronchitis On 02/14/2019 she seen in follow-up in the intensive care unit, apparently over the weekend patient was admitted to the unit with plaints of lower GI bleeding, and patient was passing maroon-colored stools. She did receive 1 unit of packed red blood cells, has had no active bleeding through the night, patient is going for EGD this afternoon, her hemoglobin today is 7.0, her latest INR from yesterday was 2.1, Coumadin is on hold. She was also found to be positive for C. diff, she is on oral vancomycin. She denies any shortness of breath, no chest pain, hemodynamically she stable, she is not tachycardic, she is on 2 L of oxygen with a pulse ox of 99%, no runny 90s, and sounds are positive for scattered crackles, patient on her maintenance dose of Lasix 40 mg twice daily, she is on her maintenance inhaler, no cough or congestion, has been treated for mild tracheal bronchitis with the oral antibiotics that have been discontinued. On 02/15/2019 patient seen in follow-up in the intensive care unit, yesterday she had a EGD by Dr. Borrego, showed antral ulcerations measuring 1-1/2 cm in size with a clean base and no active bleeding, small hiatal hernia. This morning patient's hemoglobin is 6.9, and patient is receiving a unit of blood, hemodynamically she remains stable, she is in A. fib with a controlled rate, her Coumadin remains on hold, INR today is 1.3, labs reviewed, blood blood cell count is 11.1, sodium is 139, potassium 3.6, chloride is 99, CO2 38, BUN is 31, creatinine is 1.15. Diarrhea has resolved, she remains on oral vancomycin for C. diff colitis. Awaiting oral diet, she is on a regular diet currently. And difficulty breathing, no cough, no congestion, no wheezing. Objective - Vital Signs Vital signs: Vital Signs Temp 98.7 F 02/15/19 06:46 Pulse 80 02/15/19 08:06 Resp 14 02/15/19 07:00 BP 101/42 02/15/19 07:00 Pulse Ox 94 L 02/15/19 07:00 Intake & Output 02/14/19 02/15/19 02/15/19 18:59 06:59 18:59 Intake Total 720 100 Output Total 1225 850 0 Balance -505 -750 0 Weight 87.5 kg Intake: Oral 720 100 Blood Product 0 Rc As-1 Unit 0 [id number] Output: Urine 775 850 0 Urine/Stool Mix 450 Other: Voiding Method Bedpan Bedside Commode Bedpan # Voids 1 # Bowel Movements 1 1 - Exam GENERAL EXAM: Somnolent 78-year-old white female, on 2 L of oxygen with a pulse ox of 98% comfortable in no apparent distress. HEAD: Normocephalic/atraumatic. EYES: Normal reaction of pupils, equal size. Conjunctiva pink, sclera white. NOSE: Clear with pink turbinates. THROAT: No erythema or exudates. NECK: No masses, no JVD, no thyroid enlargement, no adenopathy. CHEST: No chest wall deformity. Symmetrical expansion. LUNGS: Equal air entry with crackles at the bases, no wheeze, rhonchi or dullness. CVS: Regular rate and rhythm, normal S1 and S2, no gallops, no murmurs, no rubs ABDOMEN: Soft, nontender. No hepatosplenomegaly, normal bowel sounds, no guarding or rigidity. EXTREMITIES: No clubbing, no edema, no cyanosis, 2+ pulses and upper and lower extremities. MUSCULOSKELETAL: Muscle strength and tone normal. SPINE: No scoliosis or deformity SKIN: No rashes CENTRAL NERVOUS SYSTEM: Somnolent, does not stay awake No focal deficits, tone is normal in all 4 extremities. - Labs CBC & Chem 7: 02/15/19 04:19 02/15/19 04:19 Labs: Abnormal Lab Results - Last 24 Hours (Table) 02/12/19 02/14/19 02/14/19 Range/Units 09:15 04:09 18:43 WBC 12.5 H (3.8-10.6) k/uL RBC 2.99 L (3.80-5.40) m/uL Hgb 7.7 L (11.4-16.0) gm/dL Hct 25.9 L (34.0-46.0) % MCHC 29.7 L (31.0-37.0) g/dL RDW 17.4 H (11.5-15.5) % PT 15.7 H (9.0-12.0) sec INR 1.6 H (<1.2) Carbon Dioxide (22-30) mmol/L BUN (7-17) mg/dL Creatinine (0.52-1.04) mg/dL Crossmatch See Detail 02/15/19 02/15/19 02/15/19 Range/Units 04:19 04:19 04:19 WBC 11.1 H (3.8-10.6) k/uL RBC 2.71 L (3.80-5.40) m/uL Hgb 6.9 L* (11.4-16.0) gm/dL Hct 22.7 L (34.0-46.0) % MCHC 30.4 L (31.0-37.0) g/dL RDW 17.5 H (11.5-15.5) % PT 13.7 H (9.0-12.0) sec INR 1.3 H (<1.2) Carbon Dioxide 38 H (22-30) mmol/L BUN 31 H (7-17) mg/dL Creatinine 1.15 H (0.52-1.04) mg/dL Crossmatch Microbiology - Last 24 Hours (Table) 02/10/19 13:14 Blood Culture - Preliminary Blood No Growth after 96 hours Assessment and Plan Plan: Assessment: #1. Acute GI blood loss anemia, with symptoms of multiple maroon-colored bowel movements, likely diverticular in nature and related to anticoagulation with Coumadin #2. Lightheadedness, dizziness, hallucinations, likely related to mild dehydration, and underlying confusional symptoms possibly cardiac in nature. #3. Hallucinations and delirium, likely related to combination of sources related to cardiomyopathy, shortness of breath, tracheobronchitis, and slightly impaired renal function. #4. Mild dyspnea, possibly related to mild bronchitis, chest x-ray did not show any acute cardiopulmonary process #5. Stage II COPD with FEV1 of 52% of predicted or 1.2 L, on home oxygen #6. Acute on chronic hypoxemic respiratory failure could be related to mild tracheobronchitis #7. CAD with previous history of bypass grafting #8. Elevated calcium level with elevated PTH, has been elevated for a period of time at 10.7 on present admission, patient has been referred to logistics program manager on an outpatient basis #9. Chronic atrial fibrillation, slightly tachycardic on admission with a rate of 105 BPM on admission, currently better controlled #10. Hypertension #11. Hyperlipidemia #12. Degenerative joint disease #13. History of valvular heart disease, and mitral valve repair #14. History of coronary artery stenting #15. Severely impaired left ventricular systolic function with an EF of 30-35%, with moderate mitral regurgitation, mild mitral stenosis, moderate to severe tricuspid regurgitation, and pulmonary hypertension with PA systolic of 48.7 mmHg. #16. Acute C. difficile colitis on oral vancomycin Plan: Coumadin remains on hold, no active bleeding in the last 24 hours, patient receiving a unit of blood for hemoglobin of 6.9, hemodynamically stable, awaiting a regular diet, A. fib is controlled, no difficulty breathing, no complaint of chest pain. No acute issues overnight, stable for transfer out of the intensive care unit to general medical floor. I performed a history & physical examination of the patient and discussed their management with my nurse practitioner, Eve Michel. I reviewed the nurse practitioner's note and agree with the documented findings and plan of care. Lung sounds are positive for diminished breath sounds. The findings and the impression was discussed with the patient. I attest to the documentation by the nurse practitioner. Time with Patient: Less than 30
[2019-02-15] MEDS: AZELASTINE 137MCG/SPRAY EA NOSTRIL SCH ×2 (09:21→20:51)
[2019-02-15 13:03] LABS: Anisocytosis Slight; Basophils # (A) 0.2 k/uL (0-0.2); Basophils % (A) 2 %; Eosinophils # (A) 0.1 k/uL (0-0.7); Eosinophils % (A) 1 %; HGB 7.7 gm/dL (11.4-16.0); Hypochromasia Moderate; Lymphocytes # (A) 1.8 k/uL (1.0-4.8); Lymphocytes % (A) 17 %; MCH 24.8 pg (25.0-35.0); MCHC 29.8 g/dL (31.0-37.0); MCV 83.3 fL (80.0-100.0); Mean Platelet Volume 7.9; Monocytes # (A) 0.8 k/uL (0-1.0); Monocytes % (A) 8 %; Neutrophils # (A) 7.3 k/uL (1.3-7.7); Neutrophils % (A) 70 %; Platelet Count 181 k/uL (150-450); Poikilocytosis Moderate; RBC 3.12 m/uL (3.80-5.40); RDW 17.5 % (11.5-15.5); WBC 10.4 k/uL (3.8-10.6)
--- NOTE | 2019-02-15 13:07 | PN ---
PROGRESS NOTE A 78-year-old lady that we are following for atrial fibrillation, remains in atrial fibrillation with controlled ventricular rate. She again dropped her hemoglobin and received blood transfusion, had EGD . She is not a candidate for anticoagulation. On exam, heart rate is 70 beats per minute. Blood pressure is 97/47, respiratory rate is 18. Chest exam reveals good air entry bilaterally. Heart exam reveals first and second heart sounds. No gallop. Exam of extremities did not reveal any edema. Peripheral pulses are felt. ASSESSMENT: Chronic persistent atrial fibrillation with controlled ventricular rate. Patient is not a candidate for long-term anticoagulation at this time. When discharged, she will follow up with Dr. Aydin Zelaya, her primary bleach mixer and whenever we can make shows that are no further episodes of GI bleed, we can reinitiate the anticoagulation. MMSOLOMON / INDIAN: [id number] /
[2019-02-15 13:26] VITALS: BMI 31.1
[2019-02-15 14:18] LABS: Polychromasia Present
[2019-02-15] MEDS: SUCRALFATE 1 GM TAB PO SCH ×2 (16:49→20:52)
--- NOTE | 2019-02-15 17:10 | PN ---
PROGRESS NOTE DATE OF DICTATION: February 15, 2019. REQUESTING PHYSICIAN: Dr. Renzo Molina Patient is a 78-year-old pleasant white female admitted to the hospital with acute shortness of breath and altered mental status. While in the hospital, developed acute GI bleed. She underwent an upper endoscopy yesterday that revealed 2 antral ulcers with no active bleeding. Coumadin has been on hold for the last 3 days. Coagulopathy has been reversed. The patient received 2 units of PRBC transfusions since admission to the hospital. She also developed C diff colitis while in the hospital and presently on oral vancomycin. She is doing well. She has no abdominal pain. No nausea, vomiting. Tolerating diet well. She had one brown bowel movement today. Last hemoglobin was 6.7 early this morning and received one more unit of blood transfusion. PHYSICAL EXAMINATION: She appears comfortable, no apparent distress. Vital signs stable. Blood pressure is 133/86, pulse rate 84 per minute and afebrile. HEENT examination unremarkable. Conjunctivae pink. Sclerae anicteric. Oral cavity no lesions. NECK: No JVD or lymph node enlargement. CHEST: Clear to auscultation. HEART: Regular rate and rhythm. ABDOMEN: Soft. Bowel sounds are positive. No organomegaly. EXTREMITIES: No pedal edema. SKIN no rashes. NEUROLOGIC: Alert and oriented x3. No focal deficits. LABS: Done today WBC 11.1, hemoglobin 6.9, platelets 185. After 1 unit of blood, it is 7.7 g/dL. INR is 1.3. BUN is 31, creatinine 1.15. IMPRESSION: 1. Acute gastrointestinal bleed, status post EGD yesterday that showed 2 antral ulcers with a clean base with no active bleeding. The patient has been off the Coumadin for 4 days. INR is 1.3, hemoglobin is 7.7 g/dL, so far received 2 units of blood transfusion. 2. C diff colitis on oral Vancomycin. Gradually improving. 3. Atrial fibrillation on Coumadin, currently on hold. INR is 1.3. RECOMMENDATIONS: 1. Continue with Protonix 40 mg q.12 hours. 2. Continue with regular diet. 3. Continue oral vancomycin. 4. Repeat CBC in the morning and will follow with you closely during hospital stay. Thank you for this consultation. MMODL / IJN: [id number] /
--- NOTE | 2019-02-15 17:19 | PN ---
PROGRESS NOTE DATE OF SERVICE: 02/15/2019 This 78-year-old woman was admitted with acute upper gastrointestinal bleeding, had multiple antral ulcerations in the EGD. The hemoglobin is again dropped to 6.9, after transfusion, improved to 7.7. Patient being closely monitored at this time. The patient apparently had some brown stools. The patient being closely monitored. INR is 1.3. PAST MEDICAL HISTORY: Reviewed. REVIEW OF SYSTEMS: CARDIOVASCULAR SYSTEM: No angina or palpitations. RESPIRATIONS: No cough. GI as mentioned earlier. no dysuria. NERVOUS SYSTEM: No numbness or weakness. CURRENT MEDICATIONS: Reviewed and include: 1. DuoNeb q.i.d. and p.r.n. 2. Lipitor 20 mg q.h.s. 3. Astepro 1-2 sprays b.i.d. 4. Symbicort 80/4.5 two puffs b.i.d. 5. Lasix 40 mg p.o. b.i.d. 6. Cozaar 50 mg p.o. daily. 7. Lopressor 50 mg p.o. b.i.d. 8. Multivitamins one p.o. daily. 9. Narcan 0.2 q.2 p.r.n. 10.Nitrostat p.r.n. 11.Protonix 40 mg b.i.d. 12.K-Dur 20 mEq p.o. daily. 13.Senokot. 14.Vancomycin p.o. 125 mg p.o. q.6h. PHYSICAL EXAMINATION: Alert and oriented x2. Pulse is 81. Blood pressure 115/47, respiration 19, temperature 97.2, pulse ox 98% on 2 L. HEENT: Conjunctivae pale. Oral mucosa moist. NECK is no jugular venous distention. No carotid bruit. No lymph node enlargement. CARDIOVASCULAR SYSTEM: S1, S2 muffled. No S3, no S4. RESPIRATORY: Breath sounds diminished in the bases. A few scattered rhonchi and crackles. ABDOMEN: Soft, obese, nontender. No mass palpable. LEGS: No edema. No swelling. NERVOUS SYSTEM: Higher functions as mentioned earlier. Moves all four extremities. LYMPHATICS: No lymph nodes palpable in the neck, axillae or groin. SKIN: No ulcer. No rashes. No bleeding. JOINTS: No active deforming arthropathy. LABS: WBC 10.4, hemoglobin 7.7. INR is 1.3 this morning and creatinine is 1.15. ASSESSMENT: 1. Acute upper gastrointestinal bleeding with acute blood loss anemia possibly secondary to multiple antral ulcerations 1 and 1.5 cm. 2. Small hiatal hernia in the EGD. 3. Acute Clostridium difficile colitis. 4. Shortness of breath possibly secondary to tracheobronchitis. 5. Dizziness, lightheadedness secondary to anemia. 6. Congestive heart failure with chronic systolic dysfunction. 7. Chronic atrial fibrillation, anticoagulation with Coumadin, off Coumadin now. Coumadin monitoring. 8. Chronic hypoxic respiratory failure with chronic obstructive pulmonary disease, on home O2. 9. Coronary artery disease, coronary artery bypass grafting and stent. 10.Hypocalcemia 10.7 with elevated PTH. 11.Hallucinations. 12.Hypertension. 13.Hyperlipidemia. 14.History of degenerative joint disease. 15.History of mitral valve repair. 16.Deep vein thrombosis prophylaxis. RECOMMENDATIONS AND DISCUSSION: Recommend to continue current medications, management and symptomatic treatment. Otherwise, at this time, I recommend repeat hemoglobin at least on a twice daily basis. Transfusion has been arranged. Continue with proton pump inhibitors and Carafate. Further recommendations to follow. Follow closely with Gastroenterology. Await endoscopic biopsies. Prognosis guarded. Discussed with the family and the patient at length. Further recommendations to follow. MMJESIKAL / INDIAN: [id number] /
[2019-02-15 18:42] LABS: Anisocytosis Slight; Basophils # (A) 0.1 k/uL (0-0.2); Basophils % (A) 1 %; Eosinophils # (A) 0.2 k/uL (0-0.7); Eosinophils % (A) 1 %; HCT 24.9 % (34.0-46.0); HGB 7.9 gm/dL (11.4-16.0); Hypochromasia Moderate; Lymphocytes # (A) 2.1 k/uL (1.0-4.8); Lymphocytes % (A) 19 %; MCH 26.4 pg (25.0-35.0); MCHC 31.7 g/dL (31.0-37.0); Mean Platelet Volume 7.6; Monocytes # (A) 0.6 k/uL (0-1.0); Monocytes % (A) 6 %; Neutrophils # (A) 7.6 k/uL (1.3-7.7); Neutrophils % (A) 71 %; Platelet Count 180 k/uL (150-450); Poikilocytosis Moderate; RDW 17.7 % (11.5-15.5); WBC 10.7 k/uL (3.8-10.6)
[2019-02-15] MEDS: ATORVASTATIN 20 MG TAB PO SCH (20:51)
[2019-02-15] MEDS: PANTOPRAZOLE 40 MG TABLET PO SCH (20:52)
[2019-02-16 05:14] LABS: Anisocytosis Slight; Basophils % (A) 0 %; Eosinophils # (A) 0.2 k/uL (0-0.7); Eosinophils % (A) 2 %; HGB 8.2 gm/dL (11.4-16.0); Hypochromasia Marked; Lymphocytes # (A) 2.4 k/uL (1.0-4.8); Lymphocytes % (A) 24 %; MCH 26.3 pg (25.0-35.0); MCHC 31.4 g/dL (31.0-37.0); MCV 83.8 fL (80.0-100.0); Mean Platelet Volume 7.8; Monocytes # (A) 0.7 k/uL (0-1.0); Monocytes % (A) 7 %; Neutrophils # (A) 6.3 k/uL (1.3-7.7); Neutrophils % (A) 64 %; Platelet Count 202 k/uL (150-450); Poikilocytosis Moderate; RDW 17.5 % (11.5-15.5); WBC 9.9 k/uL (3.8-10.6)
[2019-02-16 05:22] LABS: INR 1.1 (<1.2); Prothrombin Time 11.7 sec (9.0-12.0)
[2019-02-16] MEDS: CHERRY FLAVOR 60 ML BOTTLE PO SCH ×2 (06:39→12:28)
[2019-02-16] MEDS: VANCOMYCIN ORAL SOLUTION 250 MG/5 ML BOTTLE PO SCH ×2 (06:39→12:28)
[2019-02-16] MEDS: SUCRALFATE 1 GM TAB PO SCH ×2 (06:41→12:28)
[2019-02-16 07:27] VITALS: RESP 12
[2019-02-16] MEDS: IPRATROPIUM-ALBUTEROL 3 ML NEB INHALATION SCH ×2 (07:51→13:39)
[2019-02-16] MEDS: SYMBICORT 80-4.5 MCG INHALER INHALATION SCH (07:54)
[2019-02-16] MEDS: LOSARTAN 50 MG TAB PO SCH (08:29)
[2019-02-16] MEDS: MULTIVITAMINS, THERA 1 EACH TAB PO SCH (08:29)
[2019-02-16] MEDS: METOPROLOL TARTRATE 50 MG TAB PO SCH (08:29)
[2019-02-16] MEDS: FUROSEMIDE 40 MG TAB PO SCH (08:29)
[2019-02-16] MEDS: AZELASTINE 137MCG/SPRAY EA NOSTRIL SCH (08:29)
[2019-02-16] MEDS: PANTOPRAZOLE 40 MG TABLET PO SCH (08:30)
[2019-02-16] MEDS: POTASSIUM CHLORIDE ER 20 MEQ TAB.ER PO SCH (08:30)
[2019-02-16 08:37] VITALS: TEMP 97.9
--- NOTE | 2019-02-16 09:29 | P.PN ---
Subjective Progress Note Date: 02/16/19 Principal diagnosis: Lightheadedness, dizziness, hallucinations, mild dyspnea and cough, GI bleeding, anemia This is a 78-year-old white female patient with past medical history of chronic congestive heart failure with systolic dysfunction and EF of 45-50%, COPD on home oxygen with FEV1 of 1.2 L or 52% of predicted, chronic atrial fibrillation on warfarin, essential hypertension, and coronary atherosclerosis with previous history of bypass grafting, mitral valve repair, and stent placement. Patient presented to the emergency department on 02/08/2019 for evaluation of dizziness, lightheadedness, apparently patient was experiencing some hallucinations, she was seeing children in her living room, who were not really there, she does report some mild shortness of breath, occasional cough with production of yellowish colored sputum. She denied any chest pain, she felt very fatigued, she states she just could not get up and do anything, she feels cold all the time, but she denies any fever. Chest x-ray was completed in the emergency department showing cardiomegaly, no active cardiopulmonary disease. Patient has been afebrile, she normally wears home O2, her oxygen level was 89 on presentation on 2 L of oxygen, hemodynamically she is been stable, EKG showed atrial fibrillation with a rate of 105, no evidence of acute ischemic changes, labs showed a white blood cell count of 9.6, hemoglobin of 11.1, INR was 2.8, electrolytes are within normal limits, BUN is 32 creatinine 0.98. She had mildly elevated troponins at 0.036, 0.039, and 0.025. Urinalysis without evidence of infection. Her proBNP was 786, cardiology has evaluated the patient, and patient was started on IV Lasix. From the pulmonary perspective for her COPD does not seem to be active although she has a occasional cough with some phlegm production. Her calcium level was noted to be elevated at 10.7 on admission, and 10.4 on today's labs, and patient appears to be somewhat prerenal, with BUN of 32 and creatinine 0.98. Looking back patient's calcium level has been elevated for a period of over a year, and her PTH was also elevated at 193.2. And she has been referred to livestock farmer on outpatient basis On 02/10/2019 agent is seen in follow-up on selective care unit, apparently last night patient became very confused, agitated and combative, patient was looking for her , she was attempting to leave to go look for him. Patient was given a dose of Haldol, today she seen resting in bed, lethargic, and patient is unable to stay awake to answer some simple questions. Her daughter is at the bedside, and she is concerned about patient's ongoing symptoms of hallucinations that she reported for a period of close to a month prior to admission, and obvious worsening of delirium last night, requiring antipsychotic administration. Does not appear to be in any respiratory distress, she is on 3 L of oxygen her pulse ox is 97%, her respirations are nonlabored, lung sounds are with some minimal crackles the bases, no rhonchi, no wheezing, she is afebrile, hemodynamically patient is stable. Today's blood work has been reviewed, with white count up to 10.8, from previously 6.1 on yesterday's labs, INR is 2.4, sodium is 139, potassium is 4.5, chloride is 103, CO2 is 31, BUN is 48, creatinine is 1.23, and there has been worsening and patient's renal profile, she has received some IV doses of Lasix, which we will put on hold, patient's troponins were 0.036, 0.039, 0.025, patient did not report any chest pain. Urinalysis was negative for any signs of infection. Chest x-ray did not show any active cardiopulmonary disease. On admission patient did complain of some cough and some phlegm production, for which the patient was empirically started on some Augmentin. On 02/11/2019 patient seen in follow-up on selective care unit, she is lethargic, but arouses easily, still mildly intermittent confused, she has been evaluated by neurology service, carotid Doppler was negative, TSH was normal. Overall hallucinations have improved. Patient denies any significant cough or congestion, still has shortness of breath, which is worse with exertion. On today's labs patient's renal profile is improving, and patient's lung sounds are positive for diffuse rales, and we'll restart oral dose of Lasix today. No fever or chills, she continues on Augmentin for mild tracheobronchitis, today's labs have been reviewed, with blood cell count is 10.8, hemoglobin is 11.7, INR is 2.1, electrolytes were within normal limits with the exception of CO2 which is at 33, B1 of 43, and creatinine of 1.17. Patient is tolerating oral intake, no nausea vomiting or diarrhea. Pro-calcitonin came back at 0.20 suggesting the possibility of a mild infectious process possibly related to tracheobronchitis On 02/14/2019 she seen in follow-up in the intensive care unit, apparently over the weekend patient was admitted to the unit with plaints of lower GI bleeding, and patient was passing maroon-colored stools. She did receive 1 unit of packed red blood cells, has had no active bleeding through the night, patient is going for EGD this afternoon, her hemoglobin today is 7.0, her latest INR from yesterday was 2.1, Coumadin is on hold. She was also found to be positive for C. diff, she is on oral vancomycin. She denies any shortness of breath, no chest pain, hemodynamically she stable, she is not tachycardic, she is on 2 L of oxygen with a pulse ox of 99%, no runny 90s, and sounds are positive for scattered crackles, patient on her maintenance dose of Lasix 40 mg twice daily, she is on her maintenance inhaler, no cough or congestion, has been treated for mild tracheal bronchitis with the oral antibiotics that have been discontinued. On 02/15/2019 patient seen in follow-up in the intensive care unit, yesterday she had a EGD by Dr. Borrego, showed antral ulcerations measuring 1-1/2 cm in size with a clean base and no active bleeding, small hiatal hernia. This morning patient's hemoglobin is 6.9, and patient is receiving a unit of blood, hemodynamically she remains stable, she is in A. fib with a controlled rate, her Coumadin remains on hold, INR today is 1.3, labs reviewed, blood blood cell count is 11.1, sodium is 139, potassium 3.6, chloride is 99, CO2 38, BUN is 31, creatinine is 1.15. Diarrhea has resolved, she remains on oral vancomycin for C. diff colitis. Awaiting oral diet, she is on a regular diet currently. And difficulty breathing, no cough, no congestion, no wheezing. On 02/16/2017 patient seen in follow-up in intensive care unit, she sits up in the recliner, she states she is feeling good, she denies any acute complaints, no difficulty breathing, lung sounds are clear, no cough, no wheezing no rhonchi, she is currently on room air, her pulse ox is 94%, and there has been no further bleeding, her Coumadin remains on hold, this morning's hemoglobin is 8.2. INR today is 1.1. Remains on oral Lasix of 40 mg twice daily, no diffic ulty breathing, no lower extremity edema, no complaints of lightheadedness or dizziness, no abdominal pain, tolerating regular diet, is on PPI therapy. Patient is anticipated to go home today, no acute issues overnight, we will defer to GI service in terms of restart of the anticoagulation when appropriate. She remains in A. fib with a controlled rate at this time Objective - Vital Signs Vital signs: Vital Signs Temp 97.9 F 02/16/19 08:36 Pulse 89 02/16/19 08:36 Resp 12 02/16/19 07:00 BP 127/47 02/16/19 08:36 Pulse Ox 94 L 02/16/19 08:36 Intake & Output 02/15/19 02/16/19 02/16/19 18:59 06:59 18:59 Intake Total 810 830 480 Output Total 425 800 300 Balance 385 30 180 Weight 87.5 kg Intake: Oral 500 830 480 Blood Product 310 Rc As-1 Unit 310 [id number] Output: Urine 425 800 300 Other: Voiding Method Bedside Commode Bedside Commode # Voids 1 # Bowel Movements 1 - Exam GENERAL EXAM: Somnolent 78-year-old white female, on room air with a pulse ox of 98% comfortable in no apparent distress. HEAD: Normocephalic/atraumatic. EYES: Normal reaction of pupils, equal size. Conjunctiva pink, sclera white. NOSE: Clear with pink turbinates. THROAT: No erythema or exudates. NECK: No masses, no JVD, no thyroid enlargement, no adenopathy. CHEST: No chest wall deformity. Symmetrical expansion. LUNGS: Equal air entry with crackles at the bases, no wheeze, rhonchi or dullness. CVS: Regular rate and rhythm, normal S1 and S2, no gallops, no murmurs, no rubs ABDOMEN: Soft, nontender. No hepatosplenomegaly, normal bowel sounds, no guarding or rigidity. EXTREMITIES: No clubbing, no edema, no cyanosis, 2+ pulses and upper and lower extremities. MUSCULOSKELETAL: Muscle strength and tone normal. SPINE: No scoliosis or deformity SKIN: No rashes CENTRAL NERVOUS SYSTEM: Somnolent, does not stay awake No focal deficits, tone is normal in all 4 extremities. - Labs CBC & Chem 7: 02/16/19 04:50 02/15/19 04:19 Labs: Abnormal Lab Results - Last 24 Hours (Table) 02/12/19 02/15/19 02/15/19 Range/Units 09:15 12:24 18:21 WBC 10.7 H (3.8-10.6) k/uL RBC 3.12 L 3.00 L (3.80-5.40) m/uL Hgb 7.7 L 7.9 L (11.4-16.0) gm/dL Hct 26.0 L 24.9 L (34.0-46.0) % MCH 24.8 L (25.0-35.0) pg MCHC 29.8 L (31.0-37.0) g/dL RDW 17.5 H 17.7 H (11.5-15.5) % Crossmatch See Detail 02/16/19 Range/Units 04:50 WBC (3.8-10.6) k/uL RBC 3.10 L (3.80-5.40) m/uL Hgb 8.2 L (11.4-16.0) gm/dL Hct 26.0 L (34.0-46.0) % MCH (25.0-35.0) pg MCHC (31.0-37.0) g/dL RDW 17.5 H (11.5-15.5) % Crossmatch Microbiology - Last 24 Hours (Table) 02/10/19 13:14 Blood Culture - Preliminary Blood No Growth after 120 hours Assessment and Plan Plan: Assessment: #1. Acute GI blood loss anemia, with symptoms of multiple maroon-colored bowel movements, likely diverticular in nature and related to anticoagulation with Coumadin #2. Lightheadedness, dizziness, hallucinations, likely related to mild dehydration, and underlying confusional symptoms possibly cardiac in nature. #3. Hallucinations and delirium, likely related to combination of sources related to cardiomyopathy, shortness of breath, tracheobronchitis, and slightly impaired renal function. #4. Mild dyspnea, possibly related to mild bronchitis, chest x-ray did not show any acute cardiopulmonary process #5. Stage II COPD with FEV1 of 52% of predicted or 1.2 L, on home oxygen #6. Acute on chronic hypoxemic respiratory failure could be related to mild tracheobronchitis #7. CAD with previous history of bypass grafting #8. Elevated calcium level with elevated PTH, has been elevated for a period of time at 10.7 on present admission, patient has been referred to livestock farmer on an outpatient basis #9. Chronic atrial fibrillation, slightly tachycardic on admission with a rate of 105 BPM on admission, currently better controlled #10. Hypertension #11. Hyperlipidemia #12. Degenerative joint disease #13. History of valvular heart disease, and mitral valve repair #14. History of coronary artery stenting #15. Severely impaired left ventricular systolic function with an EF of 30-35%, with moderate mitral regurgitation, mild mitral stenosis, moderate to severe tricuspid regurgitation, and pulmonary hypertension with PA systolic of 48.7 mmHg. #16. Acute C. difficile colitis on oral vancomycin Plan: Patient is doing well, no active bleeding, hemoglobin is 8.2 today, hemodynamically stable, remains in A. fib with a controlled rate, remains off Coumadin, INR today is 1.1, no complaints of shortness of breath or chest pain, increase activity as tolerated, stable for discharge from our perspective. Restart of anticoagulation when deemed appropriate by GI service. Follow-up in the office in one to 2 weeks I performed a history & physical examination of the patient and discussed their management with my nurse practitioner, Eve Michel. I reviewed the nurse practitioner's note and agree with the documented findings and plan of care. Lung sounds are positive for diminished breath sounds. The findings and the impression was discussed with the patient. I attest to the documentation by the nurse practitioner. Time with Patient: Less than 30
[2019-02-16 13:08] VITALS: BP 101/57; PULSE 87
--- NOTE | 2019-02-17 14:07 | DS ---
DISCHARGE SUMMARY FINAL DIAGNOSES: 1. Acute upper gastrointestinal bleeding with acute blood loss anemia possibly secondary to multiple antral ulcerations 1 and 1.5 cm. 2. Small hiatal hernia in the esophagogastroduodenoscopy. 3. Acute Clostridium difficile colitis. 4. Shortness of breath possibly secondary to tracheobronchitis. 5. Dizziness, lightheadedness secondary to anemia. 6. Congestive heart failure with chronic systolic dysfunction. 7. Chronic atrial fibrillation, anticoagulation with Coumadin, off Coumadin now. Coumadin monitoring. 8. Chronic hypoxic respiratory failure with chronic obstructive pulmonary disease, on home O2. 9. Coronary artery disease, coronary artery bypass grafting and stent. 10.Hypocalcemia 10.7 with elevated PTH. 11.Hallucinations. 12.Hypertension. 13.Hyperlipidemia. 14.History of degenerative joint disease. 15.History of mitral valve repair. 16.Deep vein thrombosis prophylaxis. DISCHARGE DISPOSITION: The patient will be discharged in a stable condition with guarded prognosis. HISTORY OF PRESENT ILLNESS: This 78-year-old woman with a past medical history of multiple medical problems was admitted with upper gastrointestinal bleeding and acute severe carotid disease. EGD showed antral ulcerations. Hemoglobin was low. The patient needed 2 units of transfusion. Finally hemoglobin stabilized at 5.2. Gastroenterology saw the patient and cleared the patient for discharge. The patient was discharged in stable condition with a guarded prognosis. On exam, vitals are stable. CARDIOVASCULAR: S1, S2. ABDOMEN: Soft. NERVOUS SYSTEM: No focal deficits. DISCHARGE ADVICE: 1. Diet is cardiac, soft, bland. 2. Activity limited until followup. 3. Follow up with Dr. Molina in 2 to 3 days with CBC and BMP. 4. Follow up with Gastroenterology as well as Dr. Ayaka Zelaya, cytogenetics technologist recommendations. 5. Hold anticoagulation for now. DISCHARGE MEDICATIONS: Medications are as follows: 1. Azelastine 1 to 2 sprays in each nostril b.i.d. 2. [place]-3 fatty acids 1 p.o. daily. 3. Lasix 40 mg p.o. b.i.d. 4. Lopressor 25 mg p.o. b.i.d. 5. Multivitamins 1 p.o. daily. 6. Senna 8.6 mg p.o. at bedtime. 7. Symbicort 80/4.5 two puffs b.i.d. 8. Tylenol PM p.r.n. 9. Ventolin HFA 1 to 2 puffs q. 6 p.r.n. 10.Albuterol nebulizer 2.5 q.i.d. 11.Zocor 40 mg at bedtime. 12.Carafate 1 gram p.o. q AC and at bedtime. 13.Cozaar 50 mg p.o. daily. 14.Klor-Con 20 mEq p.o. daily. 15.Protonix 40 mg p.o. b.i.d. 16.Vancomycin 125 mg p.o. q. 6 for 10 days. MMODL / IJN: [id number] /
== END 2019-02-16 14:03 | disposition home health service (06) | DRG 190 ==
LOC: EC 15:36 → 3SCARD 18:16 → 2SICU 02-12 09:00
PROVIDERS: ADMIT Hospitalist; ATTEND Hospitalist
PROC: 30233N1 Transfusion of Nonautologous Red Blood Cells into Peripheral Vein, Percutaneous Approach (ICD-10-PCS; principal; 2019-02-13)
PROC: 0DB78ZX Excision of Stomach, Pylorus, Via Natural or Artificial Opening Endoscopic, Diagnostic (ICD-10-PCS; 2019-02-14)
DX: J44.0 Chronic obstructive pulmonary disease with (acute) lower respiratory infection (principal); J96.21 Acute and chronic respiratory failure with hypoxia; K57.91 Diverticulosis of intestine, part unspecified, without perforation or abscess with bleeding; K25.4 Chronic or unspecified gastric ulcer with hemorrhage; I50.22 Chronic systolic (congestive) heart failure; I48.19 Other persistent atrial fibrillation; A04.72 Enterocolitis due to Clostridium difficile, not specified as recurrent; D62 Acute posthemorrhagic anemia; F05 Delirium due to known physiological condition; I42.9 Cardiomyopathy, unspecified; J20.9 Acute bronchitis, unspecified; J44.1 Chronic obstructive pulmonary disease with (acute) exacerbation; I11.0 Hypertensive heart disease with heart failure; E83.52 Hypercalcemia; I27.20 Pulmonary hypertension, unspecified; E86.0 Dehydration; I08.3 Combined rheumatic disorders of mitral, aortic and tricuspid valves; K44.9 Diaphragmatic hernia without obstruction or gangrene; E78.5 Hyperlipidemia, unspecified; I25.10 Atherosclerotic heart disease of native coronary artery without angina pectoris; K59.00 Constipation, unspecified; N28.9 Disorder of kidney and ureter, unspecified; M19.90 Unspecified osteoarthritis, unspecified site; Z99.81 Dependence on supplemental oxygen; Z79.01 Long term (current) use of anticoagulants; Z79.51 Long term (current) use of inhaled steroids; Z79.899 Other long term (current) drug therapy; Z95.1 Presence of aortocoronary bypass graft; Z90.710 Acquired absence of both cervix and uterus; Z95.5 Presence of coronary angioplasty implant and graft; Z95.2 Presence of prosthetic heart valve; Z87.891 Personal history of nicotine dependence; Z88.8 Allergy status to other drugs, medicaments and biological substances; Z82.49 Family history of ischemic heart disease and other diseases of the circulatory system; Z80.49 Family history of malignant neoplasm of other genital organs; Z80.3 Family history of malignant neoplasm of breast
CPT/HCPCS: 36415; 43239; 71046; 80048; 80053; 80061; 81001; 82272; 82550; 83735; 83880; 84100; 84132; 84145; 84439; 84443; 84484; 85025; 85027; 85610; 85730; 86850; 86900; 86901; 86920; 87040; 87324; 88305; 93005; 93306; 93880; 94640; 94760; 96374; 96375; 99291

== ENCOUNTER → 2019-03-02 | Outpatient (CLI) | payer MEDICARE ==
[2019-03-02 15:46] LABS: Anisocytosis Slight; Basophils # (A) 0.1 k/uL (0-0.2); Basophils % (A) 2 %; Eosinophils # (A) 0.1 k/uL (0-0.7); Eosinophils % (A) 1 %; HCT 26.5 % (34.0-46.0); Hypochromasia Marked; Lymphocytes # (A) 2.1 k/uL (1.0-4.8); Lymphocytes % (A) 23 %; MCH 24.1 pg (25.0-35.0); MCHC 30.3 g/dL (31.0-37.0); Mean Platelet Volume 6.8; Microcytosis Slight; Monocytes # (A) 0.7 k/uL (0-1.0); Monocytes % (A) 8 %; Neutrophils # (A) 5.5 k/uL (1.3-7.7); Neutrophils % (A) 63 %; Platelet Count 318 k/uL (150-450); Poikilocytosis Marked; RBC 3.34 m/uL (3.80-5.40); RDW 18.1 % (11.5-15.5); WBC 8.8 k/uL (3.8-10.6)
[2019-03-02 15:49] LABS: MCV 79.4 fL (80.0-100.0)
== END | disposition home or self-care (01) ==
LOC: LABWHC1 14:58
PROVIDERS: ATTEND Nurse Practitioner
DX: D64.9 Anemia, unspecified (principal)
CPT/HCPCS: 36415; 85025

== ENCOUNTER 2019-03-10 15:56 | Observation (INO) | payer MEDICARE ==
[2019-03-10] MEDS ORDERED: IPRATROPIUM-ALBUTEROL 3 ML NEB INHALATION STA (16:33)
[2019-03-10 16:49] LABS: Calcium 10.4 mg/dL (8.4-10.2); Magnesium 2.2 mg/dL (1.6-2.3); Potassium 3.8 mmol/L (3.5-5.1); Total Bilirubin 0.5 mg/dL (0.2-1.3); Total Protein 7.9 g/dL (6.3-8.2)
[2019-03-10 17:00] LABS: INR 1.2 (<1.2); Partial Thromboplastin Time 22.5 sec (22.0-30.0); Prothrombin Time 12.3 sec (9.0-12.0)
[2019-03-10 17:02] LABS: Anisocytosis Slight; HCT 27.6 % (34.0-46.0); HGB 8.2 gm/dL (11.4-16.0); Hypochromasia Marked; MCHC 29.8 g/dL (31.0-37.0); MCV 77.2 fL (80.0-100.0); Mean Platelet Volume 7.2; Microcytosis Slight; Platelet Count 290 k/uL (150-450); Poikilocytosis Marked; RBC 3.58 m/uL (3.80-5.40); RDW 18.1 % (11.5-15.5); WBC 8.5 k/uL (3.8-10.6)
[2019-03-10 17:21] LABS: Eosinophils # (M) 0.26 k/uL (0-0.7); Lymphocytes # (M) 2.64 k/uL (1.0-4.8); Monocytes # (M) 0.77 k/uL (0-1.0); Neutrophils # (M) 4.85 k/uL (1.3-7.7); Neutrophils % (M) 57 %; Nucleated Red Blood Cells 0 /100 WBC (0-0); Poikilocytosis (M) Present; Polychromasia Present; Total Cells Counted 100
--- NOTE | 2019-03-10 17:21 | ED ---
General Adult HPI - General Chief complaint: Shortness of Breath Stated complaint: SOB Time Seen by Provider: 03/10/19 16:05 Source: patient, family, RN notes reviewed Mode of arrival: wheelchair Limitations: no limitations - History of Present Illness Initial comments: 78-year-old female with a past medical history of atrial fibrillation, hyperlipidemia, hypertension, COPD, heart failure presents to the emergency department for a chief complaint of shortness of breath. Patient states she is always short of breath but that she had an exacerbation this morning. States she wears home oxygen because of this. Patient denies any chest pain associated with this. Patient does admit to worsening cough today. Denies fevers or chills.Patient has no other complaints at this time including shortness of breath, chest pain, abdominal pain, nausea or vomiting, headache, or visual changes. - Related Data Home Medications Medication Instructions Recorded Confirmed Budesonide/Formoterol Fumarate 2 puff INHALATION RT-BID 05/11/14 03/10/19 [Symbicort 80-4.5 Mcg Inhaler] Albuterol Inhaler [Ventolin Hfa 1 - 2 puff INHALATION RT-Q6H PRN 11/06/15 03/10/19 Inhaler] Metoprolol Tartrate [Lopressor] 25 mg PO BID 05/08/17 03/10/19 Azelastine HCl 1 - 2 spr EA NOSTRIL BID 12/15/18 03/10/19 Acetaminophen/Diphenhydramine 2 tab PO HS PRN 02/08/19 03/10/19 [Tylenol PM 500-25mg] Furosemide [Lasix] 40 mg PO BID@0800,1430 02/08/19 03/10/19 Multivitamins, Thera [Multivitamin 1 tab PO DAILY 02/08/19 03/10/19 (formulary)] [place]-3 Fatty Acids/Fish Oil [Fish 1 cap PO DAILY 02/08/19 03/10/19 Oil 1,000 mg Softgel] Sennosides [Senna] 8.6 mg PO HS PRN 02/08/19 03/10/19 Atorvastatin [Lipitor] 40 mg PO HS 03/10/19 03/10/19 Ipratropium-Albuterol Nebulize 3 ml INHALATION RT-QID 03/10/19 03/10/19 [Duoneb 0.5 mg-3 mg/3 ml Soln] LORazepam [Ativan] 1 mg PO DAILY PRN 03/10/19 03/10/19 Metolazone [Zaroxolyn] 2.5 mg PO MOWEFR 03/10/19 03/10/19 Oxybutynin Chloride [Ditropan] 5 mg PO BID 03/10/19 03/10/19 Previous Rx's Medication Instructions Recorded Losartan [Cozaar] 50 mg PO DAILY #30 tab 12/17/18 Potassium Chloride [Klor-Con 20] 20 meq PO DAILY #60 tab 12/17/18 Pantoprazole [Protonix] 40 mg PO BID #60 tablet.dr 02/16/19 Sucralfate [Carafate] 1 gm PO ACHS #120 tab 02/16/19 Allergies Allergy/AdvReac Type Severity Reaction Status Date / Time amiodarone AdvReac Nausea & Verified 03/10/19 19:09 Vomiting, confusion Review of Systems ROS Statement: Those systems with pertinent positive or pertinent negative responses have been documented in the HPI. ROS Other: All systems not noted in ROS Statement are negative. Past Medical History Past Medical History: Atrial Fibrillation, Cancer, Chest Pain / Angina, COPD, Hyperlipidemia, Hypertension, Osteoarthritis (OA) Additional Past Medical History / Comment(s): SOB w/exertion History of Any Multi-Drug Resistant Organisms: None Reported Past Surgical History: Cholecystectomy, Coronary Bypass/CABG, Heart Catheterization With Stent, Hysterectomy Additional Past Surgical History / Comment(s): double bypass, repair of mitral valve Past Anesthesia/Blood Transfusion Reactions: No Reported Reaction Date of Last Stent Placement:: 2013 Past Psychological History: No Psychological Hx Reported Smoking Status: Former smoker Past Alcohol Use History: None Reported Past Drug Use History: None Reported - Past Family History Mother Family Medical History: No Reported History Additional Family Medical History / Comment(s): Heart disease Daughter(s) Family Medical History: Cancer Additional Family Medical History / Comment(s): Brain tumor, uterine cancer, breast cancer General Exam Limitations: no limitations General appearance: alert, in no apparent distress Head exam: Present: atraumatic, normocephalic, normal inspection Eye exam: Present: normal appearance, PERRL, EOMI. Absent: scleral icterus, conjunctival injection, periorbital swelling ENT exam: Present: normal exam, mucous membranes moist Neck exam: Present: normal inspection, full ROM. Absent: tenderness, meningismus, lymphadenopathy Respiratory exam: Present: decreased breath sounds (Diminished bilaterally). Absent: respiratory distress, wheezes, rales, rhonchi, stridor Cardiovascular Exam: Present: regular rate, normal rhythm, normal heart sounds. Absent: systolic murmur, diastolic murmur, rubs, gallop, clicks Neurological exam: Present: alert Course Vital Signs 03/10/19 03/10/19 03/10/19 15:57 16:51 16:59 Temperature 98.2 F Pulse Rate 60 85 84 Respiratory 22 Rate Blood Pressure 155/60 O2 Sat by Pulse 95 Oximetry 03/10/19 18:21 Temperature Pulse Rate 79 Respiratory 18 Rate Blood Pressure 139/65 O2 Sat by Pulse 97 Oximetry EKG Findings - EKG Comments: EKG Findings:: Atrial fibrillation, ventricular rate 88, QRS duration 94, QTC 459 Medical Decision Making - Medical Decision Making Patient was recently admitted for a GI bleed and received 2 pints of blood. This was about one month ago. She was also evaluated by cardiology at that time. Vitals stable patient 95% on room air. Lung sounds are greatly diminished on exam. CBC reveals chronic anemia with a hemoglobin of 8.2. This is stable. CMP shows hypercapnia of 32 which is likely secondary to chronic respiratory failure. There is also evidence of dehydration. Patient will be gently rehydrated as she has a history of CHF with a BNP of 1180. Troponin is 0.040. Chest x-ray demonstrates minimal pleural reaction at the posterior lung bases increased slightly compared to old exam. No heart failure or cardiomegaly. Patient likely has COPD exacerbation however given eleavted troponin wit history of stenting will be trended to ensure it is not increasing. She will not be anticoagulated given history of GI bleed one month ago. She is currently not on any anticoagulants but is noted to be in atrial fibrillation chronically. - Lab Data Result diagrams: 03/10/19 16:18 03/10/19 16:18 Lab Results 03/10/19 03/10/19 03/10/19 Range/Units 16:18 16:18 16:18 WBC 8.5 (3.8-10.6) k/uL RBC 3.58 L (3.80-5.40) m/uL Hgb 8.2 L (11.4-16.0) gm/dL Hct 27.6 L (34.0-46.0) % MCV 77.2 L (80.0-100.0) fL MCH 23.0 L (25.0-35.0) pg MCHC 29.8 L (31.0-37.0) g/dL RDW 18.1 H (11.5-15.5) % Plt Count 290 (150-450) k/uL Neutrophils % (Manual) 57 % Lymphocytes % (Manual) 31 % Monocytes % (Manual) 9 % Eosinophils % (Manual) 3 % Neutrophils # (Manual) 4.85 (1.3-7.7) k/uL Lymphocytes # (Manual) 2.64 (1.0-4.8) k/uL Monocytes # (Manual) 0.77 (0-1.0) k/uL Eosinophils # (Manual) 0.26 (0-0.7) k/uL Nucleated RBCs 0 (0-0) /100 WBC Manual Slide Review Performed Polychromasia Present Hypochromasia Marked Poikilocytosis Marked Poikilocytosis (manual Present Anisocytosis Slight Microcytosis Slight PT (9.0-12.0) sec INR (<1.2) APTT (22.0-30.0) sec Sodium 140 (137-145) mmol/L Potassium 3.8 (3.5-5.1) mmol/L Chloride 95 L (98-107) mmol/L Carbon Dioxide 32 H (22-30) mmol/L Anion Gap 13 mmol/L BUN 58 H (7-17) mg/dL Creatinine 1.52 H (0.52-1.04) mg/dL Est GFR (CKD-EPI)AfAm 38 (>60 ml/min/1.73 sqM) Est GFR (CKD-EPI)NonAf 33 (>60 ml/min/1.73 sqM) Glucose 127 H (74-99) mg/dL Calcium 10.4 H (8.4-10.2) mg/dL Magnesium 2.2 (1.6-2.3) mg/dL Total Bilirubin 0.5 (0.2-1.3) mg/dL AST 69 H (14-36) U/L ALT 25 (9-52) U/L Alkaline Phosphatase 143 H (38-126) U/L Troponin I (0.000-0.034) ng/mL NT-Pro-B Natriuret Pep 1180 pg/mL Total Protein 7.9 (6.3-8.2) g/dL Albumin 4.0 (3.5-5.0) g/dL 03/10/19 03/10/19 Range/Units 16:18 16:18 WBC (3.8-10.6) k/uL RBC (3.80-5.40) m/uL Hgb (11.4-16.0) gm/dL Hct (34.0-46.0) % MCV (80.0-100.0) fL MCH (25.0-35.0) pg MCHC (31.0-37.0) g/dL RDW (11.5-15.5) % Plt Count (150-450) k/uL Neutrophils % (Manual) % Lymphocytes % (Manual) % Monocytes % (Manual) % Eosinophils % (Manual) % Neutrophils # (Manual) (1.3-7.7) k/uL Lymphocytes # (Manual) (1.0-4.8) k/uL Monocytes # (Manual) (0-1.0) k/uL Eosinophils # (Manual) (0-0.7) k/uL Nucleated RBCs (0-0) /100 WBC Manual Slide Review Polychromasia Hypochromasia Poikilocytosis Poikilocytosis (manual Anisocytosis Microcytosis PT 12.3 H (9.0-12.0) sec INR 1.2 H (<1.2) APTT 22.5 (22.0-30.0) sec Sodium (137-145) mmol/L Potassium (3.5-5.1) mmol/L Chloride (98-107) mmol/L Carbon Dioxide (22-30) mmol/L Anion Gap mmol/L BUN (7-17) mg/dL Creatinine (0.52-1.04) mg/dL Est GFR (CKD-EPI)AfAm (>60 ml/min/1.73 sqM) Est GFR (CKD-EPI)NonAf (>60 ml/min/1.73 sqM) Glucose (74-99) mg/dL Calcium (8.4-10.2) mg/dL Magnesium (1.6-2.3) mg/dL Total Bilirubin (0.2-1.3) mg/dL AST (14-36) U/L ALT (9-52) U/L Alkaline Phosphatase (38-126) U/L Troponin I 0.040 H* (0.000-0.034) ng/mL NT-Pro-B Natriuret Pep pg/mL Total Protein (6.3-8.2) g/dL Albumin (3.5-5.0) g/dL Disposition Clinical Impression: COPD exacerbation, Chronic respiratory failure, Elevated troponin Disposition: ADMITTED IP TO THIS HOSP Condition: Fair
--- NOTE | 2019-03-10 17:47 | XR ---
EXAMINATION TYPE: XR chest 2V DATE OF EXAM: 03/10/2019 COMPARISON: 02/08/2019 HISTORY: Short of breath TECHNIQUE: Frontal and lateral views of the chest are obtained. FINDINGS: There is some blunting of the costophrenic angles. Heart is enlarged. There are sternal wi res. There are chest leads. IMPRESSION: Minimal pleural reaction at the posterior lung bases increased slightly compared to old exam. No heart failure. Mild cardiomegaly. There is probably some pulmonary fibrosis.
[2019-03-10] MEDS: methylPREDNISolone SOD SUCCI 125 MG/2 ML VIAL IV SCH (19:15)
[2019-03-11] MEDS: IPRATROPIUM-ALBUTEROL 3 ML NEB INHALATION SCH ×3 (00:27→12:39)
[2019-03-11] MEDS: methylPREDNISolone SOD SUCCI 125 MG/2 ML VIAL IV SCH ×2 (00:27→06:58)
[2019-03-11 06:02] LABS: Glucose,Whole Blood 190 mg/dL (75-99)
[2019-03-11] MEDS ORDERED: SENNOSIDES 8.6 MG TAB PO PRN (07:21)
[2019-03-11] MEDS ORDERED: INSULIN ASPART (NovoLOG) 100 UNIT/ML VIAL SQ SCH (07:30)
[2019-03-11] MEDS ORDERED: SUCRALFATE 1 GM TAB PO SCH (07:30)
[2019-03-11] MEDS ORDERED: FUROSEMIDE 40 MG TAB PO SCH (08:00)
[2019-03-11] MEDS ORDERED: SYMBICORT 80-4.5 MCG INHALER INHALATION SCH (08:00)
[2019-03-11] MEDS ORDERED: PANTOPRAZOLE 40 MG TABLET PO SCH (08:00)
[2019-03-11] MEDS ORDERED: POTASSIUM CHLORIDE ER 10 MEQ TAB.ER.PRT PO SCH (09:00)
[2019-03-11] MEDS ORDERED: MULTIVITAMINS, THERA 1 EACH TAB PO SCH (09:00)
[2019-03-11] MEDS ORDERED: HEPARIN SODIUM,PORCINE 5,000 UNIT/ML 1 ML VIAL SQ SCH (09:00)
[2019-03-11] MEDS ORDERED: METOPROLOL TARTRATE 25 MG TAB PO SCH (09:00)
[2019-03-11] MEDS ORDERED: OXYBUTYNIN CHLORIDE 5 MG TAB PO SCH (09:00)
[2019-03-11] MEDS ORDERED: NON FORMULARY DRUG (Omega-3 Fatty Acids/Fish Oil [Fish Oil 1,000 Mg Softgel] 1 CAP) PO SCH (09:00)
[2019-03-11 09:05] VITALS: BP 156/74; RESP 18; TEMP 96.5
--- NOTE | 2019-03-11 11:14 | P.CRDCN ---
History of Present Illness Consult date: 03/11/19 Chief complaint: Shortness of breath History of present illness: This is a very pleasant 78-year-old female patient who sees Dr. Zelaya in the off ice on regular basis with an extensive past medical history consistent of coronary artery disease, long-standing persistent atrial fibrillation not on oral anticoagulation, valvular heart disease and status post mitral valve repair, cardiomyopathy with an ejection fraction of 35%. His on recent ech ocardiogram, as well as tonic hypoxic respiratory failure, presented to the emergency room complaint of increasing in the shortness of breath. The patient overall is fragile. She stated that she does always have shortness of breath with exertion but for the last 24-48 hours the shortness of breath has been increasing with activities. Beside that she was experiencing cough productive of sputum. Denies any fever or chills. No lower extremities edema. No symptoms of chest pain or chest discomfort. No feeling of heart racing or heart fluttering. The EKG when she presented to the hospital showed atrial fibrillation was controlled heart rate. The troponin came in to be slightly abnormal but is flat across support and does not consistent with acute coronary syndrome. The chest x-ray did not show any acute abnormalities. We involved in the care of the patient for the management of mildly abnormal troponin and acute coronary event. As a mentioned earlier the patient did not have any symptoms of chest pain or chest discomfort. The last heart catheterization was performed in 2015 and that revealed patent SVG to RCA with mild disease involving the left circumflex and severe disease involving the LAD where the LAD was stented at that point. The last echocardiogram was performed in January 2019 and revealed impaired LV function was EF around 35% with evidence of moderate mitral regurgitation and moderate pulmonary hypertension. The patient stated that she was receiving Coumadin for anticoagulation but recently she was diagnosed with peptic ulcer disease and anemia secondary to peptic ulcer disease and because of that the Coumadin was stopped and that was done 2 weeks ago. The hemoglobin when the patient presented to the hospital was 8.2. Also her creatinine was slightly abnormal. When she was seen and examined this morning she doesn't look in any acute respiratory distress and she also does not look in any overt congestive heart failure. Past Medical History Past Medical History: Atrial Fibrillation, Cancer, Chest Pain / Angina, COPD, Hyperlipidemia, Hypertension, Osteoarthritis (OA) Additional Past Medical History / Comment(s): SOB w/exertion History of Any Multi-Drug Resistant Organisms: None Reported Past Surgical History: Cholecystectomy, Coronary Bypass/CABG, Heart Catheterization With Stent, Hysterectomy Additional Past Surgical History / Comment(s): double bypass 2008, repair of mitral valve Past Anesthesia/Blood Transfusion Reactions: No Reported Reaction Date of Last Stent Placement:: 2013 Past Psychological History: No Psychological Hx Reported Smoking Status: Former smoker Past Alcohol Use History: None Reported Additional Past Alcohol Use History / Comment(s): quit smoking 1997, smoked 1ppd since teens Past Drug Use History: None Reported - Past Family History Mother Family Medical History: No Reported History Additional Family Medical History / Comment(s): Heart disease Daughter(s) Family Medical History: Cancer Additional Family Medical History / Comment(s): Brain tumor, uterine cancer, breast cancer Medications and Allergies Home Medications Medication Instructions Recorded Confirmed Type Budesonide/Formoterol Fumarate 2 puff INHALATION RT-BID 05/11/14 03/10/19 History [Symbicort 80-4.5 Mcg Inhaler] Albuterol Inhaler [Ventolin Hfa 1 - 2 puff INHALATION RT-Q6H PRN 11/06/15 03/10/19 History Inhaler] Azelastine HCl 1 - 2 spr EA NOSTRIL BID 12/15/18 03/10/19 History Losartan [Cozaar] 50 mg PO DAILY #30 tab 12/17/18 03/10/19 Rx Potassium Chloride [Klor-Con 20] 20 meq PO DAILY #60 tab 12/17/18 03/10/19 Rx Acetaminophen/Diphenhydramine 2 tab PO HS PRN 02/08/19 03/10/19 History [Tylenol PM 500-25mg] Furosemide [Lasix] 40 mg PO BID@0800,1430 02/08/19 03/10/19 History Multivitamins, Thera [Multivitamin 1 tab PO DAILY 02/08/19 03/10/19 History (formulary)] [place]-3 Fatty Acids/Fish Oil [Fish 1 cap PO DAILY 02/08/19 03/10/19 History Oil 1,000 mg Softgel] Sennosides [Senna] 8.6 mg PO HS PRN 02/08/19 03/10/19 History Pantoprazole [Protonix] 40 mg PO BID #60 tablet.dr 02/16/19 03/10/19 Rx Sucralfate [Carafate] 1 gm PO ACHS #120 tab 02/16/19 03/10/19 Rx Atorvastatin [Lipitor] 40 mg PO HS 03/10/19 03/10/19 History Ipratropium-Albuterol Nebulize 3 ml INHALATION RT-QID 03/10/19 03/10/19 History [Duoneb 0.5 mg-3 mg/3 ml Soln] LORazepam [Ativan] 1 mg PO DAILY PRN 03/10/19 03/10/19 History Metolazone [Zaroxolyn] 2.5 mg PO MOWEFR 03/10/19 03/10/19 History Oxybutynin Chloride [Ditropan] 5 mg PO BID 03/10/19 03/10/19 History Metoprolol Tartrate [Lopressor] 50 mg PO BID 03/11/19 03/11/19 History Allergies Allergy/AdvReac Type Severity Reaction Status Date / Time amiodarone AdvReac Nausea & Verified 03/10/19 19:09 Vomiting, confusion Physical Exam Vitals: Vital Signs Temp Pulse Pulse Resp BP BP Pulse Ox 03/11/19 09:01 76 03/11/19 08:59 96.5 F L 95 18 156/74 97 03/11/19 08:47 76 03/11/19 04:00 97.6 F 94 20 136/93 96 03/11/19 00:38 108 H 03/11/19 00:28 111 H 03/11/19 00:00 97.7 F 88 22 136/60 97 03/10/19 22:55 80 18 127/83 98 03/10/19 20:13 82 16 132/70 98 03/10/19 18:21 79 18 139/65 97 03/10/19 16:59 84 03/10/19 16:51 85 03/10/19 15:57 98.2 F 60 22 155/60 95 Intake and Output 03/10/19 03/11/19 03/11/19 22:59 06:59 14:59 Output Total 450 500 Balance -450 -500 Output: Urine 450 500 Other: Voiding Method Toilet Weight 89.358 kg 88.949 kg - Constitutional General appearance: no acute distress - Respiratory Respiratory: bilateral: diminished - Cardiovascular Rhythm: irregularly irregular Heart sounds: normal: S1, S2 Abnormal Heart Sounds: systolic murmur Results 03/10/19 16:18 03/10/19 16:18 Cardiac Enzymes 03/10/19 03/10/19 03/10/19 Range/Units 16:18 16:18 23:37 AST 69 H (14-36) U/L Troponin I 0.040 H* 0.040 H* (0.000-0.034) ng/mL 03/11/19 Range/Units 03:33 AST (14-36) U/L Troponin I 0.036 H* (0.000-0.034) ng/mL Coagulation 03/10/19 Range/Units 16:18 PT 12.3 H (9.0-12.0) sec APTT 22.5 (22.0-30.0) sec CBC 03/10/19 Range/Units 16:18 WBC 8.5 (3.8-10.6) k/uL RBC 3.58 L (3.80-5.40) m/uL Hgb 8.2 L (11.4-16.0) gm/dL Hct 27.6 L (34.0-46.0) % Plt Count 290 (150-450) k/uL Comprehensive Metabolic Panel 03/10/19 Range/Units 16:18 Sodium 140 (137-145) mmol/L Potassium 3.8 (3.5-5.1) mmol/L Chloride 95 L (98-107) mmol/L Carbon Dioxide 32 H (22-30) mmol/L BUN 58 H (7-17) mg/dL Creatinine 1.52 H (0.52-1.04) mg/dL Glucose 127 H (74-99) mg/dL Calcium 10.4 H (8.4-10.2) mg/dL AST 69 H (14-36) U/L ALT 25 (9-52) U/L Alkaline Phosphatase 143 H (38-126) U/L Total Protein 7.9 (6.3-8.2) g/dL Albumin 4.0 (3.5-5.0) g/dL Current Medications Generic Name Dose Route Start Last Admin Trade Name Freq PRN Reason Stop Dose Admin Albuterol/Ipratropium 3 ml 03/10/19 20:00 03/11/19 08:47 Duoneb 0.5 Mg-3 Mg/3 Ml Soln INHALATION 3 ml RT-QID ROSANGELA Administration Atorvastatin Calcium 40 mg 03/11/19 21:00 Lipitor PO HS ROSANGELA Budesonide/Formoterol Fumarate 2 puff 03/11/19 08:00 03/11/19 08:47 Symbicort 80-4.5 Mcg Inhaler INHALATION 2 puff RT-BID ROSANGELA Administration Furosemide 40 mg 03/11/19 08:00 03/11/19 08:49 Lasix PO 40 mg BID@0800,1430 ROSANGELA Administration Heparin Sodium (Porcine) 5,000 unit 03/11/19 09:00 03/11/19 08:47 Heparin SQ 5,000 unit Q12HR ROSANGELA Administration Insulin Aspart 0 unit 03/11/19 07:30 03/11/19 08:09 Novolog SQ Not Given ACHS [facility] Protocol Methylprednisolone Sodium Succinate 60 mg 03/10/19 18:30 03/11/19 06:58 Solu-Medrol IV 60 mg Q6HR ROSANGELA Administration Metoprolol Tartrate 25 mg 03/11/19 09:00 03/11/19 08:47 Lopressor PO 25 mg BID ROSANGELA Administration Multivitamins 1 each 03/11/19 09:00 03/11/19 08:47 Theragran PO 1 each DAILY ROSANGELA Administration Oxybutynin Chloride 5 mg 03/11/19 09:00 03/11/19 08:47 Ditropan PO 5 mg BID ROSANGELA Administration Pantoprazole Sodium 40 mg 03/11/19 08:00 03/11/19 09:05 Protonix PO 40 mg AC-BID ROSANGELA Administration Potassium Chloride 10 meq 03/11/19 09:00 03/11/19 08:47 K-Dur 10 PO 10 meq DAILY ROSANGELA Administration Senna 8.6 mg 03/11/19 07:21 Senokot PO HS PRN Constipation Sucralfate 1 gm 03/11/19 07:30 03/11/19 08:49 Carafate PO Not Given ACHS ROSANGELA Intake and Output 03/10/19 03/11/19 03/11/19 22:59 06:59 14:59 Output Total 450 500 Balance -450 -500 Output: Urine 450 500 Other: Voiding Method Toilet Weight 89.358 kg 88.949 kg 03/10/19 16:18 03/10/19 16:18 Assessment and Plan Assessment: Assessment #1 shortness of breath associated with cough and sputum production #2 possible rhonchi to/pneumonia #3 mildly abnormal cardiac enzymes #4 long-standing persistent atrial fibrillation not on oral anticoagulation #5 cardiomyopathy with EF around 35% #6 valvular heart disease and status post mitral valve repair #7 chronic kidney disease #8 multiple comorbid conditions Plan #1 the abnormality on the cardiac enzymes was not consistent with acute coronary event. #2 I would consider conservative medical approach for this fragile 78-year-old lady, in the absence of any chest pain or chest discomfort, and the process of low hemoglobin as well as renal failure #3 the abnormalities of the cardiac enzymes is likely related to the renal failure as well as cardiomyopathy as well as COPD #4 no need to repeat the echocardiogram in view of recent echo showing EF at 35% #5 continue holding anticoagulation and antiplatelet N in view of the peptic ulcer disease and a low hemoglobin #6 no need for any further cardiac workup Thank you for allowing us participate in her care
[2019-03-11 11:38] LABS: Glucose,Whole Blood 257 mg/dL (75-99)
[2019-03-11 12:50] VITALS: PULSE 84
--- NOTE | 2019-03-11 13:25 | P.HPIM ---
History of Present Illness 72-year-old female with a known history of multiple medical problems including COPD came in with compensative shortness of breath cough with yellowish to greenish sputum production found to have COPD exacerbation patient is clinically doing well today and wanted to be discharged. Patient has minimal elevated troponin which was believed to be secondary to hypoxemia and renal dysfunction patient has acute renal failure probably due to excessive diuretic therapy and metolazone was being held here patient is not in heart failure exacerbation patient does have ejection fraction of 30-35% patient does have history of atrial fibrillation not on anti-correlation because of his obesity had recent GI bleed patient had ischemic cardiomyopathy. Although patient the is doing significantly better compared to yesterday feeling better wanted to be discharged patient will be discharged today patient was evaluated by cardiology because of elevated troponin and the cleared her for discharge and this troponin elevation is not secondary to myocardial infarction status secondary to acute renal failure and hypoxemia patient does have chronic any disease with baseline creatinine fluctuated anywhere between 1.1-1.7 presently 1.5 Review of Systems REVIEW OF SYSTEMS: CONSTITUTIONAL: No fever, no malaise, no fatigue. HEENT: No recent visual problems or hearing problems. Denied any sore throat. CARDIOVASCULAR: No chest pain, orthopnea, PND, no palpitations, no syncope. PULMONARY: As mentioned in HPI GASTROINTESTINAL: No diarrhea, no nausea, no vomiting, no abdominal pain. NEUROLOGICAL: No headaches, no weakness, no numbness. HEMATOLOGICAL: Denies any bleeding or petechiae. GENITOURINARY: Denies any burning micturition, frequency, or urgency. MUSCULOSKELETAL/RHEUMATOLOGICAL: Denies any joint pain, swelling, or any muscle pain. ENDOCRINE: Denies any polyuria or polydipsia. The rest of the 14-point review of systems is negative. Past Medical History Past Medical History: Atrial Fibrillation, Cancer, Chest Pain / Angina, COPD, Hyperlipidemia, Hypertension, Osteoarthritis (OA) Additional Past Medical History / Comment(s): SOB w/exertion History of Any Multi-Drug Resistant Organisms: None Reported Past Surgical History: Cholecystectomy, Coronary Bypass/CABG, Heart Cath eterization With Stent, Hysterectomy Additional Past Surgical History / Comment(s): double bypass 2008, repair of mitral valve Past Anesthesia/Blood Transfusion Reactions: No Reported Reaction Date of Last Stent Placement:: 2013 Past Psychological History: No Psychological Hx Reported Smoking Status: Former smoker Past Alcohol Use History: None Reported Additional Past Alcohol Use History / Comment(s): quit smoking 1997, smoked 1ppd since teens Past Drug Use History: None Reported - Past Family History Mother Family Medical History: No Reported History Additional Family Medical History / Comment(s): Heart disease Daughter(s) Family Medical History: Cancer Additional Family Medical History / Comment(s): Brain tumor, uterine cancer, breast cancer Medications and Allergies Home Medications Medication Instructions Recorded Confirmed Type Budesonide/Formoterol Fumarate 2 puff INHALATION RT-BID 05/11/14 03/10/19 History [Symbicort 80-4.5 Mcg Inhaler] Albuterol Inhaler [Ventolin Hfa 1 - 2 puff INHALATION RT-Q6H PRN 11/06/15 03/10/19 History Inhaler] Azelastine HCl 1 - 2 spr EA NOSTRIL BID 12/15/18 03/10/19 History Losartan [Cozaar] 50 mg PO DAILY #30 tab 12/17/18 03/10/19 Rx Potassium Chloride [Klor-Con 20] 20 meq PO DAILY #60 tab 12/17/18 03/10/19 Rx Acetaminophen/Diphenhydramine 2 tab PO HS PRN 02/08/19 03/10/19 History [Tylenol PM 500-25mg] Furosemide [Lasix] 40 mg PO BID@0800,1430 02/08/19 03/10/19 History Multivitamins, Thera [Multivitamin 1 tab PO DAILY 02/08/19 03/10/19 History (formulary)] [place]-3 Fatty Acids/Fish Oil [Fish 1 cap PO DAILY 02/08/19 03/10/19 History Oil 1,000 mg Softgel] Sennosides [Senna] 8.6 mg PO HS PRN 02/08/19 03/10/19 History Pantoprazole [Protonix] 40 mg PO BID #60 tablet.dr 02/16/19 03/10/19 Rx Sucralfate [Carafate] 1 gm PO ACHS #120 tab 02/16/19 03/10/19 Rx Atorvastatin [Lipitor] 40 mg PO HS 03/10/19 03/10/19 History Ipratropium-Albuterol Nebulize 3 ml INHALATION RT-QID 03/10/19 03/10/19 History [Duoneb 0.5 mg-3 mg/3 ml Soln] LORazepam [Ativan] 1 mg PO DAILY PRN 03/10/19 03/10/19 History Oxybutynin Chloride [Ditropan] 5 mg PO BID 03/10/19 03/10/19 History Doxycycline Monohydrate [Monodox] 100 mg PO BID 3 Days #6 cap 03/11/19 Rx Metolazone [Zaroxolyn] 2.5 mg PO MOWEFR #0 03/11/19 03/10/19 Rx Metoprolol Tartrate [Lopressor] 50 mg PO BID 03/11/19 03/11/19 History QUEtiapine [SEROquel] 25 mg PO HS PRN #20 tab 03/11/19 Rx Zolpidem Tartrate [Ambien] 5 mg PO HS PRN 10 Days #10 tab 03/11/19 Rx predniSONE 10 mg PO DAILY #30 tab 03/11/19 Rx Allergies Allergy/AdvReac Type Severity Reaction Status Date / Time amiodarone AdvReac Nausea & Verified 03/10/19 19:09 Vomiting, confusion Physical Exam Vitals: Vital Signs Temp Pulse Pulse Resp BP BP Pulse Ox 03/11/19 12:50 84 03/11/19 12:39 88 03/11/19 09:01 76 03/11/19 08:59 96.5 F L 95 18 156/74 97 03/11/19 08:47 76 03/11/19 04:00 97.6 F 94 20 136/93 96 03/11/19 00:38 108 H 03/11/19 00:28 111 H 03/11/19 00:00 97.7 F 88 22 136/60 97 03/10/19 22:55 80 18 127/83 98 03/10/19 20:13 82 16 132/70 98 03/10/19 18:21 79 18 139/65 97 03/10/19 16:59 84 03/10/19 16:51 85 03/10/19 15:57 98.2 F 60 22 155/60 95 Intake and Output 03/10/19 03/11/19 03/11/19 22:59 06:59 14:59 Intake Total 240 Output Total 450 500 Balance -450 -260 Intake: Oral 240 Output: Urine 450 500 Other: Voiding Method Toilet Weight 89.358 kg 88.949 kg PHYSICAL EXAMINATION: GENERAL: The patient is alert and oriented x3, not in any acute distress. Well developed, well nourished. HEENT: Pupils are round and equally reacting to light. EOMI. No scleral icterus. No conjunctival pallor. Normocephalic, atraumatic. No pharyngeal erythema. No thyromegaly. CARDIOVASCULAR: S1 and S2 present. No murmurs, rubs, or gallops. PULMONARY: Denied entry into bilateral lung dawn occasional rhonchi rhonchi bilaterally ABDOMEN: Soft, nontender, nondistended, normoactive bowel sounds. No palpable organomegaly. MUSCULOSKELETAL: No joint swelling or deformity. EXTREMITIES: No cyanosis, clubbing, or pedal edema. NEUROLOGICAL: Gross neurological examination did not reveal any focal deficits. SKIN: No rashes. Results CBC & Chem 7: 03/10/19 16:18 03/10/19 16:18 Labs: Abnormal Lab Results - Last 24 Hours (Table) 03/10/19 03/10/19 03/10/19 Range/Units 16:18 16:18 16:18 RBC 3.58 L (3.80-5.40) m/uL Hgb 8.2 L (11.4-16.0) gm/dL Hct 27.6 L (34.0-46.0) % MCV 77.2 L (80.0-100.0) fL MCH 23.0 L (25.0-35.0) pg MCHC 29.8 L (31.0-37.0) g/dL RDW 18.1 H (11.5-15.5) % PT 12.3 H (9.0-12.0) sec INR 1.2 H (<1.2) Chloride 95 L (98-107) mmol/L Carbon Dioxide 32 H (22-30) mmol/L BUN 58 H (7-17) mg/dL Creatinine 1.52 H (0.52-1.04) mg/dL Glucose 127 H (74-99) mg/dL POC Glucose (mg/dL) (75-99) mg/dL Calcium 10.4 H (8.4-10.2) mg/dL AST 69 H (14-36) U/L Alkaline Phosphatase 143 H (38-126) U/L Troponin I (0.000-0.034) ng/mL 03/10/19 03/10/19 03/11/19 Range/Units 16:18 23:37 03:33 RBC (3.80-5.40) m/uL Hgb (11.4-16.0) gm/dL Hct (34.0-46.0) % MCV (80.0-100.0) fL MCH (25.0-35.0) pg MCHC (31.0-37.0) g/dL RDW (11.5-15.5) % PT (9.0-12.0) sec INR (<1.2) Chloride (98-107) mmol/L Carbon Dioxide (22-30) mmol/L BUN (7-17) mg/dL Creatinine (0.52-1.04) mg/dL Glucose (74-99) mg/dL POC Glucose (mg/dL) (75-99) mg/dL Calcium (8.4-10.2) mg/dL AST (14-36) U/L Alkaline Phosphatase (38-126) U/L Troponin I 0.040 H* 0.040 H* 0.036 H* (0.000-0.034) ng/mL 03/11/19 03/11/19 Range/Units 05:59 11:35 RBC (3.80-5.40) m/uL Hgb (11.4-16.0) gm/dL Hct (34.0-46.0) % MCV (80.0-100.0) fL MCH (25.0-35.0) pg MCHC (31.0-37.0) g/dL RDW (11.5-15.5) % PT (9.0-12.0) sec INR (<1.2) Chloride (98-107) mmol/L Carbon Dioxide (22-30) mmol/L BUN (7-17) mg/dL Creatinine (0.52-1.04) mg/dL Glucose (74-99) mg/dL POC Glucose (mg/dL) 190 H 257 H (75-99) mg/dL Calcium (8.4-10.2) mg/dL AST (14-36) U/L Alkaline Phosphatase (38-126) U/L Troponin I (0.000-0.034) ng/mL Thrombosis Risk Factor Assmnt - Choose All That Apply Each Factor Represents 1 point: Abnormal pulmonary function (COPD), Obesity (BMI >25) Other Risk Factors: Yes Each Risk Factor Represents 3 Points: Age 75 years or older Other congenital or acquired thrombophilia - If yes, enter type in comment: No Thrombosis Risk Factor Assessment Total Risk Factor Score: 5 Thrombosis Risk Factor Assessment Level: High Risk Assessment and Plan Plan: -Acute on chronic hypercapnic respiratory failure secondary to COPD exacerbation patient the will be given prescription for toxic and a feeling better will be started on weaning dose of steroids patient is requesting Seroquel as she has had hallucinations with the steroids. -Tracheal bronchitis -Mildly elevated troponin secondary to above-mentioned reasons that his kidney dysfunction and hypoxemia. 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 -Coronary artery disease -Hyperlipidemia Patient is clinically doing well in spite of her multiple medical problems patient will be discharged today patient does weigh 2 L of oxygen saturating well on 2 L here.
--- NOTE | 2019-03-11 13:25 | P.DS ---
Providers Date of admission: 03/10/19 17:59 Attending physician: Radha James Consults: 03/10/19 18:16 Consult Physician Routine Consulting Provider: Ra Campo Consult Reason/Comments: elevated trop Do you want consulting provider notified?: Yes Primary care physician: Renzo Molina [place] [facility] Course: Please refer to my HPI Patient Condition at Discharge: Fair Plan - Discharge Summary Discharge Rx Participant: No New Discharge Prescriptions: New Doxycycline Monohydrate [Monodox] 100 mg PO BID 3 Days #6 cap predniSONE 10 mg PO DAILY #30 tab Zolpidem Tartrate [Ambien] 5 mg PO HS PRN 10 Days #10 tab PRN Reason: Insomnia QUEtiapine [SEROquel] 25 mg PO HS PRN #20 tab PRN Reason: Psychosis Continue Budesonide/Formoterol Fumarate [Symbicort 80-4.5 Mcg Inhaler] 2 puff INHALATION RT-BID Albuterol Inhaler [Ventolin Hfa Inhaler] 1 - 2 puff INHALATION RT-Q6H PRN PRN Reason: Shortness Of Breath Azelastine HCl 1 - 2 spr EA NOSTRIL BID Losartan [Cozaar] 50 mg PO DAILY #30 tab Potassium Chloride [Klor-Con 20] 20 meq PO DAILY #60 tab Sennosides [Senna] 8.6 mg PO HS PRN PRN Reason: Constipation [place]-3 Fatty Acids/Fish Oil [Fish Oil 1,000 mg Softgel] 1 cap PO DAILY Multivitamins, Thera [Multivitamin (formulary)] 1 tab PO DAILY Furosemide [Lasix] 40 mg PO BID@0800,1430 Acetaminophen/Diphenhydramine [Tylenol PM 500-25mg] 2 tab PO HS PRN PRN Reason: Insomnia Pantoprazole [Protonix] 40 mg PO BID #60 tablet. Sucralfate [Carafate] 1 gm PO ACHS #120 tab Atorvastatin [Lipitor] 40 mg PO HS Ipratropium-Albuterol Nebulize [Duoneb 0.5 mg-3 mg/3 ml Soln] 3 ml INHALATION RT-QID LORazepam [Ativan] 1 mg PO DAILY PRN PRN Reason: Anxiety Oxybutynin Chloride [Ditropan] 5 mg PO BID Metoprolol Tartrate [Lopressor] 50 mg PO BID Changed Metolazone [Zaroxolyn] 2.5 mg PO MOWEFR #0 Discontinued Metolazone [Zaroxolyn] 2.5 mg PO MOWEFR Discharge Medication List Budesonide/Formoterol Fumarate [Symbicort 80-4.5 Mcg Inhaler] 2 puff INHALATION RT-BID 05/11/14 [History] Albuterol Inhaler [Ventolin Hfa Inhaler] 1 - 2 puff INHALATION RT-Q6H PRN 11/06/15 [History] Azelastine HCl 1 - 2 spr EA NOSTRIL BID 12/15/18 [History] Losartan [Cozaar] 50 mg PO DAILY #30 tab 12/17/18 [Rx] Potassium Chloride [Klor-Con 20] 20 meq PO DAILY #60 tab 12/17/18 [Rx] Acetaminophen/Diphenhydramine [Tylenol PM 500-25mg] 2 tab PO HS PRN 02/08/19 [History] Furosemide [Lasix] 40 mg PO BID@0800,1430 02/08/19 [History] Multivitamins, Thera [Multivitamin (formulary)] 1 tab PO DAILY 02/08/19 [History] [place]-3 Fatty Acids/Fish Oil [Fish Oil 1,000 mg Softgel] 1 cap PO DAILY 02/08/19 [History] Sennosides [Senna] 8.6 mg PO HS PRN 02/08/19 [History] Pantoprazole [Protonix] 40 mg PO BID #60 tablet.dr 02/16/19 [Rx] Sucralfate [Carafate] 1 gm PO ACHS #120 tab 02/16/19 [Rx] Atorvastatin [Lipitor] 40 mg PO HS 03/10/19 [History] Ipratropium-Albuterol Nebulize [Duoneb 0.5 mg-3 mg/3 ml Soln] 3 ml INHALATION RT-QID 03/10/19 [History] LORazepam [Ativan] 1 mg PO DAILY PRN 03/10/19 [History] Oxybutynin Chloride [Ditropan] 5 mg PO BID 03/10/19 [History] Doxycycline Monohydrate [Monodox] 100 mg PO BID 3 Days #6 cap 03/11/19 [Rx] Metolazone [Zaroxolyn] 2.5 mg PO MOWEFR #0 03/11/19 [Rx] Metoprolol Tartrate [Lopressor] 50 mg PO BID 03/11/19 [History] QUEtiapine [SEROquel] 25 mg PO HS PRN #20 tab 03/11/19 [Rx] Zolpidem Tartrate [Ambien] 5 mg PO HS PRN 10 Days #10 tab 03/11/19 [Rx] predniSONE 10 mg PO DAILY #30 tab 03/11/19 [Rx] Follow up Appointment(s)/Referral(s): Tam Suarez MD [STAFF PHYSICIAN] - 1 Week (office is closed for lunch please call office to make follow up appt with Dr Suarez ) Renzo Molina DO [Primary Care Provider] - 3 Days (office is closed for lunch please call in the afternoon or supervisor [employer] to schedule follow up appt. ) Patient Instructions/Handouts: COPD (Chronic Obstructive Pulmonary Disease) (DC) Discharge Disposition: HOME SELF-CARE
[2019-03-11] MEDS ORDERED: ATORVASTATIN 40 MG TAB PO SCH (21:00)
[2019-03-11] MEDS ORDERED: METOPROLOL TARTRATE 50 MG TAB PO SCH (21:00)
== END 2019-03-11 14:38 | disposition home or self-care (01) ==
LOC: EC 15:56 → 3SCARD 17:59
PROVIDERS: ADMIT Hospitalist; ATTEND Hospitalist
DX: J44.1 Chronic obstructive pulmonary disease with (acute) exacerbation (principal); J96.22 Acute and chronic respiratory failure with hypercapnia; J96.21 Acute and chronic respiratory failure with hypoxia; E86.0 Dehydration; J40 Bronchitis, not specified as acute or chronic; I25.10 Atherosclerotic heart disease of native coronary artery without angina pectoris; I13.0 Hypertensive heart and chronic kidney disease with heart failure and stage 1 through stage 4 chronic kidney disease, or unspecified chronic kidney disease; N18.2 Chronic kidney disease, stage 2 (mild); I50.22 Chronic systolic (congestive) heart failure; N17.9 Acute kidney failure, unspecified; Z88.8 Allergy status to other drugs, medicaments and biological substances; I48.11 Longstanding persistent atrial fibrillation; K27.4 Chronic or unspecified peptic ulcer, site unspecified, with hemorrhage; D50.0 Iron deficiency anemia secondary to blood loss (chronic); E78.5 Hyperlipidemia, unspecified; M19.90 Unspecified osteoarthritis, unspecified site; Z87.891 Personal history of nicotine dependence; E66.9 Obesity, unspecified; Z68.31 Body mass index [BMI] 31.0-31.9, adult; Z80.49 Family history of malignant neoplasm of other genital organs; Z80.3 Family history of malignant neoplasm of breast; Z82.49 Family history of ischemic heart disease and other diseases of the circulatory system; Z80.8 Family history of malignant neoplasm of other organs or systems; Z90.49 Acquired absence of other specified parts of digestive tract; Z95.1 Presence of aortocoronary bypass graft; Z95.5 Presence of coronary angioplasty implant and graft; Z90.710 Acquired absence of both cervix and uterus; Z99.81 Dependence on supplemental oxygen; Z79.51 Long term (current) use of inhaled steroids; Z79.899 Other long term (current) drug therapy
CPT/HCPCS: 96376; 96372; 96374; 99285; 36415; 94640 ×3; 93005; 83880; 80053; 83735; 84484 ×2; 85025; 85610; 85730; 71046; G0378 ×2; J1644; J2930 ×2

== ENCOUNTER 2019-03-29 15:54 | Inpatient (IN) | payer MEDICARE ==
[2019-03-29] MEDS ORDERED: SODIUM CHLORIDE 0.9% 1,000 ML IV STA (17:50)
--- NOTE | 2019-03-29 17:54 | ED ---
Recheck HPI - General Chief Complaint: Recheck/Abnormal Lab/Rx Stated Complaint: Abn labs/cough Time Seen by Provider: 03/29/19 17:20 Source: patient, RN notes reviewed Mode of arrival: wheelchair Limitations: no limitations - History of Present Illness Initial Comments: This is a 70-year-old female history of GI bleeding was sent in by her doctor due to a low hemoglobin. Per family the patient hemoglobin 7.7 for that was 8 but this hasn't been going up. His been having some blood per rectum apparently. Than very lethargic today and difficult to arouse she's had decreased oral intake shortness of breath weakness. She has of history of COPD CHF and CABG in the past the patient herself is a poor historian and most information gathered from family MD Complaint: abnormal lab - Related Data Home Medications Medication Instructions Recorded Confirmed Budesonide/Formoterol Fumarate 2 puff INHALATION RT-BID 05/11/14 03/29/19 [Symbicort 80-4.5 Mcg Inhaler] Albuterol Inhaler [Ventolin Hfa 1 - 2 puff INHALATION RT-Q6H PRN 11/06/15 03/29/19 Inhaler] Azelastine HCl 1 - 2 spr EA NOSTRIL BID 12/15/18 03/29/19 Acetaminophen/Diphenhydramine 2 tab PO HS PRN 02/08/19 03/29/19 [Tylenol PM 500-25mg] Furosemide [Lasix] 40 mg PO BID@0800,1430 02/08/19 03/29/19 Multivitamins, Thera [Multivitamin 1 tab PO DAILY 02/08/19 03/29/19 (formulary)] [place]-3 Fatty Acids/Fish Oil [Fish 1 cap PO DAILY 02/08/19 03/29/19 Oil 1,000 mg Softgel] Sennosides [Senna] 8.6 mg PO HS PRN 02/08/19 03/29/19 Atorvastatin [Lipitor] 40 mg PO HS 03/10/19 03/29/19 Ipratropium-Albuterol Nebulize 3 ml INHALATION RT-QID 03/10/19 03/29/19 [Duoneb 0.5 mg-3 mg/3 ml Soln] LORazepam [Ativan] 1 mg PO DAILY PRN 03/10/19 03/29/19 Oxybutynin Chloride [Ditropan] 5 mg PO BID 03/10/19 03/29/19 Metoprolol Tartrate [Lopressor] 50 mg PO BID 03/11/19 03/29/19 Previous Rx's Medication Instructions Recorded Losartan [Cozaar] 50 mg PO DAILY #30 tab 12/17/18 Potassium Chloride [Klor-Con 20] 20 meq PO DAILY #60 tab 12/17/18 Pantoprazole [Protonix] 40 mg PO BID #60 tablet.dr 02/16/19 Sucralfate [Carafate] 1 gm PO ACHS #120 tab 02/16/19 Metolazone [Zaroxolyn] 2.5 mg PO MOWEFR #0 03/11/19 QUEtiapine [SEROquel] 25 mg PO HS PRN #20 tab 03/11/19 Allergies Allergy/AdvReac Type Severity Reaction Status Date / Time amiodarone AdvReac Nausea & Verified 03/29/19 18:46 Vomiting, confusion Review of Systems ROS Statement: Those systems with pertinent positive or pertinent negative responses have been documented in the HPI. ROS Other: All systems not noted in ROS Statement are negative. Past Medical History Past Medical History: Atrial Fibrillation, Cancer, Chest Pain / Angina, COPD, Hyperlipidemia, Hypertension, Osteoarthritis (OA) Additional Past Medical History / Comment(s): SOB w/exertion History of Any Multi-Drug Resistant Organisms: None Reported Past Surgical History: Cholecystectomy, Coronary Bypass/CABG, Heart Catheterization With Stent, Hysterectomy Additional Past Surgical History / Comment(s): double bypass 2008, repair of mitral valve Past Anesthesia/Blood Transfusion Reactions: No Reported Reaction Date of Last Stent Placement:: 2013 Past Psychological History: No Psychological Hx Reported Smoking Status: Former smoker Past Alcohol Use History: None Reported Past Drug Use History: None Reported - Past Family History Mother Family Medical History: No Reported History Additional Family Medical History / Comment(s): Heart disease Daughter(s) Family Medical History: Cancer Additional Family Medical History / Comment(s): Brain tumor, uterine cancer, breast cancer General Exam - General Exam Comments Initial Comments: This a well-developed well-nourished awake lethargic female she does appear to be pale Limitations: no limitations General appearance: alert, in no apparent distress Head exam: Present: atraumatic, normocephalic, normal inspection Eye exam: Present: PERRL, EOMI, other (Bilateral exophthalmus). Absent: scleral icterus ENT exam: Present: mucous membranes dry Neck exam: Present: normal inspection (No surgery or bruits), full ROM, other Respiratory exam: Present: normal lung sounds bilaterally. Absent: respiratory distress, wheezes, rales, rhonchi, stridor Cardiovascular Exam: Present: regular rate, normal rhythm, normal heart sounds. Absent: systolic murmur, diastolic murmur, rubs, gallop, clicks GI/Abdominal exam: Present: soft, normal bowel sounds. Absent: distended, tenderness, guarding, rebound, rigid Extremities exam: Present: normal inspection, full ROM, normal capillary refill. Absent: tenderness, pedal edema, joint swelling, calf tenderness Back exam: Present: normal inspection Neurological exam: Present: alert, oriented X3, CN II-XII intact Psychiatric exam: Present: normal affect, normal mood Skin exam: Present: warm, dry, intact, normal color. Absent: rash Course Vital Signs 03/29/19 03/29/19 03/29/19 16:31 17:43 20:18 Temperature 97.8 F Pulse Rate 76 77 Respiratory 18 20 20 Rate Blood Pressure 118/75 136/78 O2 Sat by Pulse 98 98 Oximetry Medical Decision Making - Medical Decision Making Patient will be admitted she did present with complaints of some weakness no he moglobin recent blood per rectum she does demonstrate a mildly elevated troponin. She will be admitted case will be discussed with Dr. Patricia - Lab Data Result diagrams: 03/29/19 17:28 03/29/19 17:28 Lab Results 03/29/19 03/29/19 03/29/19 Range/Units 17:28 17:28 17:28 WBC 7.9 (3.8-10.6) k/uL RBC 3.98 (3.80-5.40) m/uL Hgb 8.6 L (11.4-16.0) gm/dL Hct 30.5 L (34.0-46.0) % MCV 76.6 L (80.0-100.0) fL MCH 21.5 L (25.0-35.0) pg MCHC 28.1 L (31.0-37.0) g/dL RDW 18.3 H (11.5-15.5) % Plt Count 219 (150-450) k/uL Neutrophils % 67 % Lymphocytes % 21 % Monocytes % 7 % Eosinophils % 2 % Basophils % 1 % Neutrophils # 5.3 (1.3-7.7) k/uL Lymphocytes # 1.7 (1.0-4.8) k/uL Monocytes # 0.6 (0-1.0) k/uL Eosinophils # 0.1 (0-0.7) k/uL Basophils # 0.1 (0-0.2) k/uL Hypochromasia Marked Poikilocytosis Marked Anisocytosis Slight Microcytosis Slight PT (9.0-12.0) sec INR (<1.2) APTT (22.0-30.0) sec Sodium 141 (137-145) mmol/L Potassium 4.2 (3.5-5.1) mmol/L Chloride 96 L (98-107) mmol/L Carbon Dioxide 36 H (22-30) mmol/L Anion Gap 9 mmol/L BUN 44 H (7-17) mg/dL Creatinine 1.49 H (0.52-1.04) mg/dL Est GFR (CKD-EPI)AfAm 39 (>60 ml/min/1.73 sqM) Est GFR (CKD-EPI)NonAf 34 (>60 ml/min/1.73 sqM) Glucose 124 H (74-99) mg/dL Calcium 10.7 H (8.4-10.2) mg/dL Magnesium 2.1 (1.6-2.3) mg/dL Total Bilirubin 0.7 (0.2-1.3) mg/dL AST 33 (14-36) U/L ALT 38 (9-52) U/L Alkaline Phosphatase 144 H (38-126) U/L Ammonia (<30) umol/L Creatine Kinase 24 L (30-135) U/L Troponin I 0.039 H* (0.000-0.034) ng/mL Total Protein 7.8 (6.3-8.2) g/dL Albumin 4.2 (3.5-5.0) g/dL Lipase 178 (23-300) U/L Stool Occult Blood (Negative) Blood Type Blood Type Recheck Bld Type Recheck Status Antibody Screen Spec Expiration Date 03/29/19 03/29/19 03/29/19 Range/Units 17:28 17:28 17:56 WBC (3.8-10.6) k/uL RBC (3.80-5.40) m/uL Hgb (11.4-16.0) gm/dL Hct (34.0-46.0) % MCV (80.0-100.0) fL MCH (25.0-35.0) pg MCHC (31.0-37.0) g/dL RDW (11.5-15.5) % Plt Count (150-450) k/uL Neutrophils % % Lymphocytes % % Monocytes % % Eosinophils % % Basophils % % Neutrophils # (1.3-7.7) k/uL Lymphocytes # (1.0-4.8) k/uL Monocytes # (0-1.0) k/uL Eosinophils # (0-0.7) k/uL Basophils # (0-0.2) k/uL Hypochromasia Poikilocytosis Anisocytosis Microcytosis PT 11.4 (9.0-12.0) sec INR 1.1 (<1.2) APTT 21.1 L (22.0-30.0) sec Sodium (137-145) mmol/L Potassium (3.5-5.1) mmol/L Chloride (98-107) mmol/L Carbon Dioxide (22-30) mmol/L Anion Gap mmol/L BUN (7-17) mg/dL Creatinine (0.52-1.04) mg/dL Est GFR (CKD-EPI)AfAm (>60 ml/min/1.73 sqM) Est GFR (CKD-EPI)NonAf (>60 ml/min/1.73 sqM) Glucose (74-99) mg/dL Calcium (8.4-10.2) mg/dL Magnesium (1.6-2.3) mg/dL Total Bilirubin (0.2-1.3) mg/dL AST (14-36) U/L ALT (9-52) U/L Alkaline Phosphatase (38-126) U/L Ammonia 18 (<30) umol/L Creatine Kinase (30-135) U/L Troponin I (0.000-0.034) ng/mL Total Protein (6.3-8.2) g/dL Albumin (3.5-5.0) g/dL Lipase (23-300) U/L Stool Occult Blood (Negative) Blood Type O Positive Blood Type Recheck O Pos Bld Type Recheck Status No Antibody Screen NEGATIVE Spec Expiration Date 04/01/2019232703/29/19 Range/Units 18:05 WBC (3.8-10.6) k/uL RBC (3.80-5.40) m/uL Hgb (11.4-16.0) gm/dL Hct (34.0-46.0) % MCV (80.0-100.0) fL MCH (25.0-35.0) pg MCHC (31.0-37.0) g/dL RDW (11.5-15.5) % Plt Count (150-450) k/uL Neutrophils % % Lymphocytes % % Monocytes % % Eosinophils % % Basophils % % Neutrophils # (1.3-7.7) k/uL Lymphocytes # (1.0-4.8) k/uL Monocytes # (0-1.0) k/uL Eosinophils # (0-0.7) k/uL Basophils # (0-0.2) k/uL Hypochromasia Poikilocytosis Anisocytosis Microcytosis PT (9.0-12.0) sec INR (<1.2) APTT (22.0-30.0) sec Sodium (137-145) mmol/L Potassium (3.5-5.1) mmol/L Chloride (98-107) mmol/L Carbon Dioxide (22-30) mmol/L Anion Gap mmol/L BUN (7-17) mg/dL Creatinine (0.52-1.04) mg/dL Est GFR (CKD-EPI)AfAm (>60 ml/min/1.73 sqM) Est GFR (CKD-EPI)NonAf (>60 ml/min/1.73 sqM) Glucose (74-99) mg/dL Calcium (8.4-10.2) mg/dL Magnesium (1.6-2.3) mg/dL Total Bilirubin (0.2-1.3) mg/dL AST (14-36) U/L ALT (9-52) U/L Alkaline Phosphatase (38-126) U/L Ammonia (<30) umol/L Creatine Kinase (30-135) U/L Troponin I (0.000-0.034) ng/mL Total Protein (6.3-8.2) g/dL Albumin (3.5-5.0) g/dL Lipase (23-300) U/L Stool Occult Blood Negative (Negative) Blood Type Blood Type Recheck Bld Type Recheck Status Antibody Screen Spec Expiration Date - Radiology Data Radiology results: image reviewed (G reviewed no acute findings) Disposition Clinical Impression: Anemia, History of GI bleed Disposition: ADMITTED IP TO THIS HOSP Condition: Fair Referrals: Renzo Molina DO [Primary Care Provider] - 1-2 days
[2019-03-29 18:19] LABS: Anisocytosis Slight; Basophils # (A) 0.1 k/uL (0-0.2); Basophils % (A) 1 %; Eosinophils # (A) 0.1 k/uL (0-0.7); Eosinophils % (A) 2 %; HCT 30.5 % (34.0-46.0); HGB 8.6 gm/dL (11.4-16.0); Hypochromasia Marked; Lymphocytes # (A) 1.7 k/uL (1.0-4.8); Lymphocytes % (A) 21 %; MCH 21.5 pg (25.0-35.0); MCHC 28.1 g/dL (31.0-37.0); MCV 76.6 fL (80.0-100.0); Mean Platelet Volume 7.9; Microcytosis Slight; Monocytes # (A) 0.6 k/uL (0-1.0); Monocytes % (A) 7 %; Neutrophils # (A) 5.3 k/uL (1.3-7.7); Neutrophils % (A) 67 %; Platelet Count 219 k/uL (150-450); Poikilocytosis Marked; RBC 3.98 m/uL (3.80-5.40); RDW 18.3 % (11.5-15.5); WBC 7.9 k/uL (3.8-10.6)
[2019-03-29 18:23] LABS: Albumin 4.2 g/dL (3.5-5.0); Calcium 10.7 mg/dL (8.4-10.2); Magnesium 2.1 mg/dL (1.6-2.3); Potassium 4.2 mmol/L (3.5-5.1); Total Bilirubin 0.7 mg/dL (0.2-1.3); Total Protein 7.8 g/dL (6.3-8.2)
[2019-03-29 18:29] LABS: INR 1.1 (<1.2); Prothrombin Time 11.4 sec (9.0-12.0)
[2019-03-29 18:30] LABS: Partial Thromboplastin Time 21.1 sec (22.0-30.0)
[2019-03-29] MEDS ORDERED: NALOXONE 0.4 MG/ML 1 ML VIAL IV PRN (22:53)
[2019-03-29] MEDS ORDERED: SENNOSIDES 8.6 MG TAB PO PRN (22:55)
[2019-03-29] MEDS ORDERED: QUEtiapine 25 MG TAB PO PRN (22:55)
[2019-03-29] MEDS ORDERED: ALBUTEROL NEBULIZED 2.5 MG/3 ML INHALATION PRN (22:55)
[2019-03-29] MEDS ORDERED: LORazepam 1 MG TAB PO PRN (22:55)
[2019-03-29] MEDS: SODIUM CHLORIDE 0.9% 1,000 ML IV SCH (23:06)
--- NOTE | 2019-03-29 23:37 | XR ---
EXAM: XR Chest, 2 Views CLINICAL HISTORY: ITS.REASON XR Reason: Weakness TECHNIQUE: Frontal and lateral views of the chest. COMPARISON: No relevant prior studies available. FINDINGS: Lungs: Cephalization of the pulmonary vascular flow/vascular congestion. Interstitial thickening concerning for mild interstitial pulmonary edema. Pleural space: No pleural effusion or pneumothorax. Heart: Enlarged cardiac silhouette is concerning for cardiomegaly although pericardial effusion is obscured. Mediastinum: Unremarkable. Bones/joints: Intact sternotomy wires status post valvuloplasty. Degenerative changes of spine and diffuse osteopenia. Upper abdomen: Elevation of the right hemidiaphragm. IMPRESSION: Findings are compatible with congestive heart failure exacerbation in the right clinical setting.
[2019-03-30 00:55] LABS: Anisocytosis Slight; Basophils % (A) 1 %; Eosinophils # (A) 0.2 k/uL (0-0.7); Eosinophils % (A) 2 %; HGB 8.2 gm/dL (11.4-16.0); Hypochromasia Marked; Lymphocytes % (A) 22 %; MCH 21.5 pg (25.0-35.0); MCHC 28.3 g/dL (31.0-37.0); MCV 75.8 fL (80.0-100.0); Mean Platelet Volume 8.9; Microcytosis Moderate; Monocytes # (A) 0.7 k/uL (0-1.0); Monocytes % (A) 8 %; Neutrophils # (A) 5.7 k/uL (1.3-7.7); Neutrophils % (A) 64 %; Platelet Count 188 k/uL (150-450); Poikilocytosis Marked; RBC 3.83 m/uL (3.80-5.40); RDW 18.4 % (11.5-15.5); WBC 8.8 k/uL (3.8-10.6)
[2019-03-30] MEDS: IPRATROPIUM-ALBUTEROL 3 ML NEB INHALATION SCH ×4 (06:58→20:23)
[2019-03-30] MEDS ORDERED: SYMBICORT 80-4.5 MCG INHALER INHALATION SCH (08:00)
[2019-03-30] MEDS ORDERED: FUROSEMIDE 40 MG TAB PO SCH (08:00)
[2019-03-30] MEDS: METOPROLOL TARTRATE 50 MG TAB PO SCH ×2 (08:53→21:46)
[2019-03-30] MEDS: FUROSEMIDE 10 MG/ML 4 ML VIAL IV SCH ×2 (08:53→21:46)
[2019-03-30] MEDS: POTASSIUM CHLORIDE ER 20 MEQ TAB.ER PO SCH (08:53)
[2019-03-30] MEDS: PANTOPRAZOLE 40 MG/10 ML VIAL IV SCH ×2 (08:53→21:43)
[2019-03-30] MEDS: LOSARTAN 50 MG TAB PO SCH (08:53)
[2019-03-30] MEDS: FAMOTIDINE 20 MG/2 ML VIAL IV SCH (08:54)
[2019-03-30 08:58] LABS: Reticulocyte % 3.1 % (0.5-2.0)
[2019-03-30] MEDS ORDERED: PANTOPRAZOLE 40 MG/10 ML VIAL IV SCH (09:00)
[2019-03-30] MEDS ORDERED: HEPARIN SODIUM,PORCINE 5,000 UNIT/ML 1 ML VIAL SQ SCH (09:00)
[2019-03-30] MEDS ORDERED: FAMOTIDINE 20 MG/2 ML VIAL IV SCH (09:00)
[2019-03-30] MEDS ORDERED: NON FORMULARY DRUG (Omega-3 Fatty Acids/Fish Oil [Fish Oil 1,000 Mg Softgel] 1 CAP) PO SCH (09:00)
--- NOTE | 2019-03-30 09:33 | P.HPIM ---
History of Present Illness This is a pleasant 78 years old female with past medical history of atrial fibrillation, hyperlipidemia, hypertension, COPD, osteoarthritis, coronary artery disease status post CABG and stent placement. ex-smoker many years ago.she was in the hospital less than 2 months ago for bleeding per rectum with EGD showing 2 antral ulcers of 1.0 and 1.5 cm with no active bleeding at that time.Coumadin was held at that time.Biopsy showing chronic gastritis with no Helicobacter M all identified. Marketing Clerk evaluated the patient about one month ago and recommended to keep holding the coumadine and into platelets because of low hemoglobin and peptic ulcer disease. this time Patient was sent by her doctor for low hemoglobin of 7.7 per documents, however repeat hemoglobin in the hospital is 8.6 and 8.2. occult blood in his stool is negative last month and today. patient is also dyspneic associated with cough and phlegm for 1-2 weeks duration but no chest pain. No abdominal pain or nausea vomiting. Patient has difficulty talking because of her breathing difficulties. labs reviewed and showing elevated troponin at 0.033. Other labs showing normal WBC count, unremarkable INR of 1.1. Creatinine is 1.4, which looks like at baseline of 1.5-2.2. Occult blood in his stool is negative. Chest x-ray: CHF. Recent echo showing ejection fraction of 30-35% with valvular heart disease. In the emergency room patient was continued with her home medications including Lipitor, oral Lasix 40 mg twice daily, Cozaar, metolazone, metoprolol, Review of Systems CONSTITUTIONAL: No fever, no malaise, no fatigue. HEENT: No recent visual problems or hearing problems. Denied any sore throat. CARDIOVASCULAR: no palpitations, no syncope. PULMONARY: no hemoptysis. GASTROINTESTINAL: No diarrhea, no nausea, no vomiting, no abdominal pain. Normoactive bowel sounds. NEUROLOGICAL: No headaches, no weakness, no numbness. HEMATOLOGICAL: Denies any bleeding or petechiae. GENITOURINARY: Denies any burning micturition, frequency, or urgency. MUSCULOSKELETAL/RHEUMATOLOGICAL: Denies any joint pain, swelling, or any muscle pain. ENDOCRINE: Denies any polyuria or polydipsia. Past Medical History Past Medical History: Atrial Fibrillation, Cancer, Chest Pain / Angina, COPD, Hyperlipidemia, Hypertension, Osteoarthritis (OA) Additional Past Medical History / Comment(s): SOB w/exertion History of Any Multi-Drug Resistant Organisms: None Reported Past Surgical History: Cholecystectomy, Coronary Bypass/CABG, Heart Catheterization With Stent, Hysterectomy Additional Past Surgical History / Comment(s): double bypass 2008, repair of mitral valve Past Anesthesia/Blood Transfusion Reactions: No Reported Reaction Date of Last Stent Placement:: 2013 Past Psychological History: No Psychological Hx Reported Smoking Status: Former smoker Past Alcohol Use History: None Reported Past Drug Use History: None Reported - Past Family History Mother Family Medical History: No Reported History Additional Family Medical History / Comment(s): Heart disease Daughter(s) Family Medical History: Cancer Additional Family Medical History / Comment(s): Brain tumor, uterine cancer, breast cancer Medications and Allergies Home Medications Medication Instructions Recorded Confirmed Type Budesonide/Formoterol Fumarate 2 puff INHALATION RT-BID 05/11/14 03/29/19 History [Symbicort 80-4.5 Mcg Inhaler] Albuterol Inhaler [Ventolin Hfa 1 - 2 puff INHALATION RT-Q6H PRN 11/06/15 03/29/19 History Inhaler] Azelastine HCl 1 - 2 spr EA NOSTRIL BID 12/15/18 03/29/19 History Losartan [Cozaar] 50 mg PO DAILY #30 tab 12/17/18 03/29/19 Rx Potassium Chloride [Klor-Con 20] 20 meq PO DAILY #60 tab 12/17/18 03/29/19 Rx Acetaminophen/Diphenhydramine 2 tab PO HS PRN 02/08/19 03/29/19 History [Tylenol PM 500-25mg] Furosemide [Lasix] 40 mg PO BID@0800,1430 02/08/19 03/29/19 History Multivitamins, Thera [Multivitamin 1 tab PO DAILY 02/08/19 03/29/19 History (formulary)] [place]-3 Fatty Acids/Fish Oil [Fish 1 cap PO DAILY 02/08/19 03/29/19 History Oil 1,000 mg Softgel] Sennosides [Senna] 8.6 mg PO HS PRN 02/08/19 03/29/19 History Pantoprazole [Protonix] 40 mg PO BID #60 tablet.dr 02/16/19 03/29/19 Rx Sucralfate [Carafate] 1 gm PO ACHS #120 tab 02/16/19 03/29/19 Rx Atorvastatin [Lipitor] 40 mg PO HS 03/10/19 03/29/19 History Ipratropium-Albuterol Nebulize 3 ml INHALATION RT-QID 03/10/19 03/29/19 History [Duoneb 0.5 mg-3 mg/3 ml Soln] LORazepam [Ativan] 1 mg PO DAILY PRN 03/10/19 03/29/19 History Oxybutynin Chloride [Ditropan] 5 mg PO BID 03/10/19 03/29/19 History Metolazone [Zaroxolyn] 2.5 mg PO MOWEFR #0 03/11/19 03/29/19 Rx Metoprolol Tartrate [Lopressor] 50 mg PO BID 03/11/19 03/29/19 History QUEtiapine [SEROquel] 25 mg PO HS PRN #20 tab 03/11/19 03/29/19 Rx Allergies Allergy/AdvReac Type Severity Reaction Status Date / Time amiodarone AdvReac Nausea & Verified 03/29/19 18:46 Vomiting, confusion Physical Exam Vitals: Vital Signs Temp Pulse Resp BP Pulse Ox 03/30/19 07:09 109 H 03/30/19 06:59 114 H 03/30/19 06:00 100 18 143/93 97 03/30/19 02:59 107 H 18 117/78 97 03/30/19 01:30 108 H 17 127/73 100 03/30/19 00:14 86 20 137/90 97 03/29/19 20:18 77 20 136/78 98 03/29/19 17:43 20 03/29/19 16:31 97.8 F 76 18 118/75 98 Intake and Output 03/29/19 03/30/19 03/30/19 22:59 06:59 14:59 Other: Weight 81.647 kg -GENERAL: The patient is alert and oriented x3, not in any acute distress. obese, HEENT: Pupils are round and equally reacting to light. EOMI. No scleral icterus. No conjunctival pallor. Normocephalic, atraumatic. No pharyngeal erythema. No thyromegaly. CARDIOVASCULAR: S1 and S2 present. No murmurs, rubs, or gallops. -PULMONARY: Chest is clear to auscultation, no wheezing. Bilateral basal crepitation ABDOMEN: Soft, nontender, nondistended, normoactive bowel sounds. No palpable organomegaly. MUSCULOSKELETAL: No joint swelling or deformity. -EXTREMITIES: No cyanosis, clubbing, . Bilateral leg edema NEUROLOGICAL: Gross neurological examination did not reveal any focal deficits. SKIN: No rashes. No petechiae Results CBC & Chem 7: 03/30/19 00:33 03/29/19 17:28 Labs: Abnormal Lab Results - Last 24 Hours (Table) 03/29/19 03/29/19 03/29/19 Range/Units 17:28 17:28 17:28 Hgb 8.6 L (11.4-16.0) gm/dL Hct 30.5 L (34.0-46.0) % MCV 76.6 L (80.0-100.0) fL MCH 21.5 L (25.0-35.0) pg MCHC 28.1 L (31.0-37.0) g/dL RDW 18.3 H (11.5-15.5) % APTT (22.0-30.0) sec Chloride 96 L (98-107) mmol/L Carbon Dioxide 36 H (22-30) mmol/L BUN 44 H (7-17) mg/dL Creatinine 1.49 H (0.52-1.04) mg/dL Glucose 124 H (74-99) mg/dL Calcium 10.7 H (8.4-10.2) mg/dL Alkaline Phosphatase 144 H (38-126) U/L Creatine Kinase 24 L (30-135) U/L Troponin I 0.039 H* (0.000-0.034) ng/mL 03/29/19 03/29/19 03/30/19 Range/Units 17:56 23:28 00:33 Hgb 8.2 L (11.4-16.0) gm/dL Hct 29.0 L (34.0-46.0) % MCV 75.8 L (80.0-100.0) fL MCH 21.5 L (25.0-35.0) pg MCHC 28.3 L (31.0-37.0) g/dL RDW 18.4 H (11.5-15.5) % APTT 21.1 L (22.0-30.0) sec Chloride (98-107) mmol/L Carbon Dioxide (22-30) mmol/L BUN (7-17) mg/dL Creatinine (0.52-1.04) mg/dL Glucose (74-99) mg/dL Calcium (8.4-10.2) mg/dL Alkaline Phosphatase (38-126) U/L Creatine Kinase (30-135) U/L Troponin I 0.038 H* (0.000-0.034) ng/mL 03/30/19 Range/Units 05:28 Hgb (11.4-16.0) gm/dL Hct (34.0-46.0) % MCV (80.0-100.0) fL MCH (25.0-35.0) pg MCHC (31.0-37.0) g/dL RDW (11.5-15.5) % APTT (22.0-30.0) sec Chloride (98-107) mmol/L Carbon Dioxide (22-30) mmol/L BUN (7-17) mg/dL Creatinine (0.52-1.04) mg/dL Glucose (74-99) mg/dL Calcium (8.4-10.2) mg/dL Alkaline Phosphatase (38-126) U/L Creatine Kinase (30-135) U/L Troponin I 0.038 H* (0.000-0.034) ng/mL Assessment and Plan Assessment: atrial fibrillation's with RVR. chronically elevated troponin history of coronary artery disease status post CABG and stent placement Pulmonary congestion, acute on chronic systolic congestive heart failure. With ejection fraction of 30-35%. recent history of GI bleed with EGD showing 2 antral ulceration, 1.0 and 1.5 cm . No evidence of active GI bleed during this admission mostly iron deficiency Anemia acute COPD exacerbation Chronic hypoxic respiratory failure on home oxygen previous history of uterine cancer Moderate mitral regurgitation with moderate to severe tricuspid regurgitation Chronic kidney disease, stage III hypocalcemia with elevated parathyroid hormone recent history of acute C. diff treated with oral vancomycin Hypertension Hyperlipidemia COPD, not acute exacerbation Primary osteoarthritis Plan: this is a pleasant 78 years old female who presents with A. fib and RVR and acute congestive heart failure, and COPD. Continue with Lasix plus switch to intravenous dose. Cardiology has been consulted and we will follow their r ecommendation. We will do anemia workup. Also will consult pulmonology for COPD. we will add steroids. Labs and medication were reviewed.. Continue same treatment. Continue with symptomatic treatment. Resume home medication. Monitor lytes and vitals. DVT and GI prophylaxis. Further recommendations of the clinical course of the patient DVT prophylaxis: Subcutaneous heparin GI Prophylaxis: Protonix and Carafate Prognosis is guarded
[2019-03-30] MEDS: AZELASTINE 137MCG/SPRAY EA NOSTRIL SCH ×2 (09:39→21:46)
[2019-03-30] MEDS: METOLAZONE 2.5 MG TAB PO SCH (09:40)
[2019-03-30] MEDS: OXYBUTYNIN CHLORIDE 5 MG TAB PO SCH ×2 (09:40→21:46)
[2019-03-30] MEDS: MULTIVITAMINS, THERA 1 EACH TAB PO SCH (09:40)
[2019-03-30] MEDS: SUCRALFATE 1 GM TAB PO SCH ×4 (09:41→21:46)
[2019-03-30] MEDS ORDERED: IPRATROPIUM-ALBUTEROL 3 ML NEB INHALATION PRN (10:37)
[2019-03-30] MEDS ORDERED: SODIUM CHLORIDE 0.9% 1,000 ML IV ONE (11:13)
[2019-03-30 11:58] LABS: Allen Test Performed? Yes
[2019-03-30 12:21] LABS: ABG Base Excess 8.3 mmol/L; ABG HCO3 35 mmol/L (21-25); ABG Oxygen Saturation 99.8 % (94-97); ABG PCO2 68 mmHg (35-45); ABG PH 7.32 (7.35-7.45); ABG PO2 199 mmHg (83-108); ABG TCO2 37 mmol/L (19-24)
[2019-03-30 16:49] LABS: % Iron Saturation 3.16 (12.00-45.00); Ferritin 11.4 ng/mL (10.0-291.0); Folate, Serum >24.0 ng/mL; Iron 13 ug/dL (50-170); Total Iron Binding Capacity 411 ug/dL (228-460)
[2019-03-30] MEDS: methylPREDNISolone SOD SUCCI 40 MG/ML 1 ML VIAL IV SCH ×2 (17:55→23:42)
[2019-03-30 19:22] LABS: Amorphous Sediment,Urine Rare /hpf; Appearance,Urine Cloudy (Clear); Bacteria,Urine Rare /hpf; Bilirubin,Urine Negative (Negative); Blood,Urine Negative (Negative); Color,Urine Dark Yellow; Glucose,Urine (UA) Negative (Negative); Granular Casts,Urine 1 /lpf (0); Hyaline Casts,Urine 82 /lpf (0-2); Ketones,Urine Negative (Negative); Leukocyte Esterase,Urine Negative (Negative); Mucus,Urine Rare /hpf; Nitrite,Urine Negative (Negative); Protein,Urine 1+ (Negative); RBC,Urine 1 /hpf (0-5); Specific Gravity,Urine 1.015 (1.001-1.035); Squamous Epithelial Cell,Urine 1 /hpf (0-4); WBC,Urine 3 /hpf (0-5)
--- NOTE | 2019-03-30 19:55 | CONS ---
CONSULTATION PULMONARY/CRITICAL CARE CONSULTATION: DATE OF SERVICE: 03/30/2019 REASON FOR CONSULTATION: COPD. This is a 78-year-old female with a history of chronic GI bleeding. The patient was recently inpatient in January. At that time, she also had an episode of acute GI bleed with blood loss anemia. Anyway, she apparently was noted to have a hemoglobin that was 7.7. She apparently was having some dark blood and bright red blood per rectum. She apparently became very lethargic and difficult to arouse, and for that reason she was brought into the emergency room to be evaluated. The patient also complains of chronic shortness of breath which in part is related to her underlying COPD. Anyway, we were asked to see her. We did evaluate her in the emergency department. She was very pale. She was weak. She was short of breath. She denied any significant cough or phlegm production. She did have some chest tightness. The patient was sitting in the room waiting for a regular floor bed with her and her son. The patient denied any fever or chills. There was no nausea, vomiting, or diarrhea. There were no genitourinary complaints. The patient has a history of chronic blood loss anemia, stage II COPD with an FEV1 that is 52% of predicted, chronic hypoxemic respiratory failure, CAD with previous bypass grafting, chronic atrial fibrillation, hypertension, hyperlipidemia, DJD, valvular heart disease, status post mitral valve repair, CAD with previous stenting, and cardiomyopathy with an ejection fraction of 30% to 35%. The patient also has a history of Clostridium difficile colitis. Because of her lethargy, somnolence and worsening respiratory status, a blood gas was ordered on 40%. It showed a PO2 of 199, a pCO2 of 68, and a pH of 7.32. Obviously, she is a CO2 retainer. It appears that her baseline PaCO2 is probably right around 58 plus or minus 2 mmHg. Her hemoglobin here in the hospital was initially 8.6 and then dropped down to 8.2. MEDICATIONS: Her home medications include Symbicort, albuterol inhaler, Astelin nasal spray, Tylenol PM, Lasix, multiple vitamins, omega-3 fatty acids, Senna, Lipitor, updrafts with albuterol and Atrovent, Ativan, Ditropan, Lopressor, Cozaar, potassium chloride, Protonix, Carafate, Zaroxolyn, and Seroquel. ALLERGIES: AMIODARONE. PAST MEDICAL HISTORY: Medical history includes a number of things, as mentioned above, including but not limited to atrial fibrillation, angina, COPD, hyperlipidemia, hypertension, osteoarthritis, cardiomyopathy, CAD, previous stenting, DJD, status post bypass grafting, and Clostridium difficile colitis. OTHER SURGICAL HISTORY: Other surgical history includes cholecystectomy and hysterectomy. She has also had a mitral valve repair. SOCIAL HISTORY: Social history is positive for previous heavy tobacco use. She does not smoke currently. Both she and her smoked heavily in the past. She denies any illicit drug use or alcohol use. FAMILY HISTORY: Family history is positive for mother with heart disease and a daughter with brain tumor, uterine cancer and breast cancer. REVIEW OF SYSTEMS: CONSTITUTIONAL: Weakness. NEUROLOGIC: Lightheadedness. HEENT: Negative. CARDIOVASCULAR: Negative. PULMONARY: Shortness of breath, chest tightness, wheezing, cough without phlegm production. GASTROINTESTINAL: Maroon-colored stools per rectum. GENITOURINARY: Negative. RHEUMATOLOGIC: Negative. IMMUNOLOGIC: Negative. ENDOCRINOLOGIC: Negative. DERMATOLOGIC: Negative. PHYSICAL EXAMINATION: VITAL SIGNS: Current vital signs include a temperature of 97.5, heart rate 78, respiratory rate 20, blood pressure 115/62, mean 79, and saturations were 99% on BiPAP; BiPAP settings were 10 for an IPAP, 6 for an EPAP, and 35% FiO2. GENERAL: She appears a little lethargic when we see her initially. When we saw her, she was not on BiPAP. HEENT: Examination is grossly unremarkable. Nasal O2 in place. NECK: Supple. Full range of motion. No adenopathy. CARDIOVASCULAR: Examination reveals regular rhythm and rate. Heart rate 78 beats per minute. S1 and S2 normal. LUNGS: Lungs reveal a few scattered expiratory rhonchi and wheezes. Breath sounds are diminished. Slight prolongation. ABDOMEN: Abdomen is obese. Bowel sounds are heard. EXTREMITIES: Extremities are intact. No edema. SKIN: Skin is pale. NEUROLOGIC: Examination is brief but nonfocal. LABORATORY DATA/IMAGING: Laboratory data is reviewed. White count 8.8, hemoglobin 8.2, hematocrit 29.0, platelet count 188,000. PT and INR were 11.4 and 1.11, PTT 21.1. Blood gases on 40% showed PO2 199, pCO2 of 68, pH 7.32. The FiO2 was dropped down to 35%. Sodium 141, potassium 4.2, chloride 96, CO2 36. Anion gap is 9. BUN and creatinine were 44 and 1.49. Glucose 124, calcium 10.7, alkaline phosphatase 144. Troponins were 0.038 and 0.038. Stools for occult blood were negative. Her chest x-ray showed changes consistent with underlying CHF. Current medications are reviewed. ASSESSMENT: 1. Chronic gastrointestinal bleed with chronic blood loss anemia. 2. History of chronic obstructive pulmonary disease, stage II/stage III with an FEV1 of 52%. 3. Previous history of heavy tobacco use. 4. Hyperlipidemia. 5. Hypertension. 6. Gastroesophageal reflux disease. 7. Chronic atrial fibrillation. 8. History of Clostridium difficile colitis. 9. Status post mitral valve repair. 10.Status post coronary artery stenting. 11.Valvular heart disease in the form of moderate mitral regurgitation, mild mitral stenosis, moderate to severe tricuspid regurgitation, and pulmonary hypertension. 12.Status post bypass grafting. PLAN: The patient was placed on BiPAP. The patient's FiO2 was reduced. Will review the patient's medication. Additional recommendations and suggestions are forthcoming. Prognosis is guarded. CODE STATUS should be addressed. Overall prognosis remains poor. MMODL / IJN: [id number] /
[2019-03-30] MEDS: FORMOTEROL FUMARATE 20 MCG/2 ML NEBU INHALATION SCH (20:23)
[2019-03-30] MEDS: BUDESONIDE 1 MG/2 ML NEBU INHALATION SCH (20:23)
--- NOTE | 2019-03-30 20:24 | P.CONS ---
History of Present Illness - Reason for Consult Consult date: 03/30/19 Anemia Requesting physician: Jacinto E Sheet - Chief Complaint Dizzy, not feeling well - History of Present Illness 70-year-old female with multiple medical comorbidities including coronary artery disease status post CABG, prior tobacco abuse, COPD, osteoarthritis, hyperten alison, hyperlipidemia and atrial fibrillation with recent admission in 01/2019 for GI bleed secondary to ulcer to presented for a constellation of symptoms including dizziness, not feeling well and syncope. The patient reports a general feeling of unwellness prior to presentation. Since her discharge from the hospital she has noted dark stools while on iron therapy. She also reports that her last bowel movement was significant for a few specks of blood but overall grossly nonbloody. Hemoglobin on presentation was found to be 8.6 and stable on repeat draw at 8.2 similar to her discharge hemoglobin of 8.2 on 02/16/2019. Last colonoscopy was approximately 2 years ago per her recollection however records are not available. Last EGD was on her prior admission on 02/14/2019 significant for 2 nonbleeding antral ulcers with negative biopsies. She was also found to be hypercarbic on presentation and started on BiPAP therapy. Review of Systems REVIEW OF SYSTEMS: CONSTITUTIONAL: Denies any fevers, chills, weight change or fatigue. CARDIOVASCULAR: Denies any chest pain, palpitations high or low blood pressures, with reports of syncopal episode RESPIRATORY: Denies any hemoptysis but did report shortness of breath and cough prior to presentation. GENITOURINARY: No dysuria or hematuria. MUSCULOSKELETAL: No weakness reported. SKIN: Denies any new rashes or lesions, jaundice or pallor. PSYCHIATRIC: Denies any depression or anxiety. NEUROLOGY: Denies headache, denies any new focal deficits. EARS/NOSE/THROAT: No recent hearing change, congestion, nasal discharge or sore throat. EYES: No pain in eyes, discharge or change in vision. GASTROINTESTINAL: As per HPI. Past Medical History Past Medical History: Atrial Fibrillation, Cancer, Chest Pain / Angina, COPD, Hyperlipidemia, Hypertension, Osteoarthritis (OA) Additional Past Medical History / Comment(s): SOB w/exertion History of Any Multi-Drug Resistant Organisms: None Reported Past Surgical History: Cholecystectomy, Coronary Bypass/CABG, Heart Catheterization With Stent, Hysterectomy Additional Past Surgical History / Comment(s): double bypass 2008, repair of mitral valve Past Anesthesia/Blood Transfusion Reactions: No Reported Reaction Date of Last Stent Placement:: 2013 Past Psychological History: No Psychological Hx Reported Smoking Status: Former smoker Past Alcohol Use History: None Reported Past Drug Use History: None Reported - Past Family History Mother Family Medical History: No Reported History Additional Family Medical History / Comment(s): Heart disease Daughter(s) Family Medical History: Cancer Additional Family Medical History / Comment(s): Brain tumor, uterine cancer, breast cancer Medications and Allergies Home Medications Medication Instructions Recorded Confirmed Type Budesonide/Formoterol Fumarate 2 puff INHALATION RT-BID 05/11/14 03/29/19 Histo ry [Symbicort 80-4.5 Mcg Inhaler] Albuterol Inhaler [Ventolin Hfa 1 - 2 puff INHALATION RT-Q6H PRN 11/06/15 03/29/19 History Inhaler] Azelastine HCl 1 - 2 spr EA NOSTRIL BID 12/15/18 03/29/19 History Losartan [Cozaar] 50 mg PO DAILY #30 tab 12/17/18 03/29/19 Rx Potassium Chloride [Klor-Con 20] 20 meq PO DAILY #60 tab 12/17/18 03/29/19 Rx Acetaminophen/Diphenhydramine 2 tab PO HS PRN 02/08/19 03/29/19 History [Tylenol PM 500-25mg] Furosemide [Lasix] 40 mg PO BID@0800,1430 02/08/19 03/29/19 History Multivitamins, Thera [Multivitamin 1 tab PO DAILY 02/08/19 03/29/19 History (formulary)] [place]-3 Fatty Acids/Fish Oil [Fish 1 cap PO DAILY 02/08/19 03/29/19 History Oil 1,000 mg Softgel] Sennosides [Senna] 8.6 mg PO HS PRN 02/08/19 03/29/19 History Pantoprazole [Protonix] 40 mg PO BID #60 tablet.dr 02/16/19 03/29/19 Rx Sucralfate [Carafate] 1 gm PO ACHS #120 tab 02/16/19 03/29/19 Rx Atorvastatin [Lipitor] 40 mg PO HS 03/10/19 03/29/19 History Ipratropium-Albuterol Nebulize 3 ml INHALATION RT-QID 03/10/19 03/29/19 History [Duoneb 0.5 mg-3 mg/3 ml Soln] LORazepam [Ativan] 1 mg PO DAILY PRN 03/10/19 03/29/19 History Oxybutynin Chloride [Ditropan] 5 mg PO BID 03/10/19 03/29/19 History Metolazone [Zaroxolyn] 2.5 mg PO MOWEFR #0 03/11/19 03/29/19 Rx Metoprolol Tartrate [Lopressor] 50 mg PO BID 03/11/19 03/29/19 History QUEtiapine [SEROquel] 25 mg PO HS PRN #20 tab 03/11/19 03/29/19 Rx Allergies Allergy/AdvReac Type Severity Reaction Status Date / Time amiodarone AdvReac Nausea & Verified 03/29/19 18:46 Vomiting, confusion Physical Exam Vitals: Vital Signs Temp Pulse Pulse Resp BP BP Pulse Ox 03/30/19 08:29 97.6 F 118 H 18 137/84 96 03/30/19 08:00 105 H 03/30/19 07:09 109 H 03/30/19 06:59 114 H 03/30/19 06:00 100 18 143/93 97 03/30/19 02:59 107 H 18 117/78 97 03/30/19 01:30 108 H 17 127/73 100 03/30/19 00:14 86 20 137/90 97 03/29/19 20:18 77 20 136/78 98 03/29/19 17:43 20 03/29/19 16:31 97.8 F 76 18 118/75 98 Intake and Output 03/29/19 03/30/19 03/30/19 22:59 06:59 14:59 Other: # Voids 1 Weight 81.647 kg 81.647 kg On physical examination, patient appears comfortable in no apparent distress. HEAD: Normocephalic, atraumatic. EYES: No scleral icterus. No conjunctival injection. MOUTH: No lesions, tongue midline. NECK: Trachea midline, no gross abnormalities. CHEST: Decreased air entry in all lung dawn. HEART: S1-S2 appreciated, no murmurs appreciated. ABDOMEN: Soft, obese. Bowel sounds are positive. No organomegaly. No guarding or rigidity. EXTREMITIES: +1 bilateral pedal edema. SKIN: No rashes, no jaundice. NEUROLOGIC: Alert and oriented x3 but somnolent. No focal deficits. Results CBC & Chem 7: 03/30/19 00:33 03/29/19 17:28 Labs: Abnormal Lab Results - Last 24 Hours (Table) 03/29/19 03/29/19 03/29/19 Range/Units 17:28 17:28 17:28 Hgb 8.6 L (11.4-16.0) gm/dL Hct 30.5 L (34.0-46.0) % MCV 76.6 L (80.0-100.0) fL MCH 21.5 L (25.0-35.0) pg MCHC 28.1 L (31.0-37.0) g/dL RDW 18.3 H (11.5-15.5) % Retic Count (0.5-2.0) % APTT (22.0-30.0) sec Chloride 96 L (98-107) mmol/L Carbon Dioxide 36 H (22-30) mmol/L BUN 44 H (7-17) mg/dL Creatinine 1.49 H (0.52-1.04) mg/dL Glucose 124 H (74-99) mg/dL Calcium 10.7 H (8.4-10.2) mg/dL Alkaline Phosphatase 144 H (38-126) U/L Creatine Kinase 24 L (30-135) U/L Troponin I 0.039 H* (0.000-0.034) ng/mL 03/29/19 03/29/19 03/30/19 Range/Units 17:56 23:28 00:33 Hgb 8.2 L (11.4-16.0) gm/dL Hct 29.0 L (34.0-46.0) % MCV 75.8 L (80.0-100.0) fL MCH 21.5 L (25.0-35.0) pg MCHC 28.3 L (31.0-37.0) g/dL RDW 18.4 H (11.5-15.5) % Retic Count (0.5-2.0) % APTT 21.1 L (22.0-30.0) sec Chloride (98-107) mmol/L Carbon Dioxide (22-30) mmol/L BUN (7-17) mg/dL Creatinine (0.52-1.04) mg/dL Glucose (74-99) mg/dL Calcium (8.4-10.2) mg/dL Alkaline Phosphatase (38-126) U/L Creatine Kinase (30-135) U/L Troponin I 0.038 H* (0.000-0.034) ng/mL 03/30/19 03/30/19 Range/Units 05:28 05:28 Hgb (11.4-16.0) gm/dL Hct (34.0-46.0) % MCV (80.0-100.0) fL MCH (25.0-35.0) pg MCHC (31.0-37.0) g/dL RDW (11.5-15.5) % Retic Count 3.1 H (0.5-2.0) % APTT (22.0-30.0) sec Chloride (98-107) mmol/L Carbon Dioxide (22-30) mmol/L BUN (7-17) mg/dL Creatinine (0.52-1.04) mg/dL Glucose (74-99) mg/dL Calcium (8.4-10.2) mg/dL Alkaline Phosphatase (38-126) U/L Creatine Kinase (30-135) U/L Troponin I 0.038 H* (0.000-0.034) ng/mL Chest x-ray: report reviewed (Chest x-ray suggestive of congestive heart failure) Assessment and Plan (1) Iron deficiency anemia Narrative/Plan: 78-year-old female presenting for a constellation of symptoms including weakness, fatigue, dizziness and syncopal episode per her history. She was recently hospitalized at which time patient had a significant fall in hemoglobin and was found to have 2 nonbleeding antral ulcers on EGD with negative biopsies. On current admission she does report stool has been dark however this commenced after iron therapy and should also noted possible specks of bright red blood with stool. However stool testing on presentation was negative for blood, with hemoglobin found to be 8.6, similar to discharge hemoglobin on 02/16 which was 8.2 and subsequently remains stable on repeat blood draw at 8.2. Suspicion for recurrent GI bleed is low at this time with symptoms likely attributed to patient's x-ray findings of possible exacerbation of CHF as well as hypercarbia on ABG and possible exacerbation of COPD. However will continue to monitor for signs or symptoms of GI bleed. Current Visit: Yes Status: Acute Code(s): D50.9 - IRON DEFICIENCY ANEMIA, UNSPECIFIED SNOMED Code(s): 01895435 (2) History of GI bleed Current Visit: Yes Status: Acute Code(s): Z87.19 - PERSONAL HISTORY OF OTHER DISEASES OF THE DIGESTIVE SYSTEM SNOMED Code(s): 541549775 Plan: Supportive care Okay for diet Continue to monitor hemoglobin and transfuse as needed Protonix 40 mg twice daily added in the setting of recent antral ulcers on EGD 02/14/2019 No plans for endoscopic evaluation at this time Continue treatment of other medical comorbidities Continue to monitor for any signs or symptoms of GI bleeding Avoid NSAID therapy Continue iron supplementation Thank you for allowing us to participate in the care of the patient we will continue to follow
[2019-03-30] MEDS ORDERED: ACETAMINOPHEN TAB 500 MG TAB PO PRN (21:00)
[2019-03-30] MEDS ORDERED: diphenhydrAMINE 25 MG CAP PO PRN (21:00)
[2019-03-30] MEDS ORDERED: methylPREDNISolone SOD SUCCI 40 MG/ML 1 ML VIAL IV SCH (21:00)
[2019-03-30] MEDS: ATORVASTATIN 40 MG TAB PO SCH (21:46)
[2019-03-30] MEDS: HEPARIN SODIUM,PORCINE 5,000 UNIT/ML 1 ML VIAL SQ SCH (21:47)
[2019-03-30] MEDS: SODIUM CHLORIDE 0.9% 1,000 ML IV SCH (23:42)
[2019-03-31 05:59] LABS: Glucose,Whole Blood 194 mg/dL (75-99)
[2019-03-31] MEDS: SUCRALFATE 1 GM TAB PO SCH ×4 (06:12→20:37)
[2019-03-31] MEDS: methylPREDNISolone SOD SUCCI 40 MG/ML 1 ML VIAL IV SCH ×3 (06:12→17:21)
[2019-03-31] MEDS: IPRATROPIUM-ALBUTEROL 3 ML NEB INHALATION SCH ×4 (06:32→19:18)
[2019-03-31] MEDS: FORMOTEROL FUMARATE 20 MCG/2 ML NEBU INHALATION SCH ×2 (06:32→19:18)
[2019-03-31] MEDS: BUDESONIDE 1 MG/2 ML NEBU INHALATION SCH ×2 (06:32→19:18)
[2019-03-31 07:26] LABS: Calcium 9.7 mg/dL (8.4-10.2); Potassium 4.5 mmol/L (3.5-5.1)
[2019-03-31 07:50] LABS: Anisocytosis Slight; Basophils % (A) 0 %; Eosinophils % (A) 0 %; HCT 26.6 % (34.0-46.0); HGB 7.4 gm/dL (11.4-16.0); Hypochromasia Marked; Lymphocytes # (A) 0.6 k/uL (1.0-4.8); Lymphocytes % (A) 10 %; MCH 21.4 pg (25.0-35.0); MCHC 27.7 g/dL (31.0-37.0); MCV 77.3 fL (80.0-100.0); Mean Platelet Volume 9.6; Microcytosis Slight; Monocytes # (A) 0.1 k/uL (0-1.0); Monocytes % (A) 2 %; Neutrophils # (A) 5.4 k/uL (1.3-7.7); Neutrophils % (A) 87 %; Platelet Count 209 k/uL (150-450); Poikilocytosis Moderate; RBC 3.44 m/uL (3.80-5.40); RDW 18.3 % (11.5-15.5); WBC 6.2 k/uL (3.8-10.6)
[2019-03-31] MEDS: LOSARTAN 50 MG TAB PO SCH (08:15)
[2019-03-31] MEDS: HEPARIN SODIUM,PORCINE 5,000 UNIT/ML 1 ML VIAL SQ SCH ×2 (08:15→20:35)
[2019-03-31] MEDS: FAMOTIDINE 20 MG/2 ML VIAL IV SCH (08:15)
[2019-03-31] MEDS: PANTOPRAZOLE 40 MG/10 ML VIAL IV SCH ×2 (08:15→20:34)
[2019-03-31] MEDS: POTASSIUM CHLORIDE ER 20 MEQ TAB.ER PO SCH (08:15)
[2019-03-31] MEDS: FUROSEMIDE 10 MG/ML 4 ML VIAL IV SCH ×2 (08:15→20:35)
[2019-03-31] MEDS: OXYBUTYNIN CHLORIDE 5 MG TAB PO SCH ×2 (08:15→20:34)
[2019-03-31] MEDS: METOPROLOL TARTRATE 50 MG TAB PO SCH ×2 (08:15→20:34)
[2019-03-31] MEDS: MULTIVITAMINS, THERA 1 EACH TAB PO SCH (08:16)
[2019-03-31] MEDS: AZELASTINE 137MCG/SPRAY EA NOSTRIL SCH ×2 (08:16→20:34)
--- NOTE | 2019-03-31 08:51 | XR ---
EXAMINATION TYPE: XR chest 1V DATE OF EXAM: 03/31/2019 COMPARISON: 03/29/2019 HISTORY: Abnormal x-ray TECHNIQUE: Single frontal view of the chest is obtained. FINDINGS: Heart is enlarged. Postsurgical changes with no pneumothorax. Suspect underlying COPD. Coa rsened interstitium persists there are areas of subsegmental consolidation involving both lung bases. Tiny pleural effusion suggested. IMPRESSION: 1. Severe cardiomegaly correlate for COPD with mild superimposed venous congestion. 2. Bibasilar infiltrate and small effusion.
--- NOTE | 2019-03-31 10:13 | CONS ---
CONSULTATION Mrs. Jewell is a 78-year-old female who is seen for cardiac evaluation. This patient's electronic medical records reviewed. The patient has a known history of chronic atrial fibrillation, hyperlipidemia, hypertension, and COPD. Patient was admitted with complaint of generalized weakness. The patient's initial hemoglobin was low, which was done by PCP as an outpatient. However, subsequently when she came to the hospital, her hemoglobin was 8.6. Patient denies any active GI bleeding. Denies any history of black stool. The patient was admitted with upper GI bleeding about a month ago. At that time, she was found ulcer and has been treated. Patient has been off the Coumadin since then. Patient does have a history of COPD and the part of the problem of the patient is shortness of breath. This is due to underlying COPD. HOME MEDICATIONS: Patient's home medications included Lipitor, Lasix, Cozaar, metolazone and metoprolol. PAST MEDICAL HISTORY: Past medical history includes history of cholecystectomy, coronary artery bypass surgery, prior history of cardiac catheterization, mitral valve repair. PHYSICAL EXAMINATION: Physical examination at present reveals a 78-year-old female who does not appear to be in any acute distress. Patient's initial heart rate was 76. Oxygen saturation was 98%. Head/ENT examination is negative. Neck is supple. There is no increase in jugular venous pressure. Both the carotid pulses are felt. There is no bruit. Chest is symmetrical. HEART: The PMI is not felt. First and second heart sounds are normal. There is no evidence of any murmur. Lungs are fairly clear to auscultation and percussion. Abdomen is soft. Liver and spleen are not enlarged. Bowel sounds are heard. EXTREMITIES: There is no evidence of any significant leg edema. Patient's creatinine is 1.49, hemoglobin is 8.6. The patient's lab tests showed arterial blood gases pH of 7.32, pCO2 is 68, and pO2 was 199. Creatinine is 1.6, hemoglobin is 7.5. FINAL IMPRESSION: This patient is admitted with the symptoms of shortness of breath and weakness, which is most likely secondary to acute exacerbation of chronic obstructive pulmonary disease. There is no definite evidence of active GI bleeding at present. Patient has a peptic ulcer disease about a month ago. The patient does have multiple risk factors for the stroke and is considered a high risk of stroke. In view of the absence of any active GI bleeding and stable hemoglobin, we will start the patient on Eliquis 5 mg b.i.d. I have discussed this with the patient and the family and they are agreeable. SHIN / INDIAN: [id number] /
[2019-03-31 10:53] LABS: Mixed Population RBC Present
[2019-03-31 10:55] LABS: Spherocytes Present
[2019-03-31] MEDS ORDERED: DOCUSATE 100 MG CAP PO PRN (11:19)
--- NOTE | 2019-03-31 11:25 | P.PN ---
Subjective This is a pleasant 78 years old female with past medical history of atrial fibrillation, hyperlipidemia, hypertension, COPD, osteoarthritis, coronary artery disease status post CABG and stent placement. ex-smoker many years ago.she was in the hospital less than 2 months ago for bleeding per rectum with EGD showing 2 antral ulcers of 1.0 and 1.5 cm with no active bleeding at that time.Coumadin was held at that time.Biopsy showing chronic gastritis with no Helicobacter M all identified. Textile Technologist evaluated the patient about one month ago and recommended to keep holding the coumadine and into platelets because of low hemoglobin and peptic ulcer disease. this time Patient was sent by her doctor for low hemoglobin of 7.7 per documents, however repeat hemoglobin in the hospital is 8.6 and 8.2. occult blood in his stool is negative last month and today. patient is also dyspneic associated with cough and phlegm for 1-2 weeks duration but no chest pain. No abdominal pain or nausea vomiting. Patient has difficulty talking because of her breathing difficulties. labs reviewed and showing elevated troponin at 0.033. Other labs showing normal WBC count, unremarkable INR of 1.1. Creatinine is 1.4, which looks like at baseline of 1.5-2.2. Occult blood in his stool is negative. Chest x-ray: CHF. Recent echo showing ejection fraction of 30-35% with valvular heart disease. In the emergency room patient was continued with her home medications including Lipitor, oral Lasix 40 mg twice daily, Cozaar, metolazone, metoprolol, 03/31/2019 Today is patient awake and alert, her breathing is better and she is off BiPAP machine however she still struggling with tachypnea. She has some cough but no chest pain. No abdominal pain. Patient also has constipation. Colace is admitted to Center when necessary. Vitals stable and blood pressure 04/20/1969, she is saturating 95% on 3 L. CBC showing a WBC of 6. okay, low hemoglobin 7.4, creatinine 1.5 which is at baseline. Patient on Protonix twice a day per GI recommendation as well as Carafate. No need for endoscopy. Eliquis has been restarted by media associate which looks vicky sonable given and there is no active GI bleed currently. Chest x-ray showing COPD and mild venous congestion plus bibasilar infiltrates. Patient also on Lasix twice daily and metolazone, she is also on Solu-Medrol and bronchodilators. I had lengthy discussion with the patient and at bedside, CODE STATUS discussed with them and she prefers to be DO NOT RESUSCITATE/DO NOT INTUBATE, no code Review of systems: CONSTITUTIONAL: No fever, no malaise, no fatigue. HEENT: No recent visual problems or hearing problems. Denied any sore throat. CARDIOVASCULAR: no palpitations, no syncope. PULMONARY: no hemoptysis. GASTROINTESTINAL: No diarrhea, no nausea, no vomiting, no abdominal pain. No rmoactive bowel sounds. NEUROLOGICAL: No headaches, no weakness, no numbness. HEMATOLOGICAL: Denies any bleeding or petechiae. GENITOURINARY: Denies any burning micturition, frequency, or urgency. MUSCULOSKELETAL/RHEUMATOLOGICAL: Denies any joint pain, swelling, or any muscle pain. ENDOCRINE: Denies any polyuria or polydipsia. Active Medications Generic Name Dose Route Start Last Admin Trade Name Freq PRN Reason Stop Dose Admin Acetaminophen 1,000 mg 03/30/19 21:00 Tylenol Tab PO HS PRN SLEEP Albuterol/Ipratropium 3 ml 03/30/19 08:00 03/31/19 11:13 Duoneb 0.5 Mg-3 Mg/3 Ml Soln INHALATION 3 ml RT-QID ROSANGELA Administration Albuterol/Ipratropium 3 ml 03/30/19 10:37 Duoneb 0.5 Mg-3 Mg/3 Ml Soln INHALATION RT-QID PRN Shortness Of Breath Or Wheezing Apixaban 5 mg 03/31/19 21:00 Eliquis PO BID ROSANGELA Atorvastatin Calcium 40 mg 03/30/19 21:00 03/30/19 21:46 Lipitor PO 40 mg HS ROSANGELA Administration Azelastine HCl 2 spray 03/30/19 09:00 03/31/19 08:16 Astepro EA NOSTRIL 2 spray BID ROSANGELA Administration Budesonide 1 mg 03/30/19 20:00 03/31/19 06:32 Pulmicort INHALATION 1 mg RT-BID ROSANGELA Administration Docusate Sodium 100 mg 03/31/19 11:19 Colace PO BID PRN Constipation Formoterol Fumarate 20 mcg 03/30/19 20:00 03/31/19 06:32 Perforomist INHALATION 20 mcg RT-BID ROSANGELA Administration Furosemide 40 mg 03/30/19 09:00 03/31/19 08:15 Lasix IV 40 mg Q12HR ROSANGELA Administration Heparin Sodium (Porcine) 5,000 unit 03/30/19 21:00 03/31/19 08:15 Heparin SQ 5,000 unit Q12HR ROSANGELA Administration Sodium Chloride 1,000 mls @ 20 mls/hr 03/29/19 23:00 03/30/19 23:42 Saline 0.9% IV 20 mls/hr .Q24H ROSANGELA Administration Losartan Potassium 50 mg 03/30/19 09:00 03/31/19 08:15 Cozaar PO 50 mg DAILY ROSANGELA Administration Methylprednisolone Sodium Succinate 40 mg 03/30/19 18:00 03/31/19 06:12 Solu-Medrol IV 40 mg Q6HR ROSANGELA Administration Metolazone 2.5 mg 03/30/19 09:00 03/30/19 09:40 Zaroxolyn PO 2.5 mg MOWEFR ROSANGELA Administration Metoprolol Tartrate 50 mg 03/30/19 09:00 03/31/19 08:15 Lopressor PO 50 mg BID ROSANGELA Administration Multivitamins 1 each 03/30/19 09:00 03/31/19 08:16 Theragran PO 1 each DAILY ROSANGELA Administration Naloxone HCl 0.2 mg 03/29/19 22:53 Narcan IV Q2M PRN Opioid Reversal Oxybutynin Chloride 5 mg 03/30/19 09:00 03/31/19 08:15 Ditropan PO 5 mg BID ROSANGELA Administration Pantoprazole Sodium 40 mg 03/30/19 09:00 03/31/19 08:15 Protonix IV 40 mg BID ROSANGELA Administration Potassium Chloride 20 meq 03/30/19 09:00 03/31/19 08:15 K-Dur 20 PO 20 meq DAILY ROSANGELA Administration Quetiapine Fumarate 25 mg 03/29/19 22:55 Seroquel PO HS PRN Psychosis Senna 8.6 mg 03/29/19 22:55 Senokot PO HS PRN Constipation Sucralfate 1 gm 03/30/19 07:30 03/31/19 06:12 Carafate PO 1 gm ACHS ROSANGELA Administration Objective - Vital Signs Vital signs: Vital Signs Temp 98.3 F 03/31/19 08:00 Pulse 91 03/31/19 08:00 Resp 18 03/31/19 08:00 BP 117/74 03/31/19 08:00 Pulse Ox 95 03/31/19 08:00 Intake & Output 03/30/19 03/31/19 03/31/19 18:59 06:59 18:59 Intake Total 180 120 Output Total 100 650 Balance 80 -650 120 Weight 81.647 kg 94 kg Intake: Oral 180 120 Output: Urine 100 650 Uretheral (Phillips) 50 Other: Voiding Method Indwelling Catheter Indwelling Catheter # Voids 1 1 - Exam -GENERAL: The patient is alert and oriented x3, not in any acute distress. obese, HEENT: Pupils are round and equally reacting to light. EOMI. No scleral icterus. No conjunctival pallor. Normocephalic, atraumatic. No pharyngeal erythema. No thyromegaly. CARDIOVASCULAR: S1 and S2 present. No murmurs, rubs, or gallops. -PULMONARY: Chest is clear to auscultation, no wheezing. Bilateral basal crepitation ABDOMEN: Soft, nontender, nondistended, normoactive bowel sounds. No palpable organomegaly. MUSCULOSKELETAL: No joint swelling or deformity. -EXTREMITIES: No cyanosis, clubbing, . Bilateral leg edema NEUROLOGICAL: Gross neurological examination did not reveal any focal deficits. SKIN: No rashes. No petechiae - Labs CBC & Chem 7: 03/31/19 06:03 03/31/19 06:03 Labs: Abnormal Lab Results - Last 24 Hours (Table) 03/30/19 03/30/19 03/30/19 Range/Units 05:28 12:21 18:35 RBC (3.80-5.40) m/uL Hgb (11.4-16.0) gm/dL Hct (34.0-46.0) % MCV (80.0-100.0) fL MCH (25.0-35.0) pg MCHC (31.0-37.0) g/dL RDW (11.5-15.5) % Lymphocytes # (1.0-4.8) k/uL ABG pH 7.32 L (7.35-7.45) ABG pCO2 68 H (35-45) mmHg ABG pO2 199 H (83-108) mmHg ABG HCO3 35 H (21-25) mmol/L ABG Total CO2 37 H (19-24) mmol/L ABG O2 Saturation 99.8 H (94-97) % Carbon Dioxide (22-30) mmol/L BUN (7-17) mg/dL Creatinine (0.52-1.04) mg/dL Glucose (74-99) mg/dL POC Glucose (mg/dL) (75-99) mg/dL Iron 13 L (50-170) ug/dL % Saturation 3.16 L (12.00-45.00) Vitamin B12 1131.0 H (200.0-944.0) pg/mL Urine Appearance Cloudy H (Clear) Urine Protein 1+ H (Negative) Amorphous Sediment Rare H (None) /hpf Urine Bacteria Rare H (None) /hpf Hyaline Casts 82 H (0-2) /lpf Urine Mucus Rare H (None) /hpf 03/31/19 03/31/19 03/31/19 Range/Units 05:56 06:03 06:03 RBC 3.44 L (3.80-5.40) m/uL Hgb 7.4 L (11.4-16.0) gm/dL Hct 26.6 L (34.0-46.0) % MCV 77.3 L (80.0-100.0) fL MCH 21.4 L (25.0-35.0) pg MCHC 27.7 L (31.0-37.0) g/dL RDW 18.3 H (11.5-15.5) % Lymphocytes # 0.6 L (1.0-4.8) k/uL ABG pH (7.35-7.45) ABG pCO2 (35-45) mmHg ABG pO2 (83-108) mmHg ABG HCO3 (21-25) mmol/L ABG Total CO2 (19-24) mmol/L ABG O2 Saturation (94-97) % Carbon Dioxide 32 H (22-30) mmol/L BUN 53 H (7-17) mg/dL Creatinine 1.56 H (0.52-1.04) mg/dL Glucose 176 H (74-99) mg/dL POC Glucose (mg/dL) 194 H (75-99) mg/dL Iron (50-170) ug/dL % Saturation (12.00-45.00) Vitamin B12 (200.0-944.0) pg/mL Urine Appearance (Clear) Urine Protein (Negative) Amorphous Sediment (None) /hpf Urine Bacteria (None) /hpf Hyaline Casts (0-2) /lpf Urine Mucus (None) /hpf Assessment and Plan Assessment: atrial fibrillation's with RVR. chronically elevated troponin history of coronary artery disease status post CABG and stent placement Pulmonary congestion, acute on chronic systolic congestive heart failure. With ejection fraction of 30-35%. recent history of GI bleed with EGD showing 2 antral ulceration, 1.0 and 1.5 cm . No evidence of active GI bleed during this admission mostly iron deficiency Anemia acute COPD exacerbation Chronic hypoxic respiratory failure on home oxygen previous history of uterine cancer Moderate mitral regurgitation with moderate to severe tricuspid regurgitation Chronic kidney disease, stage III hypocalcemia with elevated parathyroid hormone recent history of acute C. diff treated with oral vancomycin Hypertension Hyperlipidemia COPD, not acute exacerbation Primary osteoarthritis No code Plan: this is a pleasant 78 years old female who presents with A. fib and RVR and acute congestive heart failure, and COPD. Continue with Lasix plus switch to intravenous dose. Cardiology has been consulted and we will follow their recommendation. Start Eliquis per media associate. Continue with steroids and f ollow-up pulmonary and cardiology recommendation. Continue with symptomatic treatment. Resume home medication. Monitor lytes and vitals. DVT and GI prophylaxis. Further recommendations of the clinical course of the patient DVT prophylaxis: Subcutaneous heparin GI Prophylaxis: Protonix and Carafate Prognosis is guarded CODE STATUS: No code
[2019-03-31] MEDS: INSULIN ASPART (NovoLOG) 100 UNIT/ML VIAL SQ SCH ×3 (11:58→20:35)
[2019-03-31 12:20] LABS: Glucose,Whole Blood 264 mg/dL (75-99)
--- NOTE | 2019-03-31 14:41 | PN ---
PROGRESS NOTE PULMONARY/CRITICAL CARE PROGRESS NOTE: DATE OF SERVICE: 03/31/2019 This is a 78-year-old female who we saw in the emergency room yesterday. She was admitted with a diagnosis of chronic gastrointestinal bleed with chronic blood-loss anemia. In addition, she suffers from COPD which is quite severe, previous heavy tobacco use, hyperlipidemia, hypertension, GERD, chronic atrial fibrillation, C difficile colitis, status post mitral valve repair, status post stenting of the coronary artery, valvular heart disease, and bypass grafting. The patient is doing a bit better today. The patient was currently on nasal O2. She states she is feeling a bit better. A bit more confused and lethargic today, though. Her is in the room. She states that the patient is not having any cough or wheezing. No phlegm production. No fever or chills. No chest pain or chest discomfort. The breathing that was plaguing her yesterday apparently has improved. Current vital signs include a temperature of 98.3, heart rate 74, respiratory rate 18, blood pressure 129/44, mean 72, 3 L saturation 95%. Appears in no acute distress. HEENT: Examination is grossly unremarkable. Nasal O2 in place. NECK: Supple. Full range of motion. No adenopathy. Neck veins are flat. CARDIOVASCULAR: Examination reveals regular rhythm and rate. S1, S2 normal. There is no S3, S4, or murmur. Heart sounds are distant. A few scattered rhonchi. No crackles. Breath sounds equal. ABDOMEN: Soft, but obese. Bowel sounds are heard. EXTREMITIES: Intact. Minimal edema. No cyanosis or clubbing. SKIN: Without rash. NEUROLOGIC: Examination is difficult to assess because she is still lethargic, but she does arouse appropriate. Does speak appropriately and does move all 4 extremities equally. LAB DATA: Reviewed. White count 6.2, hemoglobin 7.4, hematocrit 26.6, platelet count 209,000. Sodium, potassium, chloride normal. CO2 is 32, anion gap is 7. BUN 53, creatinine 1.56. Her urine is noted. Microbiologic studies are negative or pending. Chest x-ray shows changes of COPD and mild CHF. There is significant cardiomegaly. There are bilateral effusions. Current medications are reviewed. She is on all appropriate medications. ASSESSMENT: 1. Chronic gastrointestinal bleed with chronic blood-loss anemia. 2. Chronic obstructive pulmonary disease, stage II/stage III with an FEV1 of 52% of predicted, mildly active. 3. Previous history of heavy tobacco use. 4. Hyperlipidemia. 5. Benign essential hypertension. 6. Gastroesophageal reflux disease. 7. History of chronic atrial fibrillation. 8. History of Clostridium difficile colitis. 9. Status post mitral valve repair. 10.Status post coronary artery stenting. 11.Valvular heart disease in the form of moderate mitral regurgitation, mild mitral stenosis, moderate to severe tricuspid regurgitation and pulmonary hypertension. 12.Status post bypass grafting. PLAN: The patient is currently not requiring BiPAP. She is on 2 L nasal cannula. She is tolerating her breathing treatments well. She is currently on albuterol and Atrovent updrafts as well as Perforomist and Pulmicort updrafts twice a day. Will continue to follow. Code status is a NO CODE. Prognosis is guarded. MMODL / IJN: [id number] /
[2019-03-31 17:02] LABS: Glucose,Whole Blood 167 mg/dL (75-99)
[2019-03-31 20:23] LABS: Glucose,Whole Blood 188 mg/dL (75-99)
[2019-03-31] MEDS: ATORVASTATIN 40 MG TAB PO SCH (20:34)
[2019-03-31] MEDS: APIXABAN 5 MG TAB PO SCH (20:34)
--- NOTE | 2019-03-31 21:29 | P.PN ---
Subjective Progress Note Date: 03/31/19 Principal diagnosis: Iron deficiency anemia, gastric ulcers found on last hospitalization Patient seen lying in bed. No reports of any GI bleeding. Tolerating her diet. Objective - Vital Signs Vital signs: Vital Signs Temp 99.2 F 03/31/19 11:30 Pulse 91 03/31/19 11:30 Resp 18 03/31/19 11:30 BP 129/44 03/31/19 11:30 Pulse Ox 93 L 03/31/19 11:30 Intake & Output 03/30/19 03/31/19 03/31/19 18:59 06:59 18:59 Intake Total 180 120 Output Total 100 650 Balance 80 -650 120 Weight 81.647 kg 94 kg Intake: Oral 180 120 Output: Urine 100 650 Uretheral (Phillips) 50 Other: Voiding Method Indwelling Catheter Indwelling Catheter # Voids 1 1 - Exam On physical examination, patient appears comfortable in no apparent distress. HEAD: Normocephalic, atraumatic. EYES: No scleral icterus. No conjunctival injection. MOUTH: No lesions, tongue midline. NECK: Trachea midline, no gross abnormalities. ABDOMEN: Soft, obese. Bowel sounds are positive. No organomegaly. No guarding or rigidity. EXTREMITIES: Bilateral possible pedal edema. SKIN: No rashes, no jaundice. NEUROLOGIC: Alert and oriented to person but confused. - Labs CBC & Chem 7: 03/31/19 06:03 03/31/19 06:03 Labs: Abnormal Lab Results - Last 24 Hours (Table) 03/30/19 03/30/19 03/31/19 Range/Units 05:28 18:35 05:56 RBC (3.80-5.40) m/uL Hgb (11.4-16.0) gm/dL Hct (34.0-46.0) % MCV (80.0-100.0) fL MCH (25.0-35.0) pg MCHC (31.0-37.0) g/dL RDW (11.5-15.5) % Lymphocytes # (1.0-4.8) k/uL Carbon Dioxide (22-30) mmol/L BUN (7-17) mg/dL Creatinine (0.52-1.04) mg/dL Glucose (74-99) mg/dL POC Glucose (mg/dL) 194 H (75-99) mg/dL Iron 13 L (50-170) ug/dL % Saturation 3.16 L (12.00-45.00) Vitamin B12 1131.0 H (200.0-944.0) pg/mL Urine Appearance Cloudy H (Clear) Urine Protein 1+ H (Negative) Amorphous Sediment Rare H (None) /hpf Urine Bacteria Rare H (None) /hpf Hyaline Casts 82 H (0-2) /lpf Urine Mucus Rare H (None) /hpf 03/31/19 03/31/19 03/31/19 Range/Units 06:03 06:03 11:48 RBC 3.44 L (3.80-5.40) m/uL Hgb 7.4 L (11.4-16.0) gm/dL Hct 26.6 L (34.0-46.0) % MCV 77.3 L (80.0-100.0) fL MCH 21.4 L (25.0-35.0) pg MCHC 27.7 L (31.0-37.0) g/dL RDW 18.3 H (11.5-15.5) % Lymphocytes # 0.6 L (1.0-4.8) k/uL Carbon Dioxide 32 H (22-30) mmol/L BUN 53 H (7-17) mg/dL Creatinine 1.56 H (0.52-1.04) mg/dL Glucose 176 H (74-99) mg/dL POC Glucose (mg/dL) 264 H (75-99) mg/dL Iron (50-170) ug/dL % Saturation (12.00-45.00) Vitamin B12 (200.0-944.0) pg/mL Urine Appearance (Clear) Urine Protein (Negative) Amorphous Sediment (None) /hpf Urine Bacteria (None) /hpf Hyaline Casts (0-2) /lpf Urine Mucus (None) /hpf Assessment and Plan (1) Iron deficiency anemia Narrative/Plan: 78-year-old female presenting for a constellation of symptoms including weakness, fatigue, dizziness and syncopal episode per her history. She was recently hospitalized at which time patient had a significant fall in hemoglobin and was found to have 2 nonbleeding antral ulcers on EGD with negative biopsies. On current admission she does report stool has been dark however this commenced after iron therapy and should also noted possible specks of bright red blood with stool. However stool testing on presentation was negative for blood, with hemoglobin found to be 8.6, similar to discharge hemoglobin on 02/16 which was 8.2 and subsequently remains stable on repeat blood draw at 8.2. Suspicion for recurrent GI bleed is low at this time with symptoms likely attributed to patient's x-ray findings of possible exacerbation of CHF as well as hypercarbia on ABG and possible exacerbation of COPD. Current Visit: Yes Status: Acute Code(s): D50.9 - IRON DEFICIENCY ANEMIA, UNSPECIFIED SNOMED Code(s): 89188637 (2) History of GI bleed Current Visit: Yes Status: Acute Code(s): Z87.19 - PERSONAL HISTORY OF OTHER DISEASES OF THE DIGESTIVE SYSTEM SNOMED Code(s): 323840031 Plan: Supportive care Okay for diet Continue to monitor hemoglobin and transfuse as needed Protonix 40 mg twice daily in the setting of recent antral ulcers on EGD 02/14/2019 No plans for endoscopic evaluation at this time Continue treatment of other medical comorbidities Continue to monitor for any signs or symptoms of GI bleeding Avoid NSAID therapy Continue iron supplementation Thank you for allowing us to participate in the care of the patient to gastroenterology service will stand by, please call us back with any questions or concerns
[2019-03-31] MEDS: SODIUM CHLORIDE 0.9% 1,000 ML IV SCH (23:58)
[2019-04-01] MEDS: methylPREDNISolone SOD SUCCI 40 MG/ML 1 ML VIAL IV SCH ×3 (04:20→11:34)
[2019-04-01 05:50] LABS: Glucose,Whole Blood 171 mg/dL (75-99)
[2019-04-01] MEDS: INSULIN ASPART (NovoLOG) 100 UNIT/ML VIAL SQ SCH (06:41)
[2019-04-01] MEDS: SUCRALFATE 1 GM TAB PO SCH (06:41)
[2019-04-01 06:59] LABS: Calcium 10.5 mg/dL (8.4-10.2); Potassium 4.4 mmol/L (3.5-5.1)
[2019-04-01] MEDS: FORMOTEROL FUMARATE 20 MCG/2 ML NEBU INHALATION SCH (07:34)
[2019-04-01] MEDS: BUDESONIDE 1 MG/2 ML NEBU INHALATION SCH (07:34)
[2019-04-01] MEDS: IPRATROPIUM-ALBUTEROL 3 ML NEB INHALATION SCH ×2 (07:34→11:06)
[2019-04-01 07:36] LABS: Anisocytosis Slight; Basophils % (A) 0 %; Eosinophils % (A) 0 %; HCT 28.3 % (34.0-46.0); HGB 7.9 gm/dL (11.4-16.0); Hypochromasia Marked; Lymphocytes # (A) 0.9 k/uL (1.0-4.8); Lymphocytes % (A) 8 %; MCH 21.3 pg (25.0-35.0); MCHC 27.9 g/dL (31.0-37.0); MCV 76.4 fL (80.0-100.0); Mean Platelet Volume 8.6; Microcytosis Slight; Monocytes # (A) 0.4 k/uL (0-1.0); Monocytes % (A) 3 %; Neutrophils # (A) 10.5 k/uL (1.3-7.7); Neutrophils % (A) 88 %; Platelet Count 246 k/uL (150-450); Poikilocytosis Moderate; RBC 3.71 m/uL (3.80-5.40); WBC 11.9 k/uL (3.8-10.6)
[2019-04-01] MEDS: OXYBUTYNIN CHLORIDE 5 MG TAB PO SCH (08:18)
[2019-04-01] MEDS: METOPROLOL TARTRATE 50 MG TAB PO SCH (08:19)
[2019-04-01] MEDS: METOLAZONE 2.5 MG TAB PO SCH (08:19)
[2019-04-01] MEDS: PANTOPRAZOLE 40 MG/10 ML VIAL IV SCH (08:19)
[2019-04-01] MEDS: AZELASTINE 137MCG/SPRAY EA NOSTRIL SCH (08:19)
[2019-04-01] MEDS: LOSARTAN 50 MG TAB PO SCH (08:19)
[2019-04-01] MEDS: FUROSEMIDE 10 MG/ML 4 ML VIAL IV SCH (08:19)
[2019-04-01] MEDS: HEPARIN SODIUM,PORCINE 5,000 UNIT/ML 1 ML VIAL SQ SCH (08:19)
[2019-04-01] MEDS: POTASSIUM CHLORIDE ER 20 MEQ TAB.ER PO SCH (08:19)
[2019-04-01] MEDS: APIXABAN 5 MG TAB PO SCH (08:19)
[2019-04-01] MEDS: MULTIVITAMINS, THERA 1 EACH TAB PO SCH (08:19)
[2019-04-01 08:44] LABS: Polychromasia Present
[2019-04-01 09:04] VITALS: BP 113/78; RESP 18; TEMP 98.6
[2019-04-01 11:20] VITALS: PULSE 76
--- NOTE | 2019-04-01 11:24 | P.DS ---
Providers Date of admission: 03/29/19 22:53 Attending physician: Darin Patricia MD Consults: 03/30/19 09:30 Consult Physician Urgent Consulting Provider: Jan Norris Consult Reason/Comments: possible COPD Do you want consulting provider notified?: Yes 03/30/19 10:14 Consult Physician Routine Consulting Provider: Benji Borrego Consult Reason/Comments: chf, elevated trop Do you want consulting provider notified?: Yes Primary care physician: [facility] Course: Diagnoses: atrial fibrillation's with RVR. chronically elevated troponin history of coronary artery disease status post CABG and stent placement Pulmonary congestion, acute on chronic systolic congestive heart failure. With ejection fraction of 30-35%. recent history of GI bleed with EGD showing 2 antral ulceration, 1.0 and 1.5 cm . No evidence of active GI bleed during this admission mostly iron deficiency Anemia acute COPD exacerbation Chronic hypoxic respiratory failure on home oxygen previous history of uterine cancer Moderate mitral regurgitation with moderate to severe tricuspid regurgitation Chronic kidney disease, stage III hypocalcemia with elevated parathyroid hormone recent history of acute C. diff treated with oral vancomycin Hypertension Hyperlipidemia COPD, not acute exacerbation Primary osteoarthritis No code Hospital course: This is a pleasant 78 years old female with past medical history of atrial fibrillation, hyperlipidemia, hypertension, COPD, osteoarthritis, coronary artery disease status post CABG and stent placement. ex-smoker many years ago.she was in the hospital less than 2 months ago for bleeding per rectum with EGD showing 2 antral ulcers of 1.0 and 1.5 cm with no active bleeding at that time.Coumadin was held at that time.Biopsy showing chronic gastritis with no He licobacter M all identified. Retail Store Assistant evaluated the patient about one month ago and recommended to keep holding the coumadine and into platelets because of low hemoglobin and peptic ulcer disease. this time Patient was sent by her doctor for low hemoglobin of 7.7 per documents, however repeat hemoglobin in the hospital is 8.6 and 8.2. occult blood in his stool is negative last month and during this admission Her hemoglobin remained stable, executive chairman of the board evaluated the patient and recommended continue with conservative therapy. Retail Store Assistant recommended to start Eliquis which looks reasonable. Also patient has been followed closely by stock control clerk. Because of her multiple complex medical problems patient opted to be DO NOT RESUSCITATE. And family and has been at bedside decreased with that. Patient initially treated with BiPAP, eventually she could come off BiPAP however she remains dyspneic which is as per family looks this is her baseline. Family occluding the and daughter at bedside are thinking of hospice care to be considered for the patient. Patient has multiple problems which looks bedfast and complicated, also patient has been admitted to the hospital for the same multiple times over the last few months. I discussed with the family and they agreed to discharge the patient today with palliative care so she can take her medication, however her condition deteriorates like a more confused and more dyspneic normal health problems then she can proceed with hospice and both patient and family thought this is a good idea and agreed with it. Patient was cleared for discharge per CONSULT EXCLUDE AND PULMONARY GI AND CARDIOLOGY Problems and management plan were discussed with the patient and he verbalized understanding and acceptance Patient was found stable and can be discharged home however he needs follow-up as an outpatient. Patient was instructed to follow up with PCP within one week and patient agrees. Follow-up with cardiology and pulmonology and GI as an outpatient as instructed. -Gen: patient is a AAOx3, patient is in some respiratory distress. As per daughter at bedside this is her baseline. Also patient is lethargic CVS: S1-S2, RRR, no murmur -Lungs: B/L CTA, scattered wheezing bilaterally Abdomen: soft, no distention, no tenderness, positive bowel sounds Extremity: no leg edema or induration Time spent more than 35 minutes Patient Condition at Discharge: Fair Plan - Discharge Summary Discharge Rx Participant: No New Discharge Prescriptions: No Action Budesonide/Formoterol Fumarate [Symbicort 80-4.5 Mcg Inhaler] 2 puff INHALATION RT-BID Albuterol Inhaler [Ventolin Hfa Inhaler] 1 - 2 puff INHALATION RT-Q6H PRN PRN Reason: Shortness Of Breath Azelastine HCl 1 - 2 spr EA NOSTRIL BID Losartan [Cozaar] 50 mg PO DAILY #30 tab Potassium Chloride [Klor-Con 20] 20 meq PO DAILY #60 tab Sennosides [Senna] 8.6 mg PO HS PRN PRN Reason: Constipation Rudolph-3 Fatty Acids/Fish Oil [Fish Oil 1,000 mg Softgel] 1 cap PO DAILY Multivitamins, Thera [Multivitamin (formulary)] 1 tab PO DAILY Furosemide [Lasix] 40 mg PO BID@0800,1430 Acetaminophen/Diphenhydramine [Tylenol PM 500-25mg] 2 tab PO HS PRN PRN Reason: Insomnia Pantoprazole [Protonix] 40 mg PO BID #60 tablet. Sucralfate [Carafate] 1 gm PO ACHS #120 tab Atorvastatin [Lipitor] 40 mg PO HS Ipratropium-Albuterol Nebulize [Duoneb 0.5 mg-3 mg/3 ml Soln] 3 ml INHALATION RT-QID LORazepam [Ativan] 1 mg PO DAILY PRN PRN Reason: Anxiety Oxybutynin Chloride [Ditropan] 5 mg PO BID Metoprolol Tartrate [Lopressor] 50 mg PO BID Metolazone [Zaroxolyn] 2.5 mg PO MOWEFR #0 QUEtiapine [SEROquel] 25 mg PO HS PRN #20 tab PRN Reason: Psychosis Discharge Medication List Budesonide/Formoterol Fumarate [Symbicort 80-4.5 Mcg Inhaler] 2 puff INHALATION RT-BID 05/11/14 [History] Albuterol Inhaler [Ventolin Hfa Inhaler] 1 - 2 puff INHALATION RT-Q6H PRN 11/06/15 [History] Azelastine HCl 1 - 2 spr EA NOSTRIL BID 12/15/18 [History] Losartan [Cozaar] 50 mg PO DAILY #30 tab 12/17/18 [Rx] Potassium Chloride [Klor-Con 20] 20 meq PO DAILY #60 tab 12/17/18 [Rx] Acetaminophen/Diphenhydramine [Tylenol PM 500-25mg] 2 tab PO HS PRN 02/08/19 [History] Furosemide [Lasix] 40 mg PO BID@0800,1430 02/08/19 [History] Multivitamins, Thera [Multivitamin (formulary)] 1 tab PO DAILY 02/08/19 [History] Rudolph-3 Fatty Acids/Fish Oil [Fish Oil 1,000 mg Softgel] 1 cap PO DAILY 02/08/19 [History] Sennosides [Senna] 8.6 mg PO HS PRN 02/08/19 [History] Pantoprazole [Protonix] 40 mg PO BID #60 tablet 02/16/19 [Rx] Sucralfate [Carafate] 1 gm PO ACHS #120 tab 02/16/19 [Rx] Atorvastatin [Lipitor] 40 mg PO HS 03/10/19 [History] Ipratropium-Albuterol Nebulize [Duoneb 0.5 mg-3 mg/3 ml Soln] 3 ml INHALATION RT-QID 03/10/19 [History] LORazepam [Ativan] 1 mg PO DAILY PRN 03/10/19 [History] Oxybutynin Chloride [Ditropan] 5 mg PO BID 03/10/19 [History] Metolazone [Zaroxolyn] 2.5 mg PO MOWEFR #0 03/11/19 [Rx] Metoprolol Tartrate [Lopressor] 50 mg PO BID 03/11/19 [History] QUEtiapine [SEROquel] 25 mg PO HS PRN #20 tab 03/11/19 [Rx] Follow up Appointment(s)/Referral(s): Jan Norris DO [Doctor of Osteopathic Medicine] - 1 Week Renzo Molina DO [Primary Care Provider] - 1-2 days Benji Borrego MD [STAFF PHYSICIAN] - 2 Weeks
[2019-04-01 11:45] LABS: Glucose,Whole Blood 187 mg/dL (75-99)
--- NOTE | 2019-04-01 12:06 | P.PN ---
Subjective Progress Note Date: 04/01/19 This is a 78-year-old female with history of chronic atrial fibrillation, hyperlipidemia, hypertension, COPD, admitted to the hospital with symptoms of generalized weakness. Hemoglobin was also found to be low on admission. In view of the absence of any active GI bleeding and stable hemoglobin the Eliquis was resumed. From cardiology's perspective the patient is stable. She was seen and examined this morning, doing well, no complaints. Blood pressure 112/78 with a heart rate in the 70s, 95% on 2 L of oxygen. White blood cell count 11.9, hemoglobin 7.9, platelet count 246. Sodium 139, potassium 4.4, BUN 67, creatinine 1.5. Objective - Vital Signs Vital signs: Vital Signs Temp 98.6 F 04/01/19 08:00 Pulse 76 04/01/19 11:19 Resp 18 04/01/19 08:00 BP 113/78 04/01/19 08:00 Pulse Ox 95 04/01/19 08:00 Intake & Output 03/31/19 04/01/19 04/01/19 18:59 06:59 18:59 Intake Total 360 Output Total 700 740 Balance -340 -740 Weight 88.6 kg Intake: Oral 360 Output: Urine 700 740 Other: Voiding Method Indwelling Catheter Indwelling Catheter Indwelling Catheter # Bowel Movements 1 1 - Exam PHYSICAL EXAMINATION: GENERAL: 78-year-old female in no acute distress at the time of my examination HEENT: Head is atraumatic, normocephalic. Pupils equal, round. Sclera anicteric. Conjunctiva are clear. Mucous membranes of the mouth are moist. Neck is supple. There is no elevated jugular venous pressure.] bruit is heard. HEART EXAMINATION: Heart S1, S2 normal. No murmur or gallop heard. CHEST EXAMINATION: On's reveal scattered rhonchi and wheezing throughout. ABDOMEN: Soft, nontender. Bowel sounds are heard. No organomegaly noted. EXTREMITIES: 2+ peripheral pulses with no evidence of peripheral edema and no calf tenderness noted. NEUROLOGIC patient is awake, alert and oriented 3 . . - Labs CBC & Chem 7: 04/01/19 06:01 04/01/19 06:01 Labs: Abnormal Lab Results - Last 24 Hours (Table) 03/31/19 03/31/19 03/31/19 Range/Units 11:48 16:50 20:22 WBC (3.8-10.6) k/uL RBC (3.80-5.40) m/uL Hgb (11.4-16.0) gm/dL Hct (34.0-46.0) % MCV (80.0-100.0) fL MCH (25.0-35.0) pg MCHC (31.0-37.0) g/dL RDW (11.5-15.5) % Neutrophils # (1.3-7.7) k/uL Lymphocytes # (1.0-4.8) k/uL BUN (7-17) mg/dL Creatinine (0.52-1.04) mg/dL Glucose (74-99) mg/dL POC Glucose (mg/dL) 264 H 167 H 188 H (75-99) mg/dL Calcium (8.4-10.2) mg/dL 04/01/19 04/01/19 04/01/19 Range/Units 05:49 06:01 06:01 WBC 11.9 H (3.8-10.6) k/uL RBC 3.71 L (3.80-5.40) m/uL Hgb 7.9 L (11.4-16.0) gm/dL Hct 28.3 L (34.0-46.0) % MCV 76.4 L (80.0-100.0) fL MCH 21.3 L (25.0-35.0) pg MCHC 27.9 L (31.0-37.0) g/dL RDW 18.0 H (11.5-15.5) % Neutrophils # 10.5 H (1.3-7.7) k/uL Lymphocytes # 0.9 L (1.0-4.8) k/uL BUN 67 H (7-17) mg/dL Creatinine 1.53 H (0.52-1.04) mg/dL Glucose 148 H (74-99) mg/dL POC Glucose (mg/dL) 171 H (75-99) mg/dL Calcium 10.5 H (8.4-10.2) mg/dL 04/01/19 Range/Units 11:43 WBC (3.8-10.6) k/uL RBC (3.80-5.40) m/uL Hgb (11.4-16.0) gm/dL Hct (34.0-46.0) % MCV (80.0-100.0) fL MCH (25.0-35.0) pg MCHC (31.0-37.0) g/dL RDW (11.5-15.5) % Neutrophils # (1.3-7.7) k/uL Lymphocytes # (1.0-4.8) k/uL BUN (7-17) mg/dL Creatinine (0.52-1.04) mg/dL Glucose (74-99) mg/dL POC Glucose (mg/dL) 187 H (75-99) mg/dL Calcium (8.4-10.2) mg/dL Assessment and Plan Plan: Assessment and plan #1 chronic GI bleed with chronic blood loss anemia, Eliquis resumed yesterday #2 history of mitral valve repair #3 coronary artery disease with prior PCI, prior bypass surgery #4 hypertension #5 hyperlipidemia #6 history of heavy tobacco use in the past #7 COPD #8 troponin abnormality, not consistent with acute coronary syndrome with no significant rise and fall pattern. Plan From cardiology's perspective, we'll recommend to continue current medications. We will follow this patient along with you now on an as-needed basis only, please don't hesitate to call with any questions. DNP note has been reviewed, I agree with a documented findings and plan of care. Patient was seen and examined.
--- NOTE | 2019-04-01 12:06 | P.PN ---
Subjective Progress Note Date: 04/01/19 Principal diagnosis: Chronic GI bleed with chronic blood loss anemia, COPD, altered mentation On 04/01/2019 patient seen in follow-up on selective care unit, she is up in the recliner, she has her eyes closed, but she is answering questions does not appear to be in any acute distress, she remains on nasal oxygen her pulse ox is 95%, afebrile, hemodynamically patient is stable. Today's labs have been reviewed, showing white blood cell count of 11.9, hemoglobin of 7.9, elect rolytes within normal limits, B1 is 67, creatinine is 1.53. Patient was seen by gastroenterology, there have been no reports of GI bleeding, patient has been tolerating her diet. Patient denies any acute respiratory distress, lung sounds are diminished, no rhonchi or wheezing, patient's family decided to change her CODE STATUS to DO NOT RESUSCITATE, and today they decided to take the patient home with palliative care Objective - Vital Signs Vital signs: Vital Signs Temp 98.6 F 04/01/19 08:00 Pulse 76 04/01/19 11:19 Resp 18 04/01/19 08:00 BP 113/78 04/01/19 08:00 Pulse Ox 95 04/01/19 08:00 Intake & Output 03/31/19 04/01/19 04/01/19 18:59 06:59 18:59 Intake Total 360 Output Total 700 740 Balance -340 -740 Weight 88.6 kg Intake: Oral 360 Output: Urine 700 740 Other: Voiding Method Indwelling Catheter Indwelling Catheter Indwelling Catheter # Bowel Movements 1 1 - Exam GENERAL EXAM: Somnolent, but arousable, 78-year-old elderly female, has her eyes closed but she is answering simple questions comfortable in no apparent distress. HEAD: Normocephalic/atraumatic. EYES: Normal reaction of pupils, equal size. Conjunctiva pink, sclera white. NOSE: Clear with pink turbinates. THROAT: No erythema or exudates. NECK: No masses, no JVD, no thyroid enlargement, no adenopathy. CHEST: No chest wall deformity. Symmetrical expansion. LUNGS: Equal air entry with no crackles, wheeze, rhonchi or dullness. CVS: Regular rate and rhythm, normal S1 and S2, no gallops, no murmurs, no rubs ABDOMEN: Soft, nontender. No hepatosplenomegaly, normal bowel sounds, no guarding or rigidity. EXTREMITIES: No clubbing, no edema, no cyanosis, 2+ pulses and upper and lower extremities. MUSCULOSKELETAL: Muscle strength and tone normal. SPINE: No scoliosis or deformity SKIN: No rashes CENTRAL NERVOUS SYSTEM: Somnolent but oriented -2. No focal deficits, tone is normal in all 4 extremities. - Labs CBC & Chem 7: 04/01/19 06:01 04/01/19 06:01 Labs: Abnormal Lab Results - Last 24 Hours (Table) 03/31/19 03/31/19 03/31/19 Range/Units 11:48 16:50 20:22 WBC (3.8-10.6) k/uL RBC (3.80-5.40) m/uL Hgb (11.4-16.0) gm/dL Hct (34.0-46.0) % MCV (80.0-100.0) fL MCH (25.0-35.0) pg MCHC (31.0-37.0) g/dL RDW (11.5-15.5) % Neutrophils # (1.3-7.7) k/uL Lymphocytes # (1.0-4.8) k/uL BUN (7-17) mg/dL Creatinine (0.52-1.04) mg/dL Glucose (74-99) mg/dL POC Glucose (mg/dL) 264 H 167 H 188 H (75-99) mg/dL Calcium (8.4-10.2) mg/dL 04/01/19 04/01/19 04/01/19 Range/Units 05:49 06:01 06:01 WBC 11.9 H (3.8-10.6) k/uL RBC 3.71 L (3.80-5.40) m/uL Hgb 7.9 L (11.4-16.0) gm/dL Hct 28.3 L (34.0-46.0) % MCV 76.4 L (80.0-100.0) fL MCH 21.3 L (25.0-35.0) pg MCHC 27.9 L (31.0-37.0) g/dL RDW 18.0 H (11.5-15.5) % Neutrophils # 10.5 H (1.3-7.7) k/uL Lymphocytes # 0.9 L (1.0-4.8) k/uL BUN 67 H (7-17) mg/dL Creatinine 1.53 H (0.52-1.04) mg/dL Glucose 148 H (74-99) mg/dL POC Glucose (mg/dL) 171 H (75-99) mg/dL Calcium 10.5 H (8.4-10.2) mg/dL // Range/Units 11:43 WBC (3.8-10.6) k/uL RBC (3.80-5.40) m/uL Hgb (11.4-16.0) gm/dL Hct (34.0-46.0) % MCV (80.0-100.0) fL MCH (25.0-35.0) pg MCHC (31.0-37.0) g/dL RDW (11.5-15.5) % Neutrophils # (1.3-7.7) k/uL Lymphocytes # (1.0-4.8) k/uL BUN (7-17) mg/dL Creatinine (0.52-1.04) mg/dL Glucose (74-99) mg/dL POC Glucose (mg/dL) 187 H (75-99) mg/dL Calcium (8.4-10.2) mg/dL Assessment and Plan Plan: Assessment: #1. Chronic gastrointestinal bleeding with chronic blood loss anemia #2. Chronic obstructive pulmonary disease stage II/stage III with an FEV1 of 52% of predicted, mildly active #3. Previous history of heavy tobacco use #4. Hyperlipidemia #5. Benign essential hypertension #6. GERD/reflux #7. History of chronic atrial fibrillation #8. History of C. diff colitis #9. Status post mitral valve repair #10. Status post coronary artery stenting #11. Valvular heart disease in the form of moderate mitral regurgitation, mild mitral stenosis, moderate to severe tricuspid regurgitation and pulmonary hypertension #12. Status post bypass grafting Plan: Patient's family decided to take patient home with palliative care, hospice has been consulted, and currently arrangements are underway for discharge home possibly today, patient would he has a hospital bed at home, discharge planning will check with the patient for any other needs or equipment at home. From pulmonary perspective patient denies shortness of breath, she remains on some supplemental oxygen, appears to be in no acute distress, patient can continue on Symbicort, and DuoNeb. Pulmonary service will sign off, and follow on as-needed basis. I performed a history & physical examination of the patient and discussed their management with my nurse practitioner, Eve Michel. I reviewed the nurse practitioner's note and agree with the documented findings and plan of care. Lung sounds are positive for diminished breath sounds. The findings and the impression was discussed with the patient. I attest to the documentation by the nurse practitioner. Time with Patient: Less than 30
== END 2019-04-01 14:00 | disposition home health service (06) | DRG 190 ==
LOC: EC 15:54 → 3SCARD 22:53
PROVIDERS: ADMIT Internal Medicine; ATTEND Internal Medicine
PROC: 5A09457 Assistance with Respiratory Ventilation, 24-96 Consecutive Hours, Continuous Positive Airway Pressure (ICD-10-PCS; principal; 2019-03-29)
DX: J44.1 Chronic obstructive pulmonary disease with (acute) exacerbation (principal); I50.23 Acute on chronic systolic (congestive) heart failure; I48.20 Chronic atrial fibrillation, unspecified; I13.0 Hypertensive heart and chronic kidney disease with heart failure and stage 1 through stage 4 chronic kidney disease, or unspecified chronic kidney disease; J96.11 Chronic respiratory failure with hypoxia; I42.9 Cardiomyopathy, unspecified; E66.9 Obesity, unspecified; Z68.31 Body mass index [BMI] 31.0-31.9, adult; E78.5 Hyperlipidemia, unspecified; E83.51 Hypocalcemia; I08.1 Rheumatic disorders of both mitral and tricuspid valves; I25.10 Atherosclerotic heart disease of native coronary artery without angina pectoris; I27.20 Pulmonary hypertension, unspecified; K21.9 Gastro-esophageal reflux disease without esophagitis; K25.9 Gastric ulcer, unspecified as acute or chronic, without hemorrhage or perforation; K29.50 Unspecified chronic gastritis without bleeding; K59.00 Constipation, unspecified; M19.91 Primary osteoarthritis, unspecified site; N18.3 Chronic kidney disease, stage 3 (moderate); Z51.5 Encounter for palliative care; Z66 Do not resuscitate; Z79.51 Long term (current) use of inhaled steroids; Z79.899 Other long term (current) drug therapy; Z80.3 Family history of malignant neoplasm of breast; Z80.49 Family history of malignant neoplasm of other genital organs; Z82.49 Family history of ischemic heart disease and other diseases of the circulatory system; Z85.42 Personal history of malignant neoplasm of other parts of uterus; Z86.19 Personal history of other infectious and parasitic diseases; Z87.11 Personal history of peptic ulcer disease; Z87.891 Personal history of nicotine dependence; Z90.49 Acquired absence of other specified parts of digestive tract; Z90.710 Acquired absence of both cervix and uterus; Z95.1 Presence of aortocoronary bypass graft; Z95.5 Presence of coronary angioplasty implant and graft; Z99.81 Dependence on supplemental oxygen; D50.9 Iron deficiency anemia, unspecified; D50.0 Iron deficiency anemia secondary to blood loss (chronic)
CPT/HCPCS: 36415; 71045; 71046; 80048; 80053; 81001; 82140; 82272; 82550; 82607; 82728; 82746; 82805; 83540; 83550; 83605; 83690; 83735; 83880; 84484; 85025; 85045; 85610; 85730; 86850; 86900; 86901; 93005; 94640; 94660; 94760; 96361; 96372; 96374; 96375; 99285